=== PATIENT | male | born 1960 | race Caucasian/White ===

== ENCOUNTER 2020-04-14 07:00 | Emergency (ER) | payer OTHER, SELFPAY ==
[2020-04-14 07:15] VITALS: BP 163/94; PULSE 64; RESP 18; TEMP 36.8; O2SAT 98; BMI 39.5
--- NOTE | 2020-04-14 07:23 | PC.NURSE ---
during triage pt states i cant take my sweatshirt off because im carrying a firearm yanno cause we are in [place]. charge and security made aware of situation.
--- NOTE | 2020-04-14 07:36 | ED.GENADULT ---
HPI - General Adult General Chief complaint: General Medical Stated complaint: covid symptoms Time Seen by Provider: 04/14/20 07:26 Source: patient Mode of arrival: ambulatory Limitations: no limitations History of Present Illness HPI narrative: patient without any significant lung issues in the past came here for COVID testing as having headache body ache for last 3 days with dry cough patient's roommate boyfriend was positive for COVID. Patient been testing his oxygen which is around 98% at room air patient denies any fever Onset (ago): day(s) (3) Related Data Home Medications Medication Instructions Recorded Confirmed aspirin 81 mg tablet,delayed 81 mg PO DAILY 03/19/20 03/19/20 release atorvastatin 20 mg tablet 20 mg PO DAILY 03/19/20 03/19/20 baclofen 10 mg tablet 20 mg PO DAILY tab 03/19/20 03/19/20 diazepam 5 mg tablet 5 mg PO BEDTIME PRN 03/19/20 03/19/20 diltiazem HCl 360 mg capsule,24 360 mg PO DAILY 03/19/20 03/19/20 hr,extended release duloxetine 60 mg capsule,delayed 60 mg PO DAILY 03/19/20 03/19/20 release hydrocodone 5 mg-acetaminophen 325 1 tab PO BID PRN 03/19/20 03/19/20 mg tablet lisinopril 10 mg tablet 10 mg PO DAILY 03/19/20 03/19/20 meloxicam 15 mg tablet 15 mg PO DAILY 03/19/20 03/19/20 omeprazole 20 mg capsule,delayed 20 mg PO DAILY 03/19/20 03/19/20 release oxybutynin chloride 5 mg tablet 5 mg PO DAILY 03/19/20 03/19/20 trazodone 100 mg tablet 100 mg PO DAILY 03/19/20 03/19/20 Allergies Allergy/AdvReac Type Severity Reaction Status Date / Time Penicillins [PCN] Allergy Unknown RASH Verified 03/19/20 14:26 Penicillins Allergy Unknown rash Uncoded 03/19/20 14:26 Tylox Allergy Unknown unknown Uncoded 03/19/20 14:26 Review of Systems Review of Systems: REVIEW OF SYSTEMS: Pertinent positives and negatives are stated above in the history. GEN: no fevers, chills, fatigue ++ HEENT: no nasal congestion, sore throat, ear pain NEURO: no headache, dizziness, focal weakness PULM:dry cough+ , no shortness of breath CV: no chest pain, palpitations, LE edema ABD: no abdominal pain, nausea, vomiting, diarrhea : no dysuria, urgency, frequency SKIN: no rash ROS otherwise negative x 10 [facility] Past Medical History Medical History Afib Carpal tunnel syndrome on both sides Failed back syndrome of lumbar spine Hernia HTN (hypertension) Family History Family History Father Heart attack HTN (hypertension) Mother HTN (hypertension) Heart attack Social History Social History Alcohol intake: never Smoking Status: Never smoker Smoked in Last 30 Days: No Use of substances other than those prescribed or required for medical reasons: No Advance Directives: No Advance Directives Information Provided: No Physical Exam Vital Signs: Vital Signs: Last Vital Signs Temp 98.2 F 04/14/20 07:15 Pulse 64 04/14/20 07:15 Resp 18 04/14/20 07:15 BP 163/94 H 04/14/20 07:15 Pulse Ox 98 04/14/20 07:15 Body Mass Index 39.5 Appearance: Alert. Oriented X3. No acute distress. Eyes: Pupils equal, round and reactive to light. ENT: Pharynx normal. Neck: Normal inspection. Neck supple. CVS: Normal heart rate and rhythm. Pulses normal. Respiratory: No respiratory distress. Breath sounds normal. Abdomen: Soft and nontender. Skin: Skin warm and dry. Normal skin color. Normal skin turgor. Extremities: No lower extremity edema. Good range of movement Neuro: Oriented X 3. No motor deficit. No sensory deficit. Medical Decision Making MDM Narrative Medical decision making narrative: patient likely with COVID 19 infection clinically stable lungs are clear saturating 98% at room air patient has pulse ox machine at home will continue to check his pulse ox at home advised to come to the ER if pulse ox drops less than 94%. COVID testing was done patient educated about COVID and social distancing Discharge Plan Discharge Clinical Impression: Close exposure to 2019 novel coronavirus Patient Disposition: Home, Self-Care Instructions: COVID-19 (Coronavirus Disease 2019) (ED) Additional Instructions: Tylenol for headache, keep social distancing your result will come in next 2-3 days and will inform you Prescriptions: No Action omeprazole 20 mg capsule,delayed release(DR/EC) 20 mg PO DAILY RF: 0 aspirin 81 mg tablet,delayed release (DR/EC) 81 mg PO DAILY RF: 0 atorvastatin 20 mg tablet 20 mg PO DAILY RF: 0 baclofen 10 mg tablet 20 mg PO DAILY RF: 0 diazepam 5 mg tablet 5 mg PO BEDTIME PRNRF: 0 diltiazem HCl 360 mg capsule,extended release 24 hr 360 mg PO DAILY RF: 0 duloxetine 60 mg capsule,delayed release(DR/EC) 60 mg PO DAILY RF: 0 hydrocodone-acetaminophen 5-325 mg tablet 1 tab PO BID PRNRF: 0 meloxicam 15 mg tablet 15 mg PO DAILY RF: 0 lisinopril 10 mg tablet 10 mg PO DAILY RF: 0 trazodone 100 mg tablet 100 mg PO DAILY RF: 0 oxybutynin chloride 5 mg tablet 5 mg PO DAILY RF: 0 Interventions: ED Discharge Assessment Last Done: 04/14/20 07:30 Discharge Date/Time: 04/14/20 07:31
== END 2020-04-14 07:31 | disposition home or self-care (01) ==
LOC: HO.ED 07:27
PROVIDERS: Emergency Provider Internal Medicine
DX: R05 Cough (principal); M79.10 Myalgia, unspecified site; R51.9 Headache, unspecified; Z79.899 Other long term (current) drug therapy; Z20.828 Contact with and (suspected) exposure to other viral communicable diseases
CPT/HCPCS: 99283; U0003

== ENCOUNTER 2020-06-18 10:43 | Outpatient (REF) | payer OTHER, SELFPAY ==
[2020-06-18 14:26] LABS: Alanine Aminotransferase 16 U/L (0-40); Albumin Level 4.5 g/dL (3.5-5.0); Alkaline Phosphatase 117 U/L (39-117); Anion Gap 14 (12-20); Aspartate Amino Transferase 18 U/L (5-37); Bilirubin Total 0.6 mg/dL (0.0-1.0); Blood Urea Nitrogen 13 mg/dL (9-16); Calcium 8.8 mg/dL (8.4-10.2); Carbon Dioxide 24 mmol/L (22-29); Chloride 105 mmol/L (96-108); Cholesterol 174 mg/dL; Estimated Glomerular Filt Rate > 60; Glucose Fasting 90 mg/dL (60-99); HDL Cholesterol 49 mg/dL; LDL Cholesterol Calculated 109 mg/dl; Sodium 139 mmol/L (135-145); Total Protein 7.4 g/dL (6.5-8.0); Triglycerides 81 mg/dL
[2020-06-18 14:48] LABS: Prostate Specific Antigen Scr 0.27 ng/mL (<0.05-4.0); TSH reflex Free T4 1.11 uIU/mL (0.32-4.0)
== END 2020-06-18 10:44 | disposition home or self-care (01) ==
LOC: HO.HMGCLDS 10:43
PROVIDERS: PCP Nurse Practitioner Family; Visit Provider Nurse Practitioner Family
DX: Z00.00 Encounter for general adult medical examination without abnormal findings (principal); Z12.5 Encounter for screening for malignant neoplasm of prostate
CPT/HCPCS: 36415; 80053; 80061; 84153; 84443

== ENCOUNTER → 2020-07-03 14:10 | Outpatient (BNVA) | payer OTHER, SELFPAY | PROVIDERS: PCP Nurse Practitioner Family; Visit Provider Anesthesiology | DX: R25.2 Cramp and spasm (principal); M51.36 Other intervertebral disc degeneration, lumbar region; M47.816 Spondylosis without myelopathy or radiculopathy, lumbar region; M47.817 Spondylosis without myelopathy or radiculopathy, lumbosacral region; G89.4 Chronic pain syndrome | CPT/HCPCS: 99202 ==

== ENCOUNTER 2020-07-05 11:00 | Outpatient (RCR) | payer OTHER, SELFPAY ==
--- NOTE | 2020-06-25 14:28 | MHC.PT.EP ---
[facility] [place] Office [place] Office [place] Office [address] [phone] F: [phone] F: [phone] F: [phone] F: [phone] Physical Therapy Plan of Care Date of Evaluation: 06/25/20 Date of Surgery: Diagnosis: Pain in R shoulder. Assessment: Pt is a 59 y/o male referred to PT for R shoulder pain who presents with signs and sx consistent with R shoulder dysfunction resulting in decreased tolerance and ability to perform reaching a high shelf, dressing pullovers, reaching his neck and back for hygiene/ dressing and carrying objects of weight as well as disturbed sleep secondary to decreased UE strength and ROM, decreased posture, increased tissue tension and pain. Pt is deemed an appropriate candidate to receive skilled PT in order to address his physical limitations to improve his functional ability. Frequency and Duration: The patient will be seen 2 x / wk x 5 wks. Short Term Goals: In 1 week: initiate HEP with evidence of compliance. In 3 weeks: improve baseline pain from 7/10 to < 4/10. Security Architect Goals: In 5 weeks: Pt will be able to place objects on high shelf with managed Sx. In 5 weeks: improve R shoulder flexion MMT to > 4/5, initial 4-/5 limited by pain. Treatment Plan: Modalities to reduce pain, spasms and effusion. Manual therapy to restore motion and function. Therapeutic exercise to improve strength and flexibility. Neuromuscular re-education for posture and balance. Therapeutic activities to return to functional activities of daily living. Electronically signed by: Mal Greene PT. Please sign and return to therapist. Thank you for your referral.
--- NOTE | 2020-09-05 15:48 | MHC.PT.DC ---
[facility] [place] Office [place] Office [place] Office [address] Carlos Jones 140 [facility] [phone] F: [phone] F: [phone] F: [phone] F: [phone] Physical Therapy Discharge Report Diagnosis: Pain in R shoulder. Date of Surgery: Date of Evaluation: 06/25/20 Date of Discharge: Treatments to Date: 2 Cancellations to Date: 0 No Shows to Date: 0 Discharge Status: Patient Elected to Stop Discharge Summary: Electronically signed by: Mal Greene PT. Please sign and return to therapist. Thank you for your referral.
== END 2020-09-05 15:52 | disposition home or self-care (01) ==
LOC: HO.PTCHIC 11:00
PROVIDERS: Visit Provider Nurse Practitioner Family
DX: M25.511 Pain in right shoulder (principal)
CPT/HCPCS: 97014; 97110; 97161

== ENCOUNTER → 2020-08-01 10:03 | Outpatient (BNVA) | payer OTHER, SELFPAY | PROVIDERS: PCP Nurse Practitioner Family; Visit Provider Anesthesiology | DX: M51.36 Other intervertebral disc degeneration, lumbar region (principal); M47.816 Spondylosis without myelopathy or radiculopathy, lumbar region; M47.817 Spondylosis without myelopathy or radiculopathy, lumbosacral region; G89.4 Chronic pain syndrome; R25.2 Cramp and spasm; Z79.899 Other long term (current) drug therapy | CPT/HCPCS: Q3014 ==

== ENCOUNTER 2020-09-25 10:42 | Outpatient (REF) | payer OTHER, SELFPAY ==
[2020-09-25 14:48] LABS: TSH reflex Free T4 0.96 uIU/mL (0.32-4.0)
[2020-09-25 14:50] LABS: Alanine Aminotransferase 22 U/L (0-40); Albumin Level 4.5 g/dL (3.5-5.0); Alkaline Phosphatase 118 U/L (39-117); Anion Gap 13 (12-20); Aspartate Amino Transferase 18 U/L (5-37); Bilirubin Total 0.6 mg/dL (0.0-1.0); Blood Urea Nitrogen 12 mg/dL (9-16); Calcium 9.1 mg/dL (8.4-10.2); Carbon Dioxide 27 mmol/L (22-29); Chloride 104 mmol/L (96-108); Estimated Glomerular Filt Rate > 60; Glucose Fasting 99 mg/dL (60-99); Potassium 4.2 mmol/L (3.3-5.1); Sodium 140 mmol/L (135-145); Total Protein 7.5 g/dL (6.5-8.0)
== END 2020-09-25 10:43 | disposition home or self-care (01) ==
LOC: HO.HMGCLDS 10:42
PROVIDERS: PCP Nurse Practitioner Family; Visit Provider Nurse Practitioner Family
DX: G89.4 Chronic pain syndrome (principal)
CPT/HCPCS: 36415; 80053; 84443

== ENCOUNTER → 2020-10-16 10:19 | Outpatient (BNVA) | payer OTHER, SELFPAY | PROVIDERS: PCP Nurse Practitioner Family; Referring Provider Nurse Practitioner Family; Visit Provider Internal Medicine | DX: I48.0 Paroxysmal atrial fibrillation (principal); I10 Essential (primary) hypertension; G47.33 Obstructive sleep apnea (adult) (pediatric) | CPT/HCPCS: 93005; 99212 ==

== ENCOUNTER → 2020-10-30 13:41 | Outpatient (REF) | payer OTHER, SELFPAY ==
--- NOTE | 2020-10-30 13:50 | ECG_ITS ---
Hook-up date: 2020-10-30 13:54:00 Duration: 24:37:00 Test Indications: PAF Medications: 93126 QRS complexes 57 Ventricular ectopics which represent <1 % of total QRS comp. 62 Supraventricular ectopics which represent <1 % of total QRS comp. * Paced QRS complexs which represent % of total QRS comp. VENTRICULAR ECTOPY 57 Isolated 0 Bigeminal Cycles 0 Couplets 0 Runs 0 Beats in Runs * Beats LONGEST at * BPM at :: -- * Beats FASTEST at * BPM at :: -- SUPRAVENTRICULAR ECTOPY 37 Isolated 6 Couplets 3 Runs 13 Beats in Runs 5 Beats LONGEST at 107 BPM at 04:20:58 2020-10-31 5 Beats FASTEST at 122 BPM at 11:54:51 2020-10-31 HEART RATES 41 MIN at 08:17:32 2020-10-31 66 AVG 108 MAX at 19:18:01 2020-10-30 LONGEST RR 1.5120 secs at 08:17:33 2020-10-31 S-T LEVELS Channel 1 - 128 mm at 13:54:00 2020-10-30 - 128 mm at 13:54:00 2020-10-30 Channel 2 - 128 mm at 13:54:00 2020-10-30 - 128 mm at 13:54:00 2020-10-30 Channel 3 - 128 mm at 03:31:31 -- - 128 mm at 03:31:31 Basic rhythm Normal sinus rhythm No long pause or profound bradycardia Frequent Sinus bradycardia , 33% of time HR < 60 bpm Rare ectopics No sustained Atrial fibrillation Patient did not report any symptoms in the diary Referred By: Jhonny Ballard Overread By: LÁZARO BECKWITH MD
== END ==
LOC: HO.CARD 13:41
PROVIDERS: Visit Provider Internal Medicine
DX: I48.0 Paroxysmal atrial fibrillation (principal)
CPT/HCPCS: 93225; 93226

== ENCOUNTER 2020-11-26 05:48 | Outpatient (REF) | payer OTHER, SELFPAY ==
--- NOTE | ~2020-11-26 | FL_ITS ---
EXAMINATION: XR FLUOROSCOPY WITH IMAGES CLINICAL INFORMATION: G89.4 - Chronic pain syndrome COMPARISON: CT abdomen and pelvis 06/19/2019 TECHNIQUE: Fluoroscopy performed by Megan Fitzgerald NP. Fluoroscopy time: 0.1 minutes DAP: 2.82 Gycm2 Images: 1 FINDINGS: There is interlaminar spinal needle at level of L2-L3. There is some mild spurring of the lumbar vertebral bodies and degenerative disc changes L1-L2. FL/FL guidance in treatment room IMPRESSION: Fluoroscopy for pain management procedure.
== END 2020-11-26 05:49 | disposition home or self-care (01) ==
LOC: HO.RADIR 05:48
PROVIDERS: Visit Provider Anesthesiology
DX: G89.4 Chronic pain syndrome (principal); M96.1 Postlaminectomy syndrome, not elsewhere classified; M51.36 Other intervertebral disc degeneration, lumbar region; M47.816 Spondylosis without myelopathy or radiculopathy, lumbar region; M47.817 Spondylosis without myelopathy or radiculopathy, lumbosacral region; R25.2 Cramp and spasm
CPT/HCPCS: 62323; J1170; Q9967

== ENCOUNTER → 2020-12-03 13:39 | Outpatient (BNVA) | payer OTHER, SELFPAY | PROVIDERS: PCP Nurse Practitioner Family; Visit Provider Nurse Practitioner Family | DX: M51.36 Other intervertebral disc degeneration, lumbar region (principal); R25.2 Cramp and spasm; M47.816 Spondylosis without myelopathy or radiculopathy, lumbar region; M47.817 Spondylosis without myelopathy or radiculopathy, lumbosacral region; G89.4 Chronic pain syndrome | CPT/HCPCS: 99212 ==

== ENCOUNTER 2020-12-31 06:10 | Outpatient (REF) | payer OTHER, SELFPAY | END 2020-12-31 06:11 | disposition home or self-care (01) | LOC: HO.RADIR 06:10 | PROVIDERS: Visit Provider Anesthesiology | DX: Z13.89 Encounter for screening for other disorder (principal) | CPT/HCPCS: J1170; Q9967 ==

== ENCOUNTER 2021-01-14 06:19 | Outpatient (REF) | payer OTHER, SELFPAY ==
--- NOTE | ~2021-01-14 | FL_ITS ---
EXAMINATION: XR FLUOROSCOPY WITH IMAGES CLINICAL INFORMATION: Chronic pain syndrome COMPARISON: Previous exam 11/26/2020 TECHNIQUE: Fluoroscopy performed by Megan Fitzgerald NP. Fluoroscopy time: 0.4 minutes DAP: 22 Gycm2 Images: 2 FINDINGS: Images demonstrate needle projecting over the spinal canal at the L1-L2 level. FL/FL guidance in treatment room IMPRESSION: Fluoroscopy guidance for pain management procedure.
== END 2021-01-14 06:20 | disposition home or self-care (01) ==
LOC: HO.RADIR 06:19
PROVIDERS: Visit Provider Anesthesiology
DX: G89.4 Chronic pain syndrome (principal); M96.1 Postlaminectomy syndrome, not elsewhere classified; R25.2 Cramp and spasm; M47.816 Spondylosis without myelopathy or radiculopathy, lumbar region; M47.817 Spondylosis without myelopathy or radiculopathy, lumbosacral region; M51.36 Other intervertebral disc degeneration, lumbar region
CPT/HCPCS: 62323; J1170; Q9967

== ENCOUNTER → 2021-01-22 10:13 | Outpatient (BNVA) | payer OTHER, SELFPAY | PROVIDERS: PCP Nurse Practitioner Family; Visit Provider Anesthesiology | DX: M51.36 Other intervertebral disc degeneration, lumbar region (principal); M47.816 Spondylosis without myelopathy or radiculopathy, lumbar region; M47.817 Spondylosis without myelopathy or radiculopathy, lumbosacral region; R25.2 Cramp and spasm; G89.4 Chronic pain syndrome | CPT/HCPCS: 99212 ==

== ENCOUNTER → 2021-01-29 10:54 | Outpatient (BNVA) | payer OTHER, SELFPAY | PROVIDERS: PCP Nurse Practitioner Family; Visit Provider Internal Medicine | DX: I48.0 Paroxysmal atrial fibrillation (principal); I10 Essential (primary) hypertension; G47.33 Obstructive sleep apnea (adult) (pediatric) | CPT/HCPCS: Q3014 ==

== ENCOUNTER 2021-03-18 05:45 | Outpatient (REF) | payer OTHER, SELFPAY ==
--- NOTE | ~2021-03-18 | FL_ITS ---
EXAMINATION: XR FLUOROSCOPY WITH IMAGES CLINICAL INFORMATION: Chronic pain syndrome. COMPARISON: 01/14/2021. TECHNIQUE: Fluoroscopy performed by Megan Fitzgerald. Fluoroscopy time: 0.3 minutes DAP: 5.4 Gycm2 Images: 1 FINDINGS: Lateral view of the lumbar spine demonstrates an interlaminar spinal needle at the level of L2-L3. FL/FL guidance in treatment room IMPRESSION: Fluoroscopic guidance for pain management procedure.
== END 2021-03-18 05:46 | disposition home or self-care (01) ==
LOC: HO.RADIR 05:45
PROVIDERS: Visit Provider Anesthesiology
DX: G89.4 Chronic pain syndrome (principal); M96.1 Postlaminectomy syndrome, not elsewhere classified; M51.36 Other intervertebral disc degeneration, lumbar region; M47.817 Spondylosis without myelopathy or radiculopathy, lumbosacral region; R25.2 Cramp and spasm
CPT/HCPCS: 62323; J3010; Q9967

== ENCOUNTER 2021-03-26 10:02 | Outpatient (REF) | payer OTHER, SELFPAY ==
[2021-03-26 11:59] LABS: Appearance Urine CLEAR; Color Urine YELLOW; Glucose Urine UA NEG (NEG); Leukocyte Esterase Urine NEG (NEG); Nitrite Urine NEG (NEG); PH 6.5 (5.0-8.0); Specific Gravity - Urine 1.015 (1.005-1.025); Urine Blood NEG (NEG); Urine Ketones NEG (NEG); Urine Protein NEG (NEG-TRACE)
[2021-03-26 12:25] LABS: Alanine Aminotransferase 17 U/L (0-40); Albumin Level 4.4 g/dL (3.5-5.0); Alkaline Phosphatase 104 U/L (39-117); Anion Gap 12 (12-20); Aspartate Amino Transferase 16 U/L (5-37); Bilirubin Total 0.5 mg/dL (0.0-1.0); Blood Urea Nitrogen 12 mg/dL (9-16); Calcium 9.2 mg/dL (8.4-10.2); Carbon Dioxide 25 mmol/L (22-29); Chloride 108 mmol/L (96-108); Cholesterol 154 mg/dL; Estimated Glomerular Filt Rate > 60; Glucose Fasting 96 mg/dL (60-99); HDL Cholesterol 45 mg/dL; LDL Cholesterol Calculated 94 mg/dl; Sodium 141 mmol/L (135-145); Total Protein 7.3 g/dL (6.5-8.0); Triglycerides 75 mg/dL
[2021-03-26 12:47] LABS: TSH reflex Free T4 0.76 uIU/mL (0.32-4.0)
== END 2021-03-26 10:03 | disposition home or self-care (01) ==
LOC: HO.LAB 10:02
PROVIDERS: Absent Provider Nurse Practitioner Family; PCP Nurse Practitioner Family; Visit Provider Anesthesiology
DX: F41.9 Anxiety disorder, unspecified (principal); R25.2 Cramp and spasm; M51.36 Other intervertebral disc degeneration, lumbar region; M47.816 Spondylosis without myelopathy or radiculopathy, lumbar region; M47.817 Spondylosis without myelopathy or radiculopathy, lumbosacral region; G89.4 Chronic pain syndrome
CPT/HCPCS: 36415; 80053; 80061; 81003; 84443; 99212

== ENCOUNTER 2021-04-22 | Outpatient (REF) | payer OTHER, SELFPAY ==
--- NOTE | ~2021-04-22 | FL_ITS ---
EXAMINATION: XR FLUOROSCOPY WITH IMAGES CLINICAL INFORMATION: M96.1 - Postlaminectomy syndrome, not elsewhere classified COMPARISON: Fluoroscopic spot view lumbar spine 03/18/2021 TECHNIQUE: Fluoroscopy performed by Dr. Cosmo Thomas. Fluoroscopy time: 0.1 minutes DAP: 2.25 Gycm2 Images: 2 FINDINGS: There is a spinal needle at midline interlaminar space approximately L3-L4. No vertebral compression or spondylolisthesis demonstrated. FL/FL guidance in treatment room IMPRESSION: Fluoroscopy for pain management procedure.
== END 2021-04-22 00:01 | disposition home or self-care (01) ==
LOC: HO.RADIR
PROVIDERS: Visit Provider Anesthesiology
DX: Z13.89 Encounter for screening for other disorder (principal)

== ENCOUNTER → 2021-04-22 11:27 | Outpatient (BNVA) | payer OTHER, SELFPAY | PROVIDERS: PCP Nurse Practitioner Family; Visit Provider Anesthesiology | DX: M96.1 Postlaminectomy syndrome, not elsewhere classified (principal); G89.4 Chronic pain syndrome; M51.36 Other intervertebral disc degeneration, lumbar region; M47.816 Spondylosis without myelopathy or radiculopathy, lumbar region; M47.817 Spondylosis without myelopathy or radiculopathy, lumbosacral region; R25.2 Cramp and spasm | CPT/HCPCS: 62323; Q9967 ==

== ENCOUNTER → 2021-04-30 12:47 | Outpatient (BNVA) | payer OTHER, SELFPAY | PROVIDERS: PCP Nurse Practitioner Family; Visit Provider Anesthesiology | DX: M51.36 Other intervertebral disc degeneration, lumbar region (principal); M47.816 Spondylosis without myelopathy or radiculopathy, lumbar region; M47.817 Spondylosis without myelopathy or radiculopathy, lumbosacral region; G89.4 Chronic pain syndrome; R25.2 Cramp and spasm | CPT/HCPCS: 99212 ==

== ENCOUNTER → 2021-06-11 11:37 | Outpatient (BNVA) | payer OTHER, SELFPAY | PROVIDERS: PCP Nurse Practitioner Family; Visit Provider Anesthesiology | DX: M47.816 Spondylosis without myelopathy or radiculopathy, lumbar region (principal); M47.817 Spondylosis without myelopathy or radiculopathy, lumbosacral region; G89.4 Chronic pain syndrome; R25.2 Cramp and spasm | CPT/HCPCS: Q3014 ==

== ENCOUNTER 2021-07-24 10:50 | Day surgery (SDC) | payer OTHER, SELFPAY ==
[2021-07-22 16:51] VITALS: BMI 36.1
--- NOTE | ~2021-07-24 | FL_ITS ---
EXAMINATION: XR FLUOROSCOPY WITH IMAGES CLINICAL INFORMATION: Lumbar spinal cord stimulator trial COMPARISON: None. TECHNIQUE: Fluoroscopy performed by Dr. Cosmo Thomas. Fluoroscopy time: 5.2 minutes DAP: 35.7 Gycm2 Images: 8 FINDINGS: Spinal stimulator wiring is visualized extending along the thoracic spine. FL/FL guidance in OR IMPRESSION: Fluoroscopic guidance with spinal stimulator wiring extending to the thoracic levels. Please refer to operative report for further information.
[2021-07-24 11:04] VITALS: BP 143/84; PULSE 67; RESP 18; TEMP 36.7; O2SAT 99
--- NOTE | 2021-07-24 11:17 | MHC.SHP ---
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 Details of Present Illness: As above Relevant Family History (Specify if Yes): No Relevant Social History: None Present Medications: see Short Stay Collaborative assessment Medical History: No relevant PMH History of Previous Operations: No relevant previous surgery Allergies: Allergies Allergy/AdvReac Type Severity Reaction Status Date / Time oxycodone [From Tylox] Allergy Severe throat Verified 07/22/21 16:37 swelling Penicillins [PCN] Allergy Severe throat Verified 07/22/21 16:37 swelling Review of Systems Sugical H&P ROS: Negative: Constitution, Cardiovascular, Respiratory, Neurological, Psychiatric, Hem-Onc, Allergic/Immunologic, Gastrointestinal, Genitourinary, Musculoskeletal, Integumentary, Endocrine and Eyes/Ears/Nose/Throat Exam Surgical H&P Exam: Normal: HEENT, Normal: Heart, Normal: Lungs, Normal: Extremities, Normal: Abdomen, Normal: Skin and Normal: Neurological Plan Diagnosis/Plan: Unchanged I have reviewed the history and physical and performed a pertinent physical examination on my patient. No changes have occurred unless specified.
--- NOTE | 2021-07-24 11:18 | P.OP_ITS ---
Operative Note Operative Note Date of Service: 07/24/21 Narrative: Trial OF SCS. ? Mr Ross s very pleasant? 60 y.o male who came today into the operating room for trial of spinal cord stimulator Nevro for the treatment of post laminectomy syndrome. Preoperatively patient received Clindamicin 900 mg approximately 30 min before procedure. After obtaining informed consent patient was brought to the operating room, SHE was positioned prone on operating table, [place] [employer] monitors were applied and patient was deeply sedated.? The patient was taken inside of the operating room where he was positioned prone operating table.? Time-out was performed delineating correct site, side, the nature of the procedure, patient's allergy, preoperative antibiotic if needed.? All operating room staff was participating in OR time-out procedure. Patient's entire back was prepped with ChloraPrep twice and draped with full body fenestrated drape.? Sterilely draped C-arm was brought over operating field and sqare picture of T11-T12 L1 L2 vertebrae as were demonstrated on the screen.? Attention FIRST? was concentrated on the L1-L23 epidural interspace.? The location of the projection of the right pedicle center of the _L3 vertebra was found on the skin using C-arm.? This location was injected with mixture of lidocaine 2% and Marcaine 0.5% 5 cc.? After that 11 blade was used to make a keisha on the skin.? 10 cm 14 gauge introducer epidural needle was inserted through the keisha and advanced to L1-L2 epidural interspace.? The advancement of the needle was performed on anterior posterior and lateral views.?CHRISTINA to air was used to detect epidural space. Guitar wire and loss of resistance technique were used to locate epidural space.? When guitar wire was spread in the epidural fashion, epidural lead was inserted through the skin and it was advanced to top T8 position PRACTICALLY at THE MIDLINE.? After that location of the projection of the LEFT pedicle center of the L3 vertebra was found on the skin using C-arm.? This location was injected with mixture of lidocaine 2% and Marcaine 0.5% 5 cc.? After that 11 blade was used to make a keisha on the skin.? 10 cm 14 gauge curved introducer epidural needle was inserted through the keisha and advanced to L1- L2 epidural interspace.? The advancement of the needle was performed on anterior posterior and lateral views.? Guitar wire and loss of resistance technique were used to locate epidural space.? When guitar wire was spread in the epidural fashion, epidural lead was inserted through the needle and advanced to the T9 epidural interspace slightly left to the existing line.After satisfactory position of the leads were established the needles were withdrawn, the stylette wires were removed from the epidural leads.? The anchoring devices were dislodged on the leads and advanced to the level of the skin.? The anchoring devices were sutured with two 0-0 silk sutures to the skin of the patient.? The screws were tighten on the anchoring devices until 3 clicks were heard. The leads were connected to testing device.? Bacitracin ointment was applied to the entrance point of bilateral needles.? Sterile dressing was applied to the patient's back.? The testing device was also glued to the patient's back.?
--- NOTE | 2021-07-24 12:01 | HO.ANESPROP2 ---
HPI - Anesthesia Eval Consult details Narrative: Chronic Back pain PMFSH Active Problems Active Problems: All Active Problems (Updated 07/22/21 @ 16:40 by Monica Cole, RN) Physical exam (Acute) Screening PSA (prostate specific antigen) (Acute) Close exposure to 2019 novel coronavirus (Acute) Right shoulder pain (Acute) Cramps of lower extremity (Acute) Overactive bladder (Acute) PAF (paroxysmal atrial fibrillation) (Acute) ELIF (obstructive sleep apnea) (Acute) Anxiety (Acute) Essential hypertension (Acute) Nocturia (Acute) Chronic pain syndrome (Acute) Spondylosis of lumbosacral spine without myelopathy (Acute) Arthropathy of lumbar facet joint (Acute) Disc degeneration, lumbar (Acute) Failed back syndrome of lumbar spine (Acute) Afib (Acute) Past Medical History Medical History Afib Anxiety and depression Arthropathy of lumbar facet joint Carpal tunnel syndrome on both sides Chronic pain syndrome Disc degeneration, lumbar Essential hypertension Failed back syndrome of lumbar spine GERD (gastroesophageal reflux disease) Hernia HTN (hypertension) Hx of renal calculi Murmur Nocturia Spondylosis of lumbosacral spine without myelopathy Family History Family History Father Heart attack HTN (hypertension) Mother HTN (hypertension) Heart attack Family history of problems with anesthesia: No Surgical History Surgical History H/O arthroscopic knee surgery History of carpal tunnel release of both wrists Hx of cholecystectomy Hx of foot surgery Hx of hernia repair History of Problems with Anesthesia: No Social History Social History Housing: House Are you a primary life care planner to a significant other at home: No Do you presently have visiting nurse or other home services: No Alcohol intake: never Patient Tobacco Use Status: Never used Tobacco e-Cigarette/Vaping Use: Never Used Second Hand Smoke Exposure: No Use of substances other than those prescribed or required for medical reasons: No Have you been hit, kicked, punched, or otherwise hurt by someone within the past year? If so, by whom?: No Are you DNR?: No Advance Directives: No Advance Directives Information Provided: Yes Advance Directives on File: No Recently lost weight without trying: No service: No Current occupational status: disabled Meds Allergies Allergy/AdvReac Type Severity Reaction Status Date / Time oxycodone [From Tylox] Allergy Severe throat Verified 07/22/21 16:37 swelling Penicillins [PCN] Allergy Severe throat Verified 07/22/21 16:37 swelling Active Medications: Current Medications Clindamycin Phosphate (Cleocin) 900 mg in 50 mls @ 50 mls/hr IV PREOP ONE Stop: 07/24/21 12:02 Lactated Ringer's (Lr) 1,000 mls @ 50 mls/hr IVCONT .Q20H BIGG Home Medications Medication Instructions Recorded Confirmed Last Taken Type aspirin 81 mg tablet,delayed 81 mg PO DAILY 03/19/20 07/22/21 Unknown History release atorvastatin 20 mg tablet 20 mg PO BEDTIME 03/19/20 07/22/21 Unknown History duloxetine 60 mg capsule,delayed 60 mg PO DAILY 03/19/20 07/22/21 Unknown History release baclofen 10 mg tablet 20 mg PO BID 07/22/21 07/22/21 Unknown History Exam Exam Date and Time: July 24, 2021 1201 Height,Weight and Vital Signs: Height 5 ft 8 in Weight 107.955 kg Last Vital Signs Temp 98.1 F 07/24/21 11:04 Pulse 67 07/24/21 11:04 Resp 18 07/24/21 11:04 BP 143/84 H 07/24/21 11:04 Pulse Ox 99 07/24/21 11:04 Airway Mallampati Class: II TM Dist: >3cm Neck ROM: Full Loose/Missing/Broken Teeth: No Heart: rrr+s1s2 Lungs: cta b/l Assessment and Plan Assessment Anesthesia Assessment: Anesthesia Plan Discussed and Chart Reviewed Final Anesthetic Review Family History of Problems with Anesthesia: No History of Problems with Anesthesia: No NPO: Yes ASA Class: III Final Preanesthetic Review: No Changes in Pt Med Stat, Meds/Allgs Chart Reviewed, Consent Obtained/Reviewed and Anes Risks/Benef Reviewed Patient Risk: Intermediate Procedure Risk: Intermediate Assessment/Block/Sedation in SS: Assess/Block/Sedation-SS Anesthetic Plan Anesthetic Plan: MAC: and Agree w/ Assess. and Plan Disposition: Standard PACU
[2021-07-24 13:53] VITALS: BP 127/84; PULSE 60; RESP 18; TEMP 36.6; O2SAT 96
--- NOTE | 2021-07-24 13:59 | P.BOP_ITS ---
Brief Operative Note Date of Service: 07/24/21 Pre-op diagnosis: postlaminectomy syndrome Procedure: trial of the SCS Nevro Implants: none permanent Surgeon: Cosmo Thomas MD Anesthesia: MAC Was an Vibrating Screed Operator used for this Procedure?: No Estimated blood loss (mL): 6 Pathology: none sent Condition: stable Disposition: PACU
[2021-07-24 14:08] VITALS: BP 136/81; PULSE 58; RESP 16; O2SAT 100
== END 2021-07-24 16:07 | disposition home or self-care (01) ==
PROVIDERS: PCP Nurse Practitioner Family; Visit Provider Anesthesiology
PROC: (CPT 63650; principal; 2021-07-24 12:30)
DX: M47.817 Spondylosis without myelopathy or radiculopathy, lumbosacral region (principal); M47.816 Spondylosis without myelopathy or radiculopathy, lumbar region; G89.4 Chronic pain syndrome; M96.1 Postlaminectomy syndrome, not elsewhere classified; M51.36 Other intervertebral disc degeneration, lumbar region; M54.50 Low back pain, unspecified; R25.2 Cramp and spasm; Z88.0 Allergy status to penicillin; Z79.899 Other long term (current) drug therapy; I48.91 Unspecified atrial fibrillation; I10 Essential (primary) hypertension; Z98.890 Other specified postprocedural states
CPT/HCPCS: 63650 ×2; C1713; C1778; J2250; J2765

== ENCOUNTER → 2021-07-30 11:44 | Outpatient (REF) | payer OTHER, SELFPAY ==
--- NOTE | 2021-07-30 11:56 | CA_ITS ---
Transthoracic Echocardiogram Patient (Last, First, Middle): Richie Ross, Gender: Male Date of : 1960 Age: 60 Procedure Date: 07/30/2021 Procedure Type: Transthoracic Echocardiogram Location: OP Height: 172.72 cm Weight: 107.96 kg BSA: 2.20 m2 Heart Rate: bpm BP: 156 / 96 mmHg Catering Sous Chef: DSTaylor Referring MD: Jhonny Ballard MD Symptoms: I48.0 - Paroxysmal atrial fibrillation Study Quality: Fair ECG Rhythm: Sinus Conclusions: - The left ventricular systolic function is normal. The calculated ejection fraction is 65% by biplane method. - Trace to mild aortic regurgitation. - There is moderate anterior mitral leaflet thickening. - There is mild dilatation of the ascending aorta measuring 4.10 cm. Findings Left Ventricle Normal left ventricular cavity size. There is mildly increased left ventricular wall thickness. The left ventricular systolic function is normal. The calculated ejection fraction is 65% by biplane method. There is no evidence of regional wall motion abnormalities. Diastolic function is normal for age. There is moderate septal asymmetric hypertrophy. Right Ventricle Normal right ventricular cavity size and systolic function. Atria Both atria are normal in size. Aortic Valve There is a normal trileaflet aortic valve. There is no aortic valve stenosis. Trace to mild aortic regurgitation. Mitral Valve There is moderate anterior mitral leaflet thickening. There is mild mitral annular calcification. There is trace mitral valve regurgitation. There is no mitral valve stenosis. Pulmonic Valve The pulmonic valve was not well visualized. Tricuspid Valve There is trace tricuspid valve regurgitation. The pulmonary artery systolic pressure is normal. Great Vessels There is mild dilatation of the ascending aorta measuring 4.10 cm. Venous The inferior vena cava is normal in size and collapses greater than 50% with inspiration. Pericardium/Pleural There is no evidence of pericardial effusion. Prior Study Comparison No prior study available for comparison. Measurements 2D Linear Measurements IVSd: 1.36 0.6-0.9/0.6-1.0 cm LVIDd: 5.08 3.9-5.3/4.2-5.9 cm LVIDd Index: 2.31 2.4-3.2/2.2-3.1 cm/m2 LVIDs: 2.92 2.0-3.6 cm LVPWd: 1.14 0.7-1.1 cm LA Diam: 3.80 2.7-3.8/3.0-4.0 cm LAIDs Index: 1.73 1.5-2.3 cm/m2 LV Mass: 316.60 67-162/88-224 g LV Mass Index: 143.91 43-95/49-115 g/m2 LVOT Diam: 2.30 3.0+(-)1.3 cm 2D Systolic Function EF 4C: 57.30 >55% EF 2C: 73.80 >55% EF BiP: 65.20 >55% Mitral Valve MV Pk E: 0.98 MV PK A: 0.62 MV Decel Time: 187.00 E/A: 1.60 E'Lateral: 10.00 E'Medial: 7.40 E/E' Med: 13.30 E/E' Lat: 9.80 PHT: 55.00 MVA PHT: 4.00 Decel [place]: 5.23 Aortic Valve AoV Pk Joao: 1.24 AoV Pk Grad: 6.00 AI Pk Joao: 3.72 AI [place]: 1.41 LVOT LVOT Pk Joao: 1.12 LVOT Mn Joao: 0.73 LVOT VTI: 0.22 LVOT Pk Grad: 5.00 LVOT Mn Grad: 2.00 LVOT Diam: 2.30 LVOT Area: 4.15 Diastolic Function MV Pk E: 0.98 MV Pk A: 0.62 E/A: 1.60 E'Medial: 7.40 E/E' Med: 13.30 E' Laterial: 10.00 E/E' Lat: 9.80 Right Ventricle TAPSE (mm): 2.38 TVS' Joao: 16.90 Tricuspid Valve TR Pk Joao: 2.27 TR Pk Grad: 21.00 RA Press: 3.00 RVSP: 24.00 Great Vessels Aorta Sinus of Valsalva: 3.45 2.0-3.5 cm Ao Asc: 4.10 2.1-3.4 cm Updated in Other Vendor System with Status of Final Jhonny Ballard MD electronically signed on 08/01/2021 3:52:13 PM with status of Final
== END ==
LOC: HO.CARD 11:44
PROVIDERS: PCP Nurse Practitioner Family; Visit Provider Internal Medicine
DX: I48.0 Paroxysmal atrial fibrillation (principal); R25.2 Cramp and spasm; M51.36 Other intervertebral disc degeneration, lumbar region; M47.816 Spondylosis without myelopathy or radiculopathy, lumbar region; M47.817 Spondylosis without myelopathy or radiculopathy, lumbosacral region; G89.4 Chronic pain syndrome
CPT/HCPCS: 93306; 99212

== ENCOUNTER → 2021-08-04 12:20 | Outpatient (BNVA) | payer OTHER, SELFPAY | PROVIDERS: PCP Nurse Practitioner Family; Referring Provider Nurse Practitioner Family; Visit Provider Internal Medicine | DX: I48.0 Paroxysmal atrial fibrillation (principal); I77.89 Other specified disorders of arteries and arterioles; I10 Essential (primary) hypertension; G47.33 Obstructive sleep apnea (adult) (pediatric) | CPT/HCPCS: 99212 ==

== ENCOUNTER 2022-02-06 13:38 | Outpatient (REF) | payer OTHER, SELFPAY ==
--- NOTE | ~2022-02-06 | XR_ITS ---
EXAMINATION: XR HIP, RIGHT CLINICAL INFORMATION: Right hip pain COMPARISON: CT 06/19/2019 TECHNIQUE: Two views of the right hip. FINDINGS: Mild right hip osteoarthritis with superolateral narrowing and marginal osteophytes. No fracture. No focal osseous lesion or suspicious soft tissue calcification. XR/XR hip RT min 2V IMPRESSION: Mild right hip osteoarthritis, not significantly changed.
== END 2022-02-06 13:39 | disposition home or self-care (01) ==
LOC: HO.HMGCX 13:38
PROVIDERS: PCP Nurse Practitioner Family; Visit Provider Nurse Practitioner Family
DX: M25.551 Pain in right hip (principal)
CPT/HCPCS: 73502

== ENCOUNTER 2022-04-07 09:30 | Outpatient (REF) | payer OTHER, SELFPAY ==
--- NOTE | ~2022-04-07 | XR_ITS ---
EXAMINATION: XR KNEE AP STANDING CLINICAL INFORMATION: Pain right knee COMPARISON: None TECHNIQUE: AP bilateral standing view of the knees was obtained. Lateral view each knee FINDINGS: AP bilateral knee: There is minimal loss of medial compartment joint space both knees and lateral compartment left knee. There is evidence of previous left ACL repair. No bony erosive changes or loose body seen. Right knee lateral: There is a minimal loss of patellofemoral compartment joint space without loose bodies or bony erosive changes. There is superior patellar spurring. No joint effusion seen. There are no loose bodies. Left knee lateral: There is minimal loss of patellofemoral compartment joint space with superior patellar spurring. No visible acute fracture, loose body seen. XR/XR knee standing BI IMPRESSION: Degenerative arthritic changes medial and lateral compartment joint space both knees as described above. No fracture or dislocation. There is previous left knee ACL repair changes.
[2022-04-07 11:29] LABS: Appearance Urine Clear; Color Urine Yellow; Glucose Urine UA Negative (Negative); Leukocyte Esterase Urine Negative (Negative); Nitrite Urine Negative (Negative); Specific Gravity - Urine 1.025 (1.005-1.025); UMIC TRIGGER UACC YES; Urine Blood Trace (Negative); Urine Ketones Negative (Negative); Urine Protein Negative (Neg-Trace)
[2022-04-07 11:36] LABS: Bacteria Urine None Seen (None Seen); Hyaline Casts Urine 0-2 /LPF (0-2); Squamous Epithelial Cell Urine 0-2 /HPF (0-2); WBC Urine 0-5 /HPF (0-5)
[2022-04-07 11:45] LABS: MANUAL DIFF FLAG NO
[2022-04-07 11:55] LABS: Basophils Absolute Auto 0.1 X10*3/uL (0.0-0.2); Basophils Percent Auto 1.1 % (0-2); Eosinophils Absolute Auto 0.2 X10*3/uL (0.0-0.4); Eosinophils Percent Auto 3.9 % (0-4); Hematocrit 40.2 % (42.0-52.0); Hemoglobin 13.6 g/dl (14.0-18.0); Lymphocytes Absolute Auto 1.7 X10*3/uL (1.2-4.9); Lymphocytes Percent Auto 35.4 % (20-40); Mean Corpuscular HGB Conc 33.8 g/dl (31.0-36.0); Mean Corpuscular Hemoglobin 29.9 pg (27.0-33.0); Mean Corpuscular Volume 88.4 fL (80.0-98.0); Monocytes Absolute Auto 0.3 X10*3/uL (0.1-1.2); Monocytes Percent Auto 6.4 % (2-11); Neutrophils Absolute Auto 2.5 x10*3/uL (2.0-8.3); Neutrophils Percent Auto 53.2 % (45-73); Platelet Count 250 X10*3/uL (160-400); Red Blood Count 4.55 X10*6/uL (4.60-5.80); Red Cell Distribution Width 12.8 % (11.0-16.0); White Blood Count 4.7 X10*3/uL (4.8-10.8)
[2022-04-07 13:12] LABS: Alanine Aminotransferase 16 U/L (0-40); Albumin Level 4.6 g/dL (3.5-5.0); Alkaline Phosphatase 110 U/L (39-117); Anion Gap 11 (12-20); Aspartate Amino Transferase 18 U/L (5-37); Bilirubin Total 0.7 mg/dL (0.0-1.0); Blood Urea Nitrogen 14 mg/dL (9-16); Calcium 9.1 mg/dL (8.4-10.2); Carbon Dioxide 27 mmol/L (22-29); Chloride 107 mmol/L (96-108); Cholesterol 176 mg/dL; Estimated Glomerular Filt Rate > 60; Glucose Fasting 92 mg/dL (60-99); HDL Cholesterol 50 mg/dL; LDL Cholesterol Calculated 110 mg/dl; Potassium 3.9 mmol/L (3.3-5.1); Sodium 141 mmol/L (135-145); TSH reflex Free T4 0.83 uIU/mL (0.32-4.0); Total Protein 7.4 g/dL (6.5-8.0); Triglycerides 80 mg/dL
== END 2022-04-07 09:31 | disposition home or self-care (01) ==
LOC: HO.HMGCX 09:30
PROVIDERS: PCP Nurse Practitioner Family; Visit Provider Nurse Practitioner Family
DX: Z12.5 Encounter for screening for malignant neoplasm of prostate (principal); I10 Essential (primary) hypertension; M25.561 Pain in right knee
CPT/HCPCS: 36415; 73565; 80053; 80061; 81001; 84153; 84443; 85025

== ENCOUNTER 2022-04-27 11:22 | Outpatient (REF) | payer OTHER, SELFPAY ==
[2022-04-27 14:28] LABS: Appearance Urine Clear; Color Urine Yellow; Glucose Urine UA Negative (Negative); Leukocyte Esterase Urine Negative (Negative); Nitrite Urine Negative (Negative); PH 6.5 (5.0-9.0); Specific Gravity - Urine 1.025 (1.005-1.025); Urine Blood Negative (Negative); Urine Ketones Trace mg/dL (Negative); Urine Protein Negative (Neg-Trace)
== END 2022-04-27 11:23 | disposition home or self-care (01) ==
LOC: HO.HMGCLDS 11:22
PROVIDERS: PCP Nurse Practitioner Family; Visit Provider Nurse Practitioner Family
DX: R31.29 Other microscopic hematuria (principal)
CPT/HCPCS: 81003

== ENCOUNTER → 2022-09-29 12:14 | Outpatient (BNVA) | payer OTHER, SELFPAY | PROVIDERS: PCP Nurse Practitioner Family; Referring Provider Nurse Practitioner Family; Visit Provider Internal Medicine | DX: I48.0 Paroxysmal atrial fibrillation (principal); I10 Essential (primary) hypertension; I77.89 Other specified disorders of arteries and arterioles; G47.33 Obstructive sleep apnea (adult) (pediatric) | CPT/HCPCS: 99212 ==

== ENCOUNTER 2022-11-05 12:16 | Outpatient (REF) | payer OTHER, SELFPAY ==
[2022-11-05 13:49] LABS: MANUAL DIFF FLAG NO
[2022-11-05 14:08] LABS: Basophils Percent Auto 0.8 % (0-2); Eosinophils Absolute Auto 0.1 X10*3/uL (0.0-0.4); Eosinophils Percent Auto 3.3 % (0-4); Hematocrit 40.4 % (42.0-52.0); Hemoglobin 14.1 g/dl (14.0-18.0); Lymphocytes Absolute Auto 1.3 X10*3/uL (1.2-4.9); Lymphocytes Percent Auto 34.1 % (20-40); Mean Corpuscular HGB Conc 34.9 g/dl (31.0-36.0); Mean Corpuscular Hemoglobin 30.3 pg (27.0-33.0); Mean Corpuscular Volume 86.7 fL (80.0-98.0); Mean Platelet Volume 9.7 fL (9.4-12.4); Monocytes Absolute Auto 0.2 X10*3/uL (0.1-1.2); Monocytes Percent Auto 6.5 % (2-11); Neutrophils Percent Auto 55.3 % (45-73); Platelet Count 204 X10*3/uL (160-400); Red Blood Count 4.66 X10*6/uL (4.60-5.80); Red Cell Distribution Width 13.6 % (11.0-16.0); White Blood Count 3.7 X10*3/uL (4.8-10.8)
[2022-11-05 14:31] LABS: Appearance Urine Clear; Color Urine Dark Yellow; Glucose Urine UA Negative (Negative); Leukocyte Esterase Urine Negative (Negative); Nitrite Urine Negative (Negative); PH 5.5 (5.0-9.0); Specific Gravity - Urine >= 1.030 (1.005-1.025); Urine Blood Negative (Negative); Urine Ketones Trace mg/dL (Negative); Urine Protein Negative (Neg-Trace)
[2022-11-05 15:01] LABS: Alanine Aminotransferase 19 U/L (0-40); Albumin Level 4.4 g/dL (3.5-5.0); Alkaline Phosphatase 88 U/L (39-117); Anion Gap 9 (12-20); Aspartate Amino Transferase 19 U/L (5-37); Bilirubin Total 0.8 mg/dL (0.0-1.0); Blood Urea Nitrogen 14 mg/dL (9-16); Calcium 9.1 mg/dL (8.4-10.2); Carbon Dioxide 27 mmol/L (22-29); Chloride 109 mmol/L (96-108); Cholesterol 163 mg/dL; Estimated Glomerular Filt Rate > 60; Glucose Fasting 101 mg/dL (60-99); HDL Cholesterol 58 mg/dL; LDL Cholesterol Calculated 93 mg/dl; Potassium 3.9 mmol/L (3.3-5.1); Sodium 141 mmol/L (135-145); Total Protein 7.5 g/dL (6.5-8.0); Triglycerides 61 mg/dL
[2022-11-05 15:17] LABS: TSH reflex Free T4 0.94 uIU/mL (0.32-4.0)
== END 2022-11-05 12:17 | disposition home or self-care (01) ==
LOC: HO.HMGCLDS 12:16
PROVIDERS: PCP Nurse Practitioner Family; Visit Provider Nurse Practitioner Family
DX: Z00.00 Encounter for general adult medical examination without abnormal findings (principal); I10 Essential (primary) hypertension; I48.91 Unspecified atrial fibrillation
CPT/HCPCS: 36415; 80053; 80061; 81003; 84443; 85025

== ENCOUNTER → 2022-11-10 13:52 | Outpatient (REF) | payer OTHER, SELFPAY ==
--- NOTE | 2022-11-10 13:54 | CA_ITS ---
Transthoracic Echocardiogram Patient (Last, First, Middle): Richie Ross, Gender: Male Date of : 1960 Age: 62 Procedure Date: 11/10/2022 Procedure Type: Transthoracic Echocardiogram Location: OP Height: 172.72 cm Weight: 100.25 kg BSA: 2.13 m2 Heart Rate: bpm BP: 130 / 70 mmHg White Work Cleaner: TO Referring MD: Jhonny Ballard MD Symptoms: I77.89 - Other specified disorders of arteries and arterioles Study Quality: Fair ECG Rhythm: Sinus Conclusions: - The left ventricular systolic function is normal. The calculated ejection fraction is 56% by biplane method. - There is moderate septal and moderate basal asymmetric hypertrophy. - No obvious valvular pathology seen on this study. - There is mild dilatation of the ascending aorta measuring 4.20 cm. Findings Left Ventricle Normal left ventricular cavity size. The left ventricular systolic function is normal. The calculated ejection fraction is 56% by biplane method. There is no evidence of regional wall motion abnormalities. Diastolic function is normal for age. There is moderate septal and moderate basal asymmetric hypertrophy. LV peak GLS -20.1%. Right Ventricle Mildly increased right ventricular cavity size. There is normal right ventricular systolic function. Atria The left atrium is mildly dilated. The right atrium is normal in size. Aortic Valve There is a normal trileaflet aortic valve. There is mild calcification of the aortic valve. There is no aortic valve stenosis. Trace to mild aortic regurgitation. Mitral Valve There is mild anterior mitral leaflet thickening. There is mild mitral annular calcification. There is no mitral valve regurgitation. There is no mitral valve stenosis. Pulmonic Valve The pulmonic valve is likely normal. Tricuspid Valve There is trace tricuspid valve regurgitation. There is no evidence of pulmonary hypertension. Great Vessels There is mild dilatation of the ascending aorta measuring 4.20 cm. Venous The inferior vena cava is mildly dilated and collapses greater than 50% with inspiration. Pericardium/Pleural There is no evidence of pericardial effusion. Prior Study Comparison No significant change compared to prior study dated: 07/30/2021. Recommendations, Care & Conclusions No obvious valvular pathology seen on this study. Measurements 2D Linear Measurements IVSd: 1.44 0.6-0.9/0.6-1.0 cm LVIDd: 4.36 3.9-5.3/4.2-5.9 cm LVIDd Index: 2.05 2.4-3.2/2.2-3.1 cm/m2 LVIDs: 2.91 2.0-3.6 cm LVPWd: 0.91 0.7-1.1 cm LA Diam: 3.70 2.7-3.8/3.0-4.0 cm LAIDs Index: 1.74 1.5-2.3 cm/m2 LV Mass: 228.56 67-162/88-224 g LV Mass Index: 107.31 43-95/49-115 g/m2 LVOT Diam: 2.40 3.0+(-)1.3 cm 2D Systolic Function EF 4C: 56.30 >55% EF 2C: 55.90 >55% EF BiP: 56.40 >55% Mitral Valve MV VTI: 0.40 MV Pk Joao: 0.82 MV Mn Joao: 0.49 MV Pk Grad: 3.00 MV Mn Grad: 1.00 MV Pk E: 0.81 MV PK A: 0.64 MV Decel Time: 211.00 E/A: 1.30 E'Lateral: 10.20 E'Medial: 6.31 E/E' Med: 12.80 E/E' Lat: 7.90 PHT: 62.00 MVA PHT: 3.55 MVA Continuity: 2.72 Decel [place]: 3.83 Aortic Valve AoV Pk Joao: 1.33 AoV Mn Joao: 0.83 AoV VTI: 0.29 AoV Pk Grad: 7.00 Aov Mn Grad: 3.00 BRUNO Cont.VTI: 3.75 LVOT LVOT Pk Joao: 1.13 LVOT Mn Joao: 0.72 LVOT VTI: 0.24 LVOT Pk Grad: 5.00 LVOT Mn Grad: 2.00 LVOT Diam: 2.40 LVOT Area: 4.52 Diastolic Function MV Pk E: 0.81 MV Pk A: 0.64 E/A: 1.30 E'Medial: 6.31 E/E' Med: 12.80 E' Laterial: 10.20 E/E' Lat: 7.90 Right Ventricle TAPSE (mm): 22.20 TVS' Joao: 12.30 Tricuspid Valve TR Pk Joao: 2.21 TR Pk Grad: 20.00 RA Press: 3.00 RVSP: 23.00 Great Vessels Aorta Sinus of Valsalva: 3.71 2.0-3.[address] [place]: 2.81 1.7-3.4 cm Ao Asc: 4.20 2.1-3.4 cm Ao Arch: 3.10 Updated in Other Vendor System with Status of Final Jhonny Ballard MD electronically signed on 11/11/2022 12:34:08 PM with status of Final
== END ==
LOC: HO.CARD 13:52
PROVIDERS: PCP Nurse Practitioner Family; Visit Provider Internal Medicine
DX: I77.89 Other specified disorders of arteries and arterioles (principal)
CPT/HCPCS: 93306; 93356

== ENCOUNTER 2022-11-28 12:03 | Outpatient (REF) | payer OTHER, SELFPAY ==
[2022-11-28 13:25] LABS: MANUAL DIFF FLAG NO
[2022-11-28 13:44] LABS: Basophils Absolute Auto 0.1 X10*3/uL (0.0-0.2); Basophils Percent Auto 0.9 % (0-2); Eosinophils Absolute Auto 0.1 X10*3/uL (0.0-0.4); Eosinophils Percent Auto 1.4 % (0-4); Hematocrit 42.1 % (42.0-52.0); Hemoglobin 14.4 g/dl (14.0-18.0); Imm Gran Abs Auto 0.01 X10*3/uL (0.00-0.03); Imm Gran Pct Auto 0.2 % (0.0-0.4); Lymphocytes Absolute Auto 1.3 X10*3/uL (1.2-4.9); Mean Corpuscular HGB Conc 34.2 g/dl (31.0-36.0); Mean Corpuscular Hemoglobin 29.8 pg (27.0-33.0); Mean Platelet Volume 9.8 fL (9.4-12.4); Monocytes Absolute Auto 0.3 X10*3/uL (0.1-1.2); Monocytes Percent Auto 4.6 % (2-11); Neutrophils Absolute Auto 3.9 x10*3/uL (2.0-8.3); Neutrophils Percent Auto 69.9 % (45-73); Platelet Count 238 X10*3/uL (160-400); Red Blood Count 4.84 X10*6/uL (4.60-5.80); Red Cell Distribution Width 13.6 % (11.0-16.0); White Blood Count 5.6 X10*3/uL (4.8-10.8)
== END 2022-11-28 12:04 | disposition home or self-care (01) ==
LOC: HO.HMGCLDS 12:03
PROVIDERS: PCP Nurse Practitioner Family; Visit Provider Nurse Practitioner Family
DX: D72.819 Decreased white blood cell count, unspecified (principal)
CPT/HCPCS: 36415; 85025

== ENCOUNTER 2022-12-16 07:33 | Outpatient (REF) | payer OTHER, SELFPAY ==
--- NOTE | ~2022-12-16 | XR_ITS ---
EXAMINATION: XR SHOULDER, LEFT CLINICAL INFORMATION: Pain in left shoulder COMPARISON: None available. TECHNIQUE: AP neutral and scapular Y views of the left shoulder. FINDINGS: The bones are intact. No fracture. Glenohumeral and acromioclavicular alignment is anatomic with normal acromioclavicular joint space. Possible narrowing of the glenohumeral joint. Marked thoracic scoliosis. XR/XR shoulder LT min 2V IMPRESSION: 1. No acute bony abnormality. 2. Possible narrowing of the glenohumeral joint.
== END 2022-12-16 07:34 | disposition home or self-care (01) ==
LOC: HO.HOSX 07:33
PROVIDERS: Visit Provider Orthopaedic Surgery
DX: M25.812 Other specified joint disorders, left shoulder (principal)
CPT/HCPCS: 73030; 99202

== ENCOUNTER 2022-12-16 12:26 | Outpatient (AMB) | payer OTHER, SELFPAY ==
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
[2022-12-16 12:48] VITALS: BMI 35.7
== END 2022-12-16 13:16 | disposition home or self-care (01) ==
PROVIDERS: PCP Nurse Practitioner Family; Visit Provider Orthopaedic Surgery
DX: M25.811 Other specified joint disorders, right shoulder (principal)
CPT/HCPCS: 99202

== ENCOUNTER 2023-01-19 10:15 | Outpatient (AMB) | payer OTHER, SELFPAY ==
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
== END 2023-01-19 10:55 | disposition home or self-care (01) ==
PROVIDERS: PCP Nurse Practitioner Family; Visit Provider Orthopaedic Surgery
DX: M75.122 Complete rotator cuff tear or rupture of left shoulder, not specified as traumatic (principal)
CPT/HCPCS: 99212

== ENCOUNTER → 2023-01-19 10:15 | Outpatient (BNVA) | payer OTHER, SELFPAY | PROVIDERS: PCP Nurse Practitioner Family; Visit Provider Orthopaedic Surgery | DX: M75.122 Complete rotator cuff tear or rupture of left shoulder, not specified as traumatic (principal) | CPT/HCPCS: 99212 ==

== ENCOUNTER 2023-02-25 12:59 | Outpatient (AMB) | payer OTHER, SELFPAY ==
[2023-02-25 13:09] VITALS: BMI 35.7
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
== END 2023-02-25 14:07 | disposition home or self-care (01) ==
PROVIDERS: PCP Nurse Practitioner Family; Visit Provider Orthopaedic Surgery
DX: M75.122 Complete rotator cuff tear or rupture of left shoulder, not specified as traumatic (principal)
CPT/HCPCS: 99212

== ENCOUNTER 2023-02-25 12:59 | Outpatient (REF) | payer OTHER, SELFPAY ==
--- NOTE | ~2023-02-25 | XR_ITS ---
EXAMINATION: XR SHOULDER, LEFT CLINICAL INFORMATION: Pain. COMPARISON: Radiographs dated 12/16/2022. TECHNIQUE: AP neutral and scapular Y views of the left shoulder are submitted. FINDINGS: There is mild bony demineralization. The glenohumeral joint is intact and shows very mild osteoarthritic change. The acromioclavicular and coracoclavicular intervals are normal. No fracture or dislocation is seen. There is no soft tissue calcification or foreign body. No left pneumothorax is seen. XR/XR shoulder LT min 2V IMPRESSION: 1. There is very mild osteoarthritic change of the left glenohumeral joint. 2. No fracture or dislocation is seen.
== END 2023-02-25 13:00 | disposition home or self-care (01) ==
LOC: HO.HOSX 12:59
PROVIDERS: PCP Nurse Practitioner Family; Visit Provider Orthopaedic Surgery
DX: M75.122 Complete rotator cuff tear or rupture of left shoulder, not specified as traumatic (principal)
CPT/HCPCS: 73030; 99212

== ENCOUNTER 2023-03-12 06:03 | Day surgery (SDC) | payer OTHER, SELFPAY ==
[2023-03-09 07:15] VITALS: BMI 36.2
--- NOTE | 2023-03-11 09:43 | P.CONAN_ITS ---
Documented by User: Vee Nj NP 03/11/23 09:52 HPI - Anesthesia Eval Consult details Narrative: 62yo M for Left Shoulder Arthroscopy,distal clavicle excision,acromioplasty,poss rotator cuff repair Afib, no OAC [place] [facility] [place] Last office visit 10/2022 [facility] Active Problems Active Problems: All Active Problems (Updated 12/16/22 @ 13:39 by Seymour Dominguez MD) Complete rotator cuff tear of left shoulder (Acute) Impingement of right shoulder (Acute) Left shoulder pain (Acute) Penile abnormality (Acute) Leukopenia (Acute) Screening for colon cancer (Acute) HTN (hypertension) (Acute) Loss of hearing (Acute) Microscopic hematuria (Acute) Bilateral knee pain (Acute) Right hip pain (Acute) Ascending aorta enlargement (Acute) Physical exam (Acute) Screening PSA (prostate specific antigen) (Acute) Close exposure to 2019 novel coronavirus (Acute) Right shoulder pain (Acute) Cramps of lower extremity (Acute) Overactive bladder (Acute) PAF (paroxysmal atrial fibrillation) (Acute) ELIF (obstructive sleep apnea) (Acute) Anxiety (Acute) Essential hypertension (Acute) Nocturia (Acute) Chronic pain syndrome (Acute) Spondylosis of lumbosacral spine without myelopathy (Acute) Arthropathy of lumbar facet joint (Acute) Disc degeneration, lumbar (Acute) Failed back syndrome of lumbar spine (Acute) Afib (Acute) Past Medical History Medical History Murmur Anxiety and depression GERD (gastroesophageal reflux disease) Hx of renal calculi Essential hypertension Nocturia Chronic pain syndrome Spondylosis of lumbosacral spine without myelopathy Arthropathy of lumbar facet joint Disc degeneration, lumbar Failed back syndrome of lumbar spine HTN (hypertension) Afib Hernia Carpal tunnel syndrome on both sides Family History Family History Father Heart attack HTN (hypertension) Mother HTN (hypertension) Heart attack Family history of problems with anesthesia: No Surgical History Surgical History (Updated 03/12/23 @ 06:23 by Danielle Parker) Hx of foot surgery Hx of hernia repair H/O arthroscopic knee surgery History of carpal tunnel release of both wrists Hx of cholecystectomy History of Problems with Anesthesia: No Social History Social History (Reviewed 02/25/23 @ 13:35 by RAFAEL Savage Housing: House Are you a primary insurance healthcare consultant to a significant other at home: No Do you presently have visiting nurse or other home services: No Alcohol intake: never Patient Tobacco Use Status: Never used Tobacco e-Cigarette/Vaping Use: Never Used Second Hand Smoke Exposure: No Use of substances other than those prescribed or required for medical reasons: No Are you DNR?: No Advance Directives: No Advance Directives Information Provided: Yes service: No Current occupational status: disabled Cognitive needs: No Hearing needs: No Vision needs: No Meds Allergies Allergy/AdvReac Type Severity Reaction Status Date / Time oxycodone [From Tylox] Allergy Severe throat Verified 03/12/23 06:24 swelling Penicillins [PCN] Allergy Severe throat Verified 03/12/23 06:24 swelling Active Medications: Current Medications Clindamycin Phosphate (Cleocin) 600 mg in 50 mls @ 100 mls/hr IV PREOP ONE Stop: 03/12/23 00:30 Home Medications Medication Instructions Recorded Confirmed Last Taken Type aspirin 81 mg tablet,delayed 81 mg PO DAILY 03/19/20 03/12/23 03/11/23 History release duloxetine 60 mg capsule,delayed 60 mg PO DAILY 03/19/20 03/12/23 Unknown History release Exam Exam Date and Time: March 11, 2023 0943 Height,Weight and Vital Signs: Height 5 ft 8 in Weight 107.955 kg Pertinent Lab Results Pertinent Lab Results: Laboratory Tests 11/05/22 11/28/22 12:22 12:19 WBC 5.6 Hgb 14.4 Hct 42.1 Plt Count 238 Sodium 141 Potassium 3.9 Chloride 109 H Carbon Dioxide 27 BUN 14 Creatinine 0.84 Narrative Narrative: ECHO 10/2022 Conclusions: - The left ventricular systolic function is normal. The calculated ejection fraction is 56% by biplane method. - There is moderate septal and moderate basal asymmetric hypertrophy. - No obvious valvular pathology seen on this study. - There is mild dilatation of the ascending aorta measuring 4.20 cm. Assessment and Plan Assessment Anesthesia Assessment: Chart Reviewed Final Anesthetic Review Family History of Problems with Anesthesia: No History of Problems with Anesthesia: No Documented by User: Hernandez Read MD 03/12/23 07:37 [facility] Past Medical History Medical History Murmur Anxiety and depression GERD (gastroesophageal reflux disease) Hx of renal calculi Essential hypertension Nocturia Chronic pain syndrome Spondylosis of lumbosacral spine without myelopathy Arthropathy of lumbar facet joint Disc degeneration, lumbar Failed back syndrome of lumbar spine HTN (hypertension) Afib Hernia Carpal tunnel syndrome on both sides Family History Family History Father Heart attack HTN (hypertension) Mother HTN (hypertension) Heart attack Surgical History Surgical History (Updated 03/12/23 @ 06:23 by Danielle Parker) Hx of foot surgery Hx of hernia repair H/O arthroscopic knee surgery History of carpal tunnel release of both wrists Hx of cholecystectomy Social History Social History (Reviewed 02/25/23 @ 13:35 by Rocio Madison [facility]) Housing: House Are you a primary insurance healthcare consultant to a significant other at home: No Do you presently have visiting nurse or other home services: No Alcohol intake: never Patient Tobacco Use Status: Never used Tobacco e-Cigarette/Vaping Use: Never Used Second Hand Smoke Exposure: No Use of substances other than those prescribed or required for medical reasons: No Are you DNR?: No Advance Directives: No Advance Directives Information Provided: Yes service: No Current occupational status: disabled Cognitive needs: No Hearing needs: No Vision needs: No Meds Allergies Allergy/AdvReac Type Severity Reaction Status Date / Time oxycodone [From Tylox] Allergy Severe throat Verified 03/12/23 06:24 swelling Penicillins [PCN] Allergy Severe throat Verified 03/12/23 06:24 swelling Home Medications Medication Instructions Recorded Confirmed Last Taken Type aspirin 81 mg tablet,delayed 81 mg PO DAILY 03/19/20 03/12/23 03/11/23 History release duloxetine 60 mg capsule,delayed 60 mg PO DAILY 03/19/20 03/12/23 Unknown History release Exam Airway Mallampati Class: II Heart: rrr Lungs: cta Assessment and Plan Final Anesthetic Review NPO: Yes ASA Class: II Final Preanesthetic Review: No Changes in Pt Med Stat, Meds/Allgs Chart Reviewed, Consent Obtained/Reviewed and Anes Risks/Benef Reviewed Patient Risk: Intermediate Procedure Risk: Intermediate Anesthetic Plan Anesthetic Plan: GA, Regional Block and Agree w/ Assess. and Plan Disposition: Standard PACU
[2023-03-12] VITALS (7 sets, daily range): BP systolic 105–177; BP diastolic 58–97; PULSE 56–75; RESP 16–18; TEMP 36.3–36.6; O2SAT 95–98; BMI 34.2
--- NOTE | 2023-03-12 06:07 | ECG_ITS ---
Test Reason : pre op Blood Pressure : / mmHG Vent. Rate : 066 BPM Atrial Rate : 066 BPM P-R Int : 164 ms QRS Dur : 112 ms QT Int : 406 ms P-R-T Axes : 044 -02 017 degrees QTc Int : 425 ms Poor data quality, interpretation may be adversely affected Normal sinus rhythm Normal ECG When compared with ECG of 04-JUL-2019 15:51, T wave amplitude has increased in Septal leads Referred By: Vee Nj Electronically Signed By:BHAKTI MARKS MD
[2023-03-12] MEDS: Lactated Ringers 1,000 ML 100 ML IVCONT (07:04)
--- NOTE | 2023-03-12 07:35 | HO.ANESPROP2 ---
[facility] Active Problems Active Problems: All Active Problems (Updated 12/16/22 @ 13:39 by Syemour Dominguez MD) Complete rotator cuff tear of left shoulder (Acute) Impingement of right shoulder (Acute) Left shoulder pain (Acute) Penile abnormality (Acute) Leukopenia (Acute) Screening for colon cancer (Acute) Loss of hearing (Acute) Microscopic hematuria (Acute) Bilateral knee pain (Acute) Right hip pain (Acute) Ascending aorta enlargement (Acute) Anxiety (Acute) ELIF (obstructive sleep apnea) (Acute) PAF (paroxysmal atrial fibrillation) (Acute) Overactive bladder (Acute) Cramps of lower extremity (Acute) Right shoulder pain (Acute) Close exposure to 2019 novel coronavirus (Acute) Screening PSA (prostate specific antigen) (Acute) Physical exam (Acute) HTN (hypertension) (Acute) Essential hypertension (Acute) Nocturia (Acute) Chronic pain syndrome (Acute) Spondylosis of lumbosacral spine without myelopathy (Acute) Arthropathy of lumbar facet joint (Acute) Disc degeneration, lumbar (Acute) Failed back syndrome of lumbar spine (Acute) Afib (Acute) Past Medical History Medical History Murmur Anxiety and depression GERD (gastroesophageal reflux disease) Hx of renal calculi Essential hypertension Nocturia Chronic pain syndrome Spondylosis of lumbosacral spine without myelopathy Arthropathy of lumbar facet joint Disc degeneration, lumbar Failed back syndrome of lumbar spine HTN (hypertension) Afib Hernia Carpal tunnel syndrome on both sides Family History Family History Father Heart attack HTN (hypertension) Mother HTN (hypertension) Heart attack Family history of problems with anesthesia: No Surgical History Surgical History (Updated 03/12/23 @ 06:23 by Danielle Parker) Hx of foot surgery Hx of hernia repair H/O arthroscopic knee surgery History of carpal tunnel release of both wrists Hx of cholecystectomy History of Problems with Anesthesia: No Social History Social History Housing: House Are you a primary career transition specialist to a significant other at home: No Do you presently have visiting nurse or other home services: No Alcohol intake: never Patient Tobacco Use Status: Never used Tobacco e-Cigarette/Vaping Use: Never Used Second Hand Smoke Exposure: No Use of substances other than those prescribed or required for medical reasons: No Are you DNR?: No Advance Directives: No Advance Directives Information Provided: Yes service: No Current occupational status: disabled Cognitive needs: No Hearing needs: No Vision needs: No Meds Allergies Allergy/AdvReac Type Severity Reaction Status Date / Time oxycodone [From Tylox] Allergy Severe throat Verified 03/12/23 06:24 swelling Penicillins [PCN] Allergy Severe throat Verified 03/12/23 06:24 swelling Active Medications: Current Medications Lactated Ringer's (Lr) 1,000 mls @ 100 mls/hr IVCONT .Q10H BIGG Last Admin: 03/12/23 07:04 Dose: 100 mls/hr Home Medications Medication Instructions Recorded Confirmed Last Taken Type aspirin 81 mg tablet,delayed 81 mg PO DAILY 03/19/20 03/12/23 03/11/23 History release duloxetine 60 mg capsule,delayed 60 mg PO DAILY 03/19/20 03/12/23 Unknown History release Exam Exam Date and Time: March 12, 2023 0735 Height,Weight and Vital Signs: Height 5 ft 8 in Weight 102.058 kg Last Vital Signs Temp 97.5 F 03/12/23 06:41 Pulse 75 03/12/23 06:41 Resp 16 03/12/23 06:41 BP 177/97 H 03/12/23 06:41 Pulse Ox 98 03/12/23 06:41 O2 Del Method Room Air 03/12/23 06:41 Assessment and Plan Final Anesthetic Review Family History of Problems with Anesthesia: No History of Problems with Anesthesia: No
--- NOTE | 2023-03-12 09:58 | P.BOP_ITS ---
Brief Operative Note Date of Service: 03/12/23 Pre-op diagnosis: Left shoulder impingement syndrome, left shoulder acromioclavicular joint arthritis, left shoulder rotator cuff tear Post-op diagnosis: same Procedure: Left shoulder diagnostic arthroscopy with arthroscopic distal clavicle excision, left shoulder arthroscopic acromioplasty, left shoulder mini-open rotator cuff repair Implants: Two suture anchors (Gracia [employer] Nephew Intraline anchors with #2 Ultrabraid suture) Surgeon: Seymour Dominguez MD Anesthesia: GLMA and regional Was an Workforce Management Consultant used for this Procedure?: Yes Workforce Management Consultant: Mary Godwin Estimated blood loss (mL): 20 Pathology: none sent Condition: stable Disposition: PACU
--- NOTE | 2023-03-12 10:00 | P.OP_ITS ---
Operative Note Operative Note Date of Service: 03/12/23 Narrative: After the patient was identified as Richie Ross and their left shoulder was initialed by myself the patient was brought to the holding area where a left shoulder interscalene regional block was performed by the anesthesiologist in routine fashion. The patient was then brought to the operating room where general anesthesia was induced by the anesthesiologist in routine fashion. Because of the patient's allergy to penicillins he was given 600 mg of IV clindamycin preoperatively for infection prophylaxis. Examination under anesthesia of the patient's left shoulder showed full passive range of motion of the patient's left shoulder when compared to the right. The patient was gently positioned in the beach chair position with all bony prominences well padded. The patient's left shoulder region and upper extremity were prepped and draped in sterile fashion. A formal time-out was completed. A #11 scalpel blade was used to make a posterior portal 2 cm inferior and 1 cm medial to the posterolateral corner of the acromion. Blunt trocar technique was used to enter the glenohumeral joint in routine fashion. An anterior portal was made just lateral to the coracoid process after proper positioning was confirmed using a spinal needle. Diagnostic arthroscopy showed minimal degenerative changes of the glenoid and humeral head articular surfaces. There was a full-thickness tear of the supraspinatus tendon. There was no evidence of injury to the biceps tendon or its insertion onto the glenoid. There was no inflammation of the anterior joint capsule. The arthroscope was then placed from the posterior portal into the subacromial space. A lateral portal was made 2 fingerbreadths lateral to the anterior lateral corner of the acromion. The ArthroCare Wand was used to ablate soft tissues along the undersurface of the acromion as well as to excise the coracoacromial ligament. There was a sharp spur along the undersurface of the acromion which was removed using the hooded bur. The arthroscope was then placed into the lateral portal and the acromioplasty was completed with the bur in the posterior portal using the posterior aspect of the acromion as a cutting block. The ArthroCare Wand was then brought in through the anterior portal and was used to ablate soft tissues along the acromioclavicular joint and distal clavicle. The posterior and superior ligamentous structures were left intact. A distal clavicle excision of 8 mm was performed using the hooded bur. Any remaining bursal tissue was removed using the arthroscopic shaver. The subacromial space was irrigated and then drained. All arthroscopic instruments were removed. Sterile gloves were changed and the shoulder was once again prepped with Betadine. A #15 scalpel blade was used to extend the lateral portal to the lateral edge of the acromion. The subacromial tissues were dissected using electrocautery down to the superficial deltoid fascia. The trocar split in the anterior raphe of the deltoid was then extended to the lateral edge of the acromion using electrocautery and curved Barber scissors. Any remaining bursal tissue was removed using curved Barber scissors. Subacromial and subdeltoid adhesions were bluntly dissected. The undersurface of the acromion was palpated and it was smooth. A #2 Ethibond tag suture was placed into the supraspinatus tendon. The tendon was easily mobilized to its insertion point on the glenoid. The wound was irrigated with copious amounts of normal saline solution. Two suture anchors were placed into the greater tuberosity in routine fashion. The rotator cuff repair was then performed using horizontal mattress sutures under minimal tension with the patient's elbow at their side. Following the repair the shoulder was taken through a full range of motion. The repair was stable. The wound was irrigated with copious amounts of normal saline solution. The superficial and deep deltoid fascia were closed with #1 Vicryl [id number] interrupted suture. The wound was once again irrigated. The subcutaneous tissues were closed with 2-0 Vicryl interrupted suture. The skin was closed with 3-0 Prolene subcuticular suture and Steri- Strips. The anterior and posterior portals were closed with 3-0 nylon interrupted suture. Dry sterile dressing was placed over all incisions. The patient's left upper extremity was placed into a sling. The patient was awoken and extubated in the operating room. The patient was transferred to the recovery room in stable condition.
[2023-03-12] MEDS: Clindamycin Phosphate/D5W 600 MG/50 ML PIGGYBACK 100 MG IV (10:21)
== END 2023-03-12 11:05 | disposition home or self-care (01) ==
PROVIDERS: PCP Nurse Practitioner Family; Visit Provider Orthopaedic Surgery
PROC: (CPT 29805; principal; 2023-03-12 07:30)
DX: M75.122 Complete rotator cuff tear or rupture of left shoulder, not specified as traumatic (principal); M75.42 Impingement syndrome of left shoulder; M19.012 Primary osteoarthritis, left shoulder; G89.4 Chronic pain syndrome; Z87.828 Personal history of other (healed) physical injury and trauma; I48.91 Unspecified atrial fibrillation; I10 Essential (primary) hypertension; K21.9 Gastro-esophageal reflux disease without esophagitis; M47.817 Spondylosis without myelopathy or radiculopathy, lumbosacral region; F41.8 Other specified anxiety disorders; Z79.82 Long term (current) use of aspirin; Z79.899 Other long term (current) drug therapy; Z88.0 Allergy status to penicillin; Z88.5 Allergy status to narcotic agent; Z98.890 Other specified postprocedural states
CPT/HCPCS: 29827; 29826; 29824; 93005; C1713; J0131; J0171; J2371; J2405; J2795

== ENCOUNTER 2023-03-25 10:01 | Outpatient (AMB) | payer OTHER, SELFPAY ==
--- NOTE | 2023-03-25 10:13 | A.OFFVIS_ITS ---
Intake Intake Visit Reasons: PO-Lt Shld RTC Repair 03/12/23DR Intake Note: Richie a 62 year old female presents today for a post operative left shoulder RTC repair, DOS 03/12/23 Patient reports he is doing well, states mild soreness/discomfort. He is requesting a refill on Tramadol. Allergies oxycodone [From Tylox] Allergy (Severe, Verified 03/25/23 10:18) throat swelling Penicillins [PCN] Allergy (Severe, Verified 03/25/23 10:18) throat swelling HPI PO-Lt Shld RTC Repair 03/12/23DR HPI Details 62-year-old male who returns to the [facility] today for post-op left shoulder RTC repair, 03/12/[address] Dominguez. He states he has mild soreness and discomfort in his shoulder and continues to experience pain with putting his pants on. He finds relief with tramadol and is requesting a refill for the medication. He is doing well otherwise and has no other concerns today. [facility] Medical History (Updated 03/25/23 @ 11:23 by Mary Godwin PA-C) Murmur Anxiety and depression GERD (gastroesophageal reflux disease) Hx of renal calculi Essential hypertension Nocturia Chronic pain syndrome Spondylosis of lumbosacral spine without myelopathy Arthropathy of lumbar facet joint Disc degeneration, lumbar Failed back syndrome of lumbar spine HTN (hypertension) Afib Hernia Carpal tunnel syndrome on both sides Surgical History Hx of foot surgery Hx of hernia repair H/O arthroscopic knee surgery History of carpal tunnel release of both wrists Hx of cholecystectomy Family History Father Heart attack HTN (hypertension) Mother HTN (hypertension) Heart attack Social History Housing: House Are you a primary nurse care manager to a significant other at home: No Do you presently have visiting nurse or other home services: No Alcohol intake: never Patient Tobacco Use Status: Never used Tobacco e-Cigarette/Vaping Use: Never Used Second Hand Smoke Exposure: No service: No Current occupational status: disabled Cognitive needs: No Hearing needs: No Vision needs: No Review of Systems Const All systems reviewed & are unremarkable except as noted in HPI and below Physical Exam Extrem Other: Left shoulder: Incision clean, dry and intact. No erythema. Sensation intact. Results Reviewed Results Reviewed: Date of Service: 03/12/23 Pre-op diagnosis: Left shoulder impingement syndrome, left shoulder acromioclavicular joint arthritis, left shoulder rotator cuff tear Post-op diagnosis: same Procedure: Left shoulder diagnostic arthroscopy with arthroscopic distal clavicle excision, left shoulder arthroscopic acromioplasty, left shoulder mini-open rotator cuff repair Implants: Two suture anchors (Gracia [employer] Nephew Intraline anchors with #2 Ultrabraid suture) Surgeon: Seymour Dominguez MD Assessment & Plan Assessment & Plan (1) Status post left rotator cuff repair: Code(s): Z98.890 - Other specified postprocedural states (2) Complete rotator cuff tear of left shoulder: Code(s): M75.122 - Complete rotator cuff tear or rupture of left shoulder, not specified as traumatic Qualifiers: Rotator cuff tear trauma status: unspecified whether traumatic Qualified Code(s): M75.122 - Complete rotator cuff tear or rupture of left shoulder, not specified as traumatic Plan Sutures removed today, steri strips applied. He was given an order of physical therapy to work on ROM, stretching and periscapular stabilization. He will avoid any type of lifting, pushing, pulling or carrying with the left arm. He will continue to wear the sling for the next 4 weeks. I would like to see him back in [address] Dominguez, sooner if needed. Orders: Orders PT Evaluation and Treatment Today M75.122 - Complete rotator cuff tear or rupture of left shoulder, not specified as traumatic, Z98.890 - Other specified postprocedural states Medications: Changed From tramadol 50 mg PO Q6H PRN 120 tabs 0RF pain To tramadol 50 mg PO Q8H PRN 21 tabs 0RF pain Patient Instructions: Scribed for Mary Godwin PA-C, by Carlos Gross biomedical repair technician, on 03/25/2023 at 10:15 AM EST. IMary PA-C, have personally reviewed and agree with the information entered by the scribe. Coding Level of Care Code Global (16141) Diagnoses Status post left rotator cuff repair Z98.890 Complete tear of left rotator cuff, unspecified whether traumatic M75.122 Rotator cuff tear trauma status: unspecified whether traumatic
== END 2023-03-25 10:56 | disposition home or self-care (01) ==
PROVIDERS: PCP Nurse Practitioner Family; Visit Provider Physician Assistant
DX: Z98.890 Other specified postprocedural states (principal); M75.122 Complete rotator cuff tear or rupture of left shoulder, not specified as traumatic
CPT/HCPCS: 99024

== ENCOUNTER → 2023-03-25 10:01 | Outpatient (BNVA) | payer OTHER, SELFPAY | PROVIDERS: PCP Nurse Practitioner Family; Visit Provider Physician Assistant ==

== ENCOUNTER 2023-04-13 10:11 | Outpatient (AMB) | payer OTHER, SELFPAY ==
--- NOTE | 2023-04-13 10:23 | A.OFFPC_ITS ---
Vital Signs 04/13/23 10:25 Weight 212 lb BP 130/80 Blood Pressure Location Rt brachial Position Sitting Pulse 78 Pulse Source Pulse Oximeter Pulse Oximetry (%) 98 Oxygen Delivery Method Room Air Intake Visit Reasons: 6m follow up Allergies oxycodone [From Tylox] Allergy (Severe, Verified 04/13/23 12:50) throat swelling Penicillins [PCN] Allergy (Severe, Verified 04/13/23 12:50) throat swelling Medication List - Last Reconciled 04/13/23 by KEY Fisher aspirin 81 mg PO DAILY atorvastatin 20 mg PO BEDTIME baclofen 20 mg (2 x 10 mg) PO BID 30 days cholecalciferol (vitamin D3) 50 mcg PO DAILY 90 days diazepam 5 mg PO BEDTIME PRN 30 days diltiazem HCl ER 360 mg PO DAILY 90 days lisinopril 10 mg PO DAILY 90 days meloxicam 15 mg PO DAILY omeprazole 20 mg PO BID 90 days sertraline 200 mg PO DAILY tramadol 50 mg PO BID PRN Tobacco use date assessed: 10/13/22 HPI 6m follow up HPI Details HTN: Blood pressure is stable, managed with diltiazem 360mg and lisinopril 10mg. Denies chest pain, shortness of breath, headache, dizziness, and blurred vision. Pt has been losing weight. [facility] Medical History Murmur Anxiety and depression GERD (gastroesophageal reflux disease) Hx of renal calculi Essential hypertension Nocturia Chronic pain syndrome Spondylosis of lumbosacral spine without myelopathy Arthropathy of lumbar facet joint Disc degeneration, lumbar Failed back syndrome of lumbar spine HTN (hypertension) Afib Hernia Carpal tunnel syndrome on both sides Surgical History Hx of foot surgery Hx of hernia repair H/O arthroscopic knee surgery History of carpal tunnel release of both wrists Hx of cholecystectomy Family History Father Heart attack HTN (hypertension) Mother HTN (hypertension) Heart attack Social History Housing: House Are you a primary director of career services to a significant other at home: No Do you presently have visiting nurse or other home services: No Alcohol intake: never Patient Tobacco Use Status: Never used Tobacco e-Cigarette/Vaping Use: Never Used Second Hand Smoke Exposure: No service: No Current occupational status: disabled Cognitive needs: No Hearing needs: No Vision needs: No Questionnaire Thrive Questionnaire Date Thrive assessed: 05/29/21 TIFFANY-7 AMB Questionnaire TIFFANY-7 Date TIFFANY - 7 assessed: 05/29/21 Source: Developed by Drs. Humberto Garrison, Apurva Blanc, Karl Weir and colleagues, with an educational andrew from [employer]. Review of Systems Const Reports as per HPI Physical exam (Primary Care) Vital Signs: Last Vital Signs Pulse 78 04/13/23 10:25 BP 130/80 04/13/23 10:25 Pulse Ox 98 04/13/23 10:25 Oxygen Delivery Method Room Air 04/13/23 10:25 Tobacco/Smoking Status: Tobacco use Status Tobacco use date assessed 10/13/22 04/13/23 10:24 Patient Tobacco Use Status Never used Tobacco 04/13/23 10:24 e-Cigarette/Vaping Use Never Used 04/13/23 10:24 Thrive Assessment: Date of Thrive Assessment Date Thrive assessed 05/29/21 04/13/23 10:24 Const General: cooperative Orientation/consciousness: patient oriented x3 Resp Effort & Inspection: normal respiratory effort Auscultation: clear to auscultation bilaterally Cardio Rate: regular rate Rhythm: regular rhythm Heart sounds: S1 normal heart sound present and S2 normal heart sound present GI Inspection: Yes normal to inspection, Yes incision and Yes visible herniation Neuro General: patient oriented x3 Extrem Other: trace to bilat feet Right lower extremity: edema (trace) Left lower extremity: edema (trace) Psych Appearance: grossly normal Mental Status: mental status grossly normal Speech and movement: Normal speech and movement present Affect: normal affect Attitude: cooperative Thought process: Normal thought process present Thought content: Normal thought content present Insight: Good insight present (Psych) Judgement: Good judgement present (Psych) Assessment and Plan Assessment & Plan (1) HTN (hypertension): Code(s): I10 - Essential (primary) hypertension Plan: Labs ordered (2) Screening PSA (prostate specific antigen): Code(s): Z12.5 - Encounter for screening for malignant neoplasm of prostate Plan: PSA ordered Plan The patient agreed to the use of a ophthalmic medical assistant for this encounter. Scribed for KEY Ruth by Keerthi Navarro ophthalmic medical assistant, on 04/13/2023 at 10:35 EST. Orders: Orders Complete Blood Count Auto Diff Today I10 - Essential (primary) hypertension Comprehensive [place]. Panel Fast Today I10 - Essential (primary) hypertension TSH reflex Free T4 Today I10 - Essential (primary) hypertension UA CC w/rflx Micro + Cult Today I10 - Essential (primary) hypertension Lipid Panel Today I10 - Essential (primary) hypertension Prostate Specific Antigen Scr Today Z12.5 - Encounter for screening for malignant neoplasm of prostate Medications: Changed From sertraline 75 mg (1.5 x 50 mg) PO DAILY 135 tabs 1RF To sertraline 200 mg PO DAILY Coding Level of Care Code Est Pt Level 3 (16437) Diagnoses HTN (hypertension) I10 Screening PSA (prostate specific antigen) Z12.5
[2023-04-13 10:25] VITALS: BP 130/80; PULSE 78; O2SAT 98
== END 2023-04-13 12:04 | disposition home or self-care (01) ==
PROVIDERS: Visit Provider Nurse Practitioner Family
DX: I10 Essential (primary) hypertension (principal); Z12.5 Encounter for screening for malignant neoplasm of prostate
CPT/HCPCS: 99213

== ENCOUNTER 2023-04-22 09:42 | Outpatient (REF) | payer OTHER, SELFPAY ==
[2023-04-22 10:10] LABS: MANUAL DIFF FLAG NO
[2023-04-22 10:29] LABS: Appearance Urine Clear; Color Urine Yellow; Glucose Urine UA Negative (Negative); Leukocyte Esterase Urine Negative (Negative); Nitrite Urine Negative (Negative); Specific Gravity - Urine 1.025 (1.005-1.025); Urine Blood Negative (Negative); Urine Ketones Negative (Negative); Urine Protein Negative (Neg-Trace)
[2023-04-22 10:30] LABS: Basophils Absolute Auto 0.1 X10*3/uL (0.0-0.2); Eosinophils Absolute Auto 0.2 X10*3/uL (0.0-0.4); Eosinophils Percent Auto 3.7 % (0-4); Hematocrit 41.9 % (42.0-52.0); Hemoglobin 14.4 g/dl (14.0-18.0); Imm Gran Abs Auto 0.01 X10*3/uL (0.00-0.03); Imm Gran Pct Auto 0.2 % (0.0-0.4); Lymphocytes Absolute Auto 1.7 X10*3/uL (1.2-4.9); Lymphocytes Percent Auto 33.1 % (20-40); Mean Corpuscular HGB Conc 34.4 g/dl (31.0-36.0); Mean Corpuscular Hemoglobin 29.6 pg (27.0-33.0); Mean Platelet Volume 9.1 fL (9.4-12.4); Monocytes Absolute Auto 0.3 X10*3/uL (0.1-1.2); Monocytes Percent Auto 5.3 % (2-11); Neutrophils Absolute Auto 2.9 x10*3/uL (2.0-8.3); Neutrophils Percent Auto 56.7 % (45-73); Platelet Count 307 X10*3/uL (160-400); Red Blood Count 4.87 X10*6/uL (4.60-5.80); Red Cell Distribution Width 13.1 % (11.0-16.0); White Blood Count 5.1 X10*3/uL (4.8-10.8)
[2023-04-22 11:05] LABS: Alanine Aminotransferase 20 U/L (0-40); Albumin Level 4.5 g/dL (3.5-5.0); Alkaline Phosphatase 132 U/L (39-117); Anion Gap 12 (12-20); Aspartate Amino Transferase 19 U/L (5-37); Bilirubin Total 0.5 mg/dL (0.0-1.0); Blood Urea Nitrogen 11 mg/dL (9-16); Calcium 9.5 mg/dL (8.4-10.2); Carbon Dioxide 27 mmol/L (22-29); Chloride 105 mmol/L (96-108); Cholesterol 184 mg/dL (<200); Estimated Glomerular Filt Rate > 60; Glucose Fasting 100 mg/dL (60-99); HDL Cholesterol 53 mg/dL (>40); LDL Cholesterol Calculated 116 mg/dL (<100); Potassium 4.1 mmol/L (3.3-5.1); Sodium 140 mmol/L (135-145); Triglycerides 76 mg/dL (<150)
[2023-04-22 11:23] LABS: TSH reflex Free T4 1.06 uIU/mL (0.32-4.0)
== END 2023-04-22 09:43 | disposition home or self-care (01) ==
LOC: HO.LAB 09:42
PROVIDERS: PCP Nurse Practitioner Family; Visit Provider Nurse Practitioner Family
DX: I10 Essential (primary) hypertension (principal); M54.50 Low back pain, unspecified; M79.605 Pain in left leg; M25.512 Pain in left shoulder; R74.8 Abnormal levels of other serum enzymes; Z12.5 Encounter for screening for malignant neoplasm of prostate; Z79.899 Other long term (current) drug therapy
CPT/HCPCS: 36415; 80053; 80061; 81003; 84153; 84443; 85025

== ENCOUNTER 2023-04-22 10:23 | Outpatient (AMB) | payer OTHER, SELFPAY ==
--- NOTE | 2023-04-22 10:25 | A.OFFVIS_ITS ---
Intake Intake Visit Reasons: PO-Lt Shld RTC Repair 03/12/23DR, Low back pain radiating to left leg Intake Note: Richie a 62 year old female presents today for a post operative left shoulder RTC repair, DOS 03/12/23 DR. Patient reports he is doing well, states he continues to work with PT that has been helping improve his ROM. Today he is most concerned with progressively worsening low back pain which radiates down his left leg. The patient states that his back pain has gotten worse over the last 5 years in spite of continued non operative treatments. The patient also has intermittent weakness in his left leg. He has done physical therapy for 12 weeks over the last 6 months as well as for 6 weeks over the last 3 months. The therapy aggravated his back pain. He has tried Tylenol and anti- inflammatory medicines which gave him minimal relief. He has also had cortisone injections which gave him no relief. Allergies oxycodone [From Tylox] Allergy (Severe, Verified 04/22/23 10:30) throat swelling Penicillins [PCN] Allergy (Severe, Verified 04/22/23 10:30) throat swelling Medication List - Last Reconciled 04/22/23 by Seymour Dominguez MD aspirin 81 mg PO DAILY atorvastatin 20 mg PO BEDTIME baclofen 20 mg (2 x 10 mg) PO BID 30 days cholecalciferol (vitamin D3) 50 mcg PO DAILY 90 days diazepam 5 mg PO BEDTIME PRN 30 days diltiazem HCl ER 360 mg PO DAILY 90 days lisinopril 10 mg PO DAILY 90 days meloxicam 15 mg PO DAILY omeprazole 20 mg PO BID 90 days sertraline 200 mg PO DAILY tramadol 50 mg PO BID PRN PFSH Medical History Murmur Anxiety and depression GERD (gastroesophageal reflux disease) Hx of renal calculi Essential hypertension Nocturia Chronic pain syndrome Spondylosis of lumbosacral spine without myelopathy Arthropathy of lumbar facet joint Disc degeneration, lumbar Failed back syndrome of lumbar spine HTN (hypertension) Afib Hernia Carpal tunnel syndrome on both sides Surgical History Hx of foot surgery Hx of hernia repair H/O arthroscopic knee surgery History of carpal tunnel release of both wrists Hx of cholecystectomy Family History Father Heart attack HTN (hypertension) Mother HTN (hypertension) Heart attack Social History Housing: House Are you a primary healthcare manager to a significant other at home: No Do you presently have visiting nurse or other home services: No Alcohol intake: never Patient Tobacco Use Status: Never used Tobacco e-Cigarette/Vaping Use: Never Used Second Hand Smoke Exposure: No service: No Current occupational status: disabled Cognitive needs: No Hearing needs: No Vision needs: No Physical Exam Const Other: Well-nourished well-developed very friendly male awake alert and oriented x3 in no acute distress Back/Spine/Pelvis Other: Low back examination shows left-sided paraspinal muscle tenderness, pain with range of motion, positive straight leg raise test on the left and 70 degrees, 4/5 strength with testing of his left hip flexors and knee extensors when compared to 5/5 strength on his right side Extrem Other: Left shoulder examination shows that the surgical incisions are well healed, no erythema, minimal discomfort with range of motion, almost full passive range of motion when compared to his right shoulder Assessment & Plan Assessment & Plan (1) Low back pain radiating to left leg: Code(s): M54.50 - Low back pain, unspecified; M79.605 - Pain in left leg (2) Left shoulder pain: Code(s): M25.512 - Pain in left shoulder (3) Low back pain radiating to left leg: Code(s): M54.50 - Low back pain, unspecified; M79.605 - Pain in left leg Plan Mr. Ross is doing well after undergoing left shoulder rotator cuff repair surgery on 03/12/2023. He will continue with his physical therapy exercises. The do's and don'ts of lifting were discussed at length with the patient. The patient does have progressively worsening low back pain which radiates into his left leg as well as associated left leg weakness possibly due to a disc herniation or lumbar stenosis. Thus, I will send the patient for an MRI of his lumbar spine for further evaluation. I will contact him by phone once the MRI results are available. He will call me prior to that time should his symptoms worsen in any way. Feel free to call me at any time should questions regarding his orthopedic management arise. I spent 22 minutes in reviewing the patient's records and imaging studies, seeing the patient and documenting in the medical record. Orders: Orders MR lumbar spine wo con Today M54.50 - Low back pain, unspecified, M79.605 - Pain in left leg Coding Level of Care Code Est Pt Level 2 (22377) Diagnoses Low back pain radiating to left leg M54.50; M79.605 Left shoulder pain M25.512
== END 2023-04-22 10:45 | disposition home or self-care (01) ==
PROVIDERS: PCP Nurse Practitioner Family; Visit Provider Orthopaedic Surgery
DX: M25.512 Pain in left shoulder (principal); M54.50 Low back pain, unspecified; M79.605 Pain in left leg
CPT/HCPCS: 99024

== ENCOUNTER 2023-06-03 09:40 | Outpatient (AMB) | payer OTHER, SELFPAY ==
--- NOTE | 2023-06-03 09:42 | A.OFFVIS_ITS ---
Intake Vital Signs 06/03/23 09:46 Height 5 ft 8 in Weight 212 lb BMI 32.2 Intake Visit Reasons: OV- MRI Review/ lumbar MRI, Low back pain Intake Note: Richie is a 62 year old male who presents today for a MRI review of his lumbar spine. The patient describes his low back pain as sharp in nature. His pain does radiate down both of his legs. He also has intermittent weakness in his legs. Patient states that he has been to 3 pain clinics in the past. He has had cortisone injections given into his low back. The most recent set of injections gave him minimal relief. He has taken tramadol, Tylenol, baclofen and anti-inflammatory medicines which gave him minimal relief. The patient also underwent left shoulder rotator cuff repair surgery on 03/12/2023. He reports minimal discomfort in his left shoulder. He continues with his home stretching program. Allergies oxycodone [From Tylox] Allergy (Severe, Verified 06/03/23 09:47) throat swelling Penicillins [PCN] Allergy (Severe, Verified 06/03/23 09:47) throat swelling Medication List - Last Reconciled 06/03/23 by Seymour Dominguez MD aspirin 81 mg PO DAILY atorvastatin 20 mg PO BEDTIME baclofen 20 mg (2 x 10 mg) PO BID 30 days cholecalciferol (vitamin D3) 50 mcg PO DAILY 90 days diazepam 5 mg PO BEDTIME PRN 30 days diltiazem HCl ER 360 mg PO DAILY 90 days lisinopril 10 mg PO DAILY 90 days meloxicam 15 mg PO DAILY omeprazole 20 mg PO BID 90 days sertraline 200 mg PO DAILY tramadol 50 mg PO BID PRN PFSH Medical History Murmur Anxiety and depression GERD (gastroesophageal reflux disease) Hx of renal calculi Essential hypertension Nocturia Chronic pain syndrome Spondylosis of lumbosacral spine without myelopathy Arthropathy of lumbar facet joint Disc degeneration, lumbar Failed back syndrome of lumbar spine HTN (hypertension) Afib Hernia Carpal tunnel syndrome on both sides Surgical History Hx of foot surgery Hx of hernia repair H/O arthroscopic knee surgery History of carpal tunnel release of both wrists Hx of cholecystectomy Family History Father Heart attack HTN (hypertension) Mother HTN (hypertension) Heart attack Social History Housing: House Are you a primary career and guidance counselor to a significant other at home: No Do you presently have visiting nurse or other home services: No Alcohol intake: never Patient Tobacco Use Status: Never used Tobacco e-Cigarette/Vaping Use: Never Used Second Hand Smoke Exposure: No service: No Current occupational status: disabled Cognitive needs: No Hearing needs: No Vision needs: No Physical Exam Vital Signs: BMI result Body Mass Index 32.2 Back/Spine/Pelvis Other: Low back examination shows pain with range of motion, bilateral paraspinal muscle tenderness, positive straight leg raise tests bilaterally at 70 degrees, 4/5 strength with testing of his bilateral hip flexors and knee extensors Results Reviewed Results Reviewed: MRI report of the patient's lumbar spine shows bilateral moderate to severe foraminal stenosis as well as degenerative disc disease, no acute bony abnormalities Assessment & Plan Assessment & Plan (1) Lumbar stenosis without neurogenic claudication: Code(s): M48.061 - Spinal stenosis, lumbar region without neurogenic claudication (2) Low back pain radiating to left leg: Code(s): M54.50 - Low back pain, unspecified; M79.605 - Pain in left leg Plan Mr. Ross presents with low back pain which radiates into both of his legs due to lumbar stenosis. Thus, I will send the patient to the neurosurgery department here at [facility] for further evaluation. He will c ontinue with his activity modifications in the meantime. He will contact me prior to that appointment should his symptoms worsen in any way. Feel free to call me at any time should questions regarding his orthopedic management arise. I spent 22 minutes in reviewing the patient's records and imaging studies, seeing the patient and documenting in the medical record. Orders: Referrals Neurosurgery Referral M48.061 - Spinal stenosis, lumbar region without neurogenic claudication Coding Level of Care Code Est Pt Level 2 (45845) Diagnoses Lumbar stenosis without neurogenic claudication M48.061 Low back pain radiating to left leg M54.50; M79.605
[2023-06-03 09:46] VITALS: BMI 32.2
== END 2023-06-03 10:17 | disposition home or self-care (01) ==
PROVIDERS: PCP Nurse Practitioner Family; Visit Provider Orthopaedic Surgery
DX: M48.061 Spinal stenosis, lumbar region without neurogenic claudication (principal); M79.605 Pain in left leg; M79.604 Pain in right leg
CPT/HCPCS: 99213

== ENCOUNTER → 2023-06-03 09:40 | Outpatient (BNVA) | payer OTHER, SELFPAY | PROVIDERS: PCP Nurse Practitioner Family; Visit Provider Orthopaedic Surgery | DX: M48.061 Spinal stenosis, lumbar region without neurogenic claudication (principal); M54.50 Low back pain, unspecified; M79.605 Pain in left leg | CPT/HCPCS: 99212 ==

== ENCOUNTER 2023-06-11 12:35 | Outpatient (REF) | payer OTHER, SELFPAY ==
--- NOTE | ~2023-06-11 | XR_ITS ---
EXAMINATION: XR LUMBOSACRAL SPINE WITH OBLIQUES CLINICAL INFORMATION: Spinal stenosis lumbar region. COMPARISON: MR lumbar spine of 03/21/2020. TECHNIQUE: 4 views of the lumbar spine inclusive of flexion and extension views. FINDINGS: Severe S-shaped thoracolumbar scoliosis. Surgical clips in the right upper quadrant of the abdomen. Degenerative changes on limited images of the bilateral hips and sacroiliac joints. Advanced degenerative changes in the imaged portion of the lower thoracic spine. Facet arthritis in the lower lumbar spine. Advanced multilevel degenerative changes in the lumbar spine. Cnqonmzv-[id number]-[id number] loss of disc space height and hypertrophic change at L1-L2. Minimal retrolisthesis of L1 on L2, and L2 on L3 with extension. Grade 1 anterolisthesis of L4 on L5 with flexion and extension. Anterolisthesis of L5 on S1 measuring approximately 15 mm, with flexion and reduces with extension. XR/XR lumbar spine 4V min IMPRESSION: 1. Severe thoracolumbar scoliosis with advanced multilevel degenerative disc disease and spondylolisthesis as described. 2. Facet arthritis in the lower lumbar spine.
== END 2023-06-11 12:36 | disposition home or self-care (01) ==
LOC: HO.HOSX 12:35
PROVIDERS: PCP Nurse Practitioner Family; Visit Provider Physician Assistant
DX: M51.36 Other intervertebral disc degeneration, lumbar region (principal); M48.061 Spinal stenosis, lumbar region without neurogenic claudication; M41.20 Other idiopathic scoliosis, site unspecified
CPT/HCPCS: 72110; 99202

== ENCOUNTER 2023-06-11 12:35 | Outpatient (AMB) | payer OTHER, SELFPAY ==
--- NOTE | 2023-06-11 13:00 | A.OFFVIS_ITS ---
Intake Intake Visit Reasons: spinal stenosis, lumbar region Card Tender Required: No Allergies oxycodone [From Tylox] Allergy (Severe, Verified 06/03/23 09:47) throat swelling Penicillins [PCN] Allergy (Severe, Verified 06/03/23 09:47) throat swelling PFSH Medical History Murmur Anxiety and depression GERD (gastroesophageal reflux disease) Hx of renal calculi Essential hypertension Nocturia Chronic pain syndrome Spondylosis of lumbosacral spine without myelopathy Arthropathy of lumbar facet joint Disc degeneration, lumbar Failed back syndrome of lumbar spine HTN (hypertension) Afib Hernia Carpal tunnel syndrome on both sides Surgical History Hx of foot surgery Hx of hernia repair H/O arthroscopic knee surgery History of carpal tunnel release of both wrists Hx of cholecystectomy Family History Father Heart attack HTN (hypertension) Mother HTN (hypertension) Heart attack Social History Housing: House Are you a primary health care marketing manager to a significant other at home: No Do you presently have visiting nurse or other home services: No Alcohol intake: never Patient Tobacco Use Status: Never used Tobacco e-Cigarette/Vaping Use: Never Used Second Hand Smoke Exposure: No service: No Current occupational status: disabled Cognitive needs: No Hearing needs: No Vision needs: No Assessment & Plan Assessment & Plan (1) Disc degeneration, lumbar: Code(s): M51.36 - Other intervertebral disc degeneration, lumbar region Plan: Dear Dr Dominguez, Thank you for referring MR Ross to our office today. He is a 62-year-old gentleman presents to the office today for evaluation of chronic bilateral lower lumbar pain which radiates out into his hips and down into his thighs and calves when he stands and walks. The patient tells me that he has been having the pain now for many years. His original evaluation by before his halfway, he was told that he was a nonsurgical candidate more less inoperable and to just try conservative treatments. Since that time he is been through too numerous to count pain centers in physiatry teams and has undergone extensive number of cortisone injections as well as implantation and interventional pain management devices like spinal cord stimulators and attemp saritha intrathecal pump trials. Unfortunately these things have never given him any lasting relief or he has had too many side effects. He is also done physical therapy, chiropractic and acupuncture. 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 He was sent today to see us with an MRI showing a severe the severely degenerative disc disease. He does take tramadol to help get through his day, he has tried all the typical [id number] pain medications without any significant relief. PMH: He has a history of AFib, apparently it is not in need of anticoagulation other than a baby aspirin, history of cholecystectomy, he has had multiple inguinal hernia repairs, depression, high cholesterol, anxiety, hypertension, carpal tunnel surgery, foot surgery, rotator cuff surgery, arthroscopic knee surgery, ascending aorta enlargement, sleep apnea Social hx: He does not smoke, denies any drug or recreational alcohol abuse Medications: Aspirin, atorvastatin, baclofen, diazepam, bupropion, diltiazem, duloxetine, lisinopril, meloxicam, omeprazole, sertraline, tramadol Allergies: Tylox and penicillin Physical exam: He is awake alert oriented no acute distress, is able to stand up out of a chair and walk with a slightly antalgic gait, strength is normal in the lower extremities, normal reflexes if not slightly diminished. Imaging review: There is a lumbar MRI done at [facility] in 2022, I was able to compare to a 2018 study and this shows development of a slight scoliosis leftward, with what appears to be a pars defect and a slight spondylolisthesis at L5-S1 with neural foraminal narrowing. It appears to be getting worse over time. I did standing x-rays here in the office and this shows a significant increase in the scoliotic curvature with standing, it also demonstrates a significant collapse of the disc space on the left at L5-S1 where there appears to be pars defect causing some signs of instability. He also appears to have some degree of osteopenia as well. Impression: 62-year-old male with a significant levoscoliotic curvature, pars defect on the left at L5 with collapse of the disc space and foraminal narrowing who presents with back pain and bilateral leg pain. The pain goes down his outer thighs and into his calves. 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 As he describes it, he will lose a couple inches of height as the day goes on. It is clear that as he stands up his curvature become significantly worse. He also has the issue with the pars defect causing significant collapse of the disc which is part of the issue causing his leg pain. It is clear that he is failed conservative treatment and basically at this point is at the end of the road for what he can do without surgery. I would like to get a CT scan of his spine to better evaluate the bony anatomy and to help us determine the best surgical targets. I will get the CT scan and have him come back to the office and re-evaluate with Dr. Robb. Thank you for allowing us to care for your patient. The total time spent with this visit with this patient was 45 minutes reviewing history, physical exam, lumbar imaging review, and implementation of treatment plan or further diagnostic testing Marcos Robb MD,PhD [facility] (2) Lumbar stenosis without neurogenic claudication: Code(s): M48.061 - Spinal stenosis, lumbar region without neurogenic claudication (3) Scoliosis (and kyphoscoliosis), idiopathic: Code(s): M41.20 - Other idiopathic scoliosis, site unspecified Plan see above Orders: Orders XR lumbar spine 4V min Today M48.061 - Spinal stenosis, lumbar region without neurogenic claudication, M51.36 - Other intervertebral disc degeneration, lumbar region CT lumbar spine wo IV con Today M48.061 - Spinal stenosis, lumbar region without neurogenic claudication Coding Level of Care Code New Pt Level 4 (83315) Diagnoses Disc degeneration, lumbar M51.36 Lumbar stenosis without neurogenic claudication M48.061 Scoliosis (and kyphoscoliosis), idiopathic M41.20
== END 2023-06-11 14:11 | disposition home or self-care (01) ==
PROVIDERS: PCP Nurse Practitioner Family; Referring Provider Orthopaedic Surgery; Visit Provider Physician Assistant
DX: M51.36 Other intervertebral disc degeneration, lumbar region (principal); M48.061 Spinal stenosis, lumbar region without neurogenic claudication; M41.20 Other idiopathic scoliosis, site unspecified
CPT/HCPCS: 99204

== ENCOUNTER 2023-06-23 12:04 | Outpatient (AMB) | payer OTHER, SELFPAY ==
[2023-06-23 12:34] VITALS: BMI 32.2
--- NOTE | 2023-06-23 12:34 | A.OFFVIS_ITS ---
Intake Vital Signs 06/23/23 12:34 Height 5 ft 8 in Weight 212 lb BMI 32.2 Intake Visit Reasons: OV- Lt Shld RTC Repair 03/12/23DR Intake Note: Richie is a 62 year old male who presents for post operative appointment s/p Left shoulder RTC repair 03/12/2023 The patient reports minimal discomfort in his left shoulder. He denies any fevers or chills. He reports continued mild weakness when lifting his hand above shoulder height. He is due to undergo low back surgery later this year. Allergies oxycodone [From Tylox] Allergy (Severe, Verified 06/23/23 12:43) throat swelling Penicillins [PCN] Allergy (Severe, Verified 06/23/23 12:43) throat swelling Medication List - Last Reconciled 06/23/23 by Seymour Dominguez MD aspirin 81 mg PO DAILY atorvastatin 20 mg PO BEDTIME baclofen 20 mg (2 x 10 mg) PO BID 30 days bupropion HCl 200 mg PO BID cholecalciferol (vitamin D3) 50 mcg PO DAILY 90 days diazepam 5 mg PO BEDTIME PRN 30 days diltiazem HCl ER 360 mg PO DAILY 90 days lisinopril 10 mg PO DAILY 90 days meloxicam 15 mg PO DAILY omeprazole 20 mg PO BID 90 days sertraline 200 mg PO DAILY sertraline 100 mg PO BID tramadol 50 mg PO BID PRN PFSH Medical History Murmur Anxiety and depression GERD (gastroesophageal reflux disease) Hx of renal calculi Essential hypertension Nocturia Chronic pain syndrome Spondylosis of lumbosacral spine without myelopathy Arthropathy of lumbar facet joint Disc degeneration, lumbar Failed back syndrome of lumbar spine HTN (hypertension) Afib Hernia Carpal tunnel syndrome on both sides Surgical History Hx of foot surgery Hx of hernia repair H/O arthroscopic knee surgery History of carpal tunnel release of both wrists Hx of cholecystectomy Family History Father Heart attack HTN (hypertension) Mother HTN (hypertension) Heart attack Social History Housing: House Are you a primary animal care worker to a significant other at home: No Do you presently have visiting nurse or other home services: No Alcohol intake: never Patient Tobacco Use Status: Never used Tobacco e-Cigarette/Vaping Use: Never Used Second Hand Smoke Exposure: No service: No Current occupational status: disabled Cognitive needs: No Hearing needs: No Vision needs: No Physical Exam Vital Signs: BMI result Body Mass Index 32.2 Const Other: Well-nourished well-developed very friendly male awake alert and oriented x3 in no acute distress Extrem Other: Bilateral upper extremity examination shows good capillary refill, no skin lesions noted, normal sensation light touch Left shoulder examination shows full active range of motion when compared to his right shoulder, 4+ out of 5 strength with supraspinatus testing, minimal discomfort with resisted forward flexion, internal rotation and external rotation Assessment & Plan Assessment & Plan (1) Left shoulder pain: Code(s): M25.512 - Pain in left shoulder Plan Mr. Ross continues to do well after undergoing left shoulder rotator cuff repair surgery on 03/12/2023. Will continue with his home stretching program. The do's and don'ts of lifting were discussed at length with the patient. He will contact me prior to his follow-up appointment in 2-3 months should any questions or concerns arise. Feel free to call me at any time should questions regarding his orthopedic management arise. I spent 22 minutes in reviewing the patient's records and imaging studies, seeing the patient and documenting in the medical record. Coding Level of Care Code Est Pt Level 2 (74632) Diagnoses Left shoulder pain M25.512
== END 2023-06-23 13:01 | disposition home or self-care (01) ==
PROVIDERS: PCP Nurse Practitioner Family; Visit Provider Orthopaedic Surgery
DX: S46.012D Strain of muscle(s) and tendon(s) of the rotator cuff of left shoulder, subsequent encounter (principal); M19.012 Primary osteoarthritis, left shoulder
CPT/HCPCS: 99213

== ENCOUNTER → 2023-06-23 12:04 | Outpatient (BNVA) | payer OTHER, SELFPAY | PROVIDERS: PCP Nurse Practitioner Family; Visit Provider Orthopaedic Surgery | DX: M25.512 Pain in left shoulder (principal) | CPT/HCPCS: 99212 ==

== ENCOUNTER 2023-07-21 10:03 | Outpatient (REF) | payer OTHER, SELFPAY ==
--- NOTE | ~2023-07-21 | CT_ITS ---
CT LUMBAR SPINE WITHOUT IV CONTRAST CLINICAL INFORMATION: Lumbar region spinal stenosis without neurogenic claudication. COMPARISON: Lumbar spine radiographs 06/11/2023. Lumbar spine MRI 03/21/2020. TECHNIQUE: Multidetector CT acquisition of the lumbar spine is obtained without contrast. This CT examination was performed using dose optimization techniques as appropriate, variously including the following: *Automated exposure control *Adjustment of mA and/or kV according to patient size (this includes techniques or standardized protocols for targeted exams where dose is matched to indication/reason for exam; i.e. extremities or head) *Use of iterative reconstruction technique FINDINGS: There are 5 nonrib-bearing lumbar-type vertebral bodies. Redemonstrated severe leftward convex scoliotic curvature at the thoracolumbar junction, progressed when compared to the prior study. Similar grade 1 anterolisthesis of L5 on S1 and to a lesser extent L4 on L5. The vertebral body heights are maintained. Moderate to severe right-sided disc volume loss and vacuum phenomenon at T12-L1 and L1-L2. Moderate right-sided disc volume loss and vacuum phenomenon at L2-L3. There is significant posterior disc volume loss and there is vacuum phenomenon at L3-L4. Moderate left-sided disc volume loss and vacuum phenomenon at L5-S1. There are no acute fractures and there are no acute subluxations. There are multilevel endplate osteophytes. There is vacuum phenomenon within the SI joints bilaterally. Partially imaged cyst within the liver. Bilateral perinephric stranding. Aortoiliac atherosclerotic calcification. T12-L1: There is a right paracentral/right lateral disc osteophyte protrusion resulting in similar mass effect on the traversing right L1 nerve root within the right subarticular zone and moderate right-sided foraminal stenosis. L1-L2: A right paracentral/right lateral disc protrusion that is in part disc osteophyte results in similar mass effect on the traversing right L2 nerve root within the right subarticular zone, similar mild right-sided central canal stenosis, and similar mild right-sided foraminal stenosis. L2-L3: There is a diffuse disc osteophyte complex and there is advanced bilateral hypertrophic facet arthropathy. Findings in concert result in possibly improved moderate central canal stenosis, persistent left greater than right subarticular zone stenosis with mass effect on the traversing left L3 nerve root, and lateral disc osteophyte protrusions result in worsening bilateral foraminal stenosis with mass effect on the exiting L2 nerve roots bilaterally. L3-L4: There is a diffuse annular disc bulge with a superimposed left paracentral disc protrusion and there is moderate bilateral hypertrophic facet arthropathy and ligamentum flavum thickening. Findings in concert result in left subarticular zone stenosis with mass effect on the traversing left L4 nerve root as well as mild bilateral foraminal encroachment and mild central canal stenosis. L4-L5: Slight grade 1 anterolisthesis. There is a diffuse annular disc bulge and there is severe bilateral facet arthropathy and ligamentum flavum thickening. Findings in concert result in probable mild central canal stenosis and mild to moderate left-sided foraminal encroachment that is similar to the previous study. L5-S1: There is grade 1 anterolisthesis with uncovered disc and a superimposed diffuse annular disc bulge. There is severe bilateral facet arthropathy and ligamentum flavum thickening. Findings in concert result in similar left subarticular zone stenosis with mass effect on the traversing left S1 nerve root and similar severe left foraminal stenosis with compression of the exiting left L5 nerve root. Chronic left-sided pars defect. CT/CT lumbar spine wo IV con IMPRESSION: * Redemonstrated severe leftward convex scoliotic curvature at the thoracolumbar junction, progressed when compared to the prior study. * At L5-S1, grade 1 anterolisthesis and advanced multifactorial degenerative changes result in similar left subarticular zone stenosis with mass effect on the traversing left S1 nerve root and similar severe left foraminal stenosis with compression of the exiting left L5 nerve root. Chronic left-sided pars defect. * At L3-L4, progressive multifactorial degenerative changes result in worsening left subarticular zone stenosis with mass effect on the traversing left L4 nerve root as well as mild bilateral foraminal encroachment and mild central canal stenosis. * At L2-L3, advanced spondylitic changes result in possibly improved moderate central canal stenosis, persistent left greater than right subarticular zone stenosis with mass effect on the traversing left L3 nerve root, and lateral disc osteophyte protrusions result in worsening bilateral foraminal stenosis with mass effect on the exiting L2 nerve roots bilaterally. * At L1-L2, a right paracentral/right lateral disc protrusion that is in part disc osteophyte results in similar mass effect on the traversing right L2 nerve root within the right subarticular zone, similar mild right-sided central canal stenosis, and similar mild right-sided foraminal stenosis. * At T12-L1, a right paracentral/right lateral disc osteophyte protrusion results in similar mass effect on the traversing right L1 nerve root within the right subarticular zone and moderate right-sided foraminal stenosis.
== END 2023-07-21 10:04 | disposition home or self-care (01) ==
LOC: HO.CT 10:03
PROVIDERS: PCP Nurse Practitioner Family; Visit Provider Physician Assistant
DX: M48.061 Spinal stenosis, lumbar region without neurogenic claudication (principal)
CPT/HCPCS: 72132

== ENCOUNTER 2023-07-27 12:38 | Outpatient (AMB) | payer OTHER, SELFPAY ==
--- NOTE | 2023-07-27 13:09 | HO.SPINEOV ---
Intake Intake Visit Reasons: CT/1 MONTH f/up Intake Note: Mr. Ross is here today to F/u CT in one month. Manager Fleet Required: No Allergies oxycodone [From Tylox] Allergy (Severe, Verified 06/23/23 12:43) throat swelling Penicillins [PCN] Allergy (Severe, Verified 06/23/23 12:43) throat swelling Assessment & Plan Assessment & Plan (1) Scoliosis (and kyphoscoliosis), idiopathic: Code(s): M41.20 - Other idiopathic scoliosis, site unspecified Plan Mr Ross came in to the office today again to review his CT scan. I looked at the imaging with Dr. Robb. The patient's main complaint is his left back pain and left-sided leg pain. The pain goes down into his calf and gets worse as the day goes on. He will also experience it at night. Based on the review of his imaging of his MRI at [facility] and his CT/x-rays done at [place], he has a very complicated situation because of his advanced levoscoliosis in the vertical position. Has severe angulation of the L4-5 disc space as well as collapse of the left L5 foramen secondary to pars defect. Both of these things could be contributing to his pain. He has a significant scoliotic curvature above that as well. If we attempt to treat this in the least invasive way possible, the ideal situation would be to do left L5 foraminotomy, and open up the foramen with pedicle screws at L5 and S1. We would like to get a nerve block before that just to confirm that this is where his pain is coming from. We discussed the issue of treating his back pain as not being realistic given that this would involve an extensive lumbar fusion. If we tried to just fuse the bottom 2 segments most likely this would result in some kind of adjacent segment problem that would necessitate further surgeries down the road. 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 He will call us down the road and let us know if he wishes to proceed with surgery. Total amount of time spent in this visit was 20 minutes in discussion of symptoms, lumbar imaging results and subsequent plan of care Marcos Robb MD,PhD [facility] Coding Level of Care Code Est Pt Level 3 (12288) Diagnoses Scoliosis (and kyphoscoliosis), idiopathic M41.20
== END 2023-07-27 14:25 | disposition home or self-care (01) ==
PROVIDERS: PCP Nurse Practitioner Family; Visit Provider Physician Assistant
DX: M41.20 Other idiopathic scoliosis, site unspecified (principal)
CPT/HCPCS: 99213

== ENCOUNTER → 2023-07-27 12:38 | Outpatient (BNVA) | payer OTHER, SELFPAY | PROVIDERS: PCP Nurse Practitioner Family; Visit Provider Physician Assistant | DX: M41.20 Other idiopathic scoliosis, site unspecified (principal) | CPT/HCPCS: 99212 ==

== ENCOUNTER 2023-09-20 14:13 | Outpatient (AMB) | payer OTHER, SELFPAY ==
--- NOTE | 2023-09-20 14:34 | A.OFFPC_ITS ---
Vital Signs 09/20/23 14:36 Height 5 ft 8 in Weight 222 lb BMI 33.8 BP 140/100 H Blood Pressure Location Lt brachial Position Sitting Pulse 93 Pulse Source Pulse Oximeter Pulse Oximetry (%) 96 Oxygen Delivery Method Room Air Intake Visit Reasons: ED-Elevated BP Intake Note: Patient here for ED f/u, pt was seen for elevated BP. Allergies oxycodone [From Tylox] Allergy (Severe, Verified 09/20/23 14:36) throat swelling Penicillins [PCN] Allergy (Severe, Verified 09/20/23 14:36) throat swelling Medication List - Last Reconciled 09/20/23 by PARMINDER Fisher- aspirin 81 mg PO DAILY atorvastatin 20 mg PO BEDTIME celecoxib (Celebrex) 200 mg (2 x 100 mg) PO DAILY 90 days cholecalciferol (vitamin D3) 50 mcg PO DAILY 90 days cyclobenzaprine 10 mg PO BID diazepam 5 mg PO BEDTIME PRN 30 days diltiazem HCl ER 420 mg PO DAILY 90 days duloxetine 30 mg PO DAILY gabapentin 300 mg PO DAILY hydrochlorothiazide 12.5 mg PO DAILY 90 days lisinopril 20 mg PO DAILY 90 days omeprazole 20 mg PO BID 90 days tramadol 50 mg PO BID PRN Tobacco use date assessed: 09/20/23 Dental Screening Dental Screen Date: 09/20/23 Did you have a dental visit in the last 12 months?: No Did you have a dental problem in the last 6 months where you did not have access to dental care?: No Was dental information given to patient?: Patient has dentist HPI ED-Elevated BP HPI Details HTN: Blood pressure is managed with diltiazem 360mg and lisinopril 10mg. Blood pressure is elevated. Will increase diltiazem to 420mg, lisinopril to 20mg, and add hydrochlorothiazide 12.5mg. Denies chest pain, shortness of breath, headache, dizziness, and blurred vision. Pt was recently seen in the ER with epistaxis and had elevated blood pressure, missing documentation. Pt reports increased pain due to arthritis. Will stop meloxicam and send celebrex. Will also increase pt's tramadol from 50mg bid to 50mg tid. Pt is clearly in pain. [facility] Medical History Murmur Anxiety and depression GERD (gastroesophageal reflux disease) Hx of renal calculi Essential hypertension Nocturia Chronic pain syndrome Spondylosis of lumbosacral spine without myelopathy Arthropathy of lumbar facet joint Disc degeneration, lumbar Failed back syndrome of lumbar spine HTN (hypertension) Afib Hernia Carpal tunnel syndrome on both sides Surgical History Hx of foot surgery Hx of hernia repair H/O arthroscopic knee surgery History of carpal tunnel release of both wrists Hx of cholecystectomy Family History Father Heart attack HTN (hypertension) Mother HTN (hypertension) Heart attack Social History Housing: House Are you a primary skin care consultant to a significant other at home: No Do you presently have visiting nurse or other home services: No Alcohol intake: never Patient Tobacco Use Status: Never used Tobacco e-Cigarette/Vaping Use: Never Used Second Hand Smoke Exposure: No service: No Current occupational status: disabled Cognitive needs: No Hearing needs: No Vision needs: Yes Questionnaire Thrive Questionnaire Date Thrive assessed: 05/29/21 AUDIT C Alcohol Use Questionnaire (AUDIT-C) 1. How often do you have a drink containing alcohol?: 2-3 times a week 2. How many drinks containing alcohol do you have on a typical day when you are drinking?: 1 or 2 3. How often do you have six or more drinks on one occasion?: Never Total Score: 3 Score Reviewed/Action Taken: No TIFFANY-7 AMB Questionnaire TIFFANY-7 Date TIFFANY - 7 assessed: 05/29/21 Source: Developed by Drs. Humberto Garrison, Apurva Blanc, Karl Weir and colleagues, with an educational andrew from [employer]. Review of Systems Const Reports as per HPI Physical exam (Primary Care) Vital Signs: Last Vital Signs Pulse 93 09/20/23 14:36 BP 140/100 H 09/20/23 14:36 Pulse Ox 96 09/20/23 14:36 Oxygen Delivery Method Room Air 09/20/23 14:36 BMI result Body Mass Index 33.8 Tobacco/Smoking Status: Tobacco use Status Tobacco use date assessed 09/20/23 09/20/23 14:39 Patient Tobacco Use Status Never used Tobacco 09/20/23 14:35 e-Cigarette/Vaping Use Never Used 09/20/23 14:35 Thrive Assessment: Date of Thrive Assessment Date Thrive assessed 05/29/21 09/20/23 14:35 Const General: cooperative Nutritional Appearance: obese Orientation/consciousness: patient oriented x3 Resp Other: lungs fairly clear Effort & Inspection: normal respiratory effort Cardio Rate: regular rate Rhythm: regular rhythm Heart sounds: S1 normal heart sound present and S2 normal heart sound present Neuro General: patient oriented x3 Psych Appearance: grossly normal Mental Status: mental status grossly normal Speech and movement: Normal speech and movement present Affect: normal affect Attitude: cooperative Thought process: Normal thought process present Thought content: Normal thought content present Insight: Good insight present (Psych) Judgement: Good judgement present (Psych) Assessment and Plan Assessment & Plan (1) HTN (hypertension): Code(s): I10 - Essential (primary) hypertension Plan: labs ordered, medications increased and added HCTZ. (2) Scoliosis (and kyphoscoliosis), idiopathic: Code(s): M41.20 - Other idiopathic scoliosis, site unspecified (3) Lumbar stenosis without neurogenic claudication: Code(s): M48.061 - Spinal stenosis, lumbar region without neurogenic claudication Plan: chronic pain, will increase tramadol from bid to tid dosing. Plan The patient agreed to the use of a adjunct faculty for medical terminology for this encounter. Scribed for LESTER Ruth by Keerthi Navarro adjunct faculty for medical terminology, on 09/20/2023 at 14:55 EST. Orders: Orders Lipid Panel Today I10 - Essential (primary) hypertension TSH reflex Free T4 Today I10 - Essential (primary) hypertension Comprehensive Zephyr. Panel Fast Today I10 - Essential (primary) hypertension Complete Blood Count Auto Diff Today I10 - Essential (primary) hypertension UA CC w/rflx Micro + Cult Today I10 - Essential (primary) hypertension Medications: New hydrochlorothiazide 12.5 mg PO DAILY 90 days 90 tabs 0RF celecoxib (Celebrex) 200 mg (2 x 100 mg) PO DAILY 90 days 180 caps 0RF Changed From diltiazem HCl ER 360 mg PO DAILY 90 days 90 caps 1RF To diltiazem HCl ER 420 mg PO DAILY 90 days 90 caps 1RF From lisinopril 10 mg PO DAILY 90 days 90 tabs 3RF To lisinopril 20 mg PO DAILY 90 days 90 tabs 3RF From tramadol 50 mg PO BID PRN 60 tabs 0RF pain To tramadol 50 mg PO TID 30 days PRN 90 tabs 1RF pain Refilled tramadol 50 mg PO TID 30 days PRN 90 tabs 1RF pain Discontinued meloxicam Discontinued Reason: Doctor's Order 15 mg PO DAILY 30 tabs 4RF Coding Level of Care Code Est Pt Level 3 (09971) Diagnoses HTN (hypertension) I10 Scoliosis (and kyphoscoliosis), idiopathic M41.20 Lumbar stenosis without neurogenic claudication M48.061
[2023-09-20 14:36] VITALS: BP 140/100; PULSE 93; O2SAT 96; BMI 33.8
== END 2023-09-20 16:14 | disposition home or self-care (01) ==
PROVIDERS: PCP Nurse Practitioner Family; Visit Provider Nurse Practitioner Family
DX: I10 Essential (primary) hypertension (principal); M41.20 Other idiopathic scoliosis, site unspecified; M48.061 Spinal stenosis, lumbar region without neurogenic claudication
CPT/HCPCS: 99213

== ENCOUNTER 2023-10-19 13:32 | Outpatient (REF) | payer OTHER, SELFPAY ==
[2023-10-19 13:48] LABS: MANUAL DIFF FLAG NO
[2023-10-19 14:07] LABS: Basophils Absolute Auto 0.1 X10*3/uL (0.0-0.2); Basophils Percent Auto 1.1 % (0-2); Eosinophils Absolute Auto 0.2 X10*3/uL (0.0-0.4); Hematocrit 36.3 % (42.0-52.0); Hemoglobin 12.7 g/dl (14.0-18.0); Imm Gran Abs Auto 0.01 X10*3/uL (0.00-0.03); Imm Gran Pct Auto 0.2 % (0.0-0.4); Lymphocytes Absolute Auto 1.9 X10*3/uL (1.2-4.9); Lymphocytes Percent Auto 33.5 % (20-40); Mean Corpuscular Hemoglobin 29.4 pg (27.0-33.0); Mean Platelet Volume 9.4 fL (9.4-12.4); Monocytes Absolute Auto 0.3 X10*3/uL (0.1-1.2); Neutrophils Absolute Auto 3.2 x10*3/uL (2.0-8.3); Neutrophils Percent Auto 56.2 % (45-73); Platelet Count 288 X10*3/uL (160-400); Red Blood Count 4.32 X10*6/uL (4.60-5.80); Red Cell Distribution Width 13.2 % (11.0-16.0); White Blood Count 5.7 X10*3/uL (4.8-10.8)
[2023-10-19 14:25] LABS: Appearance Urine Clear; Color Urine Dark Yellow; Glucose Urine UA Negative (Negative); Leukocyte Esterase Urine Negative (Negative); Nitrite Urine Negative (Negative); PH 5.5 (5.0-9.0); Specific Gravity - Urine >= 1.030 (1.005-1.025); Urine Blood Negative (Negative); Urine Ketones Trace mg/dL (Negative); Urine Protein Negative (Neg-Trace)
[2023-10-19 14:40] LABS: Alanine Aminotransferase 11 U/L (0-40); Albumin Level 4.5 g/dL (3.5-5.0); Alkaline Phosphatase 159 U/L (39-117); Anion Gap 15 (12-20); Aspartate Amino Transferase 16 U/L (5-37); Bilirubin Total 0.4 mg/dL (0.0-1.0); Blood Urea Nitrogen 35 mg/dL (9-16); Calcium 9.6 mg/dL (8.4-10.2); Carbon Dioxide 25 mmol/L (22-29); Chloride 104 mmol/L (96-108); Cholesterol 153 mg/dL (<200); Estimated Glomerular Filt Rate 52; Gamma Glutamyl Transpeptidase 19 U/L (11-51); Glucose Fasting 110 mg/dL (60-99); HDL Cholesterol 42 mg/dL (>40); LDL Cholesterol Calculated 90 mg/dL (<100); Sodium 140 mmol/L (135-145); Total Protein 8.3 g/dL (6.5-8.0); Triglycerides 106 mg/dL (<150)
[2023-10-24 06:13] LABS: Alk.Phos Iso. Macrohepatic 0 % (<=0); Alk.Phos Isoenzymes Bone 23 % (28-66); Alk.Phos Isoenzymes Intest 10 % (1-24); Alk.Phos Isoenzymes Liver 67 % (25-69); Alk.Phos Isoenzymes Placental 0 % (<=0); Alk.Phos Isoenzymes Total 142 U/L (35-144)
== END 2023-10-19 13:33 | disposition home or self-care (01) ==
LOC: HO.LAB 13:32
PROVIDERS: PCP Nurse Practitioner Family; Visit Provider Nurse Practitioner Family
DX: I10 Essential (primary) hypertension (principal); R74.8 Abnormal levels of other serum enzymes
CPT/HCPCS: 36415; 80053; 80061; 81003; 82977; 84080; 84443; 85025; 93005; 99212

== ENCOUNTER 2023-10-19 14:04 | Outpatient (AMB) | payer OTHER, SELFPAY ==
--- NOTE | 2023-10-19 14:48 | A.OFFVIS_ITS ---
Vital Signs 10/19/23 14:49 Height 5 ft 8 in Weight 218 lb 11.177 oz BMI 33.2 BP 110/60 Blood Pressure Location Lt brachial Position Sitting Pulse 68 Pulse Source Pulse Oximeter Intake Visit Reasons: 1 Year Follow up Electronic Resources Librarian Required: No Allergies oxycodone [From Tylox] Allergy (Severe, Verified 10/19/23 14:51) throat swelling Penicillins [PCN] Allergy (Severe, Verified 10/19/23 14:51) throat swelling Medication List - Last Reconciled 10/19/23 by Juju Lowe, SCREEN [employer]UTTER [employer]MER-[employer] aspirin 81 mg PO DAILY atorvastatin 20 mg PO BEDTIME celecoxib (Celebrex) 200 mg (2 x 100 mg) PO DAILY 90 days cholecalciferol (vitamin D3) 50 mcg PO DAILY 90 days cyclobenzaprine 10 mg PO BID diazepam 5 mg PO BEDTIME PRN 30 days diltiazem HCl ER 420 mg PO DAILY 90 days duloxetine 30 mg PO DAILY gabapentin 300 mg PO DAILY hydrochlorothiazide 12.5 mg PO DAILY 90 days lisinopril 20 mg PO DAILY 90 days omeprazole 20 mg PO BID 90 days tramadol 50 mg PO TID PRN 30 days HPI HPI 1 Year Follow up: Details: Richie is a 62-year-old male with past medical history of hypertension, paroxysmal atrial fibrillation, sleep apnea which is untreated and dilated ascending aorta who presents for follow-up. Today he reports that he has been feeling well since his last visit 09/29/2022. He has not been noticing any heart palpitations. He denies chest discomfort at rest or with activity. No concerning shortness of breath, PND, orthopnea or edema. No lightheadedness, presyncope, syncope. He did have a fall off a roof due to slippery ice last winter. He is very active during the day and takes care of horses, cows and his numerous dogs. He is hoping to move to [place] in the near future. If he does then his care will be transferred to that area. He recently had medication changes made by his PCP. [facility] Medical History Murmur Anxiety and depression GERD (gastroesophageal reflux disease) Hx of renal calculi Essential hypertension Nocturia Chronic pain syndrome Spondylosis of lumbosacral spine without myelopathy Arthropathy of lumbar facet joint Disc degeneration, lumbar Failed back syndrome of lumbar spine HTN (hypertension) Afib Hernia Carpal tunnel syndrome on both sides Surgical History Hx of foot surgery Hx of hernia repair H/O arthroscopic knee surgery History of carpal tunnel release of both wrists Hx of cholecystectomy Family History Father Heart attack HTN (hypertension) Mother HTN (hypertension) Heart attack Social History Housing: House Are you a primary administrator health care facility to a significant other at home: No Do you presently have visiting nurse or other home services: No Alcohol intake: never Patient Tobacco Use Status: Never used Tobacco e-Cigarette/Vaping Use: Never Used Second Hand Smoke Exposure: No service: No Current occupational status: disabled Cognitive needs: No Hearing needs: No Vision needs: Yes Review of Systems Const All systems reviewed & are unremarkable except as noted in HPI and below ENT Denies dizziness Card Denies chest pain, Denies chest pain at rest, Denies chest pain with activity, Denies rapid heart rate, Denies pedal edema, Denies edema, Denies leg edema, Denies lightheadedness, Denies palpitations, Denies dyspnea, Denies dyspnea on exertion and Denies orthopnea Resp Denies cough, Denies dyspnea and Denies dyspnea on exertion GI Denies hematochezia and Denies change in stool character Musc Denies abnormal gait, Denies limited range of motion, Reports muscle cramps, Denies muscle weakness, Denies numbness, Denies radiating pain into limb, Denies stiffness and Denies tingling Neuro Denies abnormal gait, Denies dizziness, Denies numbness and Denies tingling Endo Denies palpitations Physical Exam Vital Signs: Last Vital Signs Pulse 68 10/19/23 14:49 BP 110/60 10/19/23 14:49 BMI result Body Mass Index 33.2 Const General: cooperative, healthy appearing, comfortable and no acute distress Orientation/consciousness: patient oriented x3 Neck Neck: Yes normal visual inspection and Yes no JVD Resp Effort & Inspection: normal respiratory effort Auscultation: clear to auscultation bilaterally, no crackles, no rales, no rhonchi and no wheezes Cardio Jugular venous distension: no JVD Rate: regular rate Rhythm: regular rhythm Heart sounds: S1 normal heart sound present, S2 normal heart sound present, no murmurs and no rubs Neuro General: patient oriented x3 Extrem General: Yes normal to inspection, No no pedal edema and No calf tenderness Psych Appearance: grossly normal Mental Status: mental status grossly normal Speech and movement: Normal speech and movement present Office Procedures EKG Details: Today, read by me, normal sinus rhythm, right bundle branch block, can not rule out inferior infarct, rate 68, QTC 418 millisecond [id number], Complete Assessment & Plan Assessment & Plan (1) Essential hypertension: Code(s): I10 - Essential (primary) hypertension Category: Medical Plan: History of hypertension. Currently on diltiazem, lisinopril and hydrochlorothiazide. He reports recent dose adjustments made by PCP due to elevated blood pressure reading. Blood pressure is very good today at 110/60. Labs are pending, drawn today. No medicine changes made at this time. We will continue to follow with PCP. (2) Ascending aorta enlargement: Code(s): I77.89 - Other specified disorders of arteries and arterioles Category: Medical Plan: Patient has dilated ascending aorta. Echocardiogram done 11/10/2022 showed EF 56%, moderate septal and basal asymmetric hypertrophy, ascending aorta 4.2 cm. No significant change from prior. Blood pressure is currently controlled. Will plan for repeat echo in 1 year. Patient tells me he is considering moving to [place] at which time his care will be transferred to a provider in that area. At this time we will plan for his follow-up here along with the echo in a year. (3) ELIF (obstructive sleep apnea): Code(s): G47.33 - Obstructive sleep apnea (adult) (pediatric) Category: Medical Plan: History of obstructive sleep apnea. Unable to wear CPAP due to his [place]. He has no plans of shaving at this time. (4) PAF (paroxysmal atrial fibrillation): Code(s): I48.0 - Paroxysmal atrial fibrillation Category: Medical Plan: History of paroxysmal atrial fibrillation. Currently suppressed with diltiazem for heart rate control. EKG done today showing sinus rhythm with right bundle branch block, rate 68. He is not on anticoagulation. His CHADS-VASc score of 1. He has not had any known recurrent heart palpitations or confirmed AFib in the last year. The importance ongoing AFib treatment reviewed with him. Plan Time spent on chart review, documentation, interview and assessment Orders: Orders CA echo transthoracic complete 10/04/24 I48.0 - Paroxysmal atrial fibrillation, I77.89 - Other specified disorders of arteries and arterioles Coding Level of Care Code Est Pt Level 4 (45973) Diagnoses Essential hypertension I10 Ascending aorta enlargement I77.89 ELIF (obstructive sleep apnea) G47.33 PAF (paroxysmal atrial fibrillation) I48.0 CPT Codes EKG - CPT: [id number], Complete ([id number]) Time Spent (min) 28
[2023-10-19 14:49] VITALS: BP 110/60; PULSE 68; BMI 33.2
== END 2023-10-19 15:48 | disposition home or self-care (01) ==
PROVIDERS: PCP Nurse Practitioner Family; Visit Provider Nurse Practitioner Family
DX: I10 Essential (primary) hypertension (principal); I77.89 Other specified disorders of arteries and arterioles; G47.33 Obstructive sleep apnea (adult) (pediatric); I48.0 Paroxysmal atrial fibrillation
CPT/HCPCS: 93010; 99214

== ENCOUNTER 2023-12-27 12:41 | Outpatient (AMB) | payer OTHER, SELFPAY ==
[2023-12-27 12:42] VITALS: BP 132/70; PULSE 80; O2SAT 98; BMI 31.3
--- NOTE | 2023-12-27 12:42 | MHC.PC.OV ---
Vital Signs 12/27/23 12:42 Height 5 ft 8 in Weight 206 lb BMI 31.3 BP 132/70 Blood Pressure Location Rt brachial Position Sitting Pulse 80 Pulse Source Pulse Oximeter Pulse Oximetry (%) 98 Oxygen Delivery Method Room Air Intake Visit Reasons: F/U per JG Intake Note: pt is here for follow up Round Up Ring Hand Required: No Accompanied by: Self / Same As Patient Allergies oxycodone [From Tylox] Allergy (Severe, Verified 12/27/23 12:42) throat swelling Penicillins [PCN] Allergy (Severe, Verified 12/27/23 12:42) throat swelling Tobacco use date assessed: 09/20/23 Dental Screening Dental Screen Date: 09/20/23 HPI F/U per JG HPI Details HTN: Blood pressure is stable, managed with diltiazem 420mg, hydrochlorothiazide 12.5mg, and lisinopril 20mg. Denies chest pain, shortness of breath, headache, and blurred vision. Pt reports a recent episode of dizziness with syncope. He reports that it was very hot out which could have contributed to this. Pt does report some dizziness with turning his head. ? inner ear/vestibular issue. [facility] Medical History Murmur Anxiety and depression GERD (gastroesophageal reflux disease) Hx of renal calculi Essential hypertension Nocturia Chronic pain syndrome Spondylosis of lumbosacral spine without myelopathy Arthropathy of lumbar facet joint Disc degeneration, lumbar Failed back syndrome of lumbar spine HTN (hypertension) Afib Hernia Carpal tunnel syndrome on both sides Surgical History Hx of foot surgery Hx of hernia repair H/O arthroscopic knee surgery History of carpal tunnel release of both wrists Hx of cholecystectomy Family History Father Heart attack HTN (hypertension) Mother HTN (hypertension) Heart attack Social History Housing: House Are you a primary director medicare sales to a significant other at home: No Do you presently have visiting nurse or other home services: No Alcohol intake: never Patient Tobacco Use Status: Never used Tobacco e-Cigarette/Vaping Use: Never Used Second Hand Smoke Exposure: No service: No Current occupational status: disabled Cognitive needs: No Hearing needs: No Vision needs: Yes Questionnaire PHQ-9 Over the last 2 weeks, how often have you been bothered by any of the following problems? 1. Little interest or pleasure in doing things: nearly every day 2. Feeling down, depressed, or hopeless: nearly every day 3. Trouble falling or staying asleep, or sleeping too much: nearly every day 4. Feeling tired or having little energy: nearly every day 5. Poor appetite or overeating: nearly every day 6. Feeling bad about yourself - or that you are a failure or have let yourself or your family down: nearly every day 7. Trouble concentrating on things, such as reading the newspaper or watching television: nearly every day 8. Moving or speaking so slowly that other people could have noticed. Or the opposite - being so fidgety or restless that you have been moving around a lot more than usual: several days 9. Thoughts that you would be better off or of hurting yourself in some way: nearly every day Total score: 25 Depression Screening Interpretation: Positive (denies any SI or HI) Depression Screening Follow-up: Existing condition and Declines treatment Depression Screening Done: Yes Source: Developed by Drs. Humberto Garrison, Apurva Blanc, Karl Weir and colleagues, with an educational andrew from [employer]. Thrive Questionnaire Date Thrive assessed: 12/27/23 I am a: Patient What is your living situation today?: I have a place to live, but I am worried about losing it in the future Within the past 12 months, did the food you bought not last and you didn't have the money to get more?: Sometimes True Within the past 12 months, did you worry whether your food would run out before you got money to buy more?: Often true Do you have trouble paying for medicines?: No Do you have trouble getting transportation to medical appointments?: No Do you have trouble paying your heating and electricity bill?: Yes Do you have trouble taking care of your child, family member or friend?: No Do you have trouble with day-to-day activities such as bathing, preparing meals, shopping, managing finances, etc.?: Yes Are you currently unemployed and looking for a job?: No Are you interested in more education?: No Please select the resources that you would like help with: Housing/Penitentiary, Food, Utilities and Daily support Currently or been in a relationship where the following occur: No concerns reported THRIVE Score: 4 AUDIT C Alcohol Use Questionnaire (AUDIT-C) 1. How often do you have a drink containing alcohol?: 4 or more times a week 2. How many drinks containing alcohol do you have on a typical day when you are drinking?: 1 or 2 3. How often do you have six or more drinks on one occasion?: Never Total Score: 4 Score Reviewed/Action Taken: Yes TIFFANY-7 AMB Questionnaire TIFFANY-7 Date TIFFANY - 7 assessed: 12/27/23 Feeling nervous, anxious, or on edge: 3 = Nearly every day Not being able to stop or control worryin = Nearly every day Worrying too much about different things: 3 = Nearly every day Trouble relaxin = Not at all Being so restless that it is hard to sit still: 3 = Nearly every day Becoming easily annoyed or irritable: 3 = Nearly every day Feeling afraid as if something awful might happen: 3 = Nearly every day Total TIFFANY-7 score (0-4 normal; 5-9 mild; 10-14 moderate; 15-21 severe): 18 Source: Developed by Drs. Humberto Garrison, Apurva Blanc, Karl Weir and colleagues, with an educational andrew from [employer]. TIFFANY-7 Assessment Billing TIFFANY-7 Assessment Tool: TIFFANY-7 Assessment 84309 Review of Systems Const Reports as per HPI Physical exam (Primary Care) Vital Signs: Last Vital Signs Pulse 80 12/27/23 12:42 BP 132/70 12/27/23 12:42 Pulse Ox 98 12/27/23 12:42 Oxygen Delivery Method Room Air 12/27/23 12:42 BMI result Body Mass Index 31.3 Tobacco/Smoking Status: Tobacco use Status Tobacco use date assessed 09/20/23 12/27/23 12:43 Patient Tobacco Use Status Never used Tobacco 12/27/23 12:43 e-Cigarette/Vaping Use Never Used 12/27/23 12:43 PHQ-9: PHQ-9 Score PHQ-9: Total score 25 12/27/23 13:18 Depression Screening Interpretation: Positive (denies any SI or HI) Depression Screening Follow-up: Existing condition and Declines treatment Thrive Assessment: Date of Thrive Assessment Date Thrive assessed 12/27/23 12/27/23 12:43 Currently or been in a relationship where the following occur: No concerns reported Const General: cooperative Orientation/consciousness: patient oriented x3 HENMT Ears: TM normal on the right and TM normal on the left Resp Effort & Inspection: normal respiratory effort Auscultation: clear to auscultation bilaterally Cardio Rate: regular rate Rhythm: regular rhythm Heart sounds: S1 normal heart sound present and S2 normal heart sound present Neuro Other: - brigida hallpike General: patient oriented x3 and CN's II-XI intact bilaterally Psych Appearance: grossly normal Mental Status: mental status grossly normal Speech and movement: Normal speech and movement present Affect: normal affect Attitude: cooperative Thought process: Normal thought process present Thought content: Normal thought content present Insight: Good insight present (Psych) Judgement: Good judgement present (Psych) Assessment and Plan Assessment & Plan (1) HTN (hypertension): Code(s): I10 - Essential (primary) hypertension Plan: Stable (2) Dizziness: Code(s): R42 - Dizziness and giddiness Plan: ? inner ear/vestibular issue, will do EKG in office Plan The patient agreed to the use of a medical center representative for this encounter. Scribed for KEY Ruth by Keerthi Navarro medical center representative, on 12/27/2023 at 12:55 EST. Orders: Orders Comprehensive [place]. Panel Fast Today I10 - Essential (primary) hypertension UA CC w/rflx Micro + Cult Today I10 - Essential (primary) hypertension Complete Blood Count Auto Diff Today I10 - Essential (primary) hypertension TSH reflex Free T4 Today I10 - Essential (primary) hypertension Lipid Panel Today I10 - Essential (primary) hypertension AMB EKG-In Office Today R42 - Dizziness and giddiness Coding Level of Care Code Est Pt Level 3 (00538) Diagnoses HTN (hypertension) I10 Dizziness R42 Additional Codes TIFFANY-7 Assessment Billing - TIFFANY-7 Assessment Tool: TIFFANY-7 Assessment [id number] ([id number])
== END 2023-12-27 14:00 | disposition home or self-care (01) ==
PROVIDERS: PCP Nurse Practitioner Family; Visit Provider Nurse Practitioner Family
DX: I10 Essential (primary) hypertension (principal); R42 Dizziness and giddiness
CPT/HCPCS: 99213

== ENCOUNTER 2024-05-03 12:46 | Outpatient (AMB) | payer OTHER, SELFPAY ==
--- OUTSIDE RECORDS SUMMARY | 2024-05-03 12:50 | XMS_ITS | Data Portability ---
Author Organization [place] [facility] Address [address] [place] [address] Care Team Providers Care Night Guard Name Role Phone [facility] Referring Provider [facility] OTHER Assessment Encounter Date Assessment Date Assessment LastModified by Organization Details LastModified Time 08/20/2021 08/20/2021 Attending attestation: I agree with the above assessment and plan as documented by the blender / cook. I provided real-time medical direction for this encounter and was immediately available to provide additional phone-based assistance as needed. 60M with chronic back pain, no new or recent trauma. Pt without neurological symptoms, no weakness, no loss of stool or retention. Pt is scheduled to see PCP tomorrow, review of chart reveals previous relief with Toradol. Plan: Toradol 30mg IM x1 PCP follow up tomorrow Red flags discussed paysola Not available 08/20/2021 17:21:37 Plan of Treatment Reminders Order Date Submit Date Provider Last Modified By Organization Details Last Modified Time Details Appointments None recorded. Lab None recorded. Referral None recorded. Procedures None recorded. Surgeries None recorded. Imaging None recorded. Medication Orders ketorolac 30 mg/mL (1 mL) injection solution 2021 022 [email or web address] Not available 2 17:23:17 loperamide 2 mg tablet 2022 023 [email or web address] Not available 3 19:18:05 sodium chloride 0.9 % intravenous solution 2022 023 [email or web address] Not available 3 19:18:05 Patient TargetsNo targets recorded. Patient InstructionsNo instructions recorded. Reason for Referral None Reported. Medical Equipment None Reported. Allergies Allergen ID Allergen Name Allergen Category Reaction Reaction Severity Criticality Documentation Date Start Date Code Code System Note Provider Name and Address Organization Details Recorded Time 2304 Medicinal product containin g penicilli n and acting as antibacte rial agent (product) medicatio n Not available Not available Not available 03/14/2024 18194 05 SNOMED Not Available [facility] - production 4 03:43:41 Medications Name Sig Start Date Stop Date Status Note LastModified by Organization Details LastModified Time atorvastatin 20 mg tablet TAKE 1 TABLET BY MOUTH AT BEDTIME active Not Available Not Available No t Available clindamycin HCl 300 mg capsule TAKE 1 CAPSULE EVERY 6 HOURS FOR 7 DAYS active Not Available Not Available No t Available meloxicam 15 mg tablet TAKE 1 TABLET BY MOUTH EVERY DAY active Not Available Not Available No t Available prednisone 20 mg tablet TAKE 3 TABLETS BY MOUTH DAILY FOR 6 DAYS active Not Available Not Available N ot Available hydrocodone 10 mg-acetamino phen 325 mg tablet TAKE 1 TABLET BY MOUTH EVERY 6 HOURS NEEDED FOR PAIN active Not Available Not Available No t Available tramadol 50 mg tablet TAKE 1 TABLET BY MOUTH TWICE A DAY NEEDED PAIN active Not Available Not Available Not Available ketorolac 30 mg/mL (1 mL) injection solution Inject 1 mL every 6 hours by intramuscul ar route for 1 day. 2021 active Not Available Not Available Not Avai lable baclofen 10 mg tablet TAKE 2 TABLETS BY MOUTH TWICE A DAY FOR 30 DAYS active Not Available Not Available No t Available lisinopril 10 mg tablet TAKE 1 TABLET BY MOUTH EVERY DAY active Not Available Not Available No t Available omeprazole 20 mg capsule,stacy yed release TAKE 1 CAPSULE BY MOUTH TWICE A DAY active Not Available Not Available No t Available sertraline 50 mg tablet TAKE 1 & 1/2 TABLET BY MOUTH DAILY active Not Available Not Available No t Available diazepam 5 mg tablet TAKE 1 TABLET BY MOUTH EVERY DAY AT BEDTIME NEEDED ANXIETY active Not Available Not Available No t Available Tiadylt ER 360 mg capsule,exte nded release TAKE 1 CAPSULE BY MOUTH EVERY DAY active Not Available Not Available No t Available Vitals Date Recorded Body temperature Respiratory rate Oxygen saturation Oxygen saturation in Arterial blood by Pulse oximetry Heart rate Systolic blood pressure Diastolic blood pressure Provider Name and Address Organization Details Last Updated DateTime 2 98.4 [degF] 20 /min 99 % 99 % 80 /min 165 mm[Hg] 110 mm[Hg] Cookie Stuart MD [address] [facility],[address], [place], [address] [place] [address] 2 17:20:20 Date Recorded Heart rate Body temperature Respiratory rate Heart rate Body temperature Respiratory rate Heart rate Body temperature Respiratory rate Systolic blood pressure Diastolic blood pressure Systolic blood pressure Diastolic blood pressure Systolic blood pressure Diastolic blood pressure Provider Name and Address Organization Details Last Updated DateTime 3 102 /min 98.3 [degF] 18 /min 102 /min 98.3 [degF] 18 /min 102 /min 98.3 [degF] 18 /min 122 mm[Hg] 84 mm[Hg] 122 mm[Hg] 84 mm[Hg] 122 mm[Hg] 84 mm[Hg] Not Available [facility] - production 3 16:00:17 Social History None recorded. Functional Status None recorded. Mental Status None recorded. Family History Nothing Reported. Medical History No medical history recorded. Past Encounters Encounter ID Performer Location Encounter Start Date Encounter Closed Date Diagnosis/Indication Diagnosis SNOMED-CT Code Diagnosis ICD10 Code [id number] Cookie tSuart MD [address] [phone] 08/20/2021 17:10:54 01/21/2022 11:18:06 Chronic low back pain 024052942 M54.50 [id number] Parveen Pittman MD [address] [phone] 06/27/2022 14:19:02 06/29/2022 11:07:57 Mild dehydration 8342222463 108 E86.0 Diarrhea 03095099 R19.7 Health Concerns Section Related Observation LastModified by Organization Detai ls LastModified Time None Recorded Concern Status LastModified by Organization Details LastModified Time None Recorded Advance Directives Directive None Recorded Payers Encounter Date Sequence Insurance Name Policy Number Policy Saez Covered Member ID Saez Member ID Guarantor Name 08/20/2021 1 [facility] - [facility] PRIOR TO 2022 - DUAL ELIGIBLE (MEDICARE REPLACEMENT/ADV ANTAGE - HMO) Richie Ross [id number] Richie Ross 06/27/2022 1 [facility] - DOS PRIOR TO 2022 - DUAL ELIGIBLE (MEDICARE REPLACEMENT/ADV ANTAGE - HMO) Richie Ross [id number] Richie Ross Notes Date Note Type Note Provider Name and Address Organization Details Recorded Time 08/20/2021 text/html From CRC: Coco is a 60 you male with history of MDD, Anxiety, Afib, DDD, OA of Spine, HTN, GERD, CAD, ELIF, Nocturia, Morbid Obesity. Allergies to PCN and Tylox. Mbr states his Tramadol is not working for the pain. Sent GC activity to alerting CP about this call and TE. Dustyr c/o chronic lower back pain and worse today and would like a blender / cook HV today for pain relief. Mbr stated he has MD appt this week but cannot wait to see Provider. Mbr reports he has had this lower back pain since 2017. Mbr denies chest pain, SOB or exposure to anyone recently positive with the C19 virus. Call back number for Dusty daigle [phone]. Sent in [facility] HV request for today. Cookie Stuart MD [address] [facility],[address], [place], [address], [facility] 08/20/2021 17:24:00 06/27/2022 text/html HPI: Member outreach as requested by member services. Member states since last night at about 7p he was nauseous, vomited and had diarrhea. This morning he drank water and has had about 3 bouts of diarrhea. No nausea or vomiting today but feels dizzy and lightheaded today. Member has not taken any of his AM medications, has not eaten today and feels nauseous. History of Afib, DDD, CAD, GERD, chronic pain, anxiety, depression, OA of the spine, morbid obesity Other allergy to Tylox ..................... ..................... ..................... ..................... ..................... ..................... ............... CRC Nursing Assessment: Comments: CRC RN did not require any additional information to process this visit. ..................... ..................... ..................... ..................... ..................... ..................... ............... Bleach Mixer Note From Marilee Leggett: Community Bleach Mixer Kate Leggett SC6 dispatched to a [facility] for a 61 yom C/O N/V/D X12 hours. Upon arrival, the pt was ambulatory, CROSS X4, awake and alert, looking as if he did not feel well. He stated that the night prior, he suddenly felt nauseous, and then had multiple episodes of vomiting and diarrhea throughout the night. He stated that the nausea had subsided, but that he was having near constant bouts of diarrhea. He stated he was unable to take his morning meds and was not tolerating fluids. He denied fever, dizziness, syncope, palpitations, weakness, unusual color in his vomit or stool, cough, sore throat, CP, SOB, abd pain (while not vomiting), or urinary S/S. He stated that he had 2 episodes of recurrent N/V in the past that required hospitalization due to dehydration. [facility] consulted; #20 IV was placed in his right AC and he was given 1000 mL NS. CMP acquired-results in insted. He was also given 2 mg loperamide PO. After fluid administration, pt stated he felt much better, and had no bouts of diarrhea while receiving fluids. Red flags were discussed. ..................... ..................... ..................... ..................... ..................... ..................... ............... Disposition: Fulfilled Parveen Pittman MD [address] [facility],[address], [place], [address], [facility] - GREGORIA HERNADEZ 06/27/2022 19:18:18
--- OUTSIDE RECORDS SUMMARY | 2024-05-03 12:50 | XMS_ITS | Patient Health Record ---
Author Organization [facility] Address [address] [place] [phone] Care Team Providers Care Hand Plug Shaper Name Role Phone Whitley BEATTY, Chaitanya Primary Care Provider Unavail able Allergies Allergen (clinical drug ingredient) Drug/Non Drug Allergy documented on EMR Reaction Allergy Type Onset Date Status oxycodone Oxycodone Unknown Drug Allergy Active Penicillin Unknown Drug Allergy Active Reason For Referral No Information Medications Medication SIG (Take, Route, Frequency, Duration) Notes Start Date End Date Status DULoxetine HCl 60 MG 1 capsule Orally On ce a day for 30 day(s) Active Lisinopril 10 MG 1 tablet Orally Once a day for 30 day(s) Active dilTIAZem HCl ER Beads 360 MG 1 capsule Orally Once a day for 30 day(s) Active Aspirin 81 MG 1 tablet Orally Once a day for 30 day(s) Active Atorvastatin Calcium 20 MG 1 tablet Oral ly Once a day for 30 day(s) Active Baclofen 10 MG/5ML as directed Intrathecal Active diazePAM 5 MG 1 tablet as needed O rally Once a day Active Meloxicam 15 MG 1 tablet Orally Once a day for 30 day(s) Active Omeprazole 20 MG 1 capsule 30 minutes before morning meal Orally Once a day for 30 day(s) Active Sertraline HCl 50 MG 1 tablet Orally Onc e a day for 30 day(s) Active traMADol HCl 50 MG 1 tablet as needed O rally Once a day Active Social History Tobacco Use: Social History Observation Description Date Details (start date - stop date) Never Smoker NA - NA Tobacco Use/Smoking Question Answer Notes Are you a nonsmoker Problems Problem Type SNOMED Code ICD Code Onset Dates Problem Status W/U Status Risk Notes Problem Lumbosacral spondylosis without myelopathy ([id number]) Spondylosis without myelopathy or radiculopathy, lumbar region (M47.816) Active confirmed Plan Of Treatment No Information Insurance Providers Payer Name Payer Address Payer Phone Subscriber Number Group Number Insured Name Patient Relationship to Insured Coverage Start Date Coverage End Date [facility] [address] [place] [phone] [id number] USMAN CASTILLO Self - patient is the insured 9 Medical (General) History Medical History History ICD Code anxiety depression arthropathy of lumbar facet joint carpal tunnel on both sides chronic pain syndrome disc degeneration lumbar essential hypertension gerd hernia htn murmur spondylosis of the lumbosacral spin with out myelopathy Surgical History Surgery Date(Month/Year) arthroscopic knee surgery carpal tunnel release of both wrist cholecystectomy foot surgery hernia repair several
--- OUTSIDE RECORDS SUMMARY | 2024-05-03 12:50 | XMS_ITS ---
Author Organization [facility] Address [address] [place] [phone] Care Team Providers Care General Machinist Name Role Phone Whitley BEATTY, Chaitanya Primary Care Provider ALANA Sen Unavailable [phone] REASON FOR VISIT Injections still pending. Encounters Encounter Location Date Provider Diagnosis [facility] [address] [place] [phone] 11/09/2022 ALANA ELIZABETH Plan Of Treatment No Information Progress Notes * RUDOLPH CASTILLOOB:[birth year] (63 yo M)Acc No.[id number]:11/09/2022 Progress Notes Patient:?USMAN CASTILLO Provider:?Alana Elizabeth MD :1960???Age:62 Y???Sex:Male Reed e:11/09/2022 Address:[address] [place] [address] Pcp:Chaitanya Arreaga NP Subjective: * Chief Complaints: * ???1. Injections still pendi ng.. * Medical History:? Objective: * Vitals:? Assessment: Plan: * Treatment: * * Electronic signature of LIZETTE SETH MD on 05/03/2024 at 12:50 PM EST Sign off status: Pending * Provider:?Alana Elizabeth MD Date:? 023 Generated for Printi ng/Faxing/eTransmitting on:?05/03/2024 12:50 PM EST
--- OUTSIDE RECORDS SUMMARY | 2024-05-03 12:50 | XMS_ITS ---
Author Organization [facility] Address [address] [place] [phone] Care Team Providers Care Technology Sales Representative Name Role Phone Whitley BEATTY, Chaitanya Primary Care Provider ALANA Sen Unavailable [phone] REASON FOR VISIT (going to see surgeon for shoulder) injection Encounters Encounter Location Date Provider Diagnosis [facility] [address] [place] [phone] 12/14/2022 ALANA ELIZABETH Plan Of Treatment No Information Progress Notes * RUDOLPH CASTILLOOB:[birth year] (63 yo M)Acc No.[id number]:12/14/2022 Progress Notes Patient:?ARTEMHELEN USMAN Provider:?Alana Elizabeth MD :1960???Age:62 Y???Sex:Male Reed e:12/14/2022 Address:[address] [place] [address] Pcp:Chaitanya Arreaga NP Subjective: * Chief Complaints: * ???1. (going to see surgeon for shoulder) injection. * Medical History:? Objective: * Vitals:? Assessment: Plan: * Treatment: * * Electronic signature of LIZETTE SETH MD on 05/03/2024 at 12:50 PM EST Sign off status: Pending * Provider:Preston Elizabeth MD Date:? 023 Generated for Printi ng/Faxing/eTransmitting on:?05/03/2024 12:50 PM EST
--- NOTE | 2024-05-03 12:55 | A.OFFPC_ITS ---
Vital Signs 05/03/24 12:57 Height 5 ft 8 in Weight 202 lb BMI 30.7 BP 118/72 Blood Pressure Location Lt brachial Position Sitting Pulse 82 Pulse Source Pulse Oximeter Pulse Oximetry (%) 97 Oxygen Delivery Method Room Air Intake Visit Reasons: 4 wed/ Allergies oxycodone [From Tylox] Allergy (Severe, Verified 05/03/24 12:59) throat swelling Penicillins [PCN] Allergy (Severe, Verified 05/03/24 12:59) throat swelling Medication List - Last Reconciled 05/03/24 by Chaitanya Arreaga [facility] aspirin 81 mg PO DAILY atorvastatin 20 mg PO BEDTIME celecoxib (Celebrex) 200 mg (2 x 100 mg) PO DAILY 90 days cholecalciferol (vitamin D3) 50 mcg PO DAILY 90 days cyclobenzaprine 10 mg PO BID diazepam 5 mg PO BEDTIME PRN 30 days diltiazem HCl ER 420 mg PO DAILY 90 days doxycycline hyclate 100 mg PO DAILY 10 days duloxetine 30 mg PO DAILY gabapentin 300 mg PO DAILY hydrochlorothiazide 12.5 mg PO DAILY 90 days lisinopril 20 mg PO DAILY 90 days omeprazole 20 mg PO BID 90 days [shower bench, no backrest or arms As directed] tramadol 50 mg PO TID PRN 30 days Tobacco use date assessed: 09/20/23 Dental Screening Dental Screen Date: 09/20/23 HPI 4 wed HPI Details Chief Complaint Swelling and difficulty bending the right second finger after a rat bite. History of Present Illness The patient is a 63-year-old male presenting with swelling and difficulty bending the right second finger following a rat bite. The injury reportedly occurred five days ago while feeding his pet snake a store-bought rat. He denies experiencing any fever, chills, drainage, or redness associated with the bite. However, he describes the finger as faintly swollen, particularly around the proximal interphalangeal joint, impeding full flexion. The patient reports experiencing faint tenderness in the affected area. There has been no medical intervention for this issue to date. Additionally, the patient is managing hypertension, which necessitates regular follow-up. NOTE: pt left after his TDaP injection. I was planning to speak with him more. Doxy sent.Knows to go to er with any worsening symptoms Social History - The patient is planning to relocate to [place]. - He owns a pet snake. Health Maintenance Review of Systems - General: Denies fever or chills. - Cardiac: Denies chest pain. - Respiratory: Denies shortness of breat h. - Neurological: Denies dizziness and hea dache. Physical Exam General: Cooperative, healthy appearing, comfortable, no acute distress and well developed Orientation: Patient oriented x3 Limitations: No limitations Head: Normal to inspection Ears: Hearing grossly normal bilaterally Nose: Normal external nose present Face and sinus: Normal facial exam Eyes: Appearance normal, both eyes and all related structures Neck: Normal visual inspection and Yes full ROM Respiratory: Normal respiratory effort and able to speak in complete sentences. Clear to auscultation bilaterally Cardiovascular: Regular rate and rhythm. Normal S1 and S2 GI: Normal to inspection. Soft to palpation and nontender Skin: No rashes or lesions noted Neuro: Patient oriented x3 Extremities: Right second finger is slightly puffy, especially to the more proximal aspect, able to flex but not fully at the PIP joint. Faint tenderness to this region with palpation, no active warmth, no active erythema Results Plan - Evaluate for potential infection and m anagement following the rat bite to the right second finger. - Continue monitoring and managing hyper tension. - Consider interventions to alleviate th e limited range of motion and swelling of the affected finger. Patient was informed and verbally consented to the use of an ambient scribe for clinic note documentation during this visit. Discussion Notes During the visit, I discussed with the patient the potential for infection from the rat bite and the importance of monitoring the finger for any signs of inf ection or increasing symptoms. We addressed the need for continued management of his hypertension and the necessity of monitoring his blood pressure regularly. I emphasized that immediate attention should be sought if symptoms worsen. We also talked about potential treatment options if swelling or decreased mobility of the finger persists. Patient Instructions - Monitor the right second finger closel y for any signs of infection, including increased redness, warmth, or drainage. - Seek medical attention if symptoms wor sen or if fever develops. - Continue to monitor and manage blood p ressure as instructed. [facility] Medical History Hypertensive retinopathy Murmur Anxiety and depression GERD (gastroesophageal reflux disease) Hx of renal calculi Essential hypertension Nocturia Chronic pain syndrome Spondylosis of lumbosacral spine without myelopathy Arthropathy of lumbar facet joint Disc degeneration, lumbar Failed back syndrome of lumbar spine HTN (hypertension) Afib Hernia Carpal tunnel syndrome on both sides Surgical History Hx of foot surgery Hx of hernia repair H/O arthroscopic knee surgery History of carpal tunnel release of both wrists Hx of cholecystectomy Family History Father Heart attack HTN (hypertension) Mother HTN (hypertension) Heart attack Social History Housing: House Are you a primary hemodialysis patient care specialist to a significant other at home: No Do you presently have visiting nurse or other home services: No Alcohol intake: never Patient Tobacco Use Status: Never used Tobacco e-Cigarette/Vaping Use: Never Used Second Hand Smoke Exposure: No service: No Current occupational status: disabled Cognitive needs: No Hearing needs: No Vision needs: Yes Questionnaire Thrive Questionnaire Date Thrive assessed: 05/03/24 I am a: Patient What is your living situation today?: I have a place to live, but I am worried about losing it in the future Within the past 12 months, did the food you bought not last and you didn't have the money to get more?: Sometimes True Within the past 12 months, did you worry whether your food would run out before you got money to buy more?: Often true Do you have trouble paying for medicines?: No Do you have trouble getting transportation to medical appointments?: No Do you have trouble paying your heating and electricity bill?: Yes Do you have trouble taking care of your child, family member or friend?: No Do you have trouble with day-to-day activities such as bathing, preparing meals, shopping, managing finances, etc.?: Yes Are you currently unemployed and looking for a job?: No Are you interested in more education?: No Currently or been in a relationship where the following occur: No concerns reported THRIVE Score: 4 TIFFANY-7 AMB Questionnaire TIFFANY-7 Date TIFFANY - 7 assessed: 12/27/23 Source: Developed by Drs. Humberto L. MeliApurva arriola Kurt Kroenke and colleagues, with an educational andrew from [employer]. Physical exam (Primary Care) Vital Signs: Last Vital Signs Pulse 82 05/03/24 12:57 BP 118/72 05/03/24 12:57 Pulse Ox 97 05/03/24 12:57 Oxygen Delivery Method Room Air 05/03/24 12:57 BMI result Body Mass Index 30.7 Tobacco/Smoking Status: Tobacco use Status Tobacco use date assessed 09/20/23 05/03/24 12:56 Patient Tobacco Use Status Never used Tobacco 05/03/24 12:56 e-Cigarette/Vaping Use Never Used 05/03/24 12:56 Thrive Assessment: Date of Thrive Assessment Date Thrive assessed 05/03/24 05/03/24 13:00 Currently or been in a relationship where the following occur: No concerns repo rted Coding Level of Care Code Est Pt Level 3 (20042) Diagnoses Rat bite W53.11XA Assessment & Plan Assessment & Plan (1) Rat bite: Code(s): W53.11XA - Bitten by rat, initial encounter Category: Medical Plan Tdap given today Medications: New doxycycline hyclate 100 mg PO DAILY 10 days 20 caps 0RF
[2024-05-03 12:57] VITALS: BP 118/72; PULSE 82; O2SAT 97; BMI 30.7
== END 2024-05-03 15:47 | disposition home or self-care (01) ==
PROVIDERS: PCP Nurse Practitioner Family; Visit Provider Nurse Practitioner Family
DX: S61.250A Open bite of right index finger without damage to nail, initial encounter (principal); W53.11XA Bitten by rat, initial encounter

== ENCOUNTER → 2024-05-03 12:46 | Outpatient (BNVA) | payer OTHER, SELFPAY | PROVIDERS: PCP Nurse Practitioner Family; Visit Provider Nurse Practitioner Family | DX: S61.250A Open bite of right index finger without damage to nail, initial encounter (principal); W53.11XA Bitten by rat, initial encounter; Y93.9 Activity, unspecified; Y92.9 Unspecified place or not applicable; Y99.9 Unspecified external cause status; Z23 Encounter for immunization | CPT/HCPCS: 90471; 90715; 96127; 99212 ==

== ENCOUNTER → 2024-06-21 13:34 | Outpatient (BNVA) | payer OTHER, SELFPAY | PROVIDERS: PCP Nurse Practitioner Family ==

== ENCOUNTER 2024-06-21 13:50 | Outpatient (REF) | payer OTHER, SELFPAY ==
--- NOTE | ~2024-06-21 | XR_ITS ---
EXAMINATION: XR ABDOMEN KUB CLINICAL INDICATION: R10.9 - Unspecified abdominal pain COMPARISON: None available. TECHNIQUE: AP view of the abdomen. FINDINGS: I do not see complications and the kidney shadows or the bladder shadow. The bowel gas pattern is nonobstructive. Abundant stool. Vascular clips right upper quadrant abdomen and likely cholecystectomy. Levoconvex rotoscoliosis, lumbar spine. XR/XR KUB IMPRESSION: No nephrolithiasis based upon x-ray. Levoconvex rotoscoliosis, lumbar spine. No intestinal obstruction pattern. Electronically signed by: Ramesh Billings MD 06/21/2024 02:44 PM MAYA
== END 2024-06-21 13:51 | disposition home or self-care (01) ==
LOC: HO.HMGCX 13:50
PROVIDERS: PCP Nurse Practitioner Family; Visit Provider Physician Assistant
DX: R10.9 Unspecified abdominal pain (principal); R10.12 Left upper quadrant pain
CPT/HCPCS: 74018; 99212

== ENCOUNTER → 2024-06-21 14:05 | Outpatient (BNV) | payer OTHER, SELFPAY | PROVIDERS: PCP Nurse Practitioner Family; Visit Provider Radiology Diagnostic Radiology | DX: M41.86 Other forms of scoliosis, lumbar region (principal) | CPT/HCPCS: 74018 ==

== ENCOUNTER 2024-09-22 12:09 | Outpatient (AMB) | payer OTHER, SELFPAY ==
--- OUTSIDE RECORDS SUMMARY | 2024-09-22 12:30 | XMS_ITS | Patient Health Record ---
Author Organization [facility] Address [address] [place] [phone] Care Team Providers Care Mushroom Sorter Grader Name Role Phone Whitley BEATTY, Chaitanya Primary [...] Risk Notes Problem Lumbosacral spondylosis without myelopathy ([id number]) Spondylosis without myelopathy or radiculopathy, lumbar region (M47.816) Active confirmed Plan Of Treatment No Information Insurance Providers Payer Name Payer Address Payer Phone Subscriber Number Group Number Insured Name Patient Relationship to Insured Coverage Start Date Coverage End Date [facility] [address] [place] [phone] [id number] USMAN CASTILLO Self - patient is the [...]
--- OUTSIDE RECORDS SUMMARY | 2024-09-22 12:30 | XMS_ITS | Clinical Summary ---
Author Organization [employer] [facility] ity Address [address] [place] [address] Care Team Providers Care Fiber Optics Supervisor Name Role Phone Unavailable Primary Care Provider Unavailabl e Surgical History Surgery Date Site/Laterality Comments HERNIA REPAIR PROCEDURE: HISTORICAL HERNIA REPAIR/ING; COMMENT: left inguinal OTHER SURGICAL HISTORY PROCEDURE: ---- OTHER ----; COMMENT: R plantar fasciotomy HERNIA REPAIR 10/23 PROCEDURE: REPAIR UMBILICAL HERNIA KNEE SURGERY PROCEDURE: HISTORICAL KNEE SURGERY; COMMENT: left; ACL, meniscus CARPAL TUNNEL RELEASE PROCEDURE: HISTORICAL CARPAL TUNNEL REL; COMMENT: bilat VASECTOMY PROCEDURE: MA VASECTOMY UNI/BI SPX W/POSTOP SEMEN EXAMS COLONOSCOPY 05/13/15 PROCEDURE: HISTORICAL COLONOSCOPY; COMMENT: tics; repeat in 10 yrs CHOLECYSTECTOMY 07/13/2019 PROCEDURE: LAPAROSCOPIC CHOLECYSTECT; COMMENT: at [facility] Chaitanya Flower for +HIDA acalculous chronic cholecystitis Medical History Medical History Date Comments Anxiety 03/18/2015 DX:Anxiety Carpal tunnel syndrome DX:Carpal tunnel syndrome Chronic back pain 02/17/2016 DX:Chronic telma k pain DDD (degenerative disc disea se), lumbosacral 02/17/2016 DX:DDD (degenerative disc di sease), lumbosacral Degeneration of intervertebr al disc of cervicothoracic region 02/17/2016 DX:Degeneration of intervert ebral disc of cervicothoracic region Depression 05/24/2008 DX:Depression Fatty liver 11/27/2011 DX:Fatty liver Heartburn DX:Heartburn History of diverticulitis 08/11/2014 DX:His tory of diverticulitis Hypercholesteremia 11/13/2005 DX:Hyperchole steremia Inguinal hernia 04/11/2013 DX:Inguinal isaac ia Insomnia 03/18/2015 DX:Insomnia Neck pain, chronic 02/17/2016 DX:Neck pain, chronic Nephrolithiasis 04/20/2011 DX:Nephrolithias is; COMMENT: 04/26 3mm distal left ureteral stone with mild pelvocaliectasis. Dr Mahoney. 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; COMMENT: No evidence of clinical replication; Could recheck PCR q2yrs per ID Pure hypercholesterolemia DX:Pur e hypercholesterolemia Morbid obesity with BMI of 4 0.0-44.9, adult (CMS/HCC V24, CMS/HCC V28) 06/08/2017 DX:Morbid obesity wit h BMI of 40.0-44.9, adult ([facility]) Family History Medical History Relation Name Comments Coronary artery disease Father in h is 60's Coronary artery disease Mother late r in life Hypertension Mother Diabetes Neg Hx Other cancer Neg Hx Relation Name Status Comments Brother Alive 1,healthy Father (Age 94) Mother (Age 85) Social History Tobacco Use Types Packs/Day Years Used Date Smoking Tobacco: Never Smokeless Tobacco: Never Alcohol Use Standard Drinks/Week Comments Yes 0 (1 standard drink = 0.6 oz pur e alcohol) Sex and Gender Information Value Date Recorded Sex Assigned at Not on file Legal Sex Male 3:29 AM EST Gender Identity Not on file Sexual Orientation Not on file Obstetrics History Plan of Treatment Health Maintenance Due Date Last Done Comments Hepatitis A Vaccines (1 of 2 - Risk 2-dose series) 1981 Pneumococcal Vaccine: 50+ Years (1 of 1 - PCV) 2012 Zoster Vaccines (1 of 2) 2012 DTaP,Tdap,and Td Vaccines (2 - Td or Tdap) 01/11/2019 01/11/2009 Hepatitis B Vaccines (1 of 3 - Risk 3-dose series) 2022 RSV Immunization Adult Patients (1 - Risk 60-74 years 1-dose series) 2022 Cholesterol Screening (Lipid Panel) 01/10/2024 Colorectal Cancer Screening: Colonoscopy 01/10/2024 Depression Screening 01/10/2024 HIV Screening 01/10/2024 Hepatitis C Screening 01/10/2024 Hypertension/CHF/CAD Annual BMP Blood Test 01/10/2024 Social Influencers of Health Screening 01/10/2024 COVID-19 Vaccine ( season) 2024 Influenza Vaccine (Season Ended) 2025 06/29/2018, 04/15/2017, 03/27/2016, Additional history exists HIB Vaccines Aged Out No longer eligi ble based on patient's age to complete this topic HPV Vaccines Aged Out No longer eligi ble based on patient's age to complete this topic IPV Vaccines Aged Out No longer eligi ble based on patient's age to complete this topic MMR Vaccines Aged Out No longer eligi ble based on patient's age to complete this topic Meningococcal ACWY Vaccine Aged Out N o longer eligible based on patient's age to complete this topic Meningococcal B Vaccine Aged Out No l onger eligible based on patient's age to complete this topic Pneumococcal Vaccine: Pediatrics (0 to 5 Years) and At-Risk Patients (6 to 64 Years) Aged Out No longer eligible based on patient's age to complete this topic RSV Immunization Patients Under 20 months Aged Out No longer eligible based on patient's age to complete this topic Varicella Vaccines Aged Out No longer eligible based on patient's age to complete this topic
--- NOTE | 2024-09-22 12:40 | AM.OFFWIN_ITS ---
Intake Vital Signs 09/22/24 12:43 Height 5 ft 8 in Weight 205 lb BMI 31.2 BP 118/80 Blood Pressure Location Lt brachial Position Sitting Pulse 56 Pulse Source Pulse Oximeter Pulse Oximetry (%) 98 Oxygen Delivery Method Room Air Intake Visit Reasons: EP pain in lt side Intake Note: Patient here for left sided abdominal pain and tick bite on neck. Patient Tobacco Use Status: Never used Tobacco Allergies oxycodone [From Tylox] Allergy (Severe, Verified 09/22/24 12:44) throat swelling Penicillins [PCN] Allergy (Severe, Verified 09/22/24 12:44) throat swelling Do you need a note to return to daycare/school/sports/work: No HPI EP pain in lt side HPI Details This is a 63-year-old male patient who presents to the walk-in clinic with two concerns today. He has been having intermittent left upper quadrant pain for the last 6 months or so. He describes this as a tingling /dull pain sensation. He states that throughout the day, his left upper quadrant becomes firm, and then soft again several minutes later. States he has been having regular bowel movements. He was apparently seen here last year, and was told he had a significant amount of stool in his colon. Since then, he has used suppositories and laxative drinks as needed for constipation, however has not had any issues with constipation in many months. He denies any fevers, chills, illnesses. Denies any blood in his stool. Denies any nausea/ vomiting. He states his diet is very poor due to low income. He also would like me to evaluate a tick bite on the front of his neck. He states that he was animals and when he came in, he noticed it and removed it. He states the longest it make been on him was 15-20 minutes. He removed the tick, and just wants me to check on the site. He is reportedly scheduled for a colonoscopy this summer, and will also be seeing PCP Chaitanya Ndiaye next month. [facility] Medical History Hypertensive retinopathy Murmur Anxiety and depression GERD (gastroesophageal reflux disease) Hx of renal calculi Essential hypertension Nocturia Chronic pain syndrome Spondylosis of lumbosacral spine without myelopathy Arthropathy of lumbar facet joint Disc degeneration, lumbar Failed back syndrome of lumbar spine HTN (hypertension) Afib Hernia Carpal tunnel syndrome on both sides Surgical History Hx of foot surgery Hx of hernia repair H/O arthroscopic knee surgery History of carpal tunnel release of both wrists Hx of cholecystectomy Family History Father Heart attack HTN (hypertension) Mother HTN (hypertension) Heart attack Social History Housing: House Are you a primary direct support professional caregiver to a significant other at home: No Do you presently have visiting nurse or other home services: No Alcohol intake: never Patient Tobacco Use Status: Never used Tobacco e-Cigarette/Vaping Use: Never Used Second Hand Smoke Exposure: No service: No Current occupational status: disabled Cognitive needs: No Hearing needs: No Vision needs: Yes Review of Systems Const All systems reviewed & are unremarkable except as noted in HPI and below Physical Exam Vital Signs: Last Vital Signs Pulse 56 09/22/24 12:43 BP 118/80 09/22/24 12:43 Pulse Ox 98 09/22/24 12:43 Oxygen Delivery Method Room Air 09/22/24 12:43 BMI result Body Mass Index 31.2 Const General: cooperative and no acute distress Limitations: no limitations Neck Other: small slightly erythematous area anterior neck at site of tick bite. No rash. Tick appears to have been completely removed. Resp Effort & Inspection: normal respiratory effort Cardio Rate: regular rate Rhythm: regular rhythm GI Inspection: Yes normal to inspection Palpation (GI): Soft to palpation and Firmness to palpation present (GI) (slightly firm area in LUQ) in the LUQ Auscultation: normal bowel sounds Skin General skin exam: no rashes or lesions noted Extrem General: Yes capillary refill normal and Yes no clubbing, cyanosis or edema Psych Appearance: grossly normal Mental Status: mental status grossly normal Speech and movement: Normal speech and movement present Assessment & Plan Assessment & Plan (1) Left upper quadrant abdominal pain: Code(s): R10.12 - Left upper quadrant pain Plan: Patient does have slight firmness in his left upper quadrant of his abdomen. It is not particularly tender to palpation. Patient states it is a tingling/tightness when this occurs. It seems too pronounced to simply be peristalsis. Bowel sounds are normal. Bowel movements have been normal per patient. I am going to follow up with his PCP, Chaitanya Ndiaye PROM BURN OFF OPERATOR to see if he wishes to see patients sooner than Kenzie visit. Patient reports he has colonoscopy scheduled some time this summer. If he develops any worsening pain/fever he can go to the ED for evaluation, which patient understands. (2) Tick bite of neck: Code(s): S10.96XA - Insect bite of unspecified part of neck, initial encounter; W57.XXXA - Bitten or stung by nonvenomous insect and other nonvenomous arthropods, initial encounter Qualifiers: Encounter type: initial encounter Qualified Code(s): S10.96XA - Insect bite of unspecified part of neck, initial encounter; W57.XXXA - Bitten or stung by nonvenomous insect and other nonvenomous arthropods, initial encounter Plan: Bacitracin provided for patient. Advised to keep area clean. Does not meet criteria for Lyme prophylaxis. If any symptoms such as increased redness, pain, rash develop, patient can return to clinic for further evaluation. Coding Level of Care Code Est Pt Level 4 (28985) Diagnoses Left upper quadrant abdominal pain R10.12 Tick bite of neck, initial encounter S10.96XA; W57.XXXA Encounter type: initial encounter
[2024-09-22 12:43] VITALS: BP 118/80; PULSE 56; O2SAT 98; BMI 31.2
== END 2024-09-22 13:53 | disposition home or self-care (01) ==
PROVIDERS: PCP Nurse Practitioner Family; Visit Provider Nurse Practitioner Family
DX: R10.12 Left upper quadrant pain (principal); S10.96XA Insect bite of unspecified part of neck, initial encounter; W57.XXXA Bitten or stung by nonvenomous insect and other nonvenomous arthropods, initial encounter

== ENCOUNTER → 2024-09-22 12:09 | Outpatient (BNVA) | payer OTHER, SELFPAY | PROVIDERS: PCP Nurse Practitioner Family; Visit Provider Nurse Practitioner Family | DX: R10.12 Left upper quadrant pain (principal); S10.96XA Insect bite of unspecified part of neck, initial encounter; W57.XXXA Bitten or stung by nonvenomous insect and other nonvenomous arthropods, initial encounter | CPT/HCPCS: 99212 ==

== ENCOUNTER → 2024-10-04 12:46 | Outpatient (REF) | payer OTHER, SELFPAY ==
--- NOTE | 2024-10-04 12:49 | CA_ITS ---
Transthoracic Echocardiogram Patient (Last, First, Middle): Richie Ross, Gender: Male Date of : 1960 Age: 63 Procedure Date: 10/04/2024 Procedure Type: Transthoracic Echocardiogram Location: OP Height: 172.72 cm Weight: 92.99 kg BSA: 2.07 m2 Heart Rate: bpm BP: 118 / 80 mmHg Trauma Manager: RON Referring MD: Juju Lowe REHABILITATION THERAPY AIDE-Cady Bun Panner: Dallas Flood MD Symptoms: I77.89 - Other specified disorders of arteries and arterioles Study Quality: Adequate ECG Rhythm: Sinus Conclusions: - 1. Normal LV ejection fraction of 60 65% with grade 1 diastolic dysfunction 2. Mild biatrial enlargement 3. Mild aortic regurgitation noted 4. Normal RV systolic pressure 5. Mildly dilated ascending aorta at 4.2 cm 6. No pericardial effusion Findings Left Ventricle Normal left ventricular size, thickness, and systolic function. The visually estimated ejection fraction is between 60-65%. Spectral Doppler is indicative of an impaired relaxation filling pattern. E/E prime ratio is <8, consistent with normal filling pressures. Evidence suggests grade I (mild) diastolic dysfunction. Right Ventricle Normal right ventricular cavity size and systolic function. Atria The left atrium is mildly dilated. There is no evidence of interatrial shunt. The right atrium is mildly dilated. Aortic Valve The aortic valve was not well visualized. There is mild calcification of the aortic valve. There is no aortic valve stenosis. There is mild aortic valve regurgitation. Mitral Valve There is moderate anterior and posterior mitral leaflet thickening. There is mild anterior and mild posterior mitral annular calcification. There is trace mitral valve regurgitation. There is no mitral valve stenosis. Pulmonic Valve The pulmonic valve was not well visualized. Tricuspid Valve Likely normal tricuspid valve structure and function. There is mild tricuspid valve regurgitation. The right ventricular systolic pressure is normal. The right ventricular systolic pressure is 27 mmHg. Normal right atrial pressure. There is no evidence of pulmonary hypertension. Great Vessels The pulmonary artery was not well visualized. There is mild dilatation of the ascending aorta measuring 4.20 cm. Venous The inferior vena cava is normal in size and collapses greater than 50% with inspiration. Pericardium/Pleural There is no evidence of pericardial effusion. Prior Study Comparison Changes noted compared to prior study dated: 11/10/2022. mild aortic regurgitation noted Measurements 2D Linear Measurements IVSd: 0.94 0.6-0.9/0.6-1.0 cm LVIDd: 5.22 3.9-5.3/4.2-5.9 cm LVIDd Index: 2.52 2.4-3.2/2.2-3.1 cm/m2 LVIDs: 3.22 2.0-3.6 cm LVPWd: 0.75 0.7-1.1 cm LA Diam: 4.30 2.7-3.8/3.0-4.0 cm LAIDs Index: 2.08 1.5-2.3 cm/m2 LV Mass: 194.76 67-162/88-224 g LV Mass Index: 94.09 43-95/49-115 g/m2 LVOT Diam: 2.40 3.0+(-)1.3 cm 2D Systolic Function EF 4C: 62.40 >55% EF 2C: 64.80 >55% EF BiP: 64.00 >55% Mitral Valve MV Pk E: 0.73 MV PK A: 0.91 MV Decel Time: 331.00 E/A: 0.80 E'Lateral: 10.40 E'Medial: 7.40 E/E' Med: 9.80 E/E' Lat: 7.00 PHT: 97.00 MVA PHT: 2.27 Decel Nicholas: 2.20 Aortic Valve AoV Pk Joao: 1.74 AoV Mn Joao: 1.22 AoV VTI: 0.40 AoV Pk Grad: 12.00 Aov Mn Grad: 7.00 BRUNO Cont.VTI: 3.24 LVOT LVOT Pk Joao: 1.32 LVOT Mn Joao: 0.85 LVOT VTI: 0.29 LVOT Pk Grad: 7.00 LVOT Mn Grad: 3.00 LVOT Diam: 2.40 LVOT Area: 4.52 Diastolic Function MV Pk E: 0.73 MV Pk A: 0.91 E/A: 0.80 E'Medial: 7.40 E/E' Med: 9.80 E' Laterial: 10.40 E/E' Lat: 7.00 Right Ventricle TAPSE (mm): 29.60 TVS' Joao: 13.30 Tricuspid Valve TR Pk Joao: 2.20 TR Pk Grad: 19.00 RA Press: 8.00 RVSP: 27.00 Great Vessels Aorta Sinus of Valsalva: 3.71 2.0-3.[address] Ridge: 3.32 1.7-3.4 cm Ao Asc: 4.20 2.1-3.4 cm Ao Arch: 3.30 Updated in Other Vendor System with Status of Final Dallas Flood MD electronically signed on 10/05/2024 2:17:46 PM with status of Final
--- OUTSIDE RECORDS SUMMARY | 2024-10-04 13:25 | XMS_ITS | Encounter Summary ---
Author Organization [facility] Address [address] [place] [address] Care Team Providers Care Automotive Design Layout Drafter Name Role Phone Phyllis Stanley MD Primary Care Provider Gurvinder Post MD Primary Care Provider [phone] [facility], Pcp Primary Care [facility] Encounter Details Date Type Department Care Team Description 07/17/2019 Fender Finisher Report Medical Records [address] [place] [address] Alyson Ferrari, Social History Tobacco Use Types Packs/Day Years Used Date Smoking Tobacco: Never Smokeless Tobacco: Never Alcohol Use Standard Drinks/Week Comments Yes 0 (1 standard drink = 0.6 oz pure alcohol) once a week, will have 3-4 drinks; otherwise none Sex Assigned at Date Recorded Not on file documented as of this encounter Plan of Treatment Not on file documented as of this encounter Visit Diagnoses Not on filedocumented in this encounter Care Teams Automotive Design Layout Drafter Relationship Specialty Start Date End Date Phyllis Stanley MD PCP - General Internal Medicine 12/10/15 01/22/20 Gurvinder Man MD [address] [place] [address] PCP - General Internal Medicine 01/23/20 09/01/20 [facility], Pcp [address] [place] [address] PCP - General Internal Medicine 09/02/20 documented as of this encounter
--- OUTSIDE RECORDS SUMMARY | 2024-10-04 13:25 | XMS_ITS | Encounter Summary ---
Author Organization [facility] Address [address] [place] [address] Care Team Providers Care Lab Assistant Name Role Phone Phyllis Stanley MD Primary Care Provider Gurvinder Post MD Primary Care Provider [phone] [facility], Pcp Primary Care Provider Unavailabl e Reason for Visit * Reason Onset Date Comments Testing 06/22/2019 Encounter Details Date Type Department Care Team Description 06/22/2019 Telephone Radiology - [address] [address] Tatyana Esquivel MD Testing Social History Tobacco Use Types Packs/Day Years Used Date Smoking Tobacco: Never Smokeless Tobacco: Never Alcohol Use Standard Drinks/Week Comments Yes 0 (1 standard drink = 0.6 oz pure alcohol) once a week, will have 3-4 drinks; otherwise none Sex Assigned at Date Recorded Not on file documented as of this encounter Miscellaneous Notes * Telephone Encounter - Erin Ferguson - 06/22/2019 10:54 AM EST Called patient to book ct but he stated he went to ED @[place] and had it done there. We will remove the internal order. documented in this encounter Plan of Treatment Not on file documented as of this encounter Visit Diagnoses Not on filedocumented in this encounter Care Teams Lab Assistant Relationship Specialty Start Date End Date Phyllis Stanley MD PCP - General Internal Medicine 12/10/15 01/22/20 Gurvinder Man MD [address] [place] [address] PCP - General Internal Medicine 01/23/20 09/01/20 [facility], Pcp [address] [place] [id number] PCP - General Internal Medicine 09/02/20 documented as of this encounter
--- OUTSIDE RECORDS SUMMARY | 2024-10-04 13:25 | XMS_ITS | Encounter Summary ---
Author Organization [facility] Address [address] [place] [address] Care Team Providers Care Global Clinical Leader Name Role Phone Phyllis Stanley MD Primary Care Provider Gurvinder Post MD Primary Care Provider [phone] [facility], Pcp Primary Care Provider [facility] Encounter Details Date Type Department Care Team Description 09/09/2018 Plastic Extrusion Operator Report Medical Records [address] [place] [id number] Abstract, Provider Social History Tobacco Use Types Packs/Day Years [...] on filedocumented in this encounter Care Teams Global Clinical Leader Relationship Specialty Start Date End Date Phyllis Stanley MD PCP - General Internal Medicine 12/10/15 01/22/20 Gurvinder Man MD [address] [place] [address] PCP - General Internal Medicine 01/23/20 09/01/20 [facility], Pcp [address] [place] [address] PCP - General Internal Medicine 09/02/20 documented as of this encounter
--- OUTSIDE RECORDS SUMMARY | 2024-10-04 13:25 | XMS_ITS | Encounter Summary ---
Author Organization [facility] Address [address] [place] [address] Care Team Providers Care Crankshaft Straightener Name Role Phone Phyllis Stanley MD Primary Care Provider Gurvinder Post MD Primary Care Provider [phone] [facility], Pcp Primary Care Provider [facility] Encounter Details Date Type Department Care Team Description 07/29/2017 Hospital Medical Records [address] [place] [address] Social History Tobacco Use Types Packs/Day Years [...] on filedocumented in this encounter Care Teams Crankshaft Straightener Relationship Specialty Start Date End Date Phyllis Stanley MD PCP - General Internal Medicine 12/10/15 01/22/20 Gurvinder Man MD [address] [place] [id number] PCP - General Internal Medicine 01/23/20 09/01/20 [facility], Pcp [address] [place] [address] PCP - General Internal Medicine 09/02/20 documented as of this encounter
--- OUTSIDE RECORDS SUMMARY | 2024-10-04 13:25 | XMS_ITS | Encounter Summary ---
Author Organization [facility] Address [address] [place] [address] Care Team Providers Care Client Engagement Manager Name Role Phone Phyllis Stanley MD Primary Care Provider Gurvinder Post MD Primary Care Provider [facility], Pcp [facility] Encounter Details Date Type Department Care Team Description 10/13/2016 [facility] Medical Records [address] [place] [id number] Abstract, Provider Social History Tobacco Use Types [...] on filedocumented in this encounter Care Teams Client Engagement Manager Relationship Specialty Start Date End Date Phyllis Stanley MD PCP - General Internal Medicine 12/10/15 01/22/20 Gurvinder Man MD [address] [place] [address] PCP - General Internal Medicine 01/23/20 09/01/20 [facility], Pcp [address] [place] [address] PCP - General Internal Medicine 09/02/20 documented as of this encounter
--- OUTSIDE RECORDS SUMMARY | 2024-10-04 13:25 | XMS_ITS | Encounter Summary ---
Author Organization [facility] Address [address] [place] [address] Care Team Providers Care Supply Service Worker Name Role Phone Gurvinedr Man MD Primary Care Provider [phone] [facility], Pcp Primary Care Provider Unavailabl e Reason for Visit * Reason Comments E-prescribe Rx Request Encounter Details Date Type Department Care Team Description 08/31/2020 Refill Adult Medicine [address] [address] Phyllis Stanley MD E-prescribe Rx Request Social History Tobacco Use Types Packs/Day Years Used Date Smoking Tobacco: Never Smokeless Tobacco: Never Alcohol Use Standard Drinks/Week Comments Yes 0 (1 standard drink = 0.6 oz pure alcohol) once a week, will have 3-4 drinks; otherwise none Sex Assigned at Date Recorded Not on file documented as of this encounter Miscellaneous Notes * Telephone Encounter - Michelle Turner - 09/02/2020 1:42 PM EDT Not our pt, pt states he switch to outside pcp. * Telephone Encounter - Yeny Huddleston M.A. - 09/02/2020 12:59 PM EDT Last seen 03/08/20, patient needs an appt. Called patient and he states he changed his PCP to [facility]. * Telephone Encounter - Bela Butler - 09/02/2020 10:04 AM EDT Patient would like script to be: E-PRESCRIBED/FAXED TO PHARMACY WHEN WAS THE PATIENT'S LAST APPOINTMENT IN ADULT MEDICINE? 03/08/20 WHEN WAS THE LAST TIME THE PATIENT SAW THEIR PCP? Has not seen pcp Does patient have an upcoming appointment? Patient was sent a My Chart request to set up an appointment as they are due. (THE MEDICATION REQUESTED IS ON THE MED LIST ABOVE) All of the medications requested were on the CURRENT MEDS list Did you check the Pharmacy information above?: YES Patient wants: 30 -day supply Is this a mail order prescription request ? NO If the refill is from a FAXED refill request what is the RX # listed on the fax? N/A Patients current insurance carrier is: Payor: [facility] MCR / Plan: [facility] / Product Type: HMO [id number] documented in this encounter Plan of Treatment Not on file documented as of this encounter Visit Diagnoses Not on filedocumented in this encounter Care Teams Supply Service Worker Relationship Specialty Start Date End Date Gurvinder Man MD [address] [place] [address] PCP - General Internal Medicine 01/23/20 09/01/20 [facility], [address] [address] PCP - General Internal Medicine 09/02/20 documented as of this encounter
--- OUTSIDE RECORDS SUMMARY | 2024-10-04 13:25 | XMS_ITS | Encounter Summary ---
Author Organization [facility] Address [address] [place] [address] Care Team Providers Care Senior Security Engineer Name Role Phone Phyllis Stanley MD Primary Care Provider Gurvinder Post MD Primary Care Provider [phone] [facility], Pcp Primary Care Provider Unavailabl e Reason for Referral * EXTERNAL (Routine) - Authorized/Booked Specialty Diagnoses / Procedures Referred By Sunday ellison Referred To Contact Physical Therapy Procedures REFERRAL TO PHYSICAL THERAPY [facility] Referral ID Status Reason Start Date Expiration Date V isits Requested Visits Authorized SEE NOTE Authorized/B ooked 02/06/2019 05/09/2019 1 1 Reason for Visit * Reason Onset Date Comments Marketing Analytics Analyst Feedback 02/06/2019 physical therapy Encounter Details Date Type Department Care Team Description 02/06/2019 Telephone Adult Medicine [facility] [address] [place] [address] Phyllis Stanley MD Marketing Analytics Analyst Feedback (physical therapy) Social History Tobacco Use Types Packs/Day Years Used Date Smoking Tobacco: Never Smokeless Tobacco: Never Alcohol Use Standard Drinks/Week Comments Yes 0 (1 standard drink = 0.6 oz pure alcohol) once a week, will have 3-4 drinks; otherwise none Sex Assigned at Date Recorded Not on file documented as of this encounter Miscellaneous Notes * Telephone Encounter - Dominga Gary - 02/06/2019 11:[address] Stanley, You put in a referral for this patient to go to physical therapy. We sent their information over [facility] and they have an upcoming appointment on 02/16/19. Per their request they need an updated order. I have pended one if you can please review and sign, then we can send it through to Marco. Thank you! Dominga Vazquez Referrals Department documented in this encounter Plan of Treatment Not on file documented as of this encounter Visit Diagnoses Not on filedocumented in this encounter Care Teams Senior Security Engineer Relationship Specialty Start Date End Date Phyllis Stanley MD PCP - General Internal Medicine 12/10/15 01/22/20 Gurvinder Man MD [address] [place] [address] PCP - General Internal Medicine 01/23/20 09/01/[address] [address] PCP - General Internal Medicine 09/02/20 documented as of this encounter
--- OUTSIDE RECORDS SUMMARY | 2024-10-04 13:25 | XMS_ITS | Encounter Summary ---
Author Organization [facility] Address [address] [place] [address] Care Team Providers Care Travelift Operator Name Role Phone Phyllis Stanley MD Primary Care Provider Gurvinder Post MD Primary Care Provider [phone] [facility], Pcp Primary Care Provider [facility] Encounter Details Date Type Department Care Team Description 12/02/2016 PNO Controlled Substance Contract Medical Records [address] [place] [address] Abstract, Provider Social History Tobacco Use Types [...] on filedocumented in this encounter Care Teams Travelift Operator Relationship Specialty Start Date End Date Phyllis Stanley MD PCP - General Internal Medicine 12/10/15 01/22/20 Gurvinder Man MD [address] [place] [address] PCP - General Internal Medicine 01/23/20 09/01/20 [facility], Pcp [address] [place] [address] PCP - General Internal Medicine 09/02/20 documented as of this encounter
--- OUTSIDE RECORDS SUMMARY | 2024-10-04 13:25 | XMS_ITS | Encounter Summary ---
Author Organization [facility] Address [address] [place] [address] Care Team Providers Care Relationship Executive Name Role Phone Phyllis Stanley MD Primary Care Provider Gurvinder Post MD Primary Care Provider [phone] [facility], Pcp Primary Care Provider [facility] Encounter Details Date Type Department Care Team Description 06/21/2019 Security Sme Report Medical Records [address] [place] [address] Chaitanya Marie MD Social History Tobacco Use Types Packs/Day Years [...] on filedocumented in this encounter Care Teams Relationship Executive Relationship Specialty Start Date End Date Phyllis Stanley MD PCP - General Internal Medicine 12/10/15 01/22/20 Gurvinder Man MD [address] [place] [address] PCP - General Internal Medicine 01/23/20 09/01/20 [facility], Pcp [address] [place] [address] PCP - General Internal Medicine 09/02/20 documented as of this encounter
--- OUTSIDE RECORDS SUMMARY | 2024-10-04 13:25 | XMS_ITS | Encounter Summary ---
Author Organization [facility] Address [address] [place] [address] Care Team Providers Care Electric Meter Tester Helper Name Role Phone Gurvinder Man MD Primary Care Provider [phone] [facility], Pcp Primary Care Provider Unavailabl e Reason for Visit * Reason Comments E-prescribe Rx Request Encounter Details Date Type Department Care Team Description 08/13/2020 Refill [facility] [address] [place] [id number] Gurvinder Man MD [address] [place] [address] E-prescribe Rx Request Social History Tobacco Use Types Packs/Day Years Used Date Smoking Tobacco: Never Smokeless Tobacco: Never Alcohol Use Standard Drinks/Week Comments Yes 0 (1 standard drink = 0.6 oz pure alcohol) once a week, will have 3-4 drinks; otherwise none Sex Assigned at Date Recorded Not on file documented as of this encounter Miscellaneous Notes * Telephone Encounter - Karishma Sin C.M.A. - 08/14/2020 10:02 AM EDT Rx denied, My chart message sent to patient today BSR - please schedule appointment for patient for med review, when pt calls back. Thank you. * Telephone Encounter - Diana Valle - 08/14/2020 9:19 AM EDT Date of last office visit 03/08/20, no pended appt. Lab Results Component Value Date NA 141 05/26/2019 K 3.7 05/26/2019 CO2 28 05/26/2019 CL 106 05/26/2019 BUN 12 05/26/2019 CREAT 0.94 05/26/2019 GLU 78 05/26/2019 CA 9.1 05/26/2019 GFR > 60 05/26/2019 * Telephone Encounter - Roshni Zepeda - 08/14/2020 9:17 AM EDT Patient would like script to be: E-PRESCRIBED/FAXED TO PHARMACY WHEN WAS THE PATIENT'S LAST APPOINTMENT IN ADULT MEDICINE? 03-08-20 WHEN WAS THE LAST TIME THE PATIENT SAW THEIR PCP? Has not seen pcp yet Does patient have an upcoming appointment? Patient was sent a My Chart request to set up an appointment as they are due. (THE MEDICATION REQUESTED IS ON THE MED LIST ABOVE) All of the medications requested were on the CURRENT MEDS list Did you check the Pharmacy information above?: YES Patient wants: 90 -day supply Is this a mail order prescription request ? NO If the refill is from a FAXED refill request what is the RX # listed on the fax? N/A Patients current insurance carrier is: [facility] / Plan: [facility] / Product Type: HMO [id number] documented in this encounter Plan of Treatment Not on file documented as of this encounter Visit Diagnoses Not on filedocumented in this encounter Care Teams Electric Meter Tester Helper Relationship Specialty Start Date End Date Gurvinder Man MD [address] [place] [address] PCP - General Internal Medicine 01/23/20 09/01/20 [facility], [facility] [address] [place] [address] PCP - General Internal Medicine 09/02/20 documented as of this encounter
--- OUTSIDE RECORDS SUMMARY | 2024-10-04 13:25 | XMS_ITS | Encounter Summary ---
Author Organization [facility] Address [address] [place] [address] Care Team Providers Care Lens Mold Setter Name Role Phone Phyllis Stanley MD Primary Care Provider Gurvinder Post MD Primary Care Provider [phone] [facility], Pcp Primary Care Provider Unavailabl e Encounter Details Date Type Department Care Team Description 08/16/2017 Orders Only Adult Medicine [address] [address] Phyllis Stanley MD Pneumonia of left lower lobe due to infectious organism (HCC) 08/05/17 @[facility] [place] with A fib RVR (Primary Dx) Social History Tobacco Use Types Packs/Day Years [...] documented as of this encounter Visit Diagnoses Diagnosis Pneumonia of left lower lobe due to infectious organism (HCC) 08/05/17 @[facility] [place] with A fib RVR- Primary documented in this encounter Care Teams Lens Mold Setter Relationship Specialty Start Date End Date Phyllis Stanley MD PCP - General Internal Medicine 12/10/15 01/22/20 Gurvinder Man MD [address] [place] [address] PCP - General Internal Medicine 01/23/20 09/01/20 [facility], Pcp [address] [place] [address] PCP - General Internal Medicine 09/02/20 documented as of this encounter
--- OUTSIDE RECORDS SUMMARY | 2024-10-04 13:25 | XMS_ITS | Encounter Summary ---
Author Organization [facility] Address [address] [place] [address] Care Team Providers Care Ranch Hand Name Role Phone Bryan Smith MD Primary Care Provider Unavail able Phyllis Stanley MD Primary Care Provider Unav ailable Gurvinder Man MD Primary Care Provider [phone] [facility], Pcp Primary Care Provider Unavailabl e Encounter Details Date Type Department Care Team Description 04/28/2011 Manager Automotive Report Medical Records [address] [place] [address] Willis Mahoney MD Social History Tobacco Use Types Packs/Day Years Used Date Smoking Tobacco: Never Alcohol Use Standard Drinks/Week Comments Not Asked 0 (1 standard drink = 0.6 oz pur e alcohol) Sex Assigned at Date Recorded Not on file documented as of this encounter Plan of Treatment Not on file documented as of this encounter Visit Diagnoses Not on filedocumented in this encounter Care Teams Ranch Hand Relationship Specialty Start Date End Date Bryan Smith MD PCP - General 06/22/02 12/09/15 Phyllis Stanley MD PCP - General Internal Medicine 12/10/15 01/22/20 Gurvinder Man MD [address] [place] [address] PCP - General Internal Medicine 01/23/20 09/01/20 [facility], Pcp [address] [place] [address] PCP - General Internal Medicine 09/02/20 documented as of this encounter
--- OUTSIDE RECORDS SUMMARY | 2024-10-04 13:25 | XMS_ITS | Encounter Summary ---
Author Organization [facility] Address [address] [place] [address] Care Team Providers Care Catalogue Librarian Name Role Phone Bryan Smith MD Primary Care Provider Unavail able Phyllis Stanley MD Primary Care Provider Unav ailable Gurvinder Man MD Primary Care Provider [phone] [facility], Pcp Primary Care Provider Unavailabl e Encounter Details Date Type Department Care Team Description 07/14/2009 Hospital Medical Records [address] [place] [address] Christa Springer Social History Tobacco Use Types Packs/Day Years [...] on filedocumented in this encounter Care Teams Catalogue Librarian Relationship Specialty Start Date End Date Bryan Smith MD PCP - General 06/22/02 12/09/15 Phyllis Stanley MD PCP - General Internal Medicine 12/10/15 01/22/20 Gurvinder Man MD [address] [place] [address] PCP - General Internal Medicine 01/23/20 09/01/20 [facility], Pcp [address] [place] [address] PCP - General Internal Medicine 09/02/20 documented as of this encounter
--- OUTSIDE RECORDS SUMMARY | 2024-10-04 13:25 | XMS_ITS | Encounter Summary ---
Author Organization [facility] Address [address] [place] [address] Care Team Providers Care Small Parts Shaper Operator Name Role Phone Phyllis Stanley MD Primary Care Provider Gurvinder Post MD Primary Care Provider [phone] [facility], Pcp Primary Care Provider [facility] Reason for Visit * Reason Comments E-prescribe Rx Request Encounter Details Date Type Department Care Team Description 03/16/2019 Refill Adult Medicine - [place] [address] [place] [address] Wade Ramos PA-C E-prescribe Rx Request Social History Tobacco Use Types Packs/Day Years Used Date Smoking Tobacco: Never Smokeless Tobacco: Never Alcohol Use Standard Drinks/Week Comments Yes 0 (1 standard drink = 0.6 oz pure alcohol) once a week, will have 3-4 drinks; otherwise none Sex Assigned at Date Recorded Not on file documented as of this encounter Miscellaneous Notes * Telephone Encounter - Cassandra Dennis L.P.N. - 03/16/2019 10:26 AM EDT Last office visit 10/25/18 Lab Results Component Value Date NA 139 07/07/2018 K 3.8 07/07/2018 CO2 26 07/07/2018 CL 105 07/07/2018 BUN 11 07/07/2018 CREAT 0.88 07/07/2018 GLU 100 07/07/2018 CA 9.3 07/07/2018 GFR > 60 07/07/2018 * Telephone Encounter - Penelope Oh - 03/16/2019 9:41 AM EDT Patient would like script to be: E-PRESCRIBED/FAXED TO PHARMACY WHEN WAS THE PATIENT'S LAST APPOINTMENT IN ADULT MEDICINE? 03/04/19 WHEN WAS THE LAST TIME THE PATIENT SAW THEIR PCP? Same as above Does patient have an upcoming appointment? Yes 05/01/19 (THE MEDICATION REQUESTED IS ON THE MED [...] N/A Patients current insurance carrier is: Payor: [employer] [facility] / Plan: [facility] / Product Type: HMO [id number] documented in this encounter Plan of Treatment Not on file documented as of this encounter Visit Diagnoses Not on filedocumented in this encounter Care Teams Small Parts Shaper Operator Relationship Specialty Start Date End Date Phyllis Stanley MD PCP - General Internal Medicine 12/10/15 01/22/20 Gurvinder Man MD [address] [place] [address] PCP - General Internal Medicine 01/23/20 09/01/[address] [address] PCP - General Internal Medicine 09/02/20 documented as of this encounter
--- OUTSIDE RECORDS SUMMARY | 2024-10-04 13:25 | XMS_ITS | Encounter Summary ---
Author Organization [facility] Address [address] [place] [address] Care Team Providers Care Senior Licensing Manager Name Role Phone Phyllis Stanley MD Primary Care Provider Gurvinder Post MD Primary Care Provider [phone] [facility], Pcp Primary Care Provider [facility] Encounter Details Date Type Department Care Team Description 09/09/2017 [facility] Medical Records [address] [place] [address] Abstract, Provider Social History Tobacco Use Types [...] filedocumented in this encounter Care Teams Senior Licensing Manager Relationship Specialty Start Date End Date Phyllis Stanley MD PCP - General Internal Medicine 12/10/15 01/22/20 Gurvinder Man MD [address] [place] [address] PCP - General Internal Medicine 01/23/20 09/01/20 [facility], Pcp [address] [place] [address] PCP - General Internal Medicine 09/02/20 documented as of this encounter
--- OUTSIDE RECORDS SUMMARY | 2024-10-04 13:25 | XMS_ITS | Encounter Summary ---
Author Organization [facility] Address [address] [place] [address] Care Team Providers Care Career Technical Counselor Name Role Phone Phyllis Stanley MD Primary Care Provider Gurvinder Post MD Primary Care Provider [phone] [facility], Pcp Primary Care Provider [facility] Encounter Details Date Type Department Care Team Description 06/21/2019 Brattice Builder Report Medical Records [address] [place] [address] Social History Tobacco Use Types Packs/Day Years [...] on filedocumented in this encounter Care Teams Career Technical Counselor Relationship Specialty Start Date End Date Phyllis Stanley MD PCP - General Internal Medicine 12/10/15 01/22/20 Gurvinder Man MD [address] [place] [address] PCP - General Internal Medicine 01/23/20 09/01/20 [facility], Pcp [address] [place] [address] PCP - General Internal Medicine 09/02/20 documented as of this encounter
--- OUTSIDE RECORDS SUMMARY | 2024-10-04 13:25 | XMS_ITS | Encounter Summary ---
Author Organization [facility] Address [address] [place] [address] Care Team Providers Care Stone Dresser Name Role Phone Gurvinder Man MD Primary Care Provider [phone] [facility], Pcp Primary Care Provider [facility]ail[facility] e Encounter Details Date Type Department Care Team Description 02/28/2020 [facility] Medical Records [address] [place] [address] Abstract, Provider Social History Tobacco Use Types Packs/Day Years Used Date Smoking Tobacco: Never Smokeless Tobacco: Never Alcohol Use Standard Drinks/Week Comments Yes 0 (1 standard drink = 0.6 oz pure alcohol) once a week, will have 3-4 drinks; otherwise none Sex Assigned at Date Recorded Not on file COVID-19 Exposure Response Date Recorded In the last month, have you been in contact with someone who was confirmed or suspected to have Coronavirus / COVID-19? No / Unsure 02/09/2020 3:17 PM EDT documented as of this encounter Plan of Treatment Not on file documented as of this encounter Visit Diagnoses Not on filedocumented in this encounter Care Teams Stone Dresser Relationship Specialty Start Date End Date Gurvinder Man MD [address] [place] [address] PCP - General Internal Medicine 01/23/20 09/01/20 [facility], Pcp [address] [place] [address] PCP - General Internal Medicine 09/02/20 documented as of this encounter
--- OUTSIDE RECORDS SUMMARY | 2024-10-04 13:25 | XMS_ITS | Encounter Summary ---
Author Organization [facility] Address [address] [place] [address] Care Team Providers Care Inseam Trimmer Name Role Phone Bryan Smith MD Primary Care Provider Unavail able Phyllis Stanley MD Primary Care Provider Unav stefanieable Gurvinder Man MD Primary Care Provider [phone] [facility], Pcp Primary Care Provider Unavailabl e Encounter Details Date Type Department Care Team Description 09/12/2015 Actionscript Developer Report Medical Records [address] [place] [address] Satya Figueroa MD Social History Tobacco Use Types Packs/Day [...] on filedocumented in this encounter Care Teams Inseam Trimmer Relationship Specialty Start Date End Date Bryan Smith MD PCP - General 06/22/02 12/09/15 Phyllis Stanley MD PCP - General Internal Medicine 12/10/15 01/22/20 Gurvinder Man MD [address] [place] [address] PCP - General Internal Medicine 01/23/20 09/01/20 [facility], [address] [address] PCP - General Internal Medicine 09/02/20 documented as of this encounter
--- OUTSIDE RECORDS SUMMARY | 2024-10-04 13:25 | XMS_ITS | Encounter Summary ---
Author Organization [facility] Address [address] [place] [address] Care Team Providers Care Electron Beam Welding Machine Operator Name Role Phone Gurvinder Man MD Primary Care Provider [phone] [facility], Pcp Primary Care Provider Unavailabl e Reason for Visit * Reason Onset Date Comments Provider Call Back 02/08/2020 Encounter Details Date Type Department Care Team Description 02/08/2020 Telephone Rheumatology - [address] [address] Doyle Clements MD Provider Call Back Social History Tobacco Use Types Packs/Day Years [...] PM EDT documented as of this encounter Miscellaneous Notes * Telephone Encounter - Isael Dey M.A. - 02/08/2020 1:09 PM EDT Ordered by Rodolfo in ortho. * Telephone Encounter - Sudha Gaston - 02/08/2020 12:08 PM EDT Patient is calling in to ask if there is any way for him to not be awake during MRI that was ordered by Dr Clements because of his closterphobia documented in this encounter Plan of Treatment Not on file documented as of this encounter Visit Diagnoses Not on filedocumented in this encounter Care Teams Electron Beam Welding Machine Operator Relationship Specialty Start Date End Date Gurvinder Man MD [address] [place] [address] PCP - General Internal Medicine 01/23/20 09/01/20 [facility], [address] [address] PCP - General Internal Medicine 09/02/20 documented as of this encounter
--- OUTSIDE RECORDS SUMMARY | 2024-10-04 13:25 | XMS_ITS | Encounter Summary ---
Author Organization [facility] Address [address] [place] [address] Care Team Providers Care Furnace Converter Name Role Phone Phyllis Stanley MD Primary Care Provider Gurvinder Post MD Primary Care Provider [phone] [facility], Pcp Primary Care Provider Unavailabl e Reason for Visit * Reason Onset Date Comments refill request 09/23/2018 Encounter Details Date Type Department Care Team Description 09/23/2018 Refill Adult Medicine A - [place] [address] [place] [address] Phyllis Stanley MD refill request Social History Tobacco Use Types Packs/Day Years Used Date Smoking Tobacco: Never Smokeless Tobacco: Never Alcohol Use Standard Drinks/Week Comments Yes 0 (1 standard drink = 0.6 oz pure alcohol) once a week, will have 3-4 drinks; otherwise none Sex Assigned at Date Recorded Not on file documented as of this encounter Miscellaneous Notes * Telephone Encounter - Lali Vidal MA. - 09/26/2018 9:40 AM EDT Script written and is in patient pick-up. * Telephone Encounter - Karishma Sin C.M.A. - 09/26/2018 9:09 AM EDT Please review and renew for Dr Stanley. thanks * Telephone Encounter - Karishma Sin C.M.A. - 09/23/2018 2:58 PM EDT Due 09/26/2018 * Telephone Encounter - Heide Magana M.A. - 09/23/2018 2:43 PM EDT Last office visit 06.29.18 Controlled substance contract and last issue date of medication reviewed.Patient is due for medication. On 09.26.18 Patient's [place] report was printed to be reviewed by the signing provider. Send to scanning if stamped to do so. Lab Results Component Value Date URINEOXYCOD NEGATIVE 02/22/2017 URBENZO POSITIVE 02/22/2017 URAMPHETAMIN NEGATIVE 02/22/2017 URMARIJUANA NEGATIVE 02/22/2017 UROPIATES POSITIVE 02/22/2017 URBARBITUATE NEGATIVE 02/22/2017 URCOCAINE NEGATIVE 02/22/2017 HYDROCODONE Negative 01/13/2016 * Telephone Encounter - Bela Butler - 09/23/2018 2:19 PM EDT Patient would like script to be: PLACED IN PATIENT SENIOR ACCOUNTING ANALYST TO BE PICKED UP BY pt WHEN WAS THE PATIENT'S LAST APPOINTMENT IN ADULT MEDICINE? 06/29/18 WHEN WAS THE LAST TIME THE PATIENT SAW THEIR PCP? Same as above Does patient have an upcoming appointment? no (THE MEDICATION REQUESTED IS ON THE MED [...] N/A Patients current insurance carrier is: Payor: [employer] MCR / Plan: [facility] / Product Type: HMO [id number] documented in this encounter Plan of Treatment Not on file documented as of this encounter Visit Diagnoses Diagnosis Anxiety Anxiety state, unspecified documented in this encounter Care Teams Furnace Converter Relationship Specialty Start Date End Date Phyllis Stanley MD PCP - General Internal Medicine 12/10/15 01/22/20 Gurvinder Man MD [address] [place] [address] PCP - General Internal Medicine 01/23/20 09/01/[address] [address] PCP - General Internal Medicine 09/02/20 documented as of this encounter
--- OUTSIDE RECORDS SUMMARY | 2024-10-04 13:25 | XMS_ITS | Encounter Summary ---
Author Organization [facility] Address [address] [place] [address] Care Team Providers Care Nanotechnology Technician Name Role Phone Bryan Smith MD Primary Care Provider Unavail able Phyllis Stanley MD Primary Care Provider Unav ailable Gurvinder Man MD Primary Care Provider [phone] [facility], Pcp Primary Care Provider Unavailabl e Encounter Details Date Type Department Care Team Description 04/24/2011 Night Triage Doc Medical Records [address] [place] [address] Abstract, Provider Social History Tobacco Use Types [...] on filedocumented in this encounter Care Teams Nanotechnology Technician Relationship Specialty Start Date End Date Bryan Smith MD PCP - General 06/22/02 12/09/15 Phyllis Stanley MD PCP - General Internal Medicine 12/10/15 01/22/20 Gurvinder Man MD [address] [place] [address] PCP - General Internal Medicine 01/23/20 09/01/20 [facility], Pcp [address] [place] [address] PCP - General Internal Medicine 09/02/20 documented as of this encounter
--- OUTSIDE RECORDS SUMMARY | 2024-10-04 13:25 | XMS_ITS | Clinical Summary ---
Author Organization [facility] ity Address [address] [place] [address] Care Team Providers Care Levee Superintendent Name Role Phone Unavailable Primary Care Provider [...] CARPAL TUNNEL REL; COMMENT: bilat VASECTOMY PROCEDURE: MT VASECTOMY UNI/BI SPX W/POSTOP SEMEN EXAMS COLONOSCOPY 05/13/15 PROCEDURE: HISTORICAL COLONOSCOPY; COMMENT: tics; repeat in 10 yrs CHOLECYSTECTOMY 07/13/2019 PROCEDURE: LAPAROSCOPIC CHOLECYSTECT; COMMENT: at [facility] [place] Chaitanya Flower for +HIDA acalculous chronic [...] wit h BMI of 40.0-44.9, adult ([facility]) Family History Medical History Relation Name [...]
--- OUTSIDE RECORDS SUMMARY | 2024-10-04 13:25 | XMS_ITS | Encounter Summary ---
Author Organization [facility] Address [address] [place] [address] Care Team Providers Care Making Department Preparer Name Role Phone Community, Pcp Primary Care Provider Unavailabl e Encounter Details Date Type Department Care Team Description 10/16/2020 SCAN Medical Records [address] [place] [address] Abstract, Provider Social History Tobacco Use Types [...] on filedocumented in this encounter Care Teams Making Department Preparer Relationship Specialty Start Date End Date Community, Pcp PCP - General Internal Medicine 09/02/20 documented as of this encounter
--- OUTSIDE RECORDS SUMMARY | 2024-10-04 13:25 | XMS_ITS | Encounter Summary ---
Author Organization [facility] Address [address] [place] [address] Care Team Providers Care Wood Carver Hand Name Role Phone Phyllis Stanley MD Primary Care Provider Gurvinder Post MD Primary Care Provider [phone] [facility], Pcp Primary Care Provider [facility] Encounter Details Date Type Department Care Team Description 03/23/2018 Release of Information Medical Records [address] [place] [address] Abstract, Provider Social History Tobacco Use Types [...] on filedocumented in this encounter Care Teams Wood Carver Hand Relationship Specialty Start Date End Date Phyllis Stanley MD PCP - General Internal Medicine 12/10/15 01/22/20 Gurvinder Man MD [address] [place] [address] PCP - General Internal Medicine 01/23/20 09/01/20 [facility], Pcp [address] [place] [address] PCP - General Internal Medicine 09/02/20 documented as of this encounter
--- OUTSIDE RECORDS SUMMARY | 2024-10-04 13:25 | XMS_ITS | Encounter Summary ---
Author Organization [facility] Address [address] [place] [address] Care Team Providers Care Ophthalmic Technician Name Role Phone Phyllis Stanley MD Primary Care Provider Gurvinder Post MD Primary Care Provider [phone] [facility], Pcp Primary Care Provider [facility] e Encounter Details Date Type Department Care Team Description 03/09/2018 [facility] Medical Records [address] [place] [address] Abstract, Provider Social History Tobacco Use Types [...] on filedocumented in this encounter Care Teams Ophthalmic Technician Relationship Specialty Start Date End Date Phyllis Stanley MD PCP - General Internal Medicine 12/10/15 01/22/20 Gurvinder Man MD [address] [place] [address] PCP - General Internal Medicine 01/23/20 09/01/20 [facility], Pcp [address] [place] [address] PCP - General Internal Medicine 09/02/20 documented as of this encounter
--- OUTSIDE RECORDS SUMMARY | 2024-10-04 13:25 | XMS_ITS | Encounter Summary ---
Author Organization [facility] Address [address] [place] [address] Care Team Providers Care Organic Preparation Analyst Name Role Phone Phyllis Stanley MD Primary Care Provider Gurvinder Post MD Primary Care Provider [phone] [facility], Pcp Primary Care Provider [facility] e Encounter Details Date Type Department Care Team Description 12/12/2019 Floating Operator Report Medical Records [address] [place] [address] Timothy Maldonado MD Social History Tobacco Use Types Packs/Day [...] on filedocumented in this encounter Care Teams Organic Preparation Analyst Relationship Specialty Start Date End Date Phyllis Stanley MD PCP - General Internal Medicine 12/10/15 01/22/20 Gurvinder Man MD [address] [place] [address] PCP - General Internal Medicine 01/23/20 09/01/20 [facility], Pcp [address] [place] [address] PCP - General Internal Medicine 09/02/20 documented as of this encounter
--- OUTSIDE RECORDS SUMMARY | 2024-10-04 13:25 | XMS_ITS | Encounter Summary ---
Author Organization [facility] Address [address] [place] [address] Care Team Providers Care Senior Project Accountant Name Role Phone Phyllis Stanley MD Primary Care Provider Gurvinder Post MD Primary Care Provider [phone] [facility], Pcp Primary Care Provider Unavailformerly [facility] e Encounter Details Date Type Department Care Team Description 10/17/2018 Grant Officer Report Medical Records [address] [place] [address] Doyle Miranda Social History Tobacco Use Types Packs/Day Years [...] filedocumented in this encounter Care Teams Senior Project Accountant Relationship Specialty Start Date End Date Phyllis Stanley MD PCP - General Internal Medicine 12/10/15 01/22/20 Gurvinder Man MD [address] [place] [address] PCP - General Internal Medicine 01/23/20 09/01/20 [facility], Pcp [address] [place] [address] PCP - General Internal Medicine 09/02/20 documented as of this encounter
--- OUTSIDE RECORDS SUMMARY | 2024-10-04 13:25 | XMS_ITS | Encounter Summary ---
Author Organization [facility] Address [address] [place] [address] Care Team Providers Care Chief Cardiopulmonary Technologist Name Role Phone Phyllis Stanley MD Primary Care Provider Gurvinder Post MD Primary Care Provider [phone] [facility], Pcp Primary Care Provider [facility] e Encounter Details Date Type Department Care Team Description 06/22/2018 Grinder Machine Knife Setter Report Medical Records [address] [place] [address] Susan Campbell Social History Tobacco Use Types Packs/Day Years [...] on filedocumented in this encounter Care Teams Chief Cardiopulmonary Technologist Relationship Specialty Start Date End Date Phyllis Stanley MD PCP - General Internal Medicine 12/10/15 01/22/20 Gurvinder Man MD [address] [place] [address] PCP - General Internal Medicine 01/23/20 09/01/20 [facility], Pcp [address] [place] [address] PCP - General Internal Medicine 09/02/20 documented as of this encounter
--- OUTSIDE RECORDS SUMMARY | 2024-10-04 13:25 | XMS_ITS | Encounter Summary ---
Author Organization [facility] Address [address] [place] [address] Care Team Providers Care Gaming Associate Name Role Phone Phyllis Stanley MD Primary Care Provider Gurvinder Post MD Primary Care Provider [phone] [facility], Pcp Primary Care Provider [facility] e Encounter Details Date Type Department Care Team Description 08/01/2019 [facility] Medical Records [address] [place] [address] Abstract, Provider Social History Tobacco Use Types [...] on filedocumented in this encounter Care Teams Gaming Associate Relationship Specialty Start Date End Date Phyllis Stanley MD PCP - General Internal Medicine 12/10/15 01/22/20 Gurvinder Man MD [address] [place] [address] PCP - General Internal Medicine 01/23/20 09/01/20 [facility], Pcp [address] [place] [address] PCP - General Internal Medicine 09/02/20 documented as of this encounter
--- OUTSIDE RECORDS SUMMARY | 2024-10-04 13:25 | XMS_ITS | Encounter Summary ---
Author Organization [facility] Address [address] [place] [address] Care Team Providers Care Rolling Up Machine Operator Name Role Phone Bryan Smith MD Primary Care Provider Unavail able Phyllis Stanley MD Primary Care Provider Unav Gurvinder Thomas MD Primary Care Provider [phone] [facility], Pcp Primary Care Provider Unavailabl e Encounter Details Date Type Department Care Team Description 05/08/2015 RADIO INTERFERENCE TROUBLE SHOOTER/Mass[place] Report Medical Records [address] [place] [address] Abstract, Provider Social History Tobacco Use Types [...] on filedocumented in this encounter Care Teams Rolling Up Machine Operator Relationship Specialty Start Date End Date Bryan Smith MD PCP - General 06/22/02 12/09/15 Phyllis Stanley MD PCP - General Internal Medicine 12/10/15 01/22/20 Gurvinder Man MD [address] [place] [address] PCP - General Internal Medicine 01/23/20 09/01/20 [facility], [address] [address] PCP - General Internal Medicine 09/02/20 documented as of this encounter
--- OUTSIDE RECORDS SUMMARY | 2024-10-04 13:25 | XMS_ITS | Encounter Summary ---
Author Organization [facility] Address [address] [place] [address] Care Team Providers Care Equipment Or Machinery Cleaner Name Role Phone Phyllis Stanley MD Primary Care Provider Gurvinder Post MD Primary Care Provider [phone] Replaced By [facility], Pcp Primary Care Provider [facility] e Encounter Details Date Type Department Care Team Description 07/20/2019 Ticker Wirer Report Medical Records [address] [place] [address] Chaitanya Marie MD Social History Tobacco Use [...] on filedocumented in this encounter Care Teams Equipment Or Machinery Cleaner Relationship Specialty Start Date End Date Phyllis Stanley MD PCP - General Internal Medicine 12/10/15 01/22/20 Gurvinder Man MD [address] [place] [address] PCP - General Internal Medicine 01/23/20 09/01/20 Replaced By [facility], Pcp [address] [place] [address] PCP - General Internal Medicine 09/02/20 documented as of this encounter
--- OUTSIDE RECORDS SUMMARY | 2024-10-04 13:25 | XMS_ITS | Encounter Summary ---
Author Organization [facility] Address [address] [place] [address] Care Team Providers Care Build Manager Name Role Phone Community, Pcp Primary Care Provider Unavailabl e Reason for Visit * Reason Comments E-prescribe Rx Request Atorvastatin Encounter Details Date Type Department Care Team Description 08/21/2021 Refill Cardio PVC [address] [facility] [address] [place] [address] Satya Woo [address] [address] E-prescribe Rx Request (Atorvastatin ) Social History Tobacco Use Types Packs/Day Years Used Date Smoking Tobacco: Never Smokeless Tobacco: Never Alcohol Use Standard Drinks/Week Comments Yes 0 (1 standard drink = 0.6 oz pure alcohol) once a week, will have 3-4 drinks; otherwise none Sex Assigned at Date Recorded Not on file documented as of this encounter Miscellaneous Notes * Telephone Encounter - Munira Quezada - 09/04/2021 1:58 PM EDT Pt is off the recall list * Telephone Encounter - Leila Mccrary C.M.A. - 08/21/2021 12:54 PM EDT FYI, You can get this pt off access recall. Pt has cardiac care under Dr Sebastien Ballard Statin declined. Pt last seen 2019. Access has attempted calling several times for an appt. Encounter 10/2020 reflects he switched cardiac care with Dr Sebastien Ballard. I called [phone] spoke with Rhea and confirmed pt is under their care documented in this encounter Plan of Treatment Not on file documented as of this encounter Visit Diagnoses Not on filedocumented in this encounter Care Teams Build Manager Relationship Specialty Start Date End Date Community, Pcp PCP - General Internal Medicine 09/02/20 documented as of this encounter
--- OUTSIDE RECORDS SUMMARY | 2024-10-04 13:26 | XMS_ITS | Encounter Summary ---
Author Organization [facility] Address [address] [place] [address] Care Team Providers Care Television News Producer Name Role Phone Bryan Smith MD Primary Care Provider Unavail able Phyllis Stanley MD Primary Care Provider Unav stefanieable Gurvinder Man MD Primary Care Provider [phone] [facility], Pcp Primary Care Provider Unavailabl e Encounter Details Date Type Department Care Team Description 08/10/2014 Hospital Medical Records [address] [place] [address] Parveen Beltran MD Social History Tobacco Use Types Packs/Day [...] on filedocumented in this encounter Care Teams Television News Producer Relationship Specialty Start Date End Date Bryan Smith MD PCP - General 06/22/02 12/09/15 Phyllis Stanley MD PCP - General Internal Medicine 12/10/15 01/22/20 Gurvinder Man MD [address] [place] [address] PCP - General Internal Medicine 01/23/20 09/01/20 [facility], [address] [address] PCP - General Internal Medicine 09/02/20 documented as of this encounter
--- OUTSIDE RECORDS SUMMARY | 2024-10-04 13:26 | XMS_ITS | Encounter Summary ---
Author Organization [facility] Address [address] [place] [address] Care Team Providers Care Lead Teacher Name Role Phone Phyllis Stanley MD Primary Care Provider Gurvinder Post MD Primary Care Provider [phone] [facility], Pcp Primary Care Provider Unavailpeacehealth e Encounter Details Date Type Department Care Team Description 03/09/2016 Release of Information Medical Records [address] [place] [address] Abstract, Provider Social History Tobacco Use Types [...] on filedocumented in this encounter Care Teams Lead Teacher Relationship Specialty Start Date End Date Phyllis Stanley MD PCP - General Internal Medicine 12/10/15 01/22/20 Gurvinder Man MD [address] [place] [address] PCP - General Internal Medicine 01/23/20 09/01/20 [facility], Pcp [address] [place] [address] PCP - General Internal Medicine 09/02/20 documented as of this encounter
--- OUTSIDE RECORDS SUMMARY | 2024-10-04 13:26 | XMS_ITS | Encounter Summary ---
Author Organization [facility] Address [address] [place] [address] Care Team Providers Care Videogame Tester Name Role Phone Phyllis Stanley MD Primary Care Provider Gurvinder Post MD Primary Care Provider [phone] [facility], Pcp Primary Care Provider Unavailabl e Encounter Details Date Type Department Care Team Description 10/25/2017 Orders Only Medical Records [address] [place] [address] Faye Abreu PA-C [address] [place] [address] Social History Tobacco Use Types Packs/Day Years Used Date Smoking Tobacco: Never Smokeless Tobacco: Never Alcohol Use Standard Drinks/Week Comments Yes 0 (1 standard drink = 0.6 oz pure alcohol) once a week, will have 3-4 drinks; otherwise none Sex Assigned at Date Recorded Not on file documented as of this encounter Plan of Treatment Not on file documented as of this encounter Procedures Procedure Name Priority Date/Time Associated Diagnosis Comments OUTSIDE SLEEP STUDY Routine 10/20/2017 documented in this encounter Results * OUTSIDE SLEEP STUDY (10/20/2017) Faye Abreu PA-C PULMONOLOGY documented in this encounter Visit Diagnoses Not on filedocumented in this encounter Care Teams Videogame Tester Relationship Specialty Start Date End Date Phyllis Stanley MD PCP - General Internal Medicine 12/10/15 01/22/20 Gurvinder Man MD [address] [place] [address] PCP - General Internal Medicine 01/23/20 09/01/20 [facility], Pcp [address] [place] [address] PCP - General Internal Medicine 09/02/20 documented as of this encounter
--- OUTSIDE RECORDS SUMMARY | 2024-10-04 13:26 | XMS_ITS | Encounter Summary ---
Author Organization [facility] Address [address] [place] [address] Care Team Providers Care Aircraft Engine Installer Name Role Phone Phyllis Stanley MD Primary Care Provider Gurvinder Post MD Primary Care Provider [phone] [facility], Pcp Primary Care Provider [facility] e Encounter Details Date Type Department Care Team Description 12/30/2017 Release of Information Medical Records [address] [place] [address] Abstract, Provider Social History Tobacco Use Types [...] on filedocumented in this encounter Care Teams Aircraft Engine Installer Relationship Specialty Start Date End Date Phyllis Stanley MD PCP - General Internal Medicine 12/10/15 01/22/20 Gurvinder Man MD [address] [place] [address] PCP - General Internal Medicine 01/23/20 09/01/20 [facility], Pcp [address] [place] [address] PCP - General Internal Medicine 09/02/20 documented as of this encounter
--- OUTSIDE RECORDS SUMMARY | 2024-10-04 13:26 | XMS_ITS | Patient Health Record ---
Author Organization [facility] Address [address] [place] [address] Care Team Providers Care Locomotive Observer Name Role Phone Whitley BEATTY, Chaitanya Primary [...] Problem Status W/U Status Risk Notes Problem Spondylosis without myelopathy or radiculopathy, lumbar region (M47.816) Active confirmed Plan Of Treatment No Information Insurance Providers Payer Name Payer Address Payer Phone Subscriber Number Group Number Insured Name Patient Relationship to Insured Coverage Start Date Coverage End Date [facility] [address] [place] [phone] [id number] USMAN CASTILLO Self - patient is the [...]
--- OUTSIDE RECORDS SUMMARY | 2024-10-04 13:26 | XMS_ITS | Encounter Summary ---
Author Organization [facility] Address [address] [place] [address] Care Team Providers Care Electrician Bus Name Role Phone Bryan Smith MD Primary Care Provider Unavail able Phyllis Stanley MD Primary Care Provider Unav stefanieable Gurvinder Man MD Primary Care Provider [phone] [facility], Pcp Primary Care Provider Unavailabl e Encounter Details Date Type Department Care Team Description 10/15/2015 Concrete Analyst Report Medical Records [address] [place] [address] Satya Figueroa MD Social History Tobacco Use [...] on filedocumented in this encounter Care Teams Electrician Bus Relationship Specialty Start Date End Date Bryan Smith MD PCP - General 06/22/02 12/09/15 Phyllis Stanley MD PCP - General Internal Medicine 12/10/15 01/22/20 Gurvinder Man MD [address] [place] [address] PCP - General Internal Medicine 01/23/20 09/01/20 [facility], [address] [address] PCP - General Internal Medicine 09/02/20 documented as of this encounter
--- OUTSIDE RECORDS SUMMARY | 2024-10-04 13:26 | XMS_ITS | Encounter Summary ---
Author Organization [facility] Address [address] [place] [address] Care Team Providers Care Label Printer Name Role Phone Phyllis Stanley MD Primary Care Provider Gurvinder Post MD Primary Care Provider [phone] [facility], Pcp Primary Care Provider Un[facility]ill[facility]oint health e Encounter Details Date Type Department Care Team Description 03/03/2016 [facility] Medical Records [address] [place] [address] Abstract, Provider Social History Tobacco Use [...] on filedocumented in this encounter Care Teams Label Printer Relationship Specialty Start Date End Date Phyllis Stanley MD PCP - General Internal Medicine 12/10/15 01/22/20 Gurvinder Man MD [address] [place] [address] PCP - General Internal Medicine 01/23/20 09/01/20 [facility], Pcp [address] [place] [address] PCP - General Internal Medicine 09/02/20 documented as of this encounter
== END ==
LOC: HO.CARD 12:46
PROVIDERS: PCP Nurse Practitioner Family
DX: I77.89 Other specified disorders of arteries and arterioles (principal); I48.0 Paroxysmal atrial fibrillation
CPT/HCPCS: 93306

== ENCOUNTER → 2024-10-04 12:49 | Outpatient (BNV) | payer OTHER, SELFPAY | PROVIDERS: PCP Nurse Practitioner Family; Visit Provider Internal Medicine Cardiovascular Disease | DX: I35.0 Nonrheumatic aortic (valve) stenosis (principal); I51.7 Cardiomegaly; I34.81 Nonrheumatic mitral (valve) annulus calcification; I36.1 Nonrheumatic tricuspid (valve) insufficiency | CPT/HCPCS: 93306 ==

== ENCOUNTER → 2024-10-04 13:48 | Outpatient (AMB) | payer OTHER, SELFPAY ==
--- NOTE | 2024-10-04 13:56 | A.OFFVIS_ITS ---
Vital Signs 10/04/24 13:57 Height 5 ft 8 in Weight 200 lb BMI 30.4 BP 129/75 Blood Pressure Location Lt brachial Position Sitting Pulse 59 Pulse Source Pulse Oximeter Pulse Oximetry (%) 100 Oxygen Delivery Method Room Air Intake Visit Reasons: pre colonoscopy Intake Note: Pt presents to the office today for a pre colonoscopy screening. Pt states he has been having left sided pain for months and states it hasnt gone away. Allergies oxycodone [From Tylox] Allergy (Severe, Verified 10/04/24 13:56) throat swelling Penicillins [PCN] Allergy (Severe, Verified 10/04/24 13:56) throat swelling Medication List - Last Reconciled 10/04/24 by Nikki Palmer CNP aspirin 81 mg PO DAILY atorvastatin 20 mg PO BEDTIME bisacodyl 5 mg PO ONCE 1 day celecoxib (Celebrex) 200 mg (2 x 100 mg) PO DAILY 90 days cholecalciferol (vitamin D3) 50 mcg PO DAILY 90 days cyclobenzaprine 10 mg PO BID diltiazem HCl ER 420 mg PO DAILY 90 days duloxetine 30 mg PO DAILY gabapentin 300 mg PO DAILY hydrochlorothiazide 12.5 mg PO DAILY 90 days lisinopril 20 mg PO DAILY methylcellulose (laxative) (Citrucel) 1,000 mg (2 x 500 mg) PO DAILY omeprazole 20 mg PO BID 90 days polyethylene glycol 3350 (Miralax) 238 grams PO ONCE polyethylene glycol 3350 (Miralax) 17 grams PO DAILY 30 days [shower bench, no backrest or arms As directed] tramadol 50 mg PO TID PRN 30 days HPI HPI pre colonoscopy: Details: workload -colo only confirm if CT ordered wtih oral contrast Patient is a 63-year-old male with PMH of anxiety and depression, hypertension, AFib and GERD. He was referred by PCP for pre colonoscopy screening. Richie presents for a pre-colonoscopy screening and reports abdominal pain. Reports last colonoscopy approximately 10 years ago completed through [facility]. He report left upper quadrant pain onset approximately one year ago after suffering a fall from a roof. He describes the pain as a hard feeling in the lef t upper quadrant that tingles and is more annoying than painful. The pain is intermittent and appears without a clear pattern, often exacerbated by laying on his right side. It has slightly improved following the intake of magnesium citrate but persists. States he took the laxative after three days of no bowel movement. Reports output today. Shares his constipation appears to be related to his current diet, which consists mainly of microwaved and fast foods due to financial constraints and living alone. 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 Richie is currently taking tramadol for back pain, which he has been using since 2017 due to a failed back . He reports that the medication helps with his pain. Patient denies: fever/chills, n/v, appetite changes, pyrosis, regurgitation, dysphasia, unintentional wt loss or melena/hematochezia. SOCIAL HISTORY - Diet: Currently irregular and poor; previously ate larger, home-cooked meals. Now primarily subsists on microwaved and fast foods due to financial constraints. - Alcohol/Tobacco/Drug Use: Formerly drank beer (about a six-pack over a week and a half), no current alcohol or drug use. Occasional vape use. 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 - family hx as below -denies personal hx of CA -tolerated anesthesia in the past without difficulty. 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 Arthropathy of lumbar facet joint Disc degeneration, lumbar Failed back syndrome of lumbar spine HTN (hypertension) Afib Hernia Carpal tunnel syndrome on both sides Surgical History Hx of foot surgery Hx of hernia repair H/O arthroscopic knee surgery History of carpal tunnel release of both wrists Hx of cholecystectomy Family History Father Heart attack HTN (hypertension) Mother HTN (hypertension) Heart attack Social History Housing: House Are you a primary family member caretaker to a significant other at home: No Do you presently have visiting nurse or other home services: No Alcohol intake: never Patient Tobacco Use Status: Never used Tobacco e-Cigarette/Vaping Use: Never Used Second Hand Smoke Exposure: No service: No Current occupational status: disabled Cognitive needs: No Hearing needs: No Vision needs: Yes Review of Systems Const Reports as per HPI ENT Reports as per HPI Card Reports as per HPI Resp Reports as per HPI GI Reports as per HPI Reports as per HPI Physical Exam Vital Signs: Last Vital Signs Pulse 59 10/04/24 13:57 BP 129/75 10/04/24 13:57 Pulse Ox 100 10/04/24 13:57 Oxygen Delivery Method Room Air 10/04/24 13:57 BMI result Body Mass Index 30.4 Const General: healthy appearing, no acute distress and well developed Nutritional Appearance: well nourished Orientation/consciousness: patient oriented x3 HEENT Head: Yes normal to inspection, Yes normocephalic and Yes atraumatic Face and sinus: Yes normal facial exam Eyes General: appearance normal, both eyes and all related structures Neck Neck: Yes normal visual inspection Resp Effort & Inspection: normal respiratory effort, able to speak in complete sentences, no tracheal deviation and symmetric chest movement Auscultation: clear to auscultation bilaterally Cardio Jugular venous distension: no JVD Rate: regular rate Rhythm: regular rhythm Heart sounds: S1 normal heart sound present, S2 normal heart sound present, no gallops and no murmurs GI Inspection: Yes normal to inspection and No distended Palpation (GI): Soft to palpation, not firm, nontender and No hepatosplenomegaly present Auscultation: normal bowel sounds Neuro General: patient oriented x3 Gait exam (Neuro): Normal gait present Psych Appearance: grossly normal Mental Status: mental status grossly normal Speech and movement: Normal speech and movement present Affect: normal affect Attitude: cooperative Thought process: Normal thought process present Thought content: Normal thought content present Insight: Good insight present (Psych) Judgement: Good judgement present (Psych) Results Reviewed Results Reviewed: Ordering Physician: Deirdre Tyler PA-C Date of Service: 06/21/24 Procedure(s): XR KUB Accession Number(s): [id number] cc: Chaitanya Arreaga-BC; Deirdre Tyler PA-C~ EXAMINATION: XR ABDOMEN KUB CLINICAL INDICATION: R10.9 - Unspecified abdominal pain COMPARISON: None available. TECHNIQUE: AP view of the abdomen. FINDINGS: I do not see complications and the kidney shadows or the bladder shadow. The bowel gas pattern is nonobstructive. Abundant stool. Vascular clips right upper quadrant abdomen and likely cholecystectomy. Levoconvex rotoscoliosis, lumbar spine. XR/XR KUB IMPRESSION: No nephrolithiasis based upon x-ray. Levoconvex rotoscoliosis, lumbar spine. No intestinal obstruction pattern. Electronically signed by: Ramesh Billings MD 06/21/2024 02:44 PM Assessment & Plan Assessment & Plan (1) Screening for colon cancer: Code(s): Z12.11 - Encounter for screening for malignant neoplasm of colon Category: Medical Plan: Due for 10 year colonoscopy screening. Diagnostic Tests: Prescriptions for laxative tablets and Miralax sent to pharmacy; instructions for Gatorade purchase and clear liquid diet given. Medications: - understands to hold ASA and Celecoxib 7 days prior to procedure. - Use Tylenol if needed for pain. Patient educated on procedure preparation, including avoiding certain foods and ensuring clear liquid intake. Advised on necessity for ride post-procedure due to sedation. (2) Abdominal pain: Code(s): R10.9 - Unspecified abdominal pain Category: Medical Qualifiers: Abdominal location: left upper quadrant Qualified Code(s): R10.12 - Left upper quadrant pain Plan: Suspect gastrointestinal motility disorder VS constipation VS musculoskeletal pain. Considering positional involvement, it is more probable that the latter is the source. Additional Tests: Await pending CT scan approval for further evaluation, order updated to include oral contrast. Will also obtain basic fasting labs Medications: Continue current medication for heartburn. Constipation regimen as below. (3) Constipation: Code(s): K59.00 - Constipation, unspecified Category: Medical Qualifiers: Constipation type: other constipation type Qualified Code(s): K59.09 - Other constipation Plan: Drug VS diet induced. We will trial daily MiraLax and fiber supplement. Reinforced lifestyle modifications to promote regularity: -higher fiber diet, examples provided -adequate hydration with water -150 minutes of moderate intensity exercise per week Plan Offered to complete MOLST form. However, Richie would like to review with his family and complete during next PCP visit. Blank copy provided. Follow-up after colonoscopy or sooner as needed. Time: I spent a total of 50 minutes on the date of encounter which includes: Preparing to see the patient (reviewed previous documentation, test results and medical history) Performing a medically appropriate exam and/or evaluation Ordering medications, tests, and procedures Documenting clinical information in the health record Orders: Orders Complete Blood Count Auto Diff 10/04/24 R10.12 - Left upper quadrant pain Comprehensive Met. Panel 10/04/24 R10.12 - Left upper quadrant pain TSH reflex Free T4 10/04/24 R10.12 - Left upper quadrant pain CT abdomen pelvis wo IV con 09/22/24 R10.12 - Left upper quadrant pain IRON PROFILE 10/04/24 R10.12 - Left upper quadrant pain Medications: New methylcellulose (laxative) (Citrucel) Take two tablets at bedtime 1,000 mg (2 x 500 mg) PO DAILY 90 tabs 1RF bisacodyl Take four tablets once for 1 day per colonoscopy instructions 5 mg PO ONCE 1 day 4 tabs 0RF polyethylene glycol 3350 (Miralax) per colonoscopy prep instructions 238 grams PO ONCE 238 grams 0RF polyethylene glycol 3350 (Miralax) Take 17G (one cap full) daily with 8oz of water 17 grams PO DAILY 30 days 238 grams 2RF constipation Coding Level of Care Code New Pt New Pt Level 5 (22709) Patient Type New Diagnoses Screening for colon cancer Z12.11 Left upper quadrant abdominal pain R10.12 Abdominal location: left upper quadrant Other constipation K59.09 Constipation type: other constipation type
[2024-10-04 13:57] VITALS: BP 129/75; PULSE 59; O2SAT 100; BMI 30.4
--- OUTSIDE RECORDS SUMMARY | 2024-10-04 14:21 | XMS_ITS | Clinical Summary ---
Author Organization [facility] ity Address [address] [place] [address] Care Team Providers Care Technology Applications Consultant Name Role Phone Unavailable Primary Care Provider [...] CARPAL TUNNEL REL; COMMENT: bilat VASECTOMY PROCEDURE: ID VASECTOMY UNI/BI SPX W/POSTOP SEMEN EXAMS COLONOSCOPY 05/13/15 PROCEDURE: HISTORICAL COLONOSCOPY; COMMENT: tics; repeat in 10 yrs CHOLECYSTECTOMY 07/13/2019 PROCEDURE: LAPAROSCOPIC CHOLECYSTECT; COMMENT: at [facility] [place] Dr Chaitanya Flower for +HIDA acalculous chronic cholecystitis Medical History Medical History Date Comments Anxiety 03/18/2015 DX:Anxiety Carpal tunnel syndrome DX:Carpal tunnel syndrome Chronic back pain 02/17/2016 DX:Chronic tlema k pain DDD (degenerative disc disea se), [...] obesity wit h BMI of 40.0-44.9, adult ([facility]) Family History Medical History Relation Name [...]
== END ==
LOC: HO.HGI 13:49
PROVIDERS: PCP Nurse Practitioner Family; Visit Provider Nurse Practitioner Family
DX: R10.12 Left upper quadrant pain (principal); K59.09 Other constipation
CPT/HCPCS: 99204

== ENCOUNTER 2024-10-17 12:35 | Outpatient (AMB) | payer OTHER, SELFPAY ==
--- NOTE | 2024-10-17 13:21 | A.OFFVIS_ITS ---
Vital Signs 10/17/24 13:22 Height 5 ft 8 in Weight 200 lb BMI 30.4 BP 88/52 L Blood Pressure Location Lt brachial Position Sitting Pulse 60 Pulse Source Monitor Intake Visit Reasons: Pre op clearance / Colonoscopy/1 yr Service Technician Required: No Allergies oxycodone [From Tylox] Allergy (Severe, Verified 10/17/24 13:23) throat swelling Penicillins [PCN] Allergy (Severe, Verified 10/17/24 13:23) throat swelling Medication List - Last Reconciled 10/17/24 by ELSY Nieto aspirin 81 mg PO DAILY atorvastatin 20 mg PO BEDTIME bisacodyl 5 mg PO ONCE 1 day celecoxib (Celebrex) 200 mg (2 x 100 mg) PO DAILY 90 days cholecalciferol (vitamin D3) 50 mcg PO DAILY 90 days cyclobenzaprine 10 mg PO BID diazepam 10 mg PO ONCE PRN 1 day diltiazem HCl ER 420 mg PO DAILY 90 days duloxetine 30 mg PO DAILY gabapentin 300 mg PO DAILY hydrochlorothiazide 12.5 mg PO DAILY 90 days lisinopril 20 mg PO DAILY methylcellulose (laxative) (Citrucel) 1,000 mg (2 x 500 mg) PO DAILY omeprazole 20 mg PO BID 90 days polyethylene glycol 3350 (Miralax) 238 grams PO ONCE polyethylene glycol 3350 (Miralax) 17 grams PO DAILY 30 days [shower bench, no backrest or arms As directed] tramadol 50 mg PO TID PRN 30 days HPI HPI Pre op clearance / Colonoscopy/1 yr: Details: Richie is a 63-year-old male with past medical history of hypertension, paroxysmal atrial fibrillation, sleep apnea which is untreated and dilated ascending aorta who presents for follow-up after recent echocardiogram. Today he reports that he has been feeling well overall since his last visit 10/19/2023. His primary concern is some discomfort in his left lower abdomen. He tells me he will be undergoing testing for this including colonoscopy. He has not had issues with heart palpitations. He denies chest discomfort at rest or with activity. No concerning shortness of breath, PND, orthopnea or edema. No lightheadedness, presyncope, syncope. 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 He reports good activity tolerance. Compliant with meds. Blood pressure noted to be low today. He says he has not been home yet from feeding the animals and has not drank much liquid. 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 Arthropathy of lumbar facet joint Disc degeneration, lumbar Failed back syndrome of lumbar spine HTN (hypertension) Afib Hernia Carpal tunnel syndrome on both sides Surgical History Hx of foot surgery Hx of hernia repair H/O arthroscopic knee surgery History of carpal tunnel release of both wrists Hx of cholecystectomy Family History Father Heart attack HTN (hypertension) Mother HTN (hypertension) Heart attack Social History Housing: House Are you a primary manager critical care unit to a significant other at home: No Do you presently have visiting nurse or other home services: No Alcohol intake: never Patient Tobacco Use Status: Never used Tobacco e-Cigarette/Vaping Use: Never Used Second Hand Smoke Exposure: No service: No Current occupational status: disabled Cognitive needs: No Hearing needs: No Vision needs: Yes Review of Systems Const All systems reviewed & are unremarkable except as noted in HPI and below ENT Denies dizziness Card Denies chest pain, Denies chest pain at rest, Denies chest pain with activity, Denies rapid heart rate, Denies pedal edema, Denies edema, Denies leg edema, Denies lightheadedness, Denies palpitations, Denies dyspnea, Denies dyspnea on exertion and Denies orthopnea Resp Denies cough, Denies dyspnea and Denies dyspnea on exertion GI Details: Left abdominal discomfort - undergoing evaluation Denies hematochezia and Denies change in stool character Musc Denies abnormal gait, Denies limited range of motion, Denies muscle cramps, Denies muscle weakness, Denies numbness, Denies radiating pain into limb, Denies stiffness and Denies tingling Neuro Denies abnormal gait, Denies dizziness, Denies numbness and Denies tingling Endo Denies palpitations Physical Exam Vital Signs: Last Vital Signs Pulse 60 10/17/24 13:22 BP 80/52 L 10/17/24 13:22 BMI result Body Mass Index 30.4 Const General: cooperative, healthy appearing, comfortable and no acute distress Orientation/consciousness: patient oriented x3 Neck Neck: Yes normal visual inspection and Yes no JVD Resp Effort & Inspection: normal respiratory effort Auscultation: clear to auscultation bilaterally, no crackles, no rales, no rhonchi and no wheezes Cardio Jugular venous distension: no JVD Rate: regular rate Rhythm: regular rhythm Heart sounds: S1 normal heart sound present, S2 normal heart sound present, no murmurs and no rubs Neuro General: patient oriented x3 Extrem General: Yes normal to inspection, No no pedal edema and No calf tenderness Psych Appearance: grossly normal Mental Status: mental status grossly normal Speech and movement: Normal speech and movement present Office Procedures EKG Details: Today, done by me, sinus rhythm, voltage criteria for LVH, nonspecific T-wave abnormality, rate 60, QTC 394 milliseconds [id number], Complete Assessment & Plan Assessment & Plan (1) Essential hypertension: Code(s): I10 - Essential (primary) hypertension Category: Medical Plan: Blood pressure goal less than 130/80. Blood pressure low this visit, asymptomatic.. Currently on diltiazem, lisinopril and hydrochlorothiazide. Labs orders are in the system, he was reminded to obtain. He has upcoming visit with his PCP. If blood pressure remains low then consider stopping hydrochlorothiazide. The need for good hydration reviewed with him, especially in hot weather. (2) Ascending aorta enlargement: Code(s): I77.89 - Other specified disorders of arteries and arterioles Category: Medical Plan: History of dilated ascending aorta which has been stable. Echocardiogram done 11/10/2022 showed ascending aorta 4.2 cm. Echocardiogram 10/04/2024 shows ascending aorta 4.2 cm. Blood pressure is currently low but typically has been controlled. (3) ELIF (obstructive sleep apnea): Code(s): G47.33 - Obstructive sleep apnea (adult) (pediatric) Category: Medical Plan: History of obstructive sleep apnea. Unable to wear CPAP due to facial hair. (4) PAF (paroxysmal atrial fibrillation): Code(s): I48.0 - Paroxysmal atrial fibrillation Category: Medical Plan: History of paroxysmal atrial fibrillation which he states was asymptomatic. Currently suppressed with diltiazem for heart rate control. EKG done today showing sinus rhythm , LVH, rate 60. Chads Vasc score of 1, hypertension. He denies history of Congestive heart failure, diabetes, clots, vascular disease. He is not on anticoagulation. Stroke risks with AFib reviewed with him. Will check Holter monitor see if he is having any asymptomatic episodes. Plan to call him with results. Cardiology follow-up in 1 year, sooner if needed. (5) Preop cardiovascular exam: Code(s): Z01.810 - Encounter for preprocedural cardiovascular examination Category: Medical Plan: Preop for colonoscopy. He can proceed with low cardiac risk. His activity level is greater than 4 Mets. Recent echo shows normal EF. Plan The patient and I discussed his history of asymptomatic paroxysmal atrial fibrillation and stroke risk with afib. We reviewed his aortic dilation and I explained that it remains stable, with future interventions depending on its progression. We reviewed his current antihypertensive regimen and the necessity for a blood pressure reassessment at upcoming PCP visit. The importance of detailed hydration and reducing caffeine was emphasized to help mitigate his lightheadness. Although his EKG is currently normal, the potential for asymptomatic atrial fibrillation was addressed and future considerations for anticoagulation were also discussed. We talked about the necessity of avoiding any symptoms of concern and emphasized stroke prevention measures. Orders: Orders ECG 3 day holter monitor Today I48.0 - Paroxysmal atrial fibrillation Patient Instructions: - Proceed with scheduled CT scan and colonoscopy for abdominal pain. - Maintain current blood pressure medication regimen and monitor blood pressure priodically. - Increase water intake and reduce coffee/ caffiene consumption. - Wear the heart monitor as directed to evaluate for atrial fibrillation. - Monitor for symptoms like chest pain, severe headaches, or sudden weakness. - Follow up as directed regarding management plans and any significant findings from upcoming tests. Patient was informed and verbally consented to the use of an ambient scribe for clinic note documentation during this visit. Visit time spent on chart review, interview, assessment, orders, documentation. Coding Level of Care Code Est Pt Level 4 (78504) Complex EM visit Add On G2211 Diagnoses Essential hypertension I10 Ascending aorta enlargement I77.89 ELIF (obstructive sleep apnea) G47.33 PAF (paroxysmal atrial fibrillation) I48.0 Preop cardiovascular exam Z01.810 CPT Codes EKG - CPT: 44534-[id number], Complete ([id number]) Time Spent (min) 28
[2024-10-17 13:22] VITALS: BP 88/52; PULSE 60; BMI 30.4
--- OUTSIDE RECORDS SUMMARY | 2024-10-17 13:57 | XMS_ITS | Encounter Summary ---
Author Organization [facility] Address [address] [place] [address] Care Team Providers Care Economic Analysis Director Name Role Phone Bryan Smith MD Primary Care Provider Unavail able Phyllis Stanley MD Primary Care Provider Unav ailable Gurvinder Man MD Primary Care Provider [phone] [facility], Pcp Primary Care Provider Unavailabl e Encounter Details Date Type Department Care Team Description 04/24/2011 Night Triage Doc Medical Records [address] [place] [address] Abstract, Provider Social History Tobacco Use Types [...] on filedocumented in this encounter Care Teams Economic Analysis Director Relationship Specialty Start Date End Date Bryan Smith MD PCP - General 06/22/02 12/09/15 Phyllis Stanley MD PCP - General Internal Medicine 12/10/15 01/22/20 Gurvinder Man MD [address] [place] [id number] PCP - General Internal Medicine 01/23/20 09/01/20 [facility], Pcp [address] [place] [id number] PCP - General Internal Medicine 09/02/20 documented as of this encounter
== END 2024-10-17 13:46 | disposition home or self-care (01) ==
LOC: HO.HCS 12:36
PROVIDERS: PCP Nurse Practitioner Family; Visit Provider Nurse Practitioner Family
DX: I10 Essential (primary) hypertension (principal); I77.89 Other specified disorders of arteries and arterioles; G47.33 Obstructive sleep apnea (adult) (pediatric); I48.0 Paroxysmal atrial fibrillation; Z01.810 Encounter for preprocedural cardiovascular examination
CPT/HCPCS: 93010; 99214; G2211

== ENCOUNTER → 2024-10-17 12:35 | Outpatient (BNVA) | payer OTHER, SELFPAY | PROVIDERS: PCP Nurse Practitioner Family; Visit Provider Nurse Practitioner Family | DX: Z01.810 Encounter for preprocedural cardiovascular examination (principal); I10 Essential (primary) hypertension; I77.89 Other specified disorders of arteries and arterioles; I48.0 Paroxysmal atrial fibrillation; G47.33 Obstructive sleep apnea (adult) (pediatric); R94.31 Abnormal electrocardiogram [ECG] [EKG] | CPT/HCPCS: 93005; 99212 ==

== ENCOUNTER 2024-10-19 11:47 | Outpatient (REF) | payer OTHER, SELFPAY ==
[2024-10-19 13:19] LABS: Appearance Urine Clear; Color Urine Dark Yellow; Glucose Urine UA Negative (Negative); Leukocyte Esterase Urine Negative (Negative); Nitrite Urine Negative (Negative); Specific Gravity - Urine 1.025 (1.005-1.025); UMIC TRIGGER UACC YES; Urine Blood Negative (Negative); Urine Ketones Trace mg/dL (Negative); Urine Protein 30 (1+) mg/dL (Neg-Trace)
[2024-10-19 13:29] LABS: Bacteria Urine None Seen (None Seen); Hyaline Casts Urine 0-2 /LPF (0-2); MANUAL DIFF FLAG NO; RBC Urine 0-2 /HPF (0-2); Squamous Epithelial Cell Urine 0-2 /HPF (0-2); WBC Urine 0-5 /HPF (0-5)
[2024-10-19 13:40] LABS: Basophils Absolute Auto 0.1 X10*3/uL (0.0-0.2); Basophils Percent Auto 1.3 % (0-2); Eosinophils Absolute Auto 0.1 X10*3/uL (0.0-0.4); Eosinophils Percent Auto 3.5 % (0-4); Hematocrit 36.4 % (42.0-52.0); Imm Gran Abs Auto 0.01 X10*3/uL (0.00-0.03); Imm Gran Pct Auto 0.3 % (0.0-0.4); Lymphocytes Absolute Auto 1.5 X10*3/uL (1.2-4.9); Lymphocytes Percent Auto 38.2 % (20-40); Mean Corpuscular HGB Conc 35.7 g/dl (31.0-36.0); Mean Corpuscular Volume 86.7 fL (80.0-98.0); Mean Platelet Volume 9.6 fL (9.4-12.4); Monocytes Absolute Auto 0.2 X10*3/uL (0.1-1.2); Monocytes Percent Auto 5.8 % (2-11); Neutrophils Percent Auto 50.9 % (45-73); Platelet Count 240 X10*3/uL (160-400); Red Cell Distribution Width 12.9 % (11.0-16.0)
--- OUTSIDE RECORDS SUMMARY | 2024-10-19 13:59 | XMS_ITS | Patient Health Record ---
Author Organization [facility] Address [address] [place] [id number] Care Team Providers Care Assistant Reading Teacher Name Role Phone Whitley BEATTY, Chaitanya Primary [...] Risk Notes Problem Lumbosacral spondylosis without myelopathy ([id number]) Spondylosis without myelopathy or radiculopathy, lumbar region (M47.816) Active confirmed Plan Of Treatment No Information Insurance Providers Payer Name Payer Address Payer Phone Subscriber Number Group Number Insured Name Patient Relationship to Insured Coverage Start Date Coverage End Date [facility] [address] [place] [phone] [id number] USMAN CASTILLO Self - patient is the [...]
[2024-10-19 14:57] LABS: Alanine Aminotransferase 13 U/L (0-40); Albumin Level 4.6 g/dL (3.5-5.0); Alkaline Phosphatase 107 U/L (39-117); Anion Gap 11 (12-20); Aspartate Amino Transferase 24 U/L (5-37); Bilirubin Total 0.7 mg/dL (0.0-1.0); Blood Urea Nitrogen 23 mg/dL (9-16); Calcium 9.6 mg/dL (8.4-10.2); Carbon Dioxide 29 mmol/L (22-29); Chloride 105 mmol/L (96-108); Cholesterol 158 mg/dL (<200); Estimated Glomerular Filt Rate 50; Glucose Fasting 94 mg/dL (60-99); HDL Cholesterol 54 mg/dL (>40); Iron 105 mcg/dL (45-160); LDL Cholesterol Calculated 91 mg/dL (<100); Percent Iron Saturation 34 % (15-50); Potassium 4.5 mmol/L (3.3-5.1); Sodium 140 mmol/L (135-145); Total Iron Binding Capacity 307 mcg/dL (228-428); Total Protein 7.4 g/dL (6.5-8.0); Triglycerides 69 mg/dL (<150); Unsaturated Iron Binding 202 ug/dL
[2024-10-19 15:16] LABS: TSH reflex Free T4 0.98 uIU/mL (0.32-4.0)
== END 2024-10-19 11:48 | disposition home or self-care (01) ==
LOC: HO.HMGCLDS 11:47
PROVIDERS: PCP Nurse Practitioner Family; Referring Provider Nurse Practitioner Family; Visit Provider Nurse Practitioner Family
DX: R10.12 Left upper quadrant pain (principal); I10 Essential (primary) hypertension
CPT/HCPCS: 36415; 80053; 80061; 81001; 83540; 84443; 85025

== ENCOUNTER 2024-10-24 12:59 | Outpatient (REF) | payer OTHER, SELFPAY ==
[2024-10-24 18:11] LABS: Appearance Urine Clear; Color Urine Yellow; Glucose Urine UA Negative (Negative); Leukocyte Esterase Urine Negative (Negative); Nitrite Urine Negative (Negative); PH 5.5 (5.0-9.0); Specific Gravity - Urine 1.025 (1.005-1.025); Urine Blood Negative (Negative); Urine Ketones Trace mg/dL (Negative); Urine Protein Trace mg/dL (Neg-Trace)
[2024-10-24 18:35] LABS: Creatinine Urine 173.67 mg/dL; Total Protein Urine Random 12 mg/dL (<12)
[2024-10-24 18:51] LABS: PSA,Total (Free>4and<10) 0.38 ng/mL (0.00-4.00)
[2024-10-25 08:23] LABS: HBS Num1 0.78 mIU/mL (0-7.99); HBc Num1 0.07 S/CO (0.00-0.79); HIV AB/AG Nonreactive (Nonreactive); HIV Num 1 0.07 S/CO (0.00-0.99); Hepatitis B Core Antibody Nonreactive (Nonreactive); Hepatitis B Surface Antigen Negative (Negative); ~HepC Num1 0.18 S/CO (0.00-0.79); ~Hepatitis B Surface Antibody NONREACTIVE (Nonreactive); ~Hepatitis C Antibody Nonreactive (Nonreactive)
[2024-10-26 22:39] LABS: Myeloperoxidase Antibody <1.0 AI; Proteinase 3 PR3 Antibodies <1.0 AI
[2024-10-27 07:38] LABS: Anti Nuclear Antibody Screen NEGATIVE (NEGATIVE)
[2024-10-27 18:32] LABS: Prot Elec - Albumin 4.3 g/dL (3.8-4.8); Prot Elec - Alpha1 0.2 g/dL (0.2-0.3); Prot Elec - Alpha2 0.5 g/dL (0.5-0.9); Prot Elec - Beta 1 0.4 g/dL (0.4-0.6); Prot Elec - Beta 2 0.3 g/dL (0.2-0.5); Prot Elec - Total Protein 6.8 g/dL (6.1-8.1)
[2024-10-31 12:38] LABS: Phospholipase A2 IgG ELISA <4 RU/mL; Phospholipase A2 IgG IFA NEGATIVE (NEGATIVE)
[2024-10-31 13:54] LABS: Kappa, Serum 275 mg/dL (176-443); Kappa/Lambda Ratio, Serum 1.57 (1.29-2.55); Lambda, Serum 175 mg/dL (91-240)
== END 2024-10-24 13:00 | disposition home or self-care (01) ==
LOC: HO.HKASLDS 12:59
PROVIDERS: PCP Nurse Practitioner Family; Referring Provider Nurse Practitioner Family; Visit Provider Internal Medicine Critical Care Medicine
DX: R35.1 Nocturia (principal); I10 Essential (primary) hypertension; R80.9 Proteinuria, unspecified; Z12.5 Encounter for screening for malignant neoplasm of prostate; N18.9 Chronic kidney disease, unspecified
CPT/HCPCS: 36415; 81003; 82043; 82570; 83520; 83883; 84153; 84156; 84165; 86021; 86038; 86255; 86704; 86706; 86803; 87340; 87389; 99202

== ENCOUNTER 2024-10-24 12:59 | Outpatient (AMB) | payer OTHER, SELFPAY ==
--- NOTE | 2024-10-24 13:12 | HO.NEPHOV ---
Vital Signs 10/24/24 13:14 Height 5 ft 8 in Weight 200 lb BMI 30.4 BP 94/60 Blood Pressure Location Lt brachial Position Sitting Pulse 56 Pulse Source Pulse Oximeter Pulse Oximetry (%) 94 Oxygen Delivery Method Room Air Intake Visit Reasons: INP: Proteinuria-Conf Performance Manager Required: No Accompanied by: Self / Same As Patient Allergies oxycodone [From Tylox] Allergy (Severe, Verified 10/24/24 13:13) throat swelling Penicillins [PCN] Allergy (Severe, Verified 10/24/24 13:13) throat swelling HPI Comments Details: 64-year-old gentleman who is a nonsmoker with past medical history of hypertension, degenerative lumbar disc disorder, multiple pain syndromes not on NSAIDs is here for workup of proteinuria. Used to worked in the nights at a [employer], has sleep apnea not very compliant to CPAP machine. FOR[facility]LY [facility], LATER [facility] Medical History Constipation Hypertensive retinopathy Murmur Anxiety and depression GERD (gastroesophageal reflux disease) Hx of renal calculi Essential hypertension Nocturia Chronic pain syndrome Spondylosis of lumbosacral spine without myelopathy Arthropathy of lumbar facet joint Disc degeneration, lumbar Failed back syndrome of lumbar spine HTN (hypertension) Afib Hernia Carpal tunnel syndrome on both sides Surgical History Hx of foot surgery Hx of hernia repair H/O arthroscopic knee surgery History of carpal tunnel release of both wrists Hx of cholecystectomy Family History Father Heart attack HTN (hypertension) Mother HTN (hypertension) Heart attack Social History Housing: House Are you a primary healthcare interpreter to a significant other at home: No Do you presently have visiting nurse or other home services: No Alcohol intake: never Patient Tobacco Use Status: Never used Tobacco e-Cigarette/Vaping Use: Never Used Second Hand Smoke Exposure: No service: No Current occupational status: disabled Cognitive needs: No Hearing needs: No Vision needs: Yes Review of Systems Const Details: Const +body aches, no excessive sweating + fatigue Eyes Denies blurry vision and Denies change in vision ENT Denies bleeding gums and Denies change in voice Card Denies chest pain and Denies leg ulcers Resp Denies cough and Denies excessive phlegm production GI Denies abdominal pain and Denies bloating Denies hematuria, + urinary frequency and Denies difficulty voiding Musc Denies abnormal gait Neuro Denies Neuro-related abnormal movements, Denies abnormal gait and Denies behavioral changes Psych Denies behavioral changes and Denies change in appetite Endo Denies change in body appearance, Denies cold intolerance, Denies excessive sweating and Denies fatigue Physical Exam Vital Signs: Last Vital Signs Pulse 56 10/24/24 13:14 BP 94/60 10/24/24 13:14 Pulse Ox 94 10/24/24 13:14 Oxygen Delivery Method Room Air 10/24/24 13:14 BMI result Body Mass Index 30.4 General: Hygiene questionable, pleasant, comfortable, sitting on the chair Nutritional Appearance: well nourished and overweight Eyes: appearance normal, both eyes and all related structures; Alignment and Position: alignment normal and position normal Neck: No lymphadenopathy, no thyromegaly Resp: bilateral air entry equal, no added sounds present Cardio: Regular rate, regular rhythm; Heart sounds: S1 normal heart sound present and S2 normal heart sound present, no edema GI: soft, nontender, no guarding, no hepatosplenomegaly : bladder normal to inspection, bladder normal to palpation, no renal angle tenderness Skin: no rashes or lesions noted and elasticity normal Neuro: oriented to person, oriented to place, oriented to time and moves all extremities Results Reviewed Nephrology Results: Hgb 13.0 g/dl (14.0-18.0) L 10/19/24 WBC 4.0 X10*3/uL (4.8-10.8) L 10/19/24 Plt Count 240 X10*3/uL (160-400) 10/19/24 Sodium 140 mmol/L (135-145) 10/19/24 Potassium 4.5 mmol/L (3.3-5.1) 10/19/24 Chloride 105 mmol/L (96-108) 10/19/24 Carbon Dioxide 29 mmol/L (22-29) 10/19/24 BUN 23 mg/dL (9-16) H 10/19/24 Creatinine 1.44 mg/dL (0.5-1.4) H 06/05/25 Calcium 9.6 mg/dL (8.4-10.2) 10/19/24 Urine Protein 30 (1+) mg/dL (Neg-Trace) H 10/19/24 Assessment & Plan Assessment & Plan (1) Proteinuria: Code(s): R80.9 - Proteinuria, unspecified Category: Medical (2) Chronic kidney disease: Code(s): N18.9 - Chronic kidney disease, unspecified Category: Medical Plan Chronic kidney disease stage 3 a: - GFR 50, creatinine 1.5 - referred here for evaluation of proteinuria. Possibly the proteinuria secondary to obesity/sleep apnea however we would like to rule out other etiologies with blood work. We will also quantify the proteinuria to see if this is significant or insignificant. - advised patient to lose weight, compliant to CPAP, diet as advised - patient is not taking any NSAIDs, pain controlled with tramadol, gabapentin Hypertension: - continue lisinopril, hydrochlorothiazide and diltiazem Orders: Orders MARLENY Reflex Titer and Pattern Today R80.9 - Proteinuria, unspecified HIV Ab/Ag Today R80.9 - Proteinuria, unspecified ANCA Vasculitides Today R80.9 - Proteinuria, unspecified Protein Electrophoresis, Serum Today R80.9 - Proteinuria, unspecified PSA,Total (Free>4and<10) Today R80.9 - Proteinuria, unspecified Total Protein Urine Random Today I10 - Essential (primary) hypertension Creatinine Urine Today I10 - Essential (primary) hypertension Microalbumin, Random (w Creat) Today I10 - Essential (primary) hypertension UA and rflx microscopic Today I10 - Essential (primary) hypertension Hepatitis B,C Profile Today R80.9 - Proteinuria, unspecified [place]/Lambda Light Chain Serum Today R80.9 - Proteinuria, unspecified Phospholipase A2 Receptor Pnl Today R35.1 - Nocturia, R80.9 - Proteinuria, unspecified Coding Level of Care Code New Pt Level 4 (13559) Diagnoses Proteinuria R80.9 Chronic kidney disease N18.9
[2024-10-24 13:14] VITALS: BP 94/60; PULSE 56; O2SAT 94; BMI 30.4
--- OUTSIDE RECORDS SUMMARY | 2024-10-24 15:15 | XMS_ITS | Patient Health Record ---
Author Organization [facility] Address [address] [place] [id number] Care Team Providers Care Mammography Supervisor Name Role Phone Whitley BEATTY, Chaitanya Primary [...] Risk Notes Problem Lumbosacral spondylosis without myelopathy ([id number]) Spondylosis without myelopathy or radiculopathy, lumbar region (M47.816) Active confirmed Plan Of Treatment No Information Insurance Providers Payer Name Payer Address Payer Phone Subscriber Number Group Number Insured Name Patient Relationship to Insured Coverage Start Date Coverage End Date [facility] [address] [place] [phone] [id number] USMAN CASTILLO Self - patient is the [...]
== END 2024-10-24 13:48 | disposition home or self-care (01) ==
LOC: HO.HKAS 12:59
PROVIDERS: PCP Nurse Practitioner Family; Referring Provider Nurse Practitioner Family; Visit Provider Internal Medicine Critical Care Medicine
DX: R80.9 Proteinuria, unspecified (principal); N18.9 Chronic kidney disease, unspecified
CPT/HCPCS: 99204

== ENCOUNTER 2024-11-13 15:09 | Outpatient (AMB) | payer OTHER, SELFPAY ==
[2024-11-13 15:17] VITALS: BP 92/60; PULSE 66; RESP 16; TEMP 36.8; O2SAT 97; BMI 31.2
--- NOTE | 2024-11-13 15:17 | A.OFFPC_ITS ---
Vital Signs 11/13/24 15:17 Height 5 ft 8 in Weight 205 lb BMI 31.2 BP 92/60 Blood Pressure Location Rt brachial Position Sitting Respiration 16 Pulse 66 Pulse Source Pulse Oximeter Temp 98.3 F Temp Source Oral Pulse Oximetry (%) 97 Oxygen Delivery Method Room Air Intake Visit Reasons: Annual PE Allergies oxycodone (From Tylox) Allergy (Severe, Verified 11/13/24 15:32) throat swelling Penicillins (PCN) Allergy (Severe, Verified 11/13/24 15:32) throat swelling Medication List - Last Reconciled 11/13/24 by Chaitanya Arreaga, COMMERCIAL ADMINISTRATOR- aspirin 81 mg PO DAILY atorvastatin 20 mg PO BEDTIME bisacodyl 5 mg PO ONCE 1 day celecoxib (Celebrex) 200 mg (2 x 100 mg) PO DAILY 90 days cholecalciferol (vitamin D3) 50 mcg PO DAILY 90 days cyclobenzaprine 10 mg PO BID diazepam 10 mg PO ONCE PRN 1 day diltiazem HCl ER 420 mg PO DAILY 90 days duloxetine 30 mg PO DAILY gabapentin 300 mg PO DAILY hydrochlorothiazide 12.5 mg PO DAILY 90 days lisinopril 20 mg PO DAILY methylcellulose (laxative) (Citrucel) 1,000 mg (2 x 500 mg) PO DAILY omeprazole 20 mg PO BID 90 days polyethylene glycol 3350 (Miralax) 238 grams PO ONCE polyethylene glycol 3350 (Miralax) 17 grams PO DAILY 30 days [shower bench, no backrest or arms As directed] tramadol 50 mg PO TID PRN 30 days Tobacco use date assessed: 11/13/24 Dental Screening Dental Screen Date: 11/13/24 Did you have a dental visit in the last 12 months?: No Did you have a dental problem in the last 6 months where you did not have access to dental care?: No Was dental information given to patient?: Patient has dentist HPI Annual PE HPI Details History of Present Illness The patient is a 64-year-old male presenting with chronic pain, gastrointestinal symptoms, and cardiovascular concerns. The patient reports experiencing chronic pain, which has been persistent and requires ongoing management. He also reports gastrointestinal issues, including constipation and diarrhea, which have been problematic and are being evaluated. The patient is under the care of a coordinate measuring machine technician for atrial fibrillation and is scheduled for further evaluation before undergoing a colonoscopy. He has a history of chronic kidney disease and is being monitored by a bell cleaner. His blood pressure has been slightly lower, leading to a reduction in his lisinopril dosage from 20 mg to 10 mg. Health Maintenance Social History Review of Systems - Gastrointestinal: Reports constipation and diarrhea. - Cardiovascular: Denies dizziness, kang cially with getting up. -denies any fevers, chills, N/V, blood i n stool Physical Exam General: Cooperative, healthy appearing, comfortable, no acute distress and well developed Orientation: Patient oriented x3 Limitations: No limitations Head: Normal to inspection Ears: Hearing grossly normal bilaterally Nose: Normal external nose present Face and sinus: Normal facial exam Eyes: Appearance normal, both eyes and all related structures Neck: Normal visual inspection and Yes full ROM Respiratory: Normal respiratory effort and able to speak in complete sentences. Clear to auscultation bilaterally Cardiovascular: Regular rate and rhythm. Normal S1 and S2 GI: Normal to inspection. Soft to palpation and nontender : testicles without masses/lesions and no hernias appreciated Skin: No rashes or lesions noted Neuro: Patient oriented x3 Extremities: Normal to inspection Results Plan The patient will continue to be monitored for chronic pain and gastrointestinal symptoms, with lab orders entered for further evaluation. He is under the care of a coordinate measuring machine technician for atrial fibrillation and will undergo further workup before any colonoscopy is scheduled. The bell cleaner will continue to monitor his chronic kidney disease. The lisinopril dosage has been adjusted to 10 mg due to lower blood pressure readings, and the patient denies any dizziness upon standing. Patient was informed and verbally consented to the use of an ambient scribe for clinic note documentation during this visit. Discussion Notes Patient Instructions [facility] Medical History Constipation Hypertensive retinopathy Murmur Anxiety and depression GERD (gastroesophageal reflux disease) Hx of renal calculi Essential hypertension Nocturia Chronic pain syndrome Spondylosis of lumbosacral spine without myelopathy Arthropathy of lumbar facet joint Disc degeneration, lumbar Failed back syndrome of lumbar spine HTN (hypertension) Afib Hernia Carpal tunnel syndrome on both sides Surgical History Hx of foot surgery Hx of hernia repair H/O arthroscopic knee surgery History of carpal tunnel release of both wrists Hx of cholecystectomy Family History Father Heart attack HTN (hypertension) Mother HTN (hypertension) Heart attack Social History Housing: House Are you a primary career coach to a significant other at home: No Do you presently have visiting nurse or other home services: No Alcohol intake: never Patient Tobacco Use Status: Never used Tobacco e-Cigarette/Vaping Use: Never Used Second Hand Smoke Exposure: No service: No Current occupational status: disabled Cognitive needs: No Hearing needs: No Vision needs: Yes Questionnaire PHQ-9 Over the last 2 weeks, how often have you been bothered by any of the following problems? 1. Little interest or pleasure in doing things: nearly every day 2. Feeling down, depressed, or hopeless: nearly every day 3. Trouble falling or staying asleep, or sleeping too much: nearly every day 4. Feeling tired or having little energy: nearly every day 5. Poor appetite or overeating: nearly every day 6. Feeling bad about yourself - or that you are a failure or have let yourself or your family down: nearly every day 7. Trouble concentrating on things, such as reading the newspaper or watching television: more than half the days 8. Moving or speaking so slowly that other people could have noticed. Or the opposite - being so fidgety or restless that you have been moving around a lot more than usual: more than half the days 9. Thoughts that you would be better off or of hurting yourself in some way: not at all Total score: 22 Depression Screening Interpretation: Positive (has a therapist and psychiatrist, denies any si or hi. ) Depression Screening Done: Yes [id number] - PHQ-9 Billing: Yes Source: Developed by Drs. Humberto Garrison, Apurva Blanc, Karl Weir and colleagues, with an educational andrew from [email or web address]. Thrive Questionnaire Date Thrive assessed: 11/06/24 I am a: Patient What is your living situation today?: I do not have a steady places to live I choose not to answer this question Within the past 12 months, did the food you bought not last and you didn't have the money to get more?: Often true Within the past 12 months, did you worry whether your food would run out before you got money to buy more?: Often true Do you have trouble paying for medicines?: No Do you have trouble getting transportation to medical appointments?: No Do you have trouble paying your heating and electricity bill?: Yes Do you have trouble taking care of your child, family member or friend?: No Do you have trouble with day-to-day activities such as bathing, preparing meals, shopping, managing finances, etc.?: I choose not to answer this question Are you currently unemployed and looking for a job?: I choose not to answer this question Are you interested in more education?: No Please select the resources that you would like help with: Food and Utilities Currently or been in a relationship where the following occur: No concerns reported THRIVE Score: 4 AUDIT C Alcohol Use Questionnaire (AUDIT-C) 1. How often do you have a drink containing alcohol?: 2-4 times a month 2. How many drinks containing alcohol do you have on a typical day when you are drinking?: 1 or 2 3. How often do you have six or more drinks on one occasion?: Never Total Score: 2 TIFFANY-7 AMB Questionnaire TIFFANY-7 Date TIFFANY - 7 assessed: 12/27/23 Feeling nervous, anxious, or on edge: 3 = Nearly every day Not being able to stop or control worryin = Nearly every day Worrying too much about different things: 3 = Nearly every day Trouble relaxin = Nearly every day Being so restless that it is hard to sit still: 3 = Nearly every day Becoming easily annoyed or irritable: 2 = More than half the days Feeling afraid as if something awful might happen: 2 = More than half the days Total TIFFANY-7 score (0-4 normal; 5-9 mild; 10-14 moderate; 15-21 severe): 19 Source: Developed by Drs. Humberto Garrison, Apurva Blanc, Karl Weir and colleagues, with an educational andrew from [email or web address]. Physical exam (Primary Care) Vital Signs: Last Vital Signs Temp 98.3 F 11/13/24 15:17 Pulse 66 11/13/24 15:17 Resp 16 11/13/24 15:17 BP 92/60 11/13/24 15:17 Pulse Ox 97 11/13/24 15:17 Oxygen Delivery Method Room Air 11/13/24 15:17 BMI result Body Mass Index 31.2 Tobacco/Smoking Status: Tobacco use Status Tobacco use date assessed 11/13/24 11/13/24 15:22 Patient Tobacco Use Status Never used Tobacco 11/13/24 15:22 e-Cigarette/Vaping Use Never Used 11/13/24 15:22 PHQ-9: PHQ-9 Score PHQ-9: Total score 22 11/13/24 15:37 Depression Screening Interpretation: Positive (has a therapist and psychiatrist, denies any si or hi. ) Thrive Assessment: Date of Thrive Assessment Date Thrive assessed 11/06/24 11/13/24 15:22 Currently or been in a relationship where the following occur: No concerns reported Coding Level of Care Code Est Pt Prev Care 40-64y(33122) Diagnoses Encounter for routine adult physical exam with abnormal findings Z00. Physical exam Z00. Screening PSA (prostate specific antigen) Z12.5 Additional Codes PHQ-9 - 20402 - PHQ-9 Billing: Yes ([id number]) Assessment & Plan Assessment & Plan (1) Encounter for routine adult physical exam with abnormal findings: Code(s): Z00.01 - Encounter for general adult medical examination with abnormal findings Category: Medical (2) Physical exam: Code(s): Z00.00 - Encounter for general adult medical examination without abnormal findings Category: Medical (3) Screening PSA (prostate specific antigen): Code(s): Z12.5 - Encounter for screening for malignant neoplasm of prostate Category: Medical Plan . Orders: Orders Complete Blood Count Auto Diff Today Z00.00 - Encounter for general adult medical examination without abnormal findings Comprehensive [place]. Panel Fast Today Z00.00 - Encounter for general adult medical examination without abnormal findings Prostate Specific Antigen Scr Today Z12.5 - Encounter for screening for malignant neoplasm of prostate Medications: Changed From lisinopril 20 mg PO DAILY 90 tabs 3RF To lisinopril 10 mg PO DAILY 90 tabs 0RF
--- OUTSIDE RECORDS SUMMARY | 2024-11-13 15:33 | XMS_ITS | Clinical Summary ---
Author Organization [facility] Address [address] [place] [address] Phone Care Team Providers Care Solar Sales Representative And Assessor Name Role Phone Chaitanya Pan Primary Care Provider Allergies No known active allergies Encounters Date Type Department Care Team Description 11/05/2024 12:39 PM EDT - 11/05/2024 3:51 PM EDT Emergency [facility] Emergency [address] [place] [id number] Brian Abbott DO General weakness (Primary Dx) Discharge Disposition: Left Against Medical Advice from Last 3 Months Surgical History Surgery Date Site/Laterality Comments HERNIA REPAIR PROCEDURE: HISTORICAL HERNIA REPAIR/ING; COMMENT: left inguinal OTHER SURGICAL HISTORY PROCEDURE: ---- OTHER ----; COMMENT: R plantar fasciotomy HERNIA REPAIR 10/23 PROCEDURE: REPAIR UMBILICAL HERNIA KNEE SURGERY PROCEDURE: HISTORICAL KNEE SURGERY; COMMENT: left; ACL, meniscus CARPAL TUNNEL RELEASE PROCEDURE: HISTORICAL CARPAL TUNNEL REL; COMMENT: bilat VASECTOMY PROCEDURE: NV VASECTOMY UNI/BI SPX W/POSTOP SEMEN EXAMS COLONOSCOPY 05/13/15 PROCEDURE: HISTORICAL COLONOSCOPY; COMMENT: tics; repeat in 10 yrs CHOLECYSTECTOMY 07/13/2019 PROCEDURE: LAPAROSCOPIC CHOLECYSTECT; COMMENT: at [facility] Dr Chaitanya Flower for +HIDA acalculous chronic [...] BMI of 4 0.0-44.9, adult (CMS/HCC V24, [facility]/HCC V28) 06/08/2017 DX:Morbid obesity wit h BMI of 40.0-44.9, adult ([facility]) Family History Medical History Relation Name [...] Sexual Orientation Not on file Obstetrics History Last Filed Vital Signs Vital Sign Reading Time Taken Comments Blood Pressure 145/116 11/05/2024 2:46 PM EDT Pulse 55 11/05/2024 2:46 PM EDT Temperature 36.7 C (98.1 F) 11/05/2024 2:46 PM EDT Respiratory Rate 12 11/05/2024 2:46 PM EDT Oxygen Saturation 99% 11/05/2024 2:46 PM EDT Inhaled Oxygen Concentration - - Weight 90.7 kg (200 lb) 11/05/2024 12:30 PM EDT Height 172.7 cm (5' 8 ) 11/05/2024 12:30 PM EDT Body Mass Index 30.41 11/05/2024 12:30 PM EDT Plan of Treatment Health Maintenance Due Date Last Done Comments Hepatitis A Vaccines (1 of 2 - Risk 2-dose series) 1981 DTaP,Tdap,and Td Vaccines (2 - Td or Tdap) 01/11/2019 01/11/2009 Pneumococcal Vaccine: 50+ Years (2 of 2 - PCV) 06/18/2021 06/18/2020, 07/27/2017 Hepatitis B Vaccines (1 of 3 - Risk 3-dose series) 2022 RSV Immunization Adult Patients (1 - Risk 60-74 years 1-dose series) 2022 Cholesterol Screening (Lipid Panel) 01/10/2024 Colorectal Cancer Screening: Colonoscopy 01/10/2024 Depression Screening 01/10/2024 HIV Screening 01/10/2024 Hepatitis C Screening 01/10/2024 Medicare Annual Wellness Visit 01/10/2024 Social Influencers of Health Screening 01/10/2024 COVID-19 Vaccine ( season) 2024 04/25/2021, 10/18/2020, 09/20/2020 Influenza Vaccine (Season Ended) 2025 04/25/2021, 03/19/2020, 06/29/2018, Additional history exists Hypertension/CHF/CAD Annual BMP Blood Test 11/05/2025 11/05/2024 Pneumococcal Vaccine: Pediatrics (0 to 5 Years) and At-Risk Patients (6 to 64 Years) Aged Out 06/18/2020, 07/27/2017 No longer eligibl e based on patient's age to complete this topic Zoster Vaccines Completed 06/30/2021, 04/25/2021 HIB Vaccines Aged Out No longer eligi [...] on patient's age to complete this topic Procedures Procedure Name Priority Date/Time Associated Diagnosis Comments ECG ANNOTATED 11/06/2024 XR CHEST 2 VIEWS STAT 11/05/2024 3:03 PM EDT URINALYSIS WITH REFLEX MICROSCOPIC STAT 11/05/2024 2:39 PM EDT TROPONIN I HIGH SENSITIVITY STAT 11/05/2024 2:39 PM EDT URINALYSIS WITH REFLEX MICROSCOPIC STAT 11/05/2024 2:39 PM EDT RESPIRATORY VIRUS PANEL MOLECULAR STUDY STAT 11/05/2024 2:39 PM EDT LT GREEN - LI HEPARIN Routine 11/05/2024 12:35 PM EDT EXTRA TUBES Routine 11/05/2024 12:35 PM EDT CBC WITH AUTO DIFFERENTIAL STAT 11/05/2024 12:35 PM EDT BASIC METABOLIC PANEL STAT 11/05/2024 12:35 PM EDT CBC AND DIFFERENTIAL STAT 11/05/2024 12:35 PM EDT ECG 12-LEAD STAT 11/05/2024 12:30 PM EDT from Last 3 Months Results * ECG-Annotated (11/06/2024) us Provider Onbase MD ECG ORDERABLES Final Result * XR Chest 2 Views (11/05/2024 3:03 PM EDT) Anatomical Region Laterality Modality Body Radiographic Evelny ging 11/05/2024 3:09 PM EDT Impressions 11/05/2024 3:09 PM EDT Impression: No active pulmonary process identified. Telerad PA ([id number]) -------- FINAL REPORT -------- Dictated By: Lexus Elias Dictated Date: 11/05/2024 15:09 ET Assigned Physician: Lexus Elias Reviewed and Electronically Signed By: Lexus Elias Signed Date: 11/05/2024 15:09 ET Workstation ID: [id number] Transcribed By: Self Edit Transcribed Date: 11/05/2024 15:09 ET Narrative 11/05/2024 3:09 PM EDT History: Dyspnea. Comparison: No comparison imaging at this institution. Findings: PA and lateral views. The cardiomediastinal silhouette, hilar contours and pulmonary vascularity are within normal limits. The lungs are clear. The costophrenic angles are sharp. An S-shaped thoracolumbar scoliosis is partially imaged. Multiple old, healed right rib fractures are seen. Cholecystectomy clips are noted. Procedure Note Lexus Elias MD - 11/05/2024 History: Dyspnea. Comparison: No comparison imaging at this institution. Findings: PA and lateral views. The cardiomediastinal silhouette, hilar contours andpulmonary vascularity are within normal limits. The lungs are clear. Thecostophrenic angles are sharp. An S-shaped thoracolumbar scoliosis is partially imaged. Multiple old,healed right rib fractures are seen. Cholecystectomy clips are noted. IMPRESSION: Impression: No active pulmonary process identified. Telerad PA ([id number]) -------- FINAL REPORT -------- Dictated By: Lexus Elias Dictated Date: 11/05/2024 15:09 ET Assigned Physician: Lexus Elias Reviewed and Electronically Signed By: Lexus Elias Signed Date: 11/05/2024 15:09 ET Workstation ID: [id number] Transcribed By: Self Edit Transcribed Date: 11/05/2024 15:09 ET us Panchito Lynn MD IMG XR PROCEDURES Final Res ult * (ABNORMAL) Urinalysis with reflex microscopic (11/05/2024 2:39 PM EDT) Pathologist [facility] Specific [place] Urine 1.024 1.003 - 1.030 LAB URINALYSIS - AUTOMATED METHOD 11/05/2024 3:04 PM [facility] pH, Urine 5.5 5.0 - 8.0 pH LAB URINALYSIS - AUTOMATED METHOD 11/05/2024 3:04 PM [facility] Leukocytes, Urine Trace(A) Negative LAB URINALYSIS - AUTOMATED METHOD 11/05/2024 3:04 PM [facility] Nitrite, Urine Negative Negative LAB URINALYSIS - AUTOMATED METHOD 11/05/2024 3:04 PM [facility] Protein, Urine Trace <=Trace mg/dL LAB URINALYSIS - AUTOMATED METHOD 11/05/2024 3:04 PM [facility] Glucose, Urine Negative Negative mg/dL LAB URINALYSIS - AUTOMATED METHOD 11/05/2024 3:04 PM [facility] Ketones, Urine Trace(A) Negative mg/dL LAB URINALYSIS - AUTOMATED METHOD 11/05/2024 3:04 PM [facility] Urobilinogen, Urine 1.0 0.2 - 1.0 mg/dL LAB URINALYSIS - AUTOMATED METHOD 11/05/2024 3:04 PM [facility] Bilirubin, Urine Negative Negative LAB URINALYSIS - AUTOMATED METHOD 11/05/2024 3:04 PM [facility] Blood, Urine Negative Negative LAB URINALYSIS - AUTOMATED METHOD 11/05/2024 3:04 PM EDT [facility] RBC, Urine 7.4(H) 0 - 4 /HPF LAB URINALYSIS - AUTOMATED METHOD 11/05/2024 3:04 PM EDT [facility] WBC, Urine 2.2 0 - 4 /HPF LAB URINALYSIS - AUTOMATED METHOD 11/05/2024 3:04 PM EDT [facility] Squamous Epithelial, Urine 18 0 - 60 /LPF LAB URINALYSIS - AUTOMATED METHOD 11/05/2024 3:04 PM EDT [facility] Bacteria, Urine Negative Negative /HPF LAB URINALYSIS - AUTOMATED METHOD 11/05/2024 3:04 PM EDT [facility] Hyaline Casts, Urine 2.8 0 - 3 /LPF LAB URINALYSIS - AUTOMATED METHOD 11/05/2024 3:04 PM EDT [facility] Urine Urine specimen obtained by clean catch procedure / Unknown Non-blood Collection / Unknown 11/05/2024 2:39 PM EDT 11/05/2024 2:50 PM EDT us Brian Abbott DO LAB URINE ORDERABLES Final Res ult [facility] [address] [place] [address], * Respiratory virus panel molecular study (11/05/2024 2:39 PM EDT) Adenovirus Detection by PCR Not Detected Not Detected LAB MICROBIOLOGY METHOD 11/05/2024 3:43 PM EDT [facility] Influenza A PCR Not Detected Not Detected LAB MICROBIOLOGY METHOD 11/05/2024 3:43 PM EDT [facility] Influenza B PCR Not Detected Not Detected LAB MICROBIOLOGY METHOD 11/05/2024 3:43 PM EDT [facility] Coronavirus 229E Not Detected Not Detected LAB MICROBIOLOGY METHOD 11/05/2024 3:43 PM EDT [facility] Coronavirus HKU1 Not Detected Not Detected LAB MICROBIOLOGY METHOD 11/05/2024 3:43 PM EDT [facility] Coronavirus OC43 Not Detected Not Detected LAB MICROBIOLOGY METHOD 11/05/2024 3:43 PM EDT [facility] Coronavirus NL63 Not Detected Not Detected LAB MICROBIOLOGY METHOD 11/05/2024 3:43 PM EDT [facility] Parainfluenza Virus 1 Not Detected Not Detected LAB MICROBIOLOGY METHOD 11/05/2024 3:43 PM EDT [facility] Parainfluenza Virus 2 Not Detected Not Detected LAB MICROBIOLOGY METHOD 11/05/2024 3:43 PM EDT [facility] Parainfluenza Virus 3 Not Detected Not Detected LAB MICROBIOLOGY METHOD 11/05/2024 3:43 PM EDT [facility] Parainfluenza Virus 4 Not Detected Not Detected LAB MICROBIOLOGY METHOD 11/05/2024 3:43 PM EDT [facility] RSV PCR Not Detected Not Detected LAB MICROBIOLOGY METHOD 11/05/2024 3:43 PM EDT [facility] Human Metapneumovirus A and B Not Detected Not Detected LAB MICROBIOLOGY METHOD 11/05/2024 3:43 PM EDT [facility] Rhinovirus/Entero virus Not Detected Not Detected LAB MICROBIOLOGY METHOD 11/05/2024 3:43 PM EDT [facility] Bordetella pertussis Not Detected Not Detected LAB MICROBIOLOGY METHOD 11/05/2024 3:43 PM EDT [facility] Bordetella parapertussis Not Detected Not Detected LAB MICROBIOLOGY METHOD 11/05/2024 3:43 PM EDT [facility] Mycoplasma pneumo by PCR Not Detected Not Detected LAB MICROBIOLOGY METHOD 11/05/2024 3:43 PM EDT [facility] Chlamydia pneumoniae Not Detected Not Detected LAB MICROBIOLOGY METHOD 11/05/2024 3:43 PM EDT [facility] SARS COV-2 Not Detected Not Detected LAB MICROBIOLOGY METHOD 11/05/2024 3:43 PM EDT [facility] Swab Both anterior nares / Unknown Non-blood Collection / Unknown 11/05/2024 2:39 PM EDT 11/05/2024 2:50 PM EDT Narrative [facility] - 11/05/2024 3:43 PM EDT Testing was performed using the [employer] Respiratory Pathogen PCR Assay. All results must be correlated with the clinical findings. Results should not be used as the sole basis for diagnosis. False Negative results may occur from the presence of sequence variants in the region targeted by the assay or the presence of inhibitors. Results may be affected by concurrent antiviral/antimicrobial therapy or levels of organisms that are below the limit of detection. Brian Abbott DO LAB MICROBIOLOGY - GENERAL ORD ERABLES Final Result Performing Organization Address [facility]/ZIP Co de Phone Number [facility] [address] [place] [address], [place] [phone] * Troponin I high sensitivity (11/05/2024 2:39 PM EDT) [facility] High Sensitivity Troponin I 6 <=79 ng/L LAB CHEMISTRY METHOD 11/05/2024 3:21 PM EDT [facility] Blood Venous blood specimen / Unknown Venipuncture / Unknown 11/05/2024 2:39 PM EDT 11/05/2024 2:50 PM EDT Narrative [facility] - 11/05/2024 3:21 PM EDT High levels of biotin in samples may falsely decrease hsTroponin values. Use caution when interpreting hsTroponin results in patients taking biotin who exhibit renal impairment (eGFR <60) or in patients taking more than 20 mg/day of biotin. Brian Abbott DO LAB BLOOD ORDERABLES Final Res ult [facility] [address] [place] [address], [place] [phone] * Green LI heparin tube (11/05/2024 12:35 PM EDT) [facility] Extra Tube Hold for add-ons. 11/06/2024 2:01 AM EDT [facility] Comment:Auto resulted. Blood Venous blood specimen / Unknown 11/05/2024 12:35 PM EDT 11/05/2024 1:02 PM EDT Panchito Lynn MD LAB BLOOD ORDERABLES Final Result [facility] [address] [place] [address], [place] [phone] * (ABNORMAL) CBC auto differential (11/05/2024 12:35 PM EDT) [facility] WBC 4.4(L) 4.8 - 10.8 K/mcL LAB HEMETOLOGY METHOD 11/05/2024 1:15 PM EDT [facility] RBC 4.10(L) 4.50 - 5.50 M/mcL LAB HEMETOLOGY METHOD 11/05/2024 1:15 PM EDT [facility] Hemoglobin 12.4(L) 13.5 - 17.5 g/dL LAB HEMETOLOGY METHOD 11/05/2024 1:15 PM EDT [facility] Hematocrit 36.1(L) 42.0 - 54.0 % LAB HEMETOLOGY METHOD 11/05/2024 1:15 PM EDT [facility] MCV 87.6 79.0 - 98.0 FL LAB HEMETOLOGY METHOD 11/05/2024 1:15 PM EDT [facility] MCH 30.1 27.0 - 32.0 pcg LAB HEMETOLOGY METHOD 11/05/2024 1:15 PM EDT [facility] MCHC 34.3 32.0 - 37.0 g/dL LAB HEMETOLOGY METHOD 11/05/2024 1:15 PM EDT [facility] RDW 12.9 11.0 - 15.0 % LAB HEMETOLOGY METHOD 11/05/2024 1:15 PM EDT [facility] Platelets 230 130 - 400 K/mcL LAB HEMETOLOGY METHOD 11/05/2024 1:15 PM EDT [facility] MPV 9.7 7.0 - 11.0 FL LAB HEMETOLOGY METHOD 11/05/2024 1:15 PM [facility] NRBC 0.0 <1.0 % LAB HEMETOLOGY METHOD 11/05/2024 1:15 PM [facility] NRBC Absolute 0.00 <0.10 K/mcL LAB HEMETOLOGY METHOD 11/05/2024 1:15 PM EDT [facility] Neutrophils Relative 47.1 % LAB HEMETOLOGY METHOD 11/05/2024 1:15 PM [facility] Lymphocytes Relative 39.3 % LAB HEMETOLOGY METHOD 11/05/2024 1:15 PM [facility] Monocytes Relative 7.0 % LAB HEMETOLOGY METHOD 11/05/2024 1:15 PM [facility] Eosinophils Relative 4.8 % LAB HEMETOLOGY METHOD 11/05/2024 1:15 PM [facility] Basophils Relative 1.6 % LAB HEMETOLOGY METHOD 11/05/2024 1:15 PM EDT [facility] Immature Granulocytes Relative 0.2 % LAB HEMETOLOGY METHOD 11/05/2024 1:15 [facility] Neutrophils Absolute 2.07 1.50 - 7.00 K/mcL LAB HEMETOLOGY METHOD 11/05/2024 1:15 PM EDT [facility] Lymphocytes Absolute 1.73 1.00 - 5.00 K/mcL LAB HEMETOLOGY METHOD 11/05/2024 1:15 PM EDT [facility] Monocytes Absolute 0.31 0.20 - 1.00 K/mcL LAB HEMETOLOGY METHOD 11/05/2024 1:15 PM EDT [facility] Eosinophils Absolute 0.21 0.00 - 0.50 K/mcL LAB HEMETOLOGY METHOD 11/05/2024 1:15 PM EDT [facility] Basophils Absolute 0.07 0.00 - 0.20 K/mcL LAB HEMETOLOGY METHOD 11/05/2024 1:15 PM EDT [facility] Immature Granulocytes Absolute 0.01 0.00 - 0.03 K/mcL LAB HEMETOLOGY METHOD 11/05/2024 1:15 PM EDT [facility] Blood Venous blood specimen / Unknown Venipuncture / Unknown 11/05/2024 12:35 PM EDT 11/05/2024 12:59 PM EDT Panchito Lynn MD LAB BLOOD ORDERABLES Final Result [facility] [address] [place] [address], * (ABNORMAL) Basic metabolic panel (11/05/2024 12:35 PM EDT) Sodium 135 133 - 145 mmol/L LAB CHEMISTRY METHOD 11/05/2024 1:27 PM EDT [facility] Potassium 4.4 3.5 - 5.5 mmol/L LAB CHEMISTRY METHOD 11/05/2024 1:27 PM EDT [facility] Chloride 103 96 - 110 mmol/L LAB CHEMISTRY METHOD 11/05/2024 1:27 PM EDT [facility] CO2 27 21 - 32 mmol/L LAB CHEMISTRY METHOD 11/05/2024 1:27 PM EDT [facility] Anion Gap 5 3 - 11 LAB CHEMISTRY METHOD 11/05/2024 1:27 PM EDT [facility] Glucose 110(H) 70 - 100 mg/dL LAB CHEMISTRY METHOD 11/05/2024 1:27 PM EDT [facility] BUN 35(H) 5 - 25 mg/dL LAB CHEMISTRY METHOD 11/05/2024 1:27 PM EDT [facility] Creatinine 1.83(H) 0.70 - 1.30 mg/dL LAB CHEMISTRY METHOD 11/05/2024 1:27 PM EDT [facility] eGFR 41(L) >=60 mL/min/1. 73m2 LAB CHEMISTRY METHOD 11/05/2024 1:27 PM EDT [facility] Comment:Calculation based on the Chronic Kidney Disease Epidemiology Collaboration (CKD-EPI) equation refit without adjustment for race. BUN/Creatinine Ratio 19.1 LAB CHEMISTRY METHOD 11/05/2024 1:27 PM EDT [facility] Calcium 9.1 8.5 - 10.5 mg/dL LAB CHEMISTRY METHOD 11/05/2024 1:27 PM EDT [facility] Blood Venous blood specimen / Unknown Venipuncture / Unknown 11/05/2024 12:35 PM EDT 11/05/2024 12:59 PM EDT us Panchito Lynn MD LAB BLOOD ORDERABLES Final Result [facility] [address] [place] [address], * ECG 12 lead (11/05/2024 12:30 PM EDT) Ventricular Rate ECG 65 BPM GEMUSE Atrial Rate 65 BPM GEMUSE P-R Interval 180 ms GEMUSE QRS Duration 110 ms GEMUSE Q-T Interval 378 ms GEMUSE QTc 393 ms GEMUSE P Wave [place] 63 degrees GEMUSE R [place] 4 degrees GEMUSE T [place] 24 degrees GEMUSE ECG Interpretation Normal sinus rhythm Increased R/S ratio in V1, consider early transition or posterior infarct Abnormal ECG No previous ECGs available Confirmed by Jonny SAMANO JAMES ([id number]) on 11/05/2024 5:15:16 PM GEMUSE 11/05/2024 12:3 0 PM EDT 11/05/2024 5:15 PM EDT us Pnachito Lynn MD ECG ORDERABLES Final Resul t GEMUSE from Last 3 Months Insurance [employer] MEDICARE Member Subscriber Plan / Payer (Ef fective 2019-Present) Name:RICHIE CASTILLO Relation to Subscriber:Self Name:Richie Castillo Payer ID:[id number] Group ID:[id number] Type:Not on file Address: [place] [address] [address] [place] [address] Care Teams Solar Sales Representative And Assessor Relationship Specialty Start Date End Date MaximChaitanya [address] [place] [address] PCP - General Dental Head Of Cytogenetics 11/05/24
--- OUTSIDE RECORDS SUMMARY | 2024-11-13 15:33 | XMS_ITS | Patient Health Record ---
Author Organization [facility] Address [address] [place] [address] Care Team Providers Care Mosaic Tile Maker Name Role Phone Whitley BEATTY, Chaitanya Primary [...] MG 1 capsule Orally On ce a day; Duration: 30 day(s) Active Lisinopril 10 MG 1 tablet Orally Once a day; Duration: 30 day(s) Active dilTIAZem HCl ER Beads 360 MG 1 capsule Orally Once a day; Duration: 30 day(s) Active Aspirin 81 MG 1 tablet Orally Once a day; Duration: 30 day(s) Active Atorvastatin Calcium 20 MG 1 tablet Oral ly Once a day; Duration: 30 day(s) Active Baclofen 10 MG/5ML as directed Intrathecal Active diazePAM 5 MG 1 tablet as needed O rally Once a day Active Meloxicam 15 MG 1 tablet Orally Once a day; Duration: 30 day(s) Active Omeprazole 20 MG 1 capsule 30 minutes before morning meal Orally Once a day; Duration: 30 day(s) Active Sertraline HCl 50 MG 1 tablet Orally Onc e a day; Duration: 30 day(s) Active traMADol HCl 50 MG [...] Risk Notes Problem Lumbosacral spondylosis without myelopathy (81424470) Spondylosis without myelopathy or radiculopathy, lumbar region (M47.816) Active confirmed Plan Of Treatment No Information Insurance Providers Payer Name Payer Address Payer Phone Subscriber Number Group Number Insured Name Patient Relationship to Insured Coverage Start Date Coverage End Date [facility] [address] [place] [phone] [id number] USMAN CASTILLO Self - patient is the [...]
== END 2024-11-13 16:51 | disposition home or self-care (01) ==
LOC: HO.HMCC 15:10
PROVIDERS: PCP Nurse Practitioner Family; Visit Provider Nurse Practitioner Family
DX: Z00.01 Encounter for general adult medical examination with abnormal findings (principal); Z00.00 Encounter for general adult medical examination without abnormal findings; Z12.5 Encounter for screening for malignant neoplasm of prostate

== ENCOUNTER → 2024-11-13 15:09 | Outpatient (BNVA) | payer OTHER, SELFPAY | PROVIDERS: PCP Nurse Practitioner Family; Visit Provider Nurse Practitioner Family | DX: Z00.01 Encounter for general adult medical examination with abnormal findings (principal); I12.9 Hypertensive chronic kidney disease with stage 1 through stage 4 chronic kidney disease, or unspecified chronic kidney disease; G89.29 Other chronic pain; I48.91 Unspecified atrial fibrillation; N18.9 Chronic kidney disease, unspecified | CPT/HCPCS: 96127; 99396 ==

== ENCOUNTER 2024-11-16 11:44 | Outpatient (REF) | payer OTHER, SELFPAY ==
--- OUTSIDE RECORDS SUMMARY | 2024-11-16 12:24 | XMS_ITS | Encounter Summary ---
Author Organization [facility] Address [address] [place] [address] Care Team Providers Care Research Engineer Name Role Phone Bryan Smith MD Primary Care Provider Unavail able Phyllis Stanley MD Primary Care Provider Unav ailable Gurvinder Man MD Primary Care Provider [phone] [facility], Pcp Primary Care Provider Unavailabl e Encounter Details Date Type Department Care Team Description 04/24/2011 Night Triage Doc Medical Records [address] [place] [address] Abstract, Provider Social History Tobacco Use Types [...] on filedocumented in this encounter Care Teams Research Engineer Relationship Specialty Start Date End Date Bryan Smith MD PCP - General 06/22/02 12/09/15 Phyllis Stanley MD PCP - General Internal Medicine 12/10/15 01/22/20 Gurvinder Man MD [address] [place] [id number] PCP - General Internal Medicine 01/23/20 09/01/20 [facility], Pcp [address] [place] [id number] PCP - General Internal Medicine 09/02/20 documented as of this encounter
--- OUTSIDE RECORDS SUMMARY | 2024-11-16 12:24 | XMS_ITS | Patient Health Record ---
Author Organization [facility] Address [address] [place] [phone] Care Team Providers Care Systems Trainer Name Role Phone Whitley BEATTY, Chaitanya Primary [...] Risk Notes Problem Lumbosacral spondylosis without myelopathy (69115535) Spondylosis without myelopathy or radiculopathy, lumbar region (M47.816) Active confirmed Plan Of Treatment No Information Insurance Providers Payer Name Payer Address Payer Phone Subscriber Number Group Number Insured Name Patient Relationship to Insured Coverage Start Date Coverage End Date [facility] [address] [place] [phone] [id number] USMAN CASTILLO Self - patient is the [...]
[2024-11-16 13:13] LABS: Appearance Urine Clear; Glucose Urine UA Negative (Negative); PH 6.0 (5.0-9.0); Specific Gravity - Urine 1.020 (1.005-1.025)
[2024-11-16 13:21] LABS: MANUAL DIFF FLAG NO
[2024-11-16 13:29] LABS: Hematocrit 35.8 % (42.0-52.0); Hemoglobin 12.8 g/dl (14.0-18.0); Imm Gran Abs Auto 0.01 X10*3/uL (0.00-0.03); Imm Gran Pct Auto 0.2 % (0.0-0.4); Lymphocytes Absolute Auto 1.5 X10*3/uL (1.2-4.9); Mean Corpuscular HGB Conc 35.8 g/dl (31.0-36.0); Mean Corpuscular Hemoglobin 30.6 pg (27.0-33.0); Mean Corpuscular Volume 85.6 fL (80.0-98.0); NRBC Abs Auto 0.000 X10*3/uL (0.0-0.012); NRBC Pct Auto 0.0 /100WBC (0.0-0.2); Platelet Count 224 X10*3/uL (160-400); Red Blood Count 4.18 X10*6/uL (4.60-5.80); Reticulocytes Absolute 0.049 X10*6/uL (0.026-0.095); White Blood Count 4.1 X10*3/uL (4.8-10.8)
[2024-11-16 14:23] LABS: Ferritin 45 ng/mL (20-250); Iron 148 mcg/dL (45-160); Percent Iron Saturation 49 % (15-50); Total Iron Binding Capacity 300 mcg/dL (228-428); Unsaturated Iron Binding 152 ug/dL
[2024-11-16 14:34] LABS: Folate 7.7 ng/mL (> or = 4.0); Vitamin B12 476 pg/mL (200-900)
== END 2024-11-16 11:45 | disposition home or self-care (01) ==
LOC: HO.HMGCLDS 11:44
PROVIDERS: PCP Nurse Practitioner Family; Visit Provider Nurse Practitioner Family
DX: Z12.5 Encounter for screening for malignant neoplasm of prostate (principal); I10 Essential (primary) hypertension; D64.9 Anemia, unspecified
CPT/HCPCS: 36415; 81003; 82607; 82728; 82746; 83540; 83615; 84153; 85025; 85045

== ENCOUNTER 2024-11-20 09:43 | Outpatient (REF) | payer OTHER, SELFPAY ==
--- OUTSIDE RECORDS SUMMARY | 2024-11-20 10:17 | XMS_ITS | Patient Health Record ---
Author Organization [facility] Address [address] [place] [phone] Care Team Providers Care Front Desk Person Name Role Phone Whitley BEATTY, Chaitanya Primary [...] Risk Notes Problem Lumbosacral spondylosis without myelopathy ([id number]) Spondylosis without myelopathy or radiculopathy, lumbar region (M47.816) Active confirmed Plan Of Treatment No Information Insurance Providers Payer Name Payer Address Payer Phone Subscriber Number Group Number Insured Name Patient Relationship to Insured Coverage Start Date Coverage End Date [facility] [address] [place] [phone] [id number] USMAN CASTILLO Self - patient is the [...]
--- OUTSIDE RECORDS SUMMARY | 2024-11-20 10:17 | XMS_ITS | Clinical Summary ---
Author Organization [facility] Address [address] [place] [address] Phone Care Team Providers Care Director Business Travel Name Role Phone Chaitanya Pan Primary Care Provider [phone] Allergies No known active allergies Encounters Date Type Department Care Team Description 11/05/2024 12:39 PM EDT - 11/05/2024 3:51 PM EDT Emergency [facility] Emergency [address] [place] [id number] Brian Abbott DO General weakness (Primary Dx) [...] CARPAL TUNNEL REL; COMMENT: bilat VASECTOMY PROCEDURE: OH VASECTOMY UNI/BI SPX W/POSTOP SEMEN EXAMS COLONOSCOPY [...] BMI of 4 0.0-44.9, adult (CMS/HCC V24, [facility]/HCC V28) 06/08/2017 DX:Morbid obesity wit h BMI of 40.0-44.9, adult ([facility]) Family History Medical History Relation Name Comments [...] season) 2024 04/25/2021, 10/18/2020, 09/20/2020 Influenza Vaccine (#1) 2025 , 03/19/2020, 06/29/2018, Additional history exists Hypertension/CHF/CAD Annual [...] EDT) Anatomical Region Laterality Modality Body Radiographic Evelyn ging 11/05/2024 3:09 PM EDT Impressions 11/05/2024 3:09 PM EDT Impression: No active pulmonary process identified. [place] PA ([id number]) -------- FINAL REPORT -------- Dictated By: Lexus Elias Dictated Date: 11/05/2024 15:09 ET Assigned Physician: Lexus Elias Reviewed and Electronically Signed By: Lexus Elias Signed Date: 11/05/2024 15:09 ET Workstation ID: [id number] Transcribed By: Self Edit Transcribed Date: 11/05/2024 [...] No active pulmonary process identified. Telerad PA ([id number]) -------- FINAL REPORT -------- Dictated By: Lexus Elias Dictated Date: 11/05/2024 15:09 ET Assigned Physician: Lexus Elias Reviewed and Electronically Signed By: Lexus Elias Signed Date: 11/05/2024 15:09 ET Workstation ID: [id number] Transcribed By: Self Edit Transcribed Date: 11/05/2024 15:09 ET us Panchito Lynn MD IMG XR PROCEDURES Final Res ult * (ABNORMAL) Urinalysis with reflex microscopic (11/05/2024 2:39 PM EDT) Pathologist [facility] Specific [place] Urine 1.024 1.003 - 1.030 LAB URINALYSIS - AUTOMATED METHOD 11/05/2024 3:04 PM [facility] pH, Urine 5.5 5.0 - 8.0 pH LAB URINALYSIS - AUTOMATED METHOD 11/05/2024 3:04 PM [facility] Leukocytes, Urine Trace(A) Negative LAB URINALYSIS - AUTOMATED METHOD 11/05/2024 3:04 PM [facility] Nitrite, Urine Negative Negative LAB URINALYSIS - AUTOMATED METHOD 11/05/2024 3:04 PM [facility] Protein, Urine Trace <=Trace mg/dL LAB URINALYSIS - AUTOMATED METHOD 11/05/2024 3:04 PM [facility] Glucose, Urine Negative Negative mg/dL LAB URINALYSIS - AUTOMATED METHOD 11/05/2024 3:04 PM [facility] Ketones, Urine Trace(A) Negative mg/dL LAB URINALYSIS - AUTOMATED METHOD 11/05/2024 3:04 PM [facility] Urobilinogen, Urine 1.0 0.2 - 1.0 mg/dL LAB URINALYSIS - AUTOMATED METHOD 11/05/2024 3:04 PM [facility] Bilirubin, Urine Negative Negative LAB URINALYSIS - AUTOMATED METHOD 11/05/2024 3:04 PM [facility] Blood, Urine Negative Negative LAB URINALYSIS - AUTOMATED METHOD 11/05/2024 3:04 PM EDT [facility] RBC, Urine 7.4(H) 0 - 4 /HPF LAB URINALYSIS - AUTOMATED METHOD 11/05/2024 3:04 PM EDT [facility] WBC, Urine 2.2 0 - 4 /HPF LAB URINALYSIS - AUTOMATED METHOD 11/05/2024 3:04 PM EDT [facility] Squamous Epithelial, Urine 18 0 - 60 /LPF LAB URINALYSIS - AUTOMATED METHOD 11/05/2024 3:04 PM EDT [facility] Bacteria, Urine Negative Negative /HPF LAB URINALYSIS - AUTOMATED METHOD 11/05/2024 3:04 PM EDT [facility] Hyaline Casts, Urine 2.8 0 - 3 /LPF LAB URINALYSIS - AUTOMATED METHOD 11/05/2024 3:04 PM EDT [facility] Urine Urine specimen obtained by clean catch procedure / Unknown Non-blood Collection / Unknown 11/05/2024 2:39 PM EDT 11/05/2024 2:50 PM EDT us Brian Abbott DO LAB URINE ORDERABLES Final Res ult [facility] [address] [place] [address], * Respiratory virus panel molecular study (11/05/2024 2:39 PM EDT) Adenovirus Detection by PCR Not Detected Not Detected LAB MICROBIOLOGY METHOD 11/05/2024 3:43 PM EDT [facility] Influenza A PCR Not Detected Not Detected LAB MICROBIOLOGY METHOD 11/05/2024 3:43 PM EDT [facility] Influenza B PCR Not Detected Not Detected LAB MICROBIOLOGY METHOD 11/05/2024 3:43 PM EDT [facility] Coronavirus 229E Not Detected Not Detected LAB MICROBIOLOGY METHOD 11/05/2024 3:43 PM EDT [facility] Coronavirus HKU1 Not Detected Not Detected LAB MICROBIOLOGY METHOD 11/05/2024 3:43 PM EDT [facility] Coronavirus OC43 Not Detected Not Detected LAB MICROBIOLOGY METHOD 11/05/2024 3:43 PM EDT [facility] Coronavirus NL63 Not Detected Not Detected LAB MICROBIOLOGY METHOD 11/05/2024 3:43 PM EDT [facility] Parainfluenza Virus 1 Not Detected Not Detected LAB MICROBIOLOGY METHOD 11/05/2024 3:43 PM EDT [facility] Parainfluenza Virus 2 Not Detected Not Detected LAB MICROBIOLOGY METHOD 11/05/2024 3:43 PM EDT [facility] Parainfluenza Virus 3 Not Detected Not Detected LAB MICROBIOLOGY METHOD 11/05/2024 3:43 PM EDT [facility] Parainfluenza Virus 4 Not Detected Not Detected LAB MICROBIOLOGY METHOD 11/05/2024 3:43 PM EDT [facility] RSV PCR Not Detected Not Detected LAB MICROBIOLOGY METHOD 11/05/2024 3:43 PM EDT [facility] Human Metapneumovirus A and B Not Detected Not Detected LAB MICROBIOLOGY METHOD 11/05/2024 3:43 PM EDT [facility] Rhinovirus/Entero virus Not Detected Not Detected LAB MICROBIOLOGY METHOD 11/05/2024 3:43 PM EDT [facility] Bordetella pertussis Not Detected Not Detected LAB MICROBIOLOGY METHOD 11/05/2024 3:43 PM EDT [facility] Bordetella parapertussis Not Detected Not Detected LAB MICROBIOLOGY METHOD 11/05/2024 3:43 PM EDT [facility] Mycoplasma pneumo by PCR Not Detected Not Detected LAB MICROBIOLOGY METHOD 11/05/2024 3:43 PM EDT [facility] Chlamydia pneumoniae Not Detected Not Detected LAB MICROBIOLOGY METHOD 11/05/2024 3:43 PM EDT [facility] SARS COV-2 Not Detected Not Detected LAB MICROBIOLOGY METHOD 11/05/2024 3:43 PM EDT [facility] Swab Both anterior nares / Unknown Non-blood Collection / Unknown 11/05/2024 2:39 PM EDT 11/05/2024 2:50 PM EDT Narrative [facility] - 11/05/2024 3:43 PM EDT Testing was performed using the [employer] Respiratory Pathogen PCR Assay. All results must [...] ORD ERABLES Final Result Performing Organization Address [facility]/ZIP Co de Phone Number [facility] [address] [place] [address], [place] [phone] * Troponin I high sensitivity (11/05/2024 2:39 PM EDT) [facility] High Sensitivity Troponin I 6 <=79 ng/L LAB CHEMISTRY METHOD 11/05/2024 3:21 PM EDT [facility] Blood Venous blood specimen / Unknown Venipuncture / Unknown 11/05/2024 2:39 PM EDT 11/05/2024 2:50 PM EDT Narrative [facility] - 11/05/2024 3:21 PM EDT High levels of biotin in samples may falsely decrease hsTroponin values. Use caution when interpreting hsTroponin results in patients taking biotin who exhibit renal impairment (eGFR <60) or in patients taking more than 20 mg/day of biotin. Brian Abbott DO LAB BLOOD ORDERABLES Final Res ult [facility] [address] [place] [address], [place] [phone] * Green LI heparin tube (11/05/2024 12:35 PM EDT) [facility] Extra Tube Hold for add-ons. 11/06/2024 2:01 AM EDT [facility] Comment:Auto resulted. Blood Venous blood specimen / Unknown 11/05/2024 12:35 PM EDT 11/05/2024 1:02 PM EDT Panchito Lynn MD LAB BLOOD ORDERABLES Final Result [facility] [address] [place] [address], [place] [phone] * (ABNORMAL) CBC auto differential (11/05/2024 12:35 PM EDT) [facility] WBC 4.4(L) 4.8 - 10.8 K/mcL LAB HEMETOLOGY METHOD 11/05/2024 1:15 PM EDT [facility] RBC 4.10(L) 4.50 - 5.50 M/mcL LAB HEMETOLOGY METHOD 11/05/2024 1:15 PM EDT [facility] Hemoglobin 12.4(L) 13.5 - 17.5 g/dL LAB HEMETOLOGY METHOD 11/05/2024 1:15 PM EDT [facility] Hematocrit 36.1(L) 42.0 - 54.0 % LAB HEMETOLOGY METHOD 11/05/2024 1:15 PM EDT [facility] MCV 87.6 79.0 - 98.0 FL LAB HEMETOLOGY METHOD 11/05/2024 1:15 PM EDT [facility] MCH 30.1 27.0 - 32.0 pcg LAB HEMETOLOGY METHOD 11/05/2024 1:15 PM EDT [facility] MCHC 34.3 32.0 - 37.0 g/dL LAB HEMETOLOGY METHOD 11/05/2024 1:15 PM EDT [facility] RDW 12.9 11.0 - 15.0 % LAB HEMETOLOGY METHOD 11/05/2024 1:15 PM EDT [facility] Platelets 230 130 - 400 K/mcL LAB HEMETOLOGY METHOD 11/05/2024 1:15 PM EDT [facility] MPV 9.7 7.0 - 11.0 FL LAB HEMETOLOGY METHOD [facility] NRBC 0.0 <1.0 % [facility]EMETOLOGY [facility] NRBC Absolute 0.00 <0.10 K/mcL LAB HEMETOLOGY METHOD 11/05/2024 1:15 PM EDT [facility] Neutrophils Relative 47.1 % LAB HEMETOLOGY METHOD [facility] Lymphocytes Relative 39.3 % LAB HEMETOLOGY METHOD 11/05/2024 1:15 PM [facility] Monocytes Relative 7.0 % LAB HEMETOLOGY METHOD 11/05/2024 1:15 PM [facility] Eosinophils Relative 4.8 % LAB HEMETOLOGY METHOD [facility] Basophils Relative 1.6 % LAB HEMETOLOGY METHOD 11/05/2024 1:15 PM EDT [facility] Immature Granulocytes Relative 0.2 % LAB HEMETOLOGY METHOD [facility] Neutrophils Absolute 2.07 1.50 - 7.00 K/mcL LAB HEMETOLOGY METHOD 11/05/2024 1:15 PM EDT [facility] Lymphocytes Absolute 1.73 1.00 - 5.00 K/mcL LAB HEMETOLOGY METHOD 11/05/2024 1:15 PM EDT [facility] Monocytes Absolute 0.31 0.20 - 1.00 K/mcL LAB HEMETOLOGY METHOD 11/05/2024 1:15 PM EDT [facility] Eosinophils Absolute 0.21 0.00 - 0.50 K/mcL LAB HEMETOLOGY METHOD 11/05/2024 1:15 PM EDT [facility] Basophils Absolute 0.07 0.00 - 0.20 K/mcL LAB HEMETOLOGY METHOD 11/05/2024 1:15 PM EDT [facility] Immature Granulocytes Absolute 0.01 0.00 - 0.03 K/mcL LAB HEMETOLOGY METHOD 11/05/2024 1:15 PM EDT [facility] Blood Venous blood specimen / Unknown Venipuncture / Unknown 11/05/2024 12:35 PM EDT 11/05/2024 12:59 PM EDT Panchito Lynn MD LAB BLOOD ORDERABLES Final Result [facility] [address] [place] [address], * (ABNORMAL) Basic metabolic panel (11/05/2024 12:35 PM EDT) Sodium 135 133 - 145 mmol/L LAB CHEMISTRY METHOD 11/05/2024 1:27 PM EDT [facility] Potassium 4.4 3.5 - 5.5 mmol/L LAB CHEMISTRY METHOD 11/05/2024 1:27 PM EDT [facility] Chloride 103 96 - 110 mmol/L LAB CHEMISTRY METHOD 11/05/2024 1:27 PM EDT [facility] CO2 27 21 - 32 mmol/L LAB CHEMISTRY METHOD 11/05/2024 1:27 PM EDT [facility] Anion Gap 5 3 - 11 LAB CHEMISTRY METHOD 11/05/2024 1:27 PM EDT [facility] Glucose 110(H) 70 - 100 mg/dL LAB CHEMISTRY METHOD 11/05/2024 1:27 PM EDT [facility] BUN 35(H) 5 - 25 mg/dL LAB CHEMISTRY METHOD 11/05/2024 1:27 PM EDT [facility] Creatinine 1.83(H) 0.70 - 1.30 mg/dL LAB CHEMISTRY METHOD 11/05/2024 1:27 PM EDT [facility] eGFR 41(L) >=60 mL/min/1. 73m2 LAB CHEMISTRY METHOD 11/05/2024 1:27 PM EDT [facility] Comment:Calculation based on the Chronic Kidney Disease Epidemiology Collaboration (CKD-EPI) equation refit without adjustment for race. BUN/Creatinine Ratio 19.1 LAB CHEMISTRY METHOD 11/05/2024 1:27 PM EDT [facility] Calcium 9.1 8.5 - 10.5 mg/dL LAB CHEMISTRY METHOD 11/05/2024 1:27 PM EDT [facility] Blood Venous blood specimen / Unknown Venipuncture / Unknown 11/05/2024 12:35 PM EDT 11/05/2024 12:59 PM EDT us Panchito Lynn MD LAB BLOOD ORDERABLES Final Result [facility] [address] [place] [address], * ECG 12 lead (11/05/2024 12:30 PM EDT) Ventricular Rate ECG 65 BPM GEMUSE Atrial Rate 65 BPM GEMUSE P-R Interval 180 ms GEMUSE QRS Duration 110 ms GEMUSE Q-T Interval 378 ms GEMUSE QTc 393 ms GEMUSE P Wave Levant 63 degrees GEMUSE R Levant 4 degrees GEMUSE T Levant 24 degrees GEMUSE ECG Interpretation Normal sinus rhythm Increased R/S ratio in V1, consider early transition or posterior infarct Abnormal ECG No previous ECGs available Confirmed by Jonny SAMANO JAMES ([id number]) on 11/05/2024 5:15:16 PM GEMUSE 11/05/2024 12:3 0 PM EDT 11/05/2024 5:15 PM EDT us Panchito Lynn MD ECG ORDERABLES Final Resul t GEMUSE from Last 3 Months Insurance [employer] MEDICARE Member Subscriber Plan / Payer (Ef fective 2019-Present) Name:RICHIE CASTILLO Relation to Subscriber:Self Name:Richie Castillo Payer ID:[id number] Group ID:[id number] Type:Not on file Address: [place] [address] [address] Care Teams Director Business Travel Relationship Specialty Start Date End Date MaximChaitanya [address] [place] [address] PCP - General Dental Respiratory Therapy Technician 11/05/24
[2024-11-20 10:45] LABS: MANUAL DIFF FLAG NO
[2024-11-20 10:55] LABS: Hematocrit 33.3 % (42.0-52.0); Hemoglobin 11.9 g/dl (14.0-18.0); Imm Gran Abs Auto 0.01 X10*3/uL (0.00-0.03); Imm Gran Pct Auto 0.2 % (0.0-0.4); Lymphocytes Absolute Auto 1.4 X10*3/uL (1.2-4.9); Mean Corpuscular HGB Conc 35.7 g/dl (31.0-36.0); Mean Corpuscular Hemoglobin 30.6 pg (27.0-33.0); Mean Corpuscular Volume 85.6 fL (80.0-98.0); NRBC Abs Auto 0.000 X10*3/uL (0.0-0.012); NRBC Pct Auto 0.0 /100WBC (0.0-0.2); Platelet Count 197 X10*3/uL (160-400); Red Blood Count 3.89 X10*6/uL (4.60-5.80); White Blood Count 4.2 X10*3/uL (4.8-10.8)
[2024-11-20 13:12] LABS: Anion Gap 12 (12-20)
[2024-11-20 13:21] LABS: Alanine Aminotransferase 17 U/L (0-40); Albumin Level 4.4 g/dL (3.5-5.0); Alkaline Phosphatase 101 U/L (39-117); Aspartate Amino Transferase 22 U/L (5-37); Blood Urea Nitrogen 24 mg/dL (9-16); Calcium 8.7 mg/dL (8.4-10.2); Carbon Dioxide 25 mmol/L (22-29); Chloride 106 mmol/L (96-108); Estimated Glomerular Filt Rate 55; Potassium 4.2 mmol/L (3.3-5.1); Sodium 139 mmol/L (135-145); Total Protein 6.8 g/dL (6.5-8.0)
== END 2024-11-20 09:44 | disposition home or self-care (01) ==
LOC: HO.HMGCLDS 09:43
PROVIDERS: PCP Nurse Practitioner Family; Visit Provider Nurse Practitioner Family
DX: Z00.00 Encounter for general adult medical examination without abnormal findings (principal)
CPT/HCPCS: 36415; 80053; 85025

== ENCOUNTER 2024-12-28 11:36 | Outpatient (REF) | payer OTHER, SELFPAY ==
--- OUTSIDE RECORDS SUMMARY | 2024-12-28 12:42 | XMS_ITS | Patient Health Record ---
Author Organization [facility] Address [address] [place] [address] Care Team Providers Care Retail Sales Associate Seasonal Name Role Phone Whitley BEATTY, Chaitanya Primary [...] Insured Coverage Start Date Coverage End Date [facility] [address] [place] [phone] [id number] USMAN CASTILLO Self - patient is the [...]
--- OUTSIDE RECORDS SUMMARY | 2024-12-28 12:42 | XMS_ITS | Clinical Summary ---
Author Organization [facility] Address [address] [place] [address] Phone Care Team Providers Care Service Specialist Name Role Phone Chaitanya Pan Primary Care Provider Allergies Active Allergy Reactions Criticality Noted Date Comments Penicillins Anaphylaxis High 12/06/2024 My throat got swollen as a child Medications atorvastatin (LIPITOR) 20 mg tablet Take 1 tablet (20 mg total) by mouth at bedtime. 9 Active celecoxib (CeleBREX) 100 mg capsule 2 capsules (200 mg total) 1 (one) time each day. 5 Active cholecalciferol (VITAMIN D-3) 50 mcg (2,000 unit) capsule Take 1 capsule (2,000 Units total) by mouth 1 (one) time each day. 5 Active cyclobenzaprine (FLEXERIL) 10 mg tablet Take 1 tablet (10 mg total) by mouth 3 (three) times a day if needed for muscle spasms. 5 Active Tiadylt ER 420 mg 24 hr capsule Take 1 capsule (420 mg total) by mouth 1 (one) time each day. 5 Active DULoxetine (CYMBALTA) [address] capsule Take 1 capsule (60 mg total) by mouth 1 (one) time each day. 8 Active gabapentin (NEURONTIN) 300 mg capsule Take 1 capsule (300 mg total) by mouth 2 (two) times a day. NOON + NIGHT 5 Active hydroCHLOROthiazid e 12.5 mg tablet Take 1 tablet (12.5 mg total) by mouth 1 (one) time each day. 5 Active lisinopriL (PRINIVIL,ZESTRIL) 20 mg tablet Take 1 tablet (20 mg total) by mouth 1 (one) time each day. 5 Active omeprazole (PriLOSEC) [address] capsule Take 1 capsule (20 mg total) by mouth 2 (two) times a day. Active Gavilax 17 gram/dose oral powder Take 17 g by mouth 1 (one) time each day if needed for constipation. 5 Active traMADoL (ULTRAM) 50 mg tablet Take 1 tablet (50 mg total) by mouth 2 (two) times a day. for pain Active aspirin 81 mg EC tablet Take 1 tablet (81 mg total) by mouth at bedtime. Active oxyCODONE (OXY-IR) 5 mg immediate release capsule Take 1 capsule (5 mg total) by mouth every 6 (six) hours if needed for severe pain. Max Daily Amount: 20 mg 10 capsule 5 Active tamsulosin (FLOMAX) 0.4 mg 24 hr capsule Take 1 capsule (0.4 mg total) by mouth 1 (one) time each day. Capsules should be taken 30 minutes following the same meal each day. 30 each 5 025 Active ondansetron ODT (ZOFRAN-ODT) 4 mg disintegrating tabletIndications: Left ureteral calculus Let 1 tablet dissolve under the tongue three times daily as needed for nausea or vomiting. 10 tablet 5 025 Encounters Date Type Department Care Team Description 12/06/2024 9:12 AM EDT - 12/06/2024 12:[address] [facility] Emergency [address] [place] [address] Chronic kidney disease, unspecified CKD stage (Primary Dx); Acute left flank pain; Left ureteral calculus Discharge Disposition: Home or Self Care 11/05/2024 12:39 PM EDT - 11/05/2024 3:[address] [facility] Emergency [address] [place] [address] Brian Abbott DO General weakness (Primary Dx) [...] CARPAL TUNNEL REL; COMMENT: bilat VASECTOMY PROCEDURE: KS VASECTOMY UNI/BI SPX W/POSTOP SEMEN EXAMS COLONOSCOPY 05/13/15 PROCEDURE: HISTORICAL COLONOSCOPY; COMMENT: tics; repeat in 10 yrs CHOLECYSTECTOMY 07/13/2019 PROCEDURE: LAPAROSCOPIC CHOLECYSTECT; COMMENT: at [facility] Dr Chaitanya Flower for +HIDA acalculous chronic [...] obesity with BMI of 4 0.0-44.9, adult ([facility] V24, [facility] V28) 06/08/2017 DX:Morbid obesity wit h BMI of 40.0-44.9, adult ([facility]) Family History Medical History Relation Name Comments [...] Sign Reading Time Taken Comments Blood Pressure 111/65 12/06/2024 12:49 PM EDT Pulse 59 12/06/2024 12:49 PM EDT Temperature 36.4 C (97.5 F) 12/06/2024 12:49 PM EDT Respiratory Rate 18 12/06/2024 12:49 PM EDT Oxygen Saturation 100% 12/06/2024 12:49 PM EDT Inhaled Oxygen Concentration - - Weight 93 kg (205 lb) 12/06/2024 9:26 AM EDT Height 172.7 cm (5' 8 ) 12/06/2024 9:26 AM EDT Body Mass Index 31.17 12/06/2024 9:26 AM EDT Plan of Treatment Health Maintenance Due [...] Panel) 01/10/2024 Colorectal Cancer Screening: Colonoscopy 01/10/2024 HIV Screening 01/10/2024 Hepatitis C Screening 01/10/2024 Medicare Annual Wellness Visit 01/10/2024 Social Influencers of Health Screening 01/10/2024 COVID-19 Vaccine ( season) 2024 04/25/2021, 10/18/2020, 09/20/2020 Depression Screening 05/17/2024 Influenza Vaccine (#1) 2025 , 03/19/2020, 06/29/2018, Additional history exists Hypertension/CHF/CAD Annual BMP Blood Test 12/06/2025 12/06/2024, 11/05/2024 Zoster Vaccines Completed 06/30/2021, 04/25/2021 HIB Vaccines [...] Procedure Name Priority Date/Time Associated Diagnosis Comments CT ABDOMEN PELVIS W CONTRAST STAT 12/06/2024 11:47 AM EDT SOTO URINE CULTURE TUBE STAT 12/06/2024 11:08 AM EDT URINALYSIS WITH REFLEX MICROSCOPIC AND CULTURE STAT 12/06/2024 11:08 AM EDT URINALYSIS WITH REFLEX MICROSCOPIC AND CULTURE STAT 12/06/2024 11:08 AM EDT CULTURE URINE STAT 12/06/2024 11:08 AM EDT CBC WITH AUTO DIFFERENTIAL STAT 12/06/2024 10:51 AM EDT LIPASE STAT 12/06/2024 10:51 AM EDT COMPREHENSIVE METABOLIC PANEL STAT 12/06/2024 10:51 AM EDT CBC AND DIFFERENTIAL STAT 12/06/2024 10:51 AM EDT US SCROTUM AND CONTENTS STAT 12/06/2024 9:57 AM EDT ECG ANNOTATED 11/06/2024 XR CHEST 2 VIEWS [...] EDT from Last 3 Months Results * CT Abdomen Pelvis w Contrast (12/06/2024 11:47 AM EDT) Anatomical Region Laterality Modality Body Computed Tomogra phy 12/06/2024 12:0 8 PM EDT Impressions 12/06/2024 12:19 PM EDT 3 mm left UVJ calculus with mild left hydronephrosis. -------- FINAL REPORT -------- Dictated By: TYREE CANNON Dictated Date: 12/06/2024 12:08 ET Assigned Physician: TYREE CANNON Reviewed and Electronically Signed By: TYREE CANNON Signed Date: 12/06/2024 12:19 ET Workstation ID: [id number] Transcribed By: Self Edit Transcribed Date: 12/06/2024 12:08 ET Narrative 12/06/2024 12:19 PM EDT PROCEDURE: CT ABDOMEN/PELVIS INDICATION: Pain TECHNIQUE: CT of the abdomen and pelvis following the intravenous administration of 90cc Isovue 370. Multiplanar reformats. The examination was performed utilizing dose reduction techniques. Total DLP 1100 COMPARISON: 06/21/2010 FINDINGS: LOWER THORAX: Elevated left diaphragm with left basilar atelectasis. HEPATOBILIARY: Right hepatic cyst. Hepatic steatosis. Cholecystectomy. No biliary duct dilatation. SPLEEN: No splenomegaly. PANCREAS: No focal mass or ductal dilatation. ADRENALS: No nodules. KIDNEYS/URETERS: 3 mm calculus at the left UVJ with mild hydronephrosis. Left renal cyst. No solid renal mass. No right renal/ureteral calculi or right hydronephrosis. PELVIC ORGANS/BLADDER: Prostate and bladder are within normal limits. PERITONEUM / RETROPERITONEUM: No ascites or free air. No retroperitoneal lymphadenopathy. VESSELS: Portal vein is patent. Abdominal aorta is normal in size. GI TRACT: Mild colonic diverticulosis. No bowel obstruction or wall thickening. Normal appendix. BONES AND SOFT TISSUES: Small fat-containing right inguinal hernia. Left inguinal hernia repair. Levoconvex thoracolumbar scoliosis. Degenerative changes seen throughout the spine. No acute fracture. Procedure Note Tyree Cannon MD - 12/06/2024 PROCEDURE: CT ABDOMEN/PELVIS INDICATION: Pain TECHNIQUE: CT of the abdomen and pelvis following the intravenousadministration of 90cc Isovue 370. Multiplanar reformats. The examinationwas performed utilizing dose reduction techniques. Total DLP 1100 COMPARISON: 06/21/2010 FINDINGS: LOWER THORAX: Elevated left diaphragm with left basilar atelectasis. HEPATOBILIARY: Right hepatic cyst. Hepatic steatosis. Cholecystectomy.No biliary duct dilatation. SPLEEN: No splenomegaly. PANCREAS: No focal mass or ductal dilatation. ADRENALS: No nodules. KIDNEYS/URETERS: 3 mm calculus at the left UVJ with mild hydronephrosis.Left renal cyst. No solid renal mass. No right renal/ureteral calculi orright hydronephrosis. PELVIC ORGANS/BLADDER: Prostate and bladder are within normal limits. PERITONEUM / RETROPERITONEUM: No ascites or free air. No retroperitoneallymphadenopathy. VESSELS: Portal vein is patent. Abdominal aorta is normal in size. GI TRACT: Mild colonic diverticulosis. No bowel obstruction or wallthickening. Normal appendix. BONES AND SOFT TISSUES: Small fat-containing right inguinal hernia. Leftinguinal hernia repair. Levoconvex thoracolumbar scoliosis. Degenerativechanges seen throughout the spine. No acute fracture. IMPRESSION: 3 mm left UVJ calculus with mild left hydronephrosis. -------- FINAL REPORT -------- Dictated By: TYREE CANNON Dictated Date: 12/06/2024 12:08 ET Assigned Physician: TYREE CANNON Reviewed and Electronically Signed By: TYREE CANNON Signed Date: 12/06/2024 12:19 ET Workstation ID: [id number] Transcribed By: Self Edit Transcribed Date: 12/06/2024 12:08 ET us Yaheiry Nguyen-Rafia VILLALOBOS IMG CT PROCEDURES Fin al Result * (ABNORMAL) Urinalysis with reflex microscopic and culture (12/06/2024 11:08 AM EDT) Specific [place] Urine 1.018 1.003 - 1.030 LAB URINALYSIS - AUTOMATED METHOD 12/06/2024 11:40 AM EDT [facility] pH, Urine 8.0 5.0 - 8.0 pH LAB URINALYSIS - AUTOMATED METHOD 12/06/2024 11:40 AM EDT [facility] Leukocytes, Urine Trace(A) Negative LAB URINALYSIS - AUTOMATED METHOD 12/06/2024 11:40 AM [facility] Nitrite, Urine Negative Negative LAB URINALYSIS - AUTOMATED METHOD 12/06/2024 11:40 AM [facility] Protein, Urine Trace <=Trace mg/dL LAB URINALYSIS - AUTOMATED METHOD 12/06/2024 11:40 AM [facility] Glucose, Urine Negative Negative mg/dL LAB URINALYSIS - AUTOMATED METHOD 12/06/2024 11:40 AM [facility] Ketones, Urine Negative Negative mg/dL LAB URINALYSIS - AUTOMATED METHOD 12/06/2024 11:40 AM [facility] Urobilinogen, Urine 2.0(A) 0.2 - 1.0 mg/dL LAB URINALYSIS - AUTOMATED METHOD 12/06/2024 11:40 AM [facility] Bilirubin, Urine Negative Negative LAB URINALYSIS - AUTOMATED METHOD 12/06/2024 11:40 AM [facility] Blood, Urine Trace(A) Negative LAB URINALYSIS - AUTOMATED METHOD 12/06/2024 11:40 AM [facility] RBC, Urine 13.1(H) 0 - 4 /HPF LAB URINALYSIS - AUTOMATED METHOD 12/06/2024 11:40 AM [facility] WBC, Urine 2.4 0 - 4 /HPF LAB URINALYSIS - AUTOMATED METHOD 12/06/2024 11:40 AM [facility] Squamous Epithelial, Urine 14 0 - 60 /LPF LAB URINALYSIS - AUTOMATED METHOD 12/06/2024 11:40 AM [facility] Bacteria, Urine Negative Negative /HPF LAB URINALYSIS - AUTOMATED METHOD 12/06/2024 11:40 AM [facility] Hyaline Casts, Urine 0.8 0 - 3 /LPF LAB URINALYSIS - AUTOMATED METHOD 12/06/2024 11:40 AM EDT [facility] Urine Urine specimen obtained by clean catch procedure / Unknown Non-blood Collection / Unknown 12/06/2024 11:08 AM EDT 12/06/2024 11:20 AM EDT Opal VILLALOBOS LAB URINE ORDERABLES Final Result Performing Organization Address City/[facility]/ZIP Co de Phone Number [facility] [address] [place] [address], [place] [phone] * Soto urine culture tube (12/06/2024 11:08 AM EDT) Extra Tube Hold for add-ons. 12/06/2024 1:01 PM EDT [facility] Comment:Auto resulted. Urine Urine specimen obtained by clean catch procedure / Unknown Non-blood Collection / Unknown 12/06/2024 11:08 AM EDT 12/06/2024 11:20 AM EDT Opal VILLALOBOS LAB URINE ORDERABLES Final Result Performing Organization Address [facility] Co de Phone Number [facility] [address] [place] [address], [place] [phone] * Culture urine (12/06/2024 11:08 AM EDT) Culture, Urine No growth 12/07/2024 9:34 AM EDT [facility] Urine Urine specimen obtained by clean catch procedure / Unknown Non-blood Collection / Unknown 12/06/2024 11:08 AM EDT 12/06/2024 11:40 AM EDT Opal Mcghee CA LAB MICROBIOLOGY - GE NERAL ORDERABLES Final Result Performing Organization Address City/[facility]/ZIP Co de Phone Number [facility] [address] [place] [address], * (ABNORMAL) CBC auto differential (12/06/2024 10:51 AM EDT) Only the most recent of2 resultswithin the time period is included. [facility] WBC 5.6 4.8 - 10.8 K/mcL LAB HEMETOLOGY METHOD 12/06/2024 11:21 AM [facility] RBC 3.90(L) 4.50 - 5.50 M/mcL LAB HEMETOLOGY METHOD 12/06/2024 11:21 AM [facility] Hemoglobin 12.0(L) 13.5 - 17.5 g/dL LAB HEMETOLOGY METHOD 12/06/2024 11:21 AM [facility] Hematocrit 34.0(L) 42.0 - 54.0 % LAB HEMETOLOGY METHOD 12/06/2024 11:21 AM [facility] MCV 86.7 79.0 - 98.0 FL LAB HEMETOLOGY METHOD 12/06/2024 11:21 AM [facility] MCH 30.6 27.0 - 32.0 pcg LAB HEMETOLOGY METHOD 12/06/2024 11:21 AM [facility] MCHC 35.3 32.0 - 37.0 g/dL LAB HEMETOLOGY METHOD 12/06/2024 11:21 AM [facility] RDW 12.6 11.0 - 15.0 % LAB HEMETOLOGY METHOD 12/06/2024 11:21 AM [facility] Platelets 180 130 - 400 K/mcL LAB HEMETOLOGY METHOD 12/06/2024 11:21 AM [facility] MPV 9.8 7.0 - 11.0 FL LAB HEMETOLOGY METHOD 12/06/2024 11:21 AM [facility] NRBC 0.0 <1.0 % LAB HEMETOLOGY METHOD 12/06/2024 11:21 AM [facility] NRBC Absolute 0.00 <0.10 K/mcL LAB HEMETOLOGY METHOD 12/06/2024 11:21 AM [facility] Neutrophils Relative 73.6 % LAB HEMETOLOGY METHOD 12/06/2024 11:21 AM [facility] Lymphocytes Relative 17.7 % LAB HEMETOLOGY METHOD 12/06/2024 11:21 AM [facility] Monocytes Relative 5.2 % LAB HEMETOLOGY METHOD 12/06/2024 11:21 AM [facility] Eosinophils Relative 2.3 % LAB HEMETOLOGY METHOD 12/06/2024 11:21 AM [facility] Basophils Relative 0.7 % LAB HEMETOLOGY METHOD 12/06/2024 11:21 AM [facility] Immature Granulocytes Relative 0.5 % LAB HEMETOLOGY METHOD 12/06/2024 11:21 AM [facility] Neutrophils Absolute 4.08 1.50 - 7.00 K/mcL LAB HEMETOLOGY METHOD 12/06/2024 11:21 AM [facility] Lymphocytes Absolute 0.98(L) 1.00 - 5.00 K/mcL LAB HEMETOLOGY METHOD 12/06/2024 11:21 AM [facility] Monocytes Absolute 0.29 0.20 - 1.00 K/mcL LAB HEMETOLOGY METHOD 12/06/2024 11:21 AM [facility] Eosinophils Absolute 0.13 0.00 - 0.50 K/mcL LAB HEMETOLOGY METHOD 12/06/2024 11:21 AM [facility] Basophils Absolute 0.04 0.00 - 0.20 K/mcL LAB HEMETOLOGY METHOD 12/06/2024 11:21 AM EDT [facility] Immature Granulocytes Absolute 0.03 0.00 - 0.03 K/mcL LAB HEMETOLOGY METHOD 12/06/2024 11:21 AM EDT [facility] Blood Venous blood specimen / Unknown Venipuncture / Unknown 12/06/2024 10:51 AM EDT 12/06/2024 11:06 AM EDT [facility] PatrickRafia CA LAB BLOOD ORDERABLES Final Result Performing Organization Address [facility]/ZIP Co de Phone Number [facility] [address] [place] [address], [place] [phone] * Lipase (12/06/2024 10:51 AM EDT) Lipase 30 13 - 75 unit/L LAB CHEMISTRY METHOD 12/06/2024 11:36 AM EDT [facility] Blood Venous blood specimen / Unknown Venipuncture / Unknown 12/06/2024 10:51 AM EDT 12/06/2024 11:06 AM EDT Opal Mcghee CA LAB BLOOD ORDERABLES Final Result Performing Organization Address [facility]/ZIP Co de Phone Number [facility] [address] [place] [address], [place] [phone] * (ABNORMAL) Comprehensive Metabolic Panel (CMP) (12/06/2024 10:51 AM EDT) Sodium 137 133 - 145 mmol/L LAB CHEMISTRY METHOD 12/06/2024 11:36 AM EDT [facility] Potassium 3.9 3.5 - 5.5 mmol/L LAB CHEMISTRY METHOD 12/06/2024 11:36 AM EDT [facility] Chloride 105 96 - 110 mmol/L LAB CHEMISTRY METHOD 12/06/2024 11:36 AM EDT [facility] CO2 26 21 - 32 mmol/L LAB CHEMISTRY METHOD 12/06/2024 11:36 AM [facility] Anion Gap 6 3 - 11 LAB CHEMISTRY METHOD 12/06/2024 11:36 AM [facility] Glucose 94 70 - 100 mg/dL LAB CHEMISTRY METHOD 12/06/2024 11:36 AM [facility] BUN 25 5 - 25 mg/dL LAB CHEMISTRY METHOD 12/06/2024 11:36 AM [facility] Creatinine 1.41(H) 0.70 - 1.30 mg/dL LAB CHEMISTRY METHOD 12/06/2024 11:36 AM [facility] eGFR 56(L) >=60 mL/min/1. 73m2 LAB CHEMISTRY METHOD 12/06/2024 11:36 AM [facility] Comment:Calculation based on the Chronic Kidney Disease Epidemiology Collaboration (CKD-EPI) equation refit without adjustment for race. BUN/Creatinine Ratio 17.7 LAB CHEMISTRY METHOD 12/06/2024 11:36 AM [facility] Calcium 9.4 8.5 - 10.5 mg/dL LAB CHEMISTRY METHOD 12/06/2024 11:36 AM [facility] AST (SGOT) 15 10 - 42 unit/L LAB CHEMISTRY METHOD 12/06/2024 11:36 AM [facility] ALT (SGPT) 18 10 - 60 unit/L LAB CHEMISTRY METHOD 12/06/2024 11:36 AM [facility] Alkaline Phosphatase 101 42 - 121 unit/L LAB CHEMISTRY METHOD 12/06/2024 11:36 AM [facility] Total Protein 6.8 6.0 - 8.0 g/dL LAB CHEMISTRY METHOD 12/06/2024 11:36 AM [facility] Albumin 4.1 3.2 - 5.0 g/dL LAB CHEMISTRY METHOD 12/06/2024 11:36 AM EDT [facility] Total Bilirubin 0.7 0.0 - 1.4 mg/dL LAB CHEMISTRY METHOD 12/06/2024 11:36 AM EDT [facility] Blood Venous blood specimen / Unknown Venipuncture / Unknown 12/06/2024 10:51 AM EDT 12/06/2024 11:06 AM EDT us Fabiolamaryellenjack Litzy VILLALOBOS LAB BLOOD ORDERABLES Final Result [facility] [address] [place] [address], [place] [phone] * US Scrotum and Contents (12/06/2024 9:57 AM EDT) Anatomical Region Laterality Modality Body Ultrasound 12/06/2024 10:3 6 AM EDT Impressions 12/06/2024 10:42 AM EDT NORMAL TESTICLES. NO EVIDENCE OF TESTICULAR TORSION. -------- FINAL REPORT -------- Dictated By: TYREE CANNON Dictated Date: 12/06/2024 10:36 ET Assigned Physician: TYREE CANNON Reviewed and Electronically Signed By: TYREE CANNON Signed Date: 12/06/2024 10:42 ET Workstation ID: [id number] Transcribed By: Self Edit Transcribed Date: 12/06/2024 10:36 ET Narrative 12/06/2024 10:42 AM EDT PROCEDURE: US SCROTUM AND CONTENTS INDICATION: Pain TECHNIQUE: 2-D soto scale, color Doppler ultrasound scrotum and testicles. COMPARISON: No priors available. FINDINGS: The right testicle measures 4.4 x 2.0 x 3.2 cm. The left testicle measures 4.3 x 2.2 x 2.9 cm. Doppler flow to the testicles is normal. No intratesticular mass. The epididymis is normal bilaterally. Trace left hydrocele. No varicocele. Procedure Note Tyree Cannon MD - 12/06/2024 PROCEDURE: US SCROTUM AND CONTENTS INDICATION: Pain TECHNIQUE: 2-D soto scale, color Doppler ultrasound scrotum andtesticles. COMPARISON: No priors available. FINDINGS: The right testicle measures 4.4 x 2.0 x 3.2 cm. The lefttesticle measures 4.3 x 2.2 x 2.9 cm. Doppler flow to the testicles is normal. No intratesticular mass. The epididymis is normal bilaterally. Trace left hydrocele. No varicocele. IMPRESSION: NORMAL TESTICLES. NO EVIDENCE OF TESTICULAR TORSION. -------- FINAL REPORT -------- Dictated By: TYREE CANNON Dictated Date: 12/06/2024 10:36 ET Assigned Physician: TYREE CANNON Reviewed and Electronically Signed By: TYREE CANNON Signed Date: 12/06/2024 10:42 ET Workstation ID: [id number] Transcribed By: Self Edit Transcribed Date: 12/06/2024 10:36 ET us Gurvinder Vijay HERNANDEZ IMG US PROCEDURES Final Result * ECG-Annotated (11/06/2024) us Provider Onbase ECG ORDERABLES Final Result * XR Chest 2 Views (11/05/2024 3:03 PM EDT) Anatomical Region Laterality Modality Body Radiographic Evelyn ging 11/05/2024 3:09 PM EDT Impressions 11/05/2024 3:09 PM EDT Impression: No active pulmonary process identified. Telerad WILFREDO ([id number]) -------- FINAL REPORT -------- Dictated By: Lexus Elias Dictated Date: 11/05/2024 15:09 ET Assigned Physician: Lexus Elias Reviewed and Electronically Signed By: Lexus Elias Signed Date: 11/05/2024 15:09 ET Workstation ID: [id number] Transcribed By: Self Edit Transcribed Date: 11/05/2024 [...] Impression: No active pulmonary process identified. Telerad WILFREDO ([id number]) -------- FINAL REPORT -------- Dictated By: Lexus Elias Dictated Date: 11/05/2024 15:09 ET Assigned Physician: Lexus Elias Reviewed and Electronically Signed By: Lexus Elias Signed Date: 11/05/2024 15:09 ET Workstation ID: [id number] Transcribed By: Self Edit Transcribed Date: 11/05/2024 15:09 ET us Panchito Lynn MD IMG XR PROCEDURES Final Res ult * (ABNORMAL) Urinalysis with reflex microscopic (11/05/2024 2:39 PM EDT) Specific [place] Urine 1.024 1.003 - 1.030 LAB URINALYSIS - AUTOMATED METHOD 11/05/2024 3:04 PM EDT [facility] pH, Urine 5.5 5.0 - 8.0 pH LAB URINALYSIS - AUTOMATED METHOD 11/05/2024 3:04 PM EDT [facility] Leukocytes, Urine Trace(A) Negative LAB URINALYSIS - AUTOMATED METHOD 11/05/2024 3:04 PM EDT [facility] Nitrite, Urine Negative Negative LAB URINALYSIS - AUTOMATED METHOD 11/05/2024 3:04 PM [facility] Protein, Urine Trace <=Trace mg/dL LAB URINALYSIS - AUTOMATED METHOD 11/05/2024 3:04 PM [facility] Glucose, Urine Negative Negative mg/dL LAB URINALYSIS - AUTOMATED METHOD 11/05/2024 3:04 PM [facility] Ketones, Urine Trace(A) Negative mg/dL LAB URINALYSIS - AUTOMATED METHOD 11/05/2024 3:04 PM [facility] Urobilinogen, Urine 1.0 0.2 - 1.0 mg/dL LAB URINALYSIS - AUTOMATED METHOD 11/05/2024 3:04 PM [facility] Bilirubin, Urine Negative Negative LAB URINALYSIS - AUTOMATED METHOD 11/05/2024 3:04 PM [facility] Blood, Urine Negative Negative LAB URINALYSIS - AUTOMATED METHOD 11/05/2024 3:04 PM [facility] RBC, Urine 7.4(H) 0 - 4 /HPF LAB URINALYSIS - AUTOMATED METHOD 11/05/2024 3:04 PM [facility] WBC, Urine 2.2 0 - 4 /HPF LAB URINALYSIS - AUTOMATED METHOD 11/05/2024 3:04 PM [facility] Squamous Epithelial, Urine 18 0 - 60 /LPF LAB URINALYSIS - AUTOMATED METHOD 11/05/2024 3:04 PM [facility] Bacteria, Urine Negative Negative /HPF LAB URINALYSIS - AUTOMATED METHOD 11/05/2024 3:04 PM [facility] Hyaline Casts, Urine 2.8 0 - 3 /LPF LAB URINALYSIS - AUTOMATED METHOD 11/05/2024 3:04 PM [facility] Urine Urine specimen obtained by clean catch procedure / Unknown Non-blood Collection / Unknown 11/05/2024 2:39 PM EDT 11/05/2024 2:50 PM EDT us Brian Abbott DO LAB URINE ORDERABLES Final Res ult [facility] [address] [place] [address], [place] [phone] * Respiratory virus panel molecular study (11/05/2024 2:39 PM EDT) Adenovirus Detection by PCR Not Detected Not Detected LAB MICROBIOLOGY METHOD 11/05/2024 3:43 PM EDT [facility] Influenza A PCR Not Detected Not Detected LAB MICROBIOLOGY METHOD 11/05/2024 3:43 PM EDT [facility] Influenza B PCR Not Detected Not Detected LAB MICROBIOLOGY METHOD 11/05/2024 3:43 PM EDT [facility] Coronavirus 229E Not Detected Not Detected LAB MICROBIOLOGY METHOD 11/05/2024 3:43 PM EDT [facility] Coronavirus HKU1 Not Detected Not Detected LAB MICROBIOLOGY METHOD 11/05/2024 3:43 PM EDT [facility] Coronavirus OC43 Not Detected Not Detected LAB MICROBIOLOGY METHOD 11/05/2024 3:43 PM EDT [facility] Coronavirus NL63 Not Detected Not Detected LAB MICROBIOLOGY METHOD 11/05/2024 3:43 PM EDT [facility] Parainfluenza Virus 1 Not Detected Not Detected LAB MICROBIOLOGY METHOD 11/05/2024 3:43 PM EDT [facility] Parainfluenza Virus 2 Not Detected Not Detected LAB MICROBIOLOGY METHOD 11/05/2024 3:43 PM EDT [facility] Parainfluenza Virus 3 Not Detected Not Detected LAB MICROBIOLOGY METHOD 11/05/2024 3:43 PM EDT [facility] Parainfluenza Virus 4 Not Detected Not Detected LAB MICROBIOLOGY METHOD 11/05/2024 3:43 PM EDT [facility] RSV PCR Not Detected Not Detected LAB MICROBIOLOGY METHOD 11/05/2024 3:43 PM EDT [facility] Human Metapneumovirus A and B Not Detected Not Detected LAB MICROBIOLOGY METHOD 11/05/2024 3:43 PM EDT [facility] Rhinovirus/Entero virus Not Detected Not Detected LAB MICROBIOLOGY METHOD 11/05/2024 3:43 PM EDT [facility] Bordetella pertussis Not Detected Not Detected LAB MICROBIOLOGY METHOD 11/05/2024 3:43 PM EDT [facility] Bordetella parapertussis Not Detected Not Detected LAB MICROBIOLOGY METHOD 11/05/2024 3:43 PM EDT [facility] Mycoplasma pneumo by PCR Not Detected Not Detected LAB MICROBIOLOGY METHOD 11/05/2024 3:43 PM EDT [facility] Chlamydia pneumoniae Not Detected Not Detected LAB MICROBIOLOGY METHOD 11/05/2024 3:43 PM EDT [facility] SARS COV-2 Not Detected Not Detected LAB MICROBIOLOGY METHOD 11/05/2024 3:43 PM EDT [facility] Swab Both anterior nares / Unknown Non-blood Collection / Unknown 11/05/2024 2:39 PM EDT 11/05/2024 2:50 PM EDT [facility] - 11/05/2024 3:43 PM EDT Testing was performed using the [employer] Respiratory Pathogen PCR Assay. All results must [...] that are below the limit of detection. us Brian Abbott DO LAB MICROBIOLOGY - GENERAL ORD ERABLES Final Result [facility] [address] [place] [address], [place] [phone] * Troponin I high sensitivity (11/05/2024 2:39 PM EDT) [facility] High Sensitivity Troponin I 6 <=79 ng/L LAB CHEMISTRY METHOD 11/05/2024 3:21 PM EDT [facility] Blood Venous blood specimen / Unknown Venipuncture / Unknown 11/05/2024 2:39 PM EDT 11/05/2024 2:50 PM EDT Narrative [facility] - 11/05/2024 3:21 PM EDT High levels of biotin in samples may falsely decrease hsTroponin values. Use caution when interpreting hsTroponin results in patients taking biotin who exhibit renal impairment (eGFR <60) or in patients taking more than 20 mg/day of biotin. Brian Abbott DO LAB BLOOD ORDERABLES Final Res ult [facility] [address] [place] [address], [place] [phone] * Green LI heparin tube (11/05/2024 12:35 PM EDT) [facility] Extra Tube Hold for add-ons. 11/06/2024 2:01 AM EDT [facility] Comment:Auto resulted. Blood Venous blood specimen / Unknown 11/05/2024 12:35 PM EDT 11/05/2024 1:02 PM EDT Panchito Lynn MD LAB BLOOD ORDERABLES Final Result [facility] [address] [place] [address], [place] [phone] * (ABNORMAL) Basic metabolic panel (11/05/2024 12:35 PM EDT) [facility] Sodium 135 133 - 145 mmol/L LAB CHEMISTRY METHOD 11/05/2024 1:27 PM [facility] Potassium 4.4 3.5 - 5.5 mmol/L LAB CHEMISTRY METHOD 11/05/2024 1:27 PM [facility] Chloride 103 96 - 110 mmol/L LAB CHEMISTRY METHOD 11/05/2024 1:27 PM [facility] CO2 27 21 - 32 mmol/L LAB CHEMISTRY METHOD 11/05/2024 1:27 PM [facility] Anion Gap 5 3 - 11 LAB CHEMISTRY METHOD 11/05/2024 1:27 PM [facility] Glucose 110(H) 70 - 100 mg/dL LAB CHEMISTRY METHOD 11/05/2024 1:27 PM [facility] BUN 35(H) 5 - 25 mg/dL LAB CHEMISTRY METHOD 11/05/2024 1:27 PM [facility] Creatinine 1.83(H) 0.70 - 1.30 mg/dL LAB CHEMISTRY METHOD 11/05/2024 1:27 PM [facility] eGFR 41(L) >=60 mL/min/1. 73m2 LAB CHEMISTRY METHOD 11/05/2024 1:27 PM [facility] Comment:Calculation based on the Chronic Kidney Disease Epidemiology Collaboration (CKD-EPI) equation refit without adjustment for race. BUN/Creatinine Ratio 19.1 LAB CHEMISTRY METHOD 11/05/2024 1:27 PM [facility] Calcium 9.1 8.5 - 10.5 mg/dL LAB CHEMISTRY METHOD 11/05/2024 1:27 PM [facility] Blood Venous blood specimen / Unknown Venipuncture / Unknown 11/05/2024 12:35 PM EDT 11/05/2024 12:59 PM EDT us Panchito Lynn MD LAB BLOOD ORDERABLES Final Result [facility] [address] [place] [address], * ECG 12 lead (11/05/2024 12:30 PM EDT) Ventricular Rate ECG 65 BPM GEMUSE Atrial Rate 65 BPM GEMUSE P-R Interval 180 ms GEMUSE QRS Duration 110 ms GEMUSE Q-T Interval 378 ms GEMUSE QTc 393 ms GEMUSE P Wave [employer] 63 degrees GEMUSE R [employer] 4 degrees GEMUSE T [employer] 24 degrees GEMUSE ECG Interpretation Normal sinus [...] ID:[id number] Group ID:ICO Type:Not on file Address: [address] [facility] [place] [id number] Care Teams Service Specialist Relationship Specialty Start Date End Date Chaitanya Pan [address] [place] [address] [place] [id number] PCP - General Dental Retail And Promotions Coordinator 11/05/24
[2024-12-28 13:23] LABS: MANUAL DIFF FLAG NO
[2024-12-28 13:24] LABS: Hematocrit 32.3 % (42.0-52.0); Hemoglobin 11.5 g/dl (14.0-18.0); Imm Gran Abs Auto 0.01 X10*3/uL (0.00-0.03); Imm Gran Pct Auto 0.3 % (0.0-0.4); Lymphocytes Absolute Auto 1.2 X10*3/uL (1.2-4.9); Mean Corpuscular HGB Conc 35.6 g/dl (31.0-36.0); Mean Corpuscular Hemoglobin 31.2 pg (27.0-33.0); Mean Corpuscular Volume 87.5 fL (80.0-98.0); NRBC Abs Auto 0.000 X10*3/uL (0.0-0.012); NRBC Pct Auto 0.0 /100WBC (0.0-0.2); Platelet Count 208 X10*3/uL (160-400); Red Blood Count 3.69 X10*6/uL (4.60-5.80); White Blood Count 3.6 X10*3/uL (4.8-10.8)
[2024-12-28 13:37] LABS: Alanine Aminotransferase 15 U/L (0-40); Albumin Level 4.4 g/dL (3.5-5.0); Alkaline Phosphatase 111 U/L (39-117); Anion Gap 13 (12-20); Aspartate Amino Transferase 20 U/L (5-37); Blood Urea Nitrogen 22 mg/dL (9-16); Calcium 8.8 mg/dL (8.4-10.2); Carbon Dioxide 25 mmol/L (22-29); Chloride 107 mmol/L (96-108); Estimated Glomerular Filt Rate 49; Potassium 3.7 mmol/L (3.3-5.1); Sodium 141 mmol/L (135-145); Total Protein 6.9 g/dL (6.5-8.0)
== END 2024-12-28 11:37 | disposition home or self-care (01) ==
LOC: HO.HMGCLDS 11:36
PROVIDERS: PCP Nurse Practitioner Family; Visit Provider Nurse Practitioner Family
DX: D64.9 Anemia, unspecified (principal)
CPT/HCPCS: 36415; 80053; 85025

== ENCOUNTER 2025-02-28 13:21 | Outpatient (AMB) | payer OTHER, SELFPAY ==
[2025-02-28 13:49] VITALS: BP 102/60; PULSE 62; O2SAT 99; BMI 32.1
--- NOTE | 2025-02-28 13:49 | HO.NEPHOV ---
Vital Signs 02/28/25 13:49 Height 5 ft 8 in Weight 211 lb BMI 32.1 BP 102/60 Blood Pressure Location Lt brachial Position Sitting Pulse 62 Pulse Source Pulse Oximeter Pulse Oximetry (%) 99 Oxygen Delivery Method Room Air Intake Visit Reasons: 1mon f/u,unable to contact Industrial Maintenance Manager Required: No Accompanied by: Self / Same As Patient Allergies oxycodone (From Tylox) Allergy (Severe, Verified 02/28/25 13:52) throat swelling Penicillins (PCN) Allergy (Severe, Verified 02/28/25 13:52) throat swelling HPI Comments Details: 64-year-old gentleman who is a nonsmoker with past medical history of hypertension, degenerative lumbar disc disorder, multiple pain syndromes not on NSAIDs is here for followup of proteinuria. Used to worked in the nights at a [employer], has sleep apnea not very compliant to CPAP machine. [facility] Medical History (Updated 02/28/25 @ 14:25 by Tacos Waite MD) Hydronephrosis, left Constipation Hypertensive retinopathy Murmur Anxiety and depression GERD (gastroesophageal reflux disease) Hx of renal calculi Essential hypertension Nocturia Chronic pain syndrome Spondylosis of lumbosacral spine without myelopathy Arthropathy of lumbar facet joint Disc degeneration, lumbar Failed back syndrome of lumbar spine HTN (hypertension) Afib Hernia Carpal tunnel syndrome on both sides Surgical History Hx of foot surgery Hx of hernia repair H/O arthroscopic knee surgery History of carpal tunnel release of both wrists Hx of cholecystectomy Family History Father Heart attack HTN (hypertension) Mother HTN (hypertension) Heart attack Social History Housing: House Are you a primary critical care physician to a significant other at home: No Do you presently have visiting nurse or other home services: No Alcohol intake: never Patient Tobacco Use Status: Never used Tobacco e-Cigarette/Vaping Use: Never Used Second Hand Smoke Exposure: No service: No Current occupational status: disabled Cognitive needs: No Hearing needs: No Vision needs: Yes Review of Systems Const Details: Const : no body aches, no chill, and no fatigue Eyes: no blurry vision and no change in vision ENT: no bleeding gums and no change in voice, no dizziness Card: no chest pain, no shortness of breath Resp: no cough, no excessive phlegm production, no SOB GI: no abdominal pain and no nausea, no vomiting : no hematuria, increased frequency of urination at night, pain in the groin Musc: no abnormal gait, no bone pain Neuro: no abnormal movements, no weakness, no dizziness, no abnormal gait and no behavioral changes Psych: no behavioral changes and no change in appetite Endo: no change in body appearance Physical Exam Vital Signs: Last Vital Signs Pulse 62 02/28/25 13:49 BP 102/60 02/28/25 13:49 Pulse Ox 99 02/28/25 13:49 Oxygen Delivery Method Room Air 02/28/25 13:49 BMI result Body Mass Index 32.1 General: not in any acute distress, comfortable, sitting on the chair Nutritional Appearance: well nourished and weight Eyes: normal position, no icterus Neck: No lymphadenopathy, no thyromegaly Resp: bilateral air entry equal, no added sounds present Cardio: normal S1, S2 heard, no murmur heard, no edema GI: soft, nontender, no guarding, no hepatosplenomegaly : bladder normal to inspection, bladder normal to palpation, no renal angle tenderness Skin: no rashes or lesions noted and elasticity normal Neuro: oriented to person, oriented to place, oriented to time and moves all extremities Results Reviewed Nephrology Results: Hgb, (14.0-18.0) 11.5 g/dl L 12/28/24 WBC, (4.8-10.8) 3.6 X10*3/uL L 12/28/24 Plt Count, (160-400) 208 X10*3/uL 12/28/24 Sodium, (135-145) 141 mmol/L 12/28/24 Potassium, (3.3-5.1) 3.7 mmol/L 12/28/24 Chloride, (96-108) 107 mmol/L 12/28/24 Carbon Dioxide, (22-29) 25 mmol/L 12/28/24 BUN, (9-16) 22 mg/dL H 12/28/24 Creatinine, (0.5-1.4) 1.46 mg/dL H 12/28/24 Calcium, (8.4-10.2) 8.8 mg/dL 12/28/24 Urine Protein, (Neg-Trace) Negative mg/dL 11/16/24 Urine Creatinine 173.67 mg/dL 10/24/24 Assessment & Plan Assessment & Plan (1) HTN (hypertension): Code(s): I10 - Essential (primary) hypertension Category: Medical (2) Chronic kidney disease: Code(s): N18.9 - Chronic kidney disease, unspecified Category: Medical (3) Nocturnal polyuria: Code(s): R35.81 - Nocturnal polyuria Category: Medical Plan Chronic kidney disease stage 3 a: - GFR 49, creatinine 1.46 - referred here for evaluation of proteinuria on dipstick but on quantification its 4mcg/gm. - MARLENY, Anca, SPEP, serum free to iliac chains normal, HIV and hepatitis panel negative, PLA2R negative. - advised patient to lose weight, compliant to CPAP, diet as advised - patient is not taking any NSAIDs, pain controlled with tramadol, gabapentin Hypertension: - continue lisinopril, hydrochlorothiazide and diltiazem - blood pressure is well controlled, not checking at home Patient has significant nocturia disturbing his sleep will refer him to urology. Can be discharged from renal clinic, asked the patient to follow up in case if he develops any symptoms Orders: Referrals Urology Referral R35.81 - Nocturnal polyuria Coding Level of Care Code Est Pt Level 3 (64441) Diagnoses HTN (hypertension) I10 Chronic kidney disease N18.9 Nocturnal polyuria R35.81
--- OUTSIDE RECORDS SUMMARY | 2025-02-28 17:00 | XMS_ITS | Continuity of Care Document ---
Author Name [facility], Medical Address [address] [place] [id number] Organization Unknown Address [address] [place] [address] Medications No known medications Problems No known problems
--- OUTSIDE RECORDS SUMMARY | 2025-02-28 17:00 | XMS_ITS | Data Portability ---
Author Organization [employer] [facility], [facility] Address [address] [place] [address] Care Team Providers Care Drawer In Plain Loom Name Role Phone HIM CCA OTHER [facility] Primary Care Provider Assessment Encounter Date Assessment Date Assessment LastModified by Organization Details LastModified Time 08/20/2021 08/20/2021 Attending attestation: I agree with the above assessment and plan as documented by the certified novell administrator. I provided real-time medical direction for this [...] flags discussed paysola Not available 08/20/2021 17:21:37 02/24/2025 02/24/2025 Mr. Ross was evaluated for sensation of dizziness. He describes this as feeling unsteady on his feet since this morning. No shaggy vertigo. No falls or trauma. Vital signs were within normal limits. Per medic assessment able to ambulate steadily with no cerebellar findings, focal deficits or speech abnormalities. We discussed going to the ER for TIA/Stroke workup. He does not want to go to the ER. He was agreeable to labs which show no acute abnormalities (Cr 1.3, most recent 1.41), or electrolyte derangement. An EKG demonstrated incomplete RBBB and mild sinus bradycardia without acute ischemic changes. Orthostatic vital signs were negative. Pt again offered ER however reports he actually feels better now and would prefer to stay home. He appears safe to do so. We discussed monitoring of symptoms over next 24-48 hours and if worsening dizziness, unsteadiness, speech difficulties or numbness/weaknes s will need to go to ER which he agreed with. I provided real -time medical direction via phone for this encounter, and was available for additional phone based assistance as needed. I have reviewed and agree with the Assessment and Plan as documented by the Silk Screen Printing Racker. We discussed the diagnostic uncertainty of home visits and the risk associated with this. In this case the patient and I felt this to be an acceptable and reasonable amount of risk given the benefit of avoiding an ED visit. The patient given the opportunity to ask questions. Advised if develops CP/severe SOB/turning blue/uncontrolle d n/v/d or black/bloody emesis or stool/ AMS/ syncope/ hi fever unresponsive to APAP to call 911- verbalized understanding of instruction [email or web address] Not available 02/24/2025 14:34:29 Plan of Treatment Reminders Order Date Submit Date Provider Last Modified By Organization Details Last Modified Time Details Appointments None recorded. Lab BMP, serum or plasma 2024 025 [facility], [address] [place] [address], [phone] 5 18:25:11 Referral None recorded. Procedures None recorded. Surgeries None recorded. Imaging electrocard iogram 2024 025 [facility], [address] [place] [address], [id number] 5 18:19:38 Medication Orders loperamide 2 mg tablet 2022 023 [email or web address] Not available 3 19:18:05 sodium chloride 0.9 % intravenous solution 2022 023 [email or web address] Not available 3 19:18:05 ketorolac 30 mg/mL (1 mL) injection solution 2021 022 [email or web address] Not available 2 17:23:17 Patient TargetsNo targets recorded. Patient InstructionsNo instructions recorded. Reason for Referral None Reported. Results Created Date Observation Date Name Description Value Unit Range Abnormal Flag Note LastModifiedBy Organization Detail LastModifiedTime 12/07/19 25 12/06/2024 CMP, serum or plasm a sodium, serum or plasma 137 mmol/ L low: 133mmo l/Lhig h: 145mmo l/L Not Available Not Available 02/24/2025 14:30:36 12/07/1912/06/2024 CMP, serum or plasm a potassium, serum or plasma 3.9 mmol/ L low: 3.5mmo l/Lhig h: 5.5mmo l/L Not Available Not Available 02/24/2025 14:30:36 12/07/1912/06/2024 CMP, serum or plasm a chloride, serum or plasma 105 mmol/ L low: 96mmol /Lhigh : 110mmo l/L Not Available Not Available 02/24/2025 14:30:36 12/07/1912/06/2024 CMP, serum or plasm a CO2, (carbon dioxide), total, serum or plasma 26 mmol/ L low: 21mmol /Lhigh : 32mmol /L Not Available Not Available 02/24/2025 14:30:36 12/07/1912/06/2024 CMP, serum or plasm a anion gap, serum or plasma 6 low: 3high: 11 Not Available Not Available 02/24/2025 14:30:36 12/07/1912/06/2024 CMP, serum or plasm a glucose, qn [mass/volume ], serum or plasma 94 mg/dL low: 70mg/d Lhigh: 100mg/ dL Not Available Not Available 02/24/2025 14:30:36 12/07/1912/06/2024 CMP, serum or plasm a BUN (blood urea nitrogen), serum or plasma 25 mg/dL low: 5mg/dL high: 25mg/d L Not Available Not Available 02/24/2025 14:30:36 12/07/1912/06/2024 CMP, serum or plasm a creatinine, serum or plasma 1.41 mg/dL low: 0.7mg/ dLhigh : 1.3mg/ dL high Not Available Not Available 02/24/2025 14:30:36 12/07/1912/06/2024 CMP, serum or plasm a glomerular filtration rate/1.73 sq M predicted, qn, creatinine based formula (CKD-epi 2020), serum or plasma or blood 56 text: >=60 mL/min /1.73m 2 low Calcu latio n based on the Chron ic Kidne y Disea se Epide miolo gy Colla borat ion (CKD- EPI) equat ion refit witho ut adjus tment for race. Not Available Not Available 02/24/2025 14:30:36 12/07/1912/06/2024 CMP, serum or plasm a BUN/creatini ne, ratio, serum 17.7 Not Available Not Available 02/14 14:30:36 12/07/1912/06/2024 CMP, serum or plasm a calcium, serum or plasma 9.4 mg/dL low: 8.5mg/ dLhigh : 10.5mg /dL Not Available Not Available 02/24/2025 14:30:36 12/07/1912/06/2024 CMP, serum or plasm a AST/SGOT (aspartate aminotransfe rase), serum or plasma 15 text: 10 - 42 unit/L Not Available Not Available 02/24/2025 14:30:36 12/07/1912/06/2024 CMP, serum or plasm a ALT (alanine aminotransfe rase), serum or plasma 18 text: 10 - 60 unit/L Not Available Not Available 02/24/2025 14:30:36 12/07/1912/06/2024 CMP, serum or plasm a alkaline phosphatase, serum or plasma 101 text: 42 - 121 unit/L Not Available Not Available 02/24/2025 14:30:36 12/07/1912/06/2024 CMP, serum or plasm a protein, total, serum 6.8 g/dL low: 6g/dLh igh: 8g/dL Not Available Not Available 02/24/2025 14:30:36 12/07/1912/06/2024 CMP, serum or plasm a albumin, serum or plasma 4.1 g/dL low: 3.2g/d Lhigh: 5g/dL Not Available Not Available 02/24/2025 14:30:36 12/07/1912/06/2024 CMP, serum or plasm a bilirubin, total, serum or plasma 0.7 mg/dL low: 0mg/dL high: 1.4mg/ dL Not Available Not Available 02/24/2025 14:30:36 12/07/1912/06/2024 CMP, serum or plasm a lab interpretati on abnorm al Not Available Not Available 14:30:36 02/25/2002/24/2025 buddy gerardgr am No observ ation record ed. [email or web address] [address], [phone] 02/24/2025 18:24:50 Result Notes None recorded. Medical Equipment None Reported. Allergies Allergen ID Allergen Name Allergen Category Reaction Reaction Severity Criticality Documentation Date Start Date Code Code System Note Provider Name and Address Organization Details Recorded Time 8346 Product containin g penicilli n (product) medicatio n Not available Not available Not available 03/14/2024 12450 8001 SNOMED Not Available [facility] - production 03:43:41 Medications Name Sig Start Date Stop [...] Available No t Available Vitals Date Recorded Heart rate Body temperature Respiratory rate Heart rate Body temperature Respiratory rate Heart rate Body temperature Respiratory rate Systolic And Diastolic Systolic And Diastolic Systolic And Diastolic Provider Name and Address Organization Details Last Updated DateTime 3 102 /min 98.3 [degF] 18 /min 102 /min 98.3 [degF] 18 /min 102 /min 98.3 [degF] 18 /min 122/84 mm[Hg] 122/84 mm[Hg] 122/84 mm[Hg] Not Available [facility] - production 3 16:00:17 Date Recorded Body temperature Respiratory rate Oxygen saturation Oxygen saturation in Arterial blood by Pulse oximetry Heart rate Systolic And Diastolic Provider Name and Address Organization Details Last Updated DateTime 2 98.4 [degF] 20 /min 99 % 99 % 80 /min 165/110 mm[Hg] Cookie Stuart MD [address] [place] [address],[address], [place], [phone] [place] [address] [place] 2 17:20:20 Date Recorded Respiratory rate Heart rate Oxygen saturation Oxygen saturation in Arterial blood by Pulse oximetry Heart rate Body temperature Oxygen saturation Oxygen saturation in Arterial blood by Pulse oximetry Systolic And Diastolic Systolic And Diastolic Provider Name and Address Organization Details Last Updated DateTime 5 16 /min 61 /min 98 % 98 % 60 /min 97.5 [degF] 98 % 98 % 119/73 mm[Hg] 122/75 mm[Hg] Not Available [email or web address] 5 14:01:19 Social History None recorded. Functional Status None recorded. Mental Status None recorded. Family History Nothing Reported. Medical History No medical history recorded. Past Encounters Encounter ID Performer Location Encounter Start Date Encounter Closed Date Diagnosis/Indication Diagnosis SNOMED-CT Code Diagnosis ICD10 Code Diagnosis IMO Codes Diagnosis Note [id number] Cookie Stuart MD [facility] [employer] [address] [place] [phone] 08/20/2021 17:10:54 01/21/2022 11:18:06 Chronic low back pain 996470781 M54.50 [id number] Parveen Pittman MD [facility] - [facility] [address] [place] [phone] 06/27/2022 14:19:02 06/29/2022 11:07:57 Mild dehydration 2447259129 108 E86.0 Not tolerating fluids in setting of nausea/chary rrhea. Feels better s/p 1L of fluids Diarrhea 44644389 R19.7 Given Loperamide x1 [id number] NIK WHITE MD [facility] [address] [place] [phone] 02/24/2025 14:01:16 02/27/2025 10:34:51 Dizziness [id number] R42 52322 Health Concerns Section Related Observation LastModified by Organization Detai ls LastModified Time None Recorded Concern Status LastModified by Organization Details LastModified Time None Recorded Advance Directives Directive None Recorded Payers Insurance Date Sequence Insurance Name Policy Number Policy Saez Covered Member ID Saez Member ID Guarantor Name 06/22/2023 1 [facility] - DOS PRIOR TO 2022 - DUAL ELIGIBLE (MEDICARE REPLACEMENT/ADV ANTAGE - HMO) Richie Ross [id number] Richie Ross 02/24/2025 1 [facility] - DOS ON OR AFTER 2022 - DUAL ELIGIBLE - CUSTODIAL OPTIONS AND ONE CARE (MEDICARE REPLACEMENT/ADV ANTAGE - HMO) Richie Ross [id number] Richie Ross Notes Date Note Type Note [...] alerting CP about this call and TE. Mbr c/o chronic lower back pain and worse today and would like a certified novell administrator HV today for pain relief. Mbr stated he has appt this week but cannot wait to see Provider. Mbr reports he has had this lower back pain since 2017. Mbr denies chest pain, SOB or exposure to anyone recently positive with the C19 virus. Call back number for Mb ris [phone]. Sent in [facility] HV request for today. Cookie Stuart MD [address] [facility],[address], [place], [address], [employer] 08/20/2021 17:24:00 06/27/2022 text/html ROS as noted in the HPI HPI: Member outreach as requested by member [...] ..................... ..................... ..................... ..................... ..................... ..................... ............... Silk Screen Printing Racker Note From Marilee Leggett: Community [employer] Screen Printing Racker EstefaniAlyson Leggett SC6 dispatched to a [facility] for a 61 yom C/O [...] ............... Disposition: Fulfilled Parveen Pittman MD [address] [facility],[address], [place], [phone], [employer] [facility] [place] 06/27/2022 19:18:18 02/24/2025 text/html ROS as noted in the HPI HPI: mbr with complaints of dizziness, denies any blurry/vision/lighthe adedness/weakness/CP/ SOB. hx of inner ear issues in the past. requesting [facility] visit for evaluation.Protocol Used: Dizziness - VertigoProtocol-Based Disposition: Consider instED, [facility] Community Clinician, or PCP visit within 24 hoursPositive Triage Question:* [1] MODERATE dizziness (e.g., vertigo; feels very unsteady, interferes with normal activities) AND [2] has NOT been evaluated by doctor (or VINE PRUNER/PA) for thisNegative Triage Questions:* [1] Weakness (i.e., paralysis, loss of muscle strength) of the face, arm or leg on one side of the body AND [2] sudden onset AND [3] present now* SEVERE dizziness (vertigo) (e.g., unable to walk without assistance)* [1] Numbness (i.e., loss of sensation) of the face, arm / hand, or leg / foot on one side of the body AND [2] sudden onset AND [3] brief (now gone)* [1] Loss of speech or garbled speech AND [2] sudden onset AND [3] brief (now gone) ..................... ..................... ..................... ..................... ..................... ..................... ............... CRC Nurse Triage Notes (Pao Palomino): Chief Complaints: Dizziness PMH: Hypertension PMH Reviewed at 02/24/2025:37 Allergies Reviewed at 02/24/2025 - :37 Comments: HPI reviewed iSTAT Chem8+ (14:27:48) Na: 138mEq/LK: 4.0mEq/LCl: 102mEq/LiCa: 1.13mmol/LTCO2: 29mmol/LGlu: 91mg/dLBUN: 20mg/dLCrea: 1.3mg/dLHct: 39%Hb: 13.3g/dLAmmol/LCartridge Number: --- Attachments uploaded as part of this test result can be found under Documents section. ..................... ..................... ..................... ..................... ..................... ..................... ............... [employer]k Screen Printing Racker Note From Mike Beck: SC12 dispatched to the address listed above for the report of a male green party with dizziness. Arrival on scene, patient was found outside seated in the trunk of his vehicle, alert and oriented x4, patent airway, breathing non labored speaking in complete sentences, skin WPD in no obvious distress. +/= Chest rise. -SOB, -CP, -NVD, -Trauma, -Fever. GCS 15. Lung sounds clear in all castro. FASTED-0. Patient reports that he began to have a sudden onset of dizziness that started at about 1030 this morning, patient reports dizziness as continuous and worsens temporarily upon standing up or exertion, patient describes dizziness as lightheadedness and feeling wobbly, patient reports that he feels like he is drunk. Patient reports no drugs or alcohol, reports history of vertigo but scott not take medications for it, patient reports that it feels similar to vertigo but not as severe. Patient reports no cardiac history aside from AFIB. Patient denies chest pain, shortness of breath, NVD, recent trauma, fever/chills, abdominal pain, vision changes, headache, trouble walking or trouble speaking. Patient reports no other complaints aside from dizziness. Patient reports normal food/fluid intake and has been medication compliant. Patient vital signs obtained with orthostatics. [facility] consulted, provided orders for EKG and BMP. 12 Lead EKG performed and uploaded to [facility] for remote interpretation, computer interpretation indicated sinus bradycardia with incomplete right bundle branch block. Blood draw completed via 21 gauge butterfly needle in left AC, needle removed and bleeding controlled with gauze. ISTAT BMP performed and uploaded to [employer]. [facility] consulted again, advised all testing unremarkable and advised patient to follow up with PCP and or go to ED if his condition worsens with symptoms such as chest pain, shortness of breath, syncope, trouble speaking or walking, severe headache, visual changes, etc. By end of visit, patient reports his dizziness improved. SC12 Clear. [facility] Lab Orders: BMP, serum or plasma: Performed electrocardiogram: Performed ..................... ..................... ..................... ..................... ..................... ..................... ............... [facility] Consulted: Nik White ..................... ..................... ..................... ..................... ..................... ..................... ............... Disposition: Leena WHITE MD [address] [facility],[address], [place], [address], [facility] - [place] 02/24/2025 18:17:26
--- OUTSIDE RECORDS SUMMARY | 2025-02-28 17:00 | XMS_ITS | Continuity of Care Document ---
Author Organization [employer] [facility], [facility] Address [address] [place] [address] Care Team Providers Care Truss Builder Name Role Phone HIM CCA OTHER [facility] Primary Care Provider Assessment Encounter Date Assessment Date Assessment LastModified by Organization Details LastModified Time 02/24/2025 02/24/2025 Mr. Ross was evaluated for [...] Assessment and Plan as documented by the Safety Specialist. We discussed the diagnostic uncertainty of home [...] Lab BMP, serum or plasma 2024 025 [facility], [address] [place] [address], [phone] 18:25:11 Referral None recorded. Procedures None recorded. Surgeries None recorded. Imaging electrocard iogram 2024 025 [facility], [address] [place] [address], [phone] 18:19:38 Medication Orders None recorded. Patient TargetsNo targets recorded. Patient InstructionsNo instructions recorded. Reason for Referral None Reported. Results Created Date Observation Date Name Description Value Unit Range Abnormal Flag Note LastModifiedBy Organization Detail LastModifiedTime 02/25/2002/24/2025 elect pasha gerardgr am No observ ation record ed. [email or web address], [phone] 02/24/2025 18:24:50 Result Notes None recorded. Medical Equipment None Reported. Allergies Allergen ID Allergen Name Allergen Category Reaction Reaction Severity Criticality Documentation Date Start Date Code Code System Note Provider Name and Address Organization Details Recorded Time 8346 Product containin g penicilli n (product) medicatio n Not available Not available Not available 03/14/2024 41668 8001 SNOMED Not Available [facility] - production 4 [...] Available No t Available Vitals Date Recorded Respiratory rate Heart rate Oxygen [...] % 119/73 mm[Hg] 122/75 mm[Hg] Not Available [facility] - production 5 14:01:19 Social History None recorded. Functional Status None recorded. Mental Status None recorded. Family History Nothing Reported. Medical History No medical history recorded. Past Encounters Encounter ID Performer Location Encounter Start Date Encounter Closed Date Diagnosis/Indication Diagnosis SNOMED-CT Code Diagnosis ICD10 Code Diagnosis IMO Codes Diagnosis Note [id number] NIK WHITE MD [facility] [address] [phone] 02/24/2025 14:01:16 02/27/2025 10:34:51 Dizziness [id number] R42 13740 Health Concerns Section Related Observation LastModified by Organization Detai ls LastModified Time None Recorded Concern Status LastModified by Organization Details LastModified Time None Recorded Payers Encounter Date Sequence Insurance Name Policy Number Policy Saez Covered Member ID Saez Member ID Guarantor Name 02/24/2025 1 [facility] - DOS ON OR AFTER 2022 - DUAL ELIGIBLE - CORRECTION OPTIONS AND ONE CARE (MEDICARE REPLACEMENT/ADV ANTAGE - HMO) Richie Ross [id number] Richie Ross Notes Date Note Type Note Provider Name and Address Organization Details Recorded Time 02/24/2025 text/html ROS as noted in the HPI HPI: mbr with complaints of dizziness, denies any blurry/vision/lighthe adedness/weakness/CP/ SOB. hx of inner ear issues in the past. requesting [facility] visit for evaluation.Protocol Used: Dizziness - VertigoProtocol-Based Disposition: Consider instED, [facility] Community Clinician, or PCP visit within 24 hoursPositive Triage Question:* [1] MODERATE dizziness (e.g., vertigo; feels very unsteady, interferes with normal activities) AND [2] has NOT been evaluated by doctor (or DEBONING TEAM LEADER/PA) for thisNegative Triage Questions:* [1] Weakness (i.e., [...] ..................... ..................... ..................... ..................... ..................... ..................... ............... Safety Specialist Note From Mike Beck: SC12 dispatched to the address listed above for the report of a male alliance party with dizziness. Arrival on scene, patient [...] compliant. Patient vital signs obtained with orthostatics. [facility] consulted, provided orders for EKG and BMP. 12 Lead EKG performed and uploaded to [employer] for remote interpretation, computer interpretation indicated sinus bradycardia with incomplete right bundle branch block. Blood draw completed via 21 gauge butterfly needle in left AC, needle removed and bleeding controlled with gauze. ISTAT BMP performed and uploaded to [employer]. [facility] consulted again, advised all testing unremarkable and advised patient to follow up with PCP and or go to ED if his condition worsens with symptoms such as chest pain, shortness of breath, syncope, trouble speaking or walking, severe headache, visual changes, etc. By end of visit, patient reports his dizziness improved. SC12 Clear. [facility] Lab Orders: BMP, serum or plasma: Performed electrocardiogram: Performed ..................... ..................... ..................... ..................... ..................... ..................... ............... [facility] Consulted: Nik White ..................... ..................... ..................... ..................... ..................... ..................... ............... Disposition: Fulfilled NIK WHITE MD [address] [place] [address],[address], [place], [address], [facility] [employer] 02/24/2025 18:17:26
--- OUTSIDE RECORDS SUMMARY | 2025-02-28 17:00 | XMS_ITS | Clinical Summary ---
Author Organization [facility] Address [address] [place] [address] Phone Care Team Providers Care Green Building Engineer Name Role Phone Chaitanya Pan Primary Care Provider [phone] Allergies Active Allergy Reactions Criticality Noted Date Comments Penicillins Anaphylaxis High 12/06/2024 My throat got swollen as a child Medications atorvastatin (LIPITOR) 20 mg tablet Take 1 tablet (20 mg total) by mouth at bedtime. 06/22/2018 Active celecoxib (CeleBREX) 100 mg capsule 2 capsules (200 mg total) 1 (one) time each day. 11/10/2024 Active cholecalciferol (VITAMIN D-3) 50 mcg (2,000 unit) capsule Take 1 capsule (2,000 Units total) by mouth 1 (one) time each day. 11/10/2024 Active cyclobenzaprine (FLEXERIL) 10 mg tablet Take 1 tablet (10 mg total) by mouth 3 (three) times a day if needed for muscle spasms. 12/02/2024 Active Tiadylt ER 420 mg 24 hr capsule Take 1 capsule (420 mg total) by mouth 1 (one) time each day. 10/18/2024 Active DULoxetine (CYMBALTA) [address] capsule Take 1 capsule (60 mg total) by mouth 1 (one) time each day. 07/25/2017 Active gabapentin (NEURONTIN) 300 mg capsule Take 1 capsule (300 mg total) by mouth 2 (two) times a day. NOON + NIGHT 09/17/2024 Active hydroCHLOROthia zide 12.5 mg tablet Take 1 tablet (12.5 mg total) by mouth 1 (one) time each day. 11/10/2024 Active lisinopriL (PRINIVIL,ZESTR IL) 20 mg tablet Take 1 tablet (20 mg total) by mouth 1 (one) time each day. 11/24/2024 Active omeprazole (PriLOSEC) [address] capsule Take 1 capsule (20 mg total) by mouth 2 (two) times a day. Active Gavilax 17 gram/dose oral powder Take 17 g by mouth 1 (one) time each day if needed for constipation. 11/05/2024 Active traMADoL (ULTRAM) 50 mg tablet Take [...] Max Daily Amount: 20 mg 10 capsule 12/06/2024 Active Encounters Date Type Department Care Team Description 12/06/2024 9:12 AM EDT - 12/06/2024 12:59 PM EDT Emergency [facility] Emergency [address] [place] [address] Chronic kidney disease, unspecified CKD stage (Primary Dx); Acute left flank pain; Left ureteral calculus Discharge Disposition: Home or Self Care from Last 3 Months Surgical History Surgery Date Site/Laterality Comments HERNIA REPAIR PROCEDURE: HISTORICAL HERNIA REPAIR/ING; COMMENT: left inguinal OTHER SURGICAL HISTORY PROCEDURE: ---- OTHER ----; COMMENT: R plantar fasciotomy HERNIA REPAIR 10/23 PROCEDURE: REPAIR UMBILICAL HERNIA KNEE SURGERY PROCEDURE: HISTORICAL KNEE SURGERY; COMMENT: left; ACL, meniscus CARPAL TUNNEL RELEASE PROCEDURE: HISTORICAL CARPAL TUNNEL REL; COMMENT: bilat VASECTOMY PROCEDURE: [place] VASECTOMY UNI/BI SPX W/POSTOP SEMEN EXAMS COLONOSCOPY 05/13/15 PROCEDURE: HISTORICAL COLONOSCOPY; COMMENT: tics; repeat in 10 yrs CHOLECYSTECTOMY 07/13/2019 PROCEDURE: LAPAROSCOPIC CHOLECYSTECT; COMMENT: at [facility] Chaitanya Flower for +HIDA acalculous chronic [...] obesity with BMI of 4 0.0-44.9, adult ([facility] V24, [facility] V28) 06/08/2017 DX:Morbid obesity wit h BMI of 40.0-44.9, adult ([facility]) Family History Medical History Relation Name Comments [...] Health Maintenance Due Date Last Done Comments Colorectal Cancer Screening: Colonoscopy 1962 Hepatitis A Vaccines (1 of 2 - Risk 2-dose series) 1981 RSV Immunization Adult Patients (1 - Risk 50-74 years 1-dose series) 2012 DTaP,Tdap,and Td Vaccines (2 - Td or Tdap) 01/11/2019 01/11/2009 Pneumococcal Vaccine: 50+ Years (2 of 2 - PCV) 06/18/2021 06/18/2020, 07/27/2017 Hepatitis B Vaccines (1 of 3 - Risk 3-dose series) 2022 Cholesterol Screening (Lipid Panel) 01/10/2024 HIV Screening 01/10/2024 Hepatitis C Screening 01/10/2024 Medicare Annual Wellness Visit 01/10/2024 Social Influencers of Health Screening 01/10/2024 Depression Screening 05/17/2024 COVID-19 Vaccine ( season) 2025 04/25/2021, 10/18/2020, 09/20/2020 Influenza Vaccine (#1) 2025 [...] AND CONTENTS STAT 12/06/2024 9:57 AM EDT from Last 3 Months Results * CT Abdomen Pelvis w Contrast (12/06/2024 11:47 AM EDT) Anatomical Region Laterality Modality Body Computed Tomogra phy 12/06/2024 12:0 8 PM EDT Impressions 12/06/2024 12:19 PM EDT 3 mm left UVJ calculus with mild left hydronephrosis. -------- FINAL REPORT -------- Dictated By: TYREE DA SILVA Dictated Date: 12/06/2024 12:08 ET Assigned Physician: TYREE DA SILVA Reviewed and Electronically Signed By: TYREE DA SILVA Signed Date: 12/06/2024 12:19 ET Workstation ID: [id number] Transcribed By: Self Edit Transcribed Date: 12/06/2024 [...] spine. No acute fracture. Procedure Note Tyree Da Silva MD - 12/06/2024 PROCEDURE: CT ABDOMEN/PELVIS INDICATION: [...] -------- FINAL REPORT -------- Dictated By: TYREE DA SILVA Dictated Date: 12/06/2024 12:08 ET Assigned Physician: TYREE DA SILVA Reviewed and Electronically Signed By: TYREE DA SILVA Signed Date: 12/06/2024 12:19 ET Workstation ID: [id number] Transcribed By: Self Edit Transcribed Date: 12/06/2024 12:08 ET us Yaheiry Nguyen-Barbour PA IMG CT PROCEDURES Fin al Result * (ABNORMAL) Urinalysis with reflex microscopic and culture (12/06/2024 11:08 AM EDT) Specific [place] Urine 1.018 1.003 - 1.030 LAB URINALYSIS - AUTOMATED METHOD 12/06/2024 11:40 AM EDT [facility] pH, Urine 8.0 5.0 - 8.0 pH LAB URINALYSIS - AUTOMATED METHOD 12/06/2024 11:40 AM T [facility] Leukocytes, Urine Trace(A) Negative LAB URINALYSIS - AUTOMATED METHOD 12/06/2024 11:40 AM [facility] Nitrite, Urine Negative Negative LAB URINALYSIS - AUTOMATED METHOD 12/06/2024 11:40 AM [facility] Protein, Urine Trace <=Trace mg/dL LAB URINALYSIS - AUTOMATED METHOD 12/06/2024 11:40 AM [facility] Glucose, Urine Negative Negative mg/dL LAB URINALYSIS - AUTOMATED METHOD 12/06/2024 11:40 AM [facility] Ketones, Urine Negative Negative mg/dL LAB URINALYSIS - AUTOMATED METHOD 12/06/2024 11:40 AM [facility] Urobilinogen, Urine 2.0(A) 0.2 - 1.0 mg/dL LAB URINALYSIS - AUTOMATED METHOD 12/06/2024 11:40 AM [facility] Bilirubin, Urine Negative Negative LAB URINALYSIS - AUTOMATED METHOD 12/06/2024 11:40 AM [facility] Blood, Urine Trace(A) Negative LAB URINALYSIS - AUTOMATED METHOD 12/06/2024 11:40 AM [facility] RBC, Urine 13.1(H) 0 - 4 /HPF LAB URINALYSIS - AUTOMATED METHOD 12/06/2024 11:40 AM [facility] WBC, Urine 2.4 0 - 4 /HPF LAB URINALYSIS - AUTOMATED METHOD 12/06/2024 11:40 AM [facility] Squamous Epithelial, Urine 14 0 - 60 /LPF LAB URINALYSIS - AUTOMATED METHOD 12/06/2024 11:40 AM [facility] Bacteria, Urine Negative Negative /HPF LAB URINALYSIS - AUTOMATED METHOD 12/06/2024 11:40 AM [facility] Hyaline Casts, Urine 0.8 0 - 3 /LPF LAB URINALYSIS - AUTOMATED METHOD 12/06/2024 11:40 AM [facility] Urine Urine specimen obtained by clean catch procedure / Unknown Non-blood Collection / Unknown 12/06/2024 11:08 AM EDT 12/06/2024 11:20 AM EDT [facility] PatrickRafia [facility]ILL[facility] LAB URINE ORDERABLES Final Result Performing Organization Address [facility]/ZIP Co de Phone Number [facility] [address] [place] [address], [place] [phone] * Soto urine culture tube (12/06/2024 11:08 AM EDT) Extra Tube Hold for add-ons. 12/06/2024 1:01 PM EDT [facility] Comment:Auto resulted. Urine Urine specimen obtained by clean catch procedure / Unknown Non-blood Collection / Unknown 12/06/2024 11:08 AM EDT 12/06/2024 11:20 AM EDT [facility] [employer] [place] LAB URINE ORDERABLES Final Result Performing Organization Address [facility]/ZIP Co de Phone Number [facility] [address] [place] [address], [place] [phone] * Culture urine (12/06/2024 11:08 AM EDT) Culture, Urine No growth 12/07/2024 9:34 AM EDT [facility] Urine Urine specimen obtained by clean catch procedure / Unknown Non-blood Collection / Unknown 12/06/2024 11:08 AM EDT 12/06/2024 11:40 AM EDT [facility] [facility] [place] LAB MICROBIOLOGY - GE NERAL ORDERABLES Final Result Performing Organization Address City/[facility]/ZIP Co de Phone Number [facility] [address] [place] [address], [place] [phone] * (ABNORMAL) CBC auto differential (12/06/2024 10:51 AM EDT) [facility] WBC 5.6 4.8 - 10.8 K/mcL LAB HEMETOLOGY METHOD 12/06/2024 11:21 AM [facility] RBC 3.90(L) 4.50 - 5.50 M/mcL LAB HEMETOLOGY METHOD 12/06/2024 11:21 AM [facility] Hemoglobin 12.0(L) 13.5 - 17.5 g/dL LAB HEMETOLOGY METHOD 12/06/2024 11:21 AM [facility] Hematocrit 34.0(L) 42.0 - 54.0 % LAB HEMETOLOGY METHOD 12/06/2024 11:21 AM [facility] MCV 86.7 79.0 - 98.0 FL LAB HEMETOLOGY METHOD 12/06/2024 11:21 AM [facility] MCH 30.6 27.0 - 32.0 pcg LAB HEMETOLOGY METHOD 12/06/2024 11:21 AM [facility] MCHC 35.3 32.0 - 37.0 g/dL LAB HEMETOLOGY METHOD 12/06/2024 11:21 AM [facility] RDW 12.6 11.0 - 15.0 % LAB HEMETOLOGY METHOD 12/06/2024 11:21 AM [facility] Platelets 180 130 - 400 K/mcL LAB HEMETOLOGY METHOD 12/06/2024 11:21 AM [facility] MPV 9.8 7.0 - 11.0 FL LAB HEMETOLOGY METHOD 12/06/2024 11:21 AM [facility] NRBC 0.0 <1.0 % LAB HEMETOLOGY METHOD 12/06/2024 11:21 AM [facility] NRBC Absolute 0.00 <0.10 K/mcL LAB HEMETOLOGY METHOD 12/06/2024 11:21 AM [facility] Neutrophils Relative 73.6 % LAB HEMETOLOGY METHOD 12/06/2024 11:21 AM [facility] Lymphocytes Relative 17.7 % LAB HEMETOLOGY METHOD 12/06/2024 11:21 AM [facility] Monocytes Relative 5.2 % LAB HEMETOLOGY METHOD 12/06/2024 11:21 AM [facility] Eosinophils Relative 2.3 % LAB HEMETOLOGY METHOD 12/06/2024 11:21 AM [facility] Basophils Relative 0.7 % LAB HEMETOLOGY METHOD 12/06/2024 11:21 AM [facility] Immature Granulocytes Relative 0.5 % LAB HEMETOLOGY METHOD 12/06/2024 11:21 AM [facility] Neutrophils Absolute 4.08 1.50 - 7.00 K/mcL LAB HEMETOLOGY METHOD 12/06/2024 11:21 AM [facility] Lymphocytes Absolute 0.98(L) 1.00 - 5.00 K/mcL LAB HEMETOLOGY METHOD 12/06/2024 11:21 AM [facility] Monocytes Absolute 0.29 0.20 - 1.00 K/mcL LAB HEMETOLOGY METHOD 12/06/2024 11:21 AM [facility] Eosinophils Absolute 0.13 0.00 - 0.50 K/mcL LAB HEMETOLOGY METHOD 12/06/2024 11:21 AM [facility] Basophils Absolute 0.04 0.00 - 0.20 K/mcL LAB HEMETOLOGY METHOD 12/06/2024 11:21 AM [facility] Immature Granulocytes Absolute 0.03 0.00 - 0.03 K/mcL LAB HEMETOLOGY METHOD 12/06/2024 11:21 AM EDT [facility] Blood Venous blood specimen / Unknown Venipuncture / Unknown 12/06/2024 10:51 AM EDT 12/06/2024 11:06 AM EDT Opal Litzy [facility] LAB BLOOD ORDERABLES Final Result Performing Organization Address City/[facility]/ZIP Co de Phone Number [facility] [address] [place] [address], [place] [phone] * Lipase (12/06/2024 10:51 AM EDT) Pathologist [facility] Lipase 30 13 - 75 unit/L LAB CHEMISTRY METHOD 12/06/2024 11:36 AM EDT [facility] Blood Venous blood specimen / Unknown Venipuncture / Unknown 12/06/2024 10:51 AM EDT 12/06/2024 11:06 AM EDT Shaqjack Litzy [facility] LAB BLOOD ORDERABLES Final Result Performing Organization Address City/[facility]/ZIP Co de Phone Number [facility] [address] [place] [address], [place] [phone] * (ABNORMAL) Comprehensive Metabolic Panel (CMP) (12/06/2024 10:51 AM EDT) Pathologist [facility] Sodium 137 133 - 145 mmol/L LAB CHEMISTRY METHOD 12/06/2024 11:36 AM EDT [facility] Potassium 3.9 3.5 - 5.5 mmol/L LAB CHEMISTRY METHOD 12/06/2024 11:36 AM EDT [facility] Chloride 105 96 - 110 mmol/L LAB CHEMISTRY METHOD 12/06/2024 11:36 AM EDT [facility] CO2 26 21 - 32 mmol/L LAB CHEMISTRY METHOD 12/06/2024 11:36 AM EDT [facility] Anion Gap 6 3 - 11 LAB CHEMISTRY METHOD 12/06/2024 11:36 AM [facility] Glucose 94 70 - 100 mg/dL LAB CHEMISTRY METHOD 12/06/2024 11:36 AM [facility] BUN 25 5 - 25 mg/dL LAB CHEMISTRY METHOD 12/06/2024 11:36 AM [facility] Creatinine 1.41(H) 0.70 - 1.30 mg/dL LAB CHEMISTRY METHOD 12/06/2024 11:36 AM [facility] eGFR 56(L) >=60 mL/min/1. 73m2 LAB CHEMISTRY METHOD 12/06/2024 11:36 AM [facility] Comment:Calculation based on the Chronic Kidney Disease Epidemiology Collaboration (CKD-EPI) equation refit without adjustment for race. BUN/Creatinine Ratio 17.7 LAB CHEMISTRY METHOD 12/06/2024 11:36 AM [facility] Calcium 9.4 8.5 - 10.5 mg/dL LAB CHEMISTRY METHOD 12/06/2024 11:36 AM [facility] AST (SGOT) 15 10 - 42 unit/L LAB CHEMISTRY METHOD 12/06/2024 11:36 AM [facility] ALT (SGPT) 18 10 - 60 unit/L LAB CHEMISTRY METHOD 12/06/2024 11:36 AM [facility] Alkaline Phosphatase 101 42 - 121 unit/L LAB CHEMISTRY METHOD 12/06/2024 11:36 AM [facility] Total Protein 6.8 6.0 - 8.0 g/dL LAB CHEMISTRY METHOD 12/06/2024 11:36 AM [facility] Albumin 4.1 3.2 - 5.0 g/dL LAB CHEMISTRY METHOD 12/06/2024 11:36 AM [facility] Total Bilirubin 0.7 0.0 - 1.4 mg/dL LAB CHEMISTRY METHOD 12/06/2024 11:36 AM EDT [facility] Blood Venous blood specimen / Unknown Venipuncture / Unknown 12/06/2024 10:51 AM EDT 12/06/2024 11:06 AM EDT Opal Mcghee PA LAB BLOOD ORDERABLES Final Result [facility] [address] [place] [address], [place] [phone] * US Scrotum and Contents (12/06/2024 9:57 AM EDT) Anatomical Region Laterality Modality Body Ultrasound 12/06/2024 10:3 6 AM EDT Impressions 12/06/2024 10:42 AM EDT NORMAL TESTICLES. NO EVIDENCE OF TESTICULAR TORSION. -------- FINAL REPORT -------- Dictated By: TYREE DA SILVA Dictated Date: 12/06/2024 10:36 ET Assigned Physician: TYREE DA SILVA Reviewed and Electronically Signed By: TYREE DA SILVA Signed Date: 12/06/2024 10:42 ET Workstation ID: [id number] Transcribed By: Self Edit Transcribed Date: 12/06/2024 [...] Trace left hydrocele. No varicocele. Procedure Note Tyere Da Silva MD - 12/06/2024 PROCEDURE: US SCROTUM AND [...] -------- FINAL REPORT -------- Dictated By: TYREE DA SILVA Dictated Date: 12/06/2024 10:36 ET Assigned Physician: TYREE DA SILVA Reviewed and Electronically Signed By: TYREE DA SILVA Signed Date: 12/06/2024 10:42 ET Workstation ID: [id number] Transcribed By: Self Edit Transcribed Date: 12/06/2024 10:36 ET us Gurvinder Linares MD IMG US PROCEDURES Final Result from Last 3 Months Insurance [facility] MEDIC[facility] Member Subscriber Plan / Payer (Ef fective 2019-Present) Name:RICHIE CASTILLO Relation to Subscriber:Self Name:Richie Castillo Payer ID:[id number] Group ID:[id number] Type:Not on file Address: [facility] [address] [place] [address] Care Teams Green Building Engineer Relationship Specialty Start Date End Date Chaitanya Pan [address] [place] [address] PCP - General Dental Teacher Counselor 11/05/24
--- OUTSIDE RECORDS SUMMARY | 2025-02-28 17:00 | XMS_ITS | Patient Health Record ---
Author Organization [facility] Address [address] [place] [address] Care Team Providers Care Director Life Sales Name Role Phone Whitley BEATTY, Chaitanya Primary Care Provider Unavail able Allergies Allergen (clinical drug ingredient) Drug/Non Drug Allergy documented on EMR Reaction Allergy Type Onset Date Status oxycodone Oxycodone Unknown Drug Allergy Active Penicillin Unknown Drug Allergy Active Reason For Referral No Information Medications Medication SIG (Take, Route, Frequency, Duration) Notes Start Date End Date Status DULoxetine HCl 60 MG Capsule Delayed Release Particles 1 capsule Orally Once a day; Duration: 30 day(s) Active Lisinopril 10 MG Tablet 1 tablet Orally Once a day; Duration: 30 day(s) Active dilTIAZem HCl ER Beads 360 MG Capsule Extended Release 24 Hour 1 capsule Orally Once a day; Duration: 30 day(s) Active Aspirin 81 MG Tablet Chewable 1 tablet Orally Once a day; Duration: 30 day(s) Active Atorvastatin Calcium 20 MG Tablet 1 tablet Orally Once a day; Duration: 30 day(s) Active Baclofen 10 MG/5ML Solution as directed Intrathecal Active diazePAM 5 MG Tablet 1 tablet as needed Orally Once a day Active Meloxicam 15 MG Tablet 1 tablet Orally O nce a day; Duration: 30 day(s) Active Omeprazole 20 MG Capsule Delayed Release 1 capsule 30 minutes before morning meal Orally Once a day; Duration: 30 day(s) Active Sertraline HCl 50 MG Tablet 1 tablet Ora lly Once a day; Duration: 30 day(s) Active traMADol HCl 50 MG Tablet 1 tablet as ne eded Orally Once a day Active Social History Tobacco Use: Social History Observation Description Date Details (start date - stop date) Never Smoker NA - NA Social History Tobacco Use: Social Info Question Answer Notes Tobacco Use/Smoking Are you a nonsmoker Problems Problem Type SNOMED Code ICD Code Onset Dates Problem Status W/U Status Risk Notes Problem Lumbosacral spondylosis without myelopathy (71340572) Spondylosis without myelopathy or radiculopathy, lumbar region (M47.816) Active confirmed Plan Of Treatment No Information Insurance Providers Payer Name Payer Address Payer Phone Subscriber Number Group Number Insured Name Patient Relationship to Insured Coverage Start Date Coverage End Date [facility] [address] [place] [phone] [id number] USMAN CASTILLO Self - patient is the [...]
--- OUTSIDE RECORDS SUMMARY | 2025-02-28 17:00 | XMS_ITS | Encounter Summary ---
Author Organization [facility] Address [address] [place] [address] Encounters * CPT with Medical [facility]ED at [employer] on 2025-02-24 mbr with complaints of dizziness, denies any blurry/vision/lightheadedness/weakness/CP/SOB. hx of inner ear issues in the past. requesting [facility] visit for evaluation. Protocol Used: Dizziness - Vertigo Protocol-Based [facility] Community Clinician, or PCP visit within 24 hours Positive Triage Question: * [1] MODERATE dizziness (e.g., vertigo; feels very unsteady, interferes with normal activities) AND [2] has NOT been evaluated by doctor (or INSPECTOR AND CLERK/PA) for this Negative Triage Questions: * [1] Weakness (i.e., paralysis, loss of muscle strength) of the face, arm or leg on one side of the body AND [2] sudden onset AND [3] present now * SEVERE dizziness (vertigo) (e.g., unable to walk without assistance) * [1] Numbness (i.e., loss of sensation) of the face, arm / hand, or leg / foot on one side of the body AND [2] sudden onset AND [3] brief (now gone) * [1] Loss of speech or garbled speech AND [2] sudden onset AND [3] brief (now gone) { reasonForRequest : , patientReports : , denies&quot ;:[], chiefComplaints : Dizziness , pmh : Hypertension ,&quo t;allergies : Penicillins , otherAllergies :null, painAssessment : , visitOutcome : , additionalComments : HPI reviewed } SC12 dispatched to the address listed above for the report of a male republican with dizziness. Arrival on scene, patient was found outside seated in the trunk of his vehicle, alert and oriented x4, patent airway, breathing non labored speaking in complete sentences, skin WPD in no obvious distress. +/=Chest rise. -SOB, -CP, -NVD, -Trauma, -Fever. GCS 15. Lung sounds clear in all castro. FASTED-0. Patient reports that he began to have a sudden onset of dizziness that started at about 1030 this morning, patient reports dizziness as continuous and worsens temporarily upon standing up or exertion, patient describes dizziness as lightheadedness and feeling wobbly, patient reports that he feels likehe is drunk. Patient reports no drugs or [...] compliant. Patient vital signs obtained with orthostatics. [facility] consulted, provided orders for EKG and BMP. 12 Lead EKG performed and uploaded to [facility] for remote interpretation, computer interpretation indicated sinus bradycardia with incomplete right bundle branch block. Blood draw completed via 21 gauge butterfly needle in left AC, needle removed and bleeding controlled with gauze. ISTAT BMP performed and uploaded to [facility]. [facility] consulted again, advised all testing unremarkable and advised patient to follow up with PCP and or go to ED if his condition worsens with symptoms such as chest pain, shortness of breath, syncope, trouble speaking or walking, severe headache, visual changes, etc. By end of visit, patient reports his dizziness improved. SC12 Clear. IV_(FLUIDS_AND/OR_MEDICATION), POC_BLOODWORK, ORTHOSTATIC_VITAL_SIGNS, PO_MEDICATION Written by [facility] on 2025-02-24
== END 2025-02-28 15:26 | disposition home or self-care (01) ==
LOC: HO.HKAS 13:22
PROVIDERS: PCP Nurse Practitioner Family; Visit Provider Internal Medicine Critical Care Medicine
DX: I12.9 Hypertensive chronic kidney disease with stage 1 through stage 4 chronic kidney disease, or unspecified chronic kidney disease (principal); N18.9 Chronic kidney disease, unspecified; R35.81 Nocturnal polyuria
CPT/HCPCS: 99213

== ENCOUNTER → 2025-02-28 13:21 | Outpatient (BNVA) | payer OTHER, SELFPAY | PROVIDERS: PCP Nurse Practitioner Family; Visit Provider Internal Medicine Critical Care Medicine | DX: I12.9 Hypertensive chronic kidney disease with stage 1 through stage 4 chronic kidney disease, or unspecified chronic kidney disease (principal); N18.31 Chronic kidney disease, stage 3a; R35.81 Nocturnal polyuria | CPT/HCPCS: 99212 ==

== ENCOUNTER 2025-03-02 10:35 | Outpatient (REF) | payer OTHER, SELFPAY ==
[2025-03-02 12:59] LABS: MANUAL DIFF FLAG NO
[2025-03-02 13:56] LABS: Hematocrit 36.4 % (42.0-52.0); Hemoglobin 12.9 g/dl (14.0-18.0); Imm Gran Abs Auto 0.01 X10*3/uL (0.00-0.03); Imm Gran Pct Auto 0.3 % (0.0-0.4); Lymphocytes Absolute Auto 1.1 X10*3/uL (1.2-4.9); Mean Corpuscular HGB Conc 35.4 g/dl (31.0-36.0); Mean Corpuscular Hemoglobin 31.0 pg (27.0-33.0); Mean Corpuscular Volume 87.5 fL (80.0-98.0); NRBC Abs Auto 0.000 X10*3/uL (0.0-0.012); NRBC Pct Auto 0.0 /100WBC (0.0-0.2); Platelet Count 219 X10*3/uL (160-400); Red Blood Count 4.16 X10*6/uL (4.60-5.80); Reticulocytes Absolute 0.051 X10*6/uL (0.026-0.095); White Blood Count 3.5 X10*3/uL (4.8-10.8)
[2025-03-02 14:22] LABS: Iron 87 mcg/dL (45-160); Percent Iron Saturation 29 % (15-50); Total Iron Binding Capacity 301 mcg/dL (228-428); Unsaturated Iron Binding 214 ug/dL
[2025-03-02 14:52] LABS: Ferritin 36 ng/mL (20-250)
[2025-03-02 16:22] LABS: Folate 6.9 ng/mL (> or = 4.0); Vitamin B12 330 pg/mL (200-900)
[2025-03-03 10:58] LABS: HBS Num1 0.86 mIU/mL (0-7.99); HBc Num1 0.06 S/CO (0.00-0.79); HBsAGNum1 0.41 S/CO (0.00-0.99); HIV Num 1 0.07 S/CO (0.00-0.99); Hepatitis A Antibody IgM 0.22 Index (0-0.79); Hepatitis B Surface Antigen Negative (Negative); ~HepC Num1 0.13 S/CO (0.00-0.79); ~Hepatitis A Antibody IgM Nonreactive (Nonreactive); ~Hepatitis B Surface Antibody NONREACTIVE (Nonreactive); ~Hepatitis C Antibody Nonreactive (Nonreactive)
[2025-03-05 18:19] LABS: Prot Elec - Albumin 4.5 g/dL (3.8-4.8); Prot Elec - Alpha1 0.2 g/dL (0.2-0.3); Prot Elec - Alpha2 0.6 g/dL (0.5-0.9); Prot Elec - Beta 1 0.4 g/dL (0.4-0.6); Prot Elec - Beta 2 0.3 g/dL (0.2-0.5); Prot Elec - Gamma 1.0 g/dL (0.8-1.7); Prot Elec - Total Protein 7.1 g/dL (6.1-8.1)
[2025-03-08 10:49] LABS: Anti Nuclear Antibody Screen NEGATIVE (NEGATIVE)
== END 2025-03-02 10:36 | disposition home or self-care (01) ==
LOC: HO.HMGCLDS 10:35
PROVIDERS: PCP Nurse Practitioner Family; Visit Provider Nurse Practitioner Family
DX: Z01.84 Encounter for antibody response examination (principal); Z11.4 Encounter for screening for human immunodeficiency virus [HIV]; D72.819 Decreased white blood cell count, unspecified
CPT/HCPCS: 36415; 82607; 82728; 82746; 82784; 83540; 83615; 84165; 85025; 85045; 85652; 86038; 86334; 86431; 86704; 86706; 86709; 86803; 87340; 87389

== ENCOUNTER → 2025-04-25 13:16 | Outpatient (BNV) | payer OTHER, SELFPAY | PROVIDERS: PCP Nurse Practitioner Family; Referring Provider Nurse Practitioner Family; Visit Provider Internal Medicine | DX: D72.819 Decreased white blood cell count, unspecified (principal) | CPT/HCPCS: 99204; G2211 ==

== ENCOUNTER 2025-05-15 09:01 | Outpatient (REF) | payer OTHER, SELFPAY ==
--- NOTE | ~2025-05-15 | US_ITS ---
CLINICAL HISTORY: Leukopenia, left upper quadrant pain US abdomen complete Comparison: None provided Findings: The visualized pancreas is normal. The aorta and inferior vena cava are normal caliber. The appearance of the liver suggests fatty infiltration. There is a right lobe 2.5 x 2.4 x 2.1 cm possible benign incidental cyst. There is no intrahepatic bile duct dilatation. The common duct is 1.6 mm in diameter. The gallbladder is normal. There is no sonographic Whaley sign. The main portal vein is antegrade. The right kidney is 11.0 cm in length. The left kidney is 11.1 cm in length. There is a left renal cortical Bosniak 1 cyst measuring 2.8 x 2.7 x 2.1 cm. The spleen is normal. No ascites. IMPRESSION: 1. Hepatic steatosis. This document has been electronically signed by: Maik Chavez MD on 05/16/2025 10:11:00
--- OUTSIDE RECORDS SUMMARY | 2025-05-15 11:12 | XMS_ITS | Encounter Summary ---
Author Organization [facility] Prior to 03/17/2024 Address [address] [place] [address] Care Team Providers Care Ultra Sound Technician Name Role Phone Phyllis Stanley MD Primary Care Provider Gurvinder Post MD Primary Care Provider [phone] [facility], Pcp Primary Care Provider Unavailabl e Encounter Details Date Type Department Care Team Description 07/26/2017 Hospital Medical Records [address] [place] [address] Doyle Garcia MD [address] [place] [id number] Social History Tobacco Use Types Packs/Day Years [...] on filedocumented in this encounter Care Teams Ultra Sound Technician Relationship Specialty Start Date End Date Phyllis Stanley MD PCP - General Internal Medicine 12/10/15 01/22/20 Gurvinder Man MD [address] [place] [address] PCP - General Internal Medicine 01/23/20 09/01/20 Community, Pcp [address] [place] [id number] PCP - General Internal Medicine 09/02/20 documented as of this encounter
--- OUTSIDE RECORDS SUMMARY | 2025-05-15 11:12 | XMS_ITS | Encounter Summary ---
Author Organization [facility] Prior to 03/17/2024 Address [address] [place] [address] Care Team Providers Care Health Services Rn Name Role Phone Gurvinder Man MD Primary Care Provider [phone] [facility], Pcp Primary Care Provider Unavailabl e Reason for Visit * Reason Comments E-prescribe Rx Request Encounter Details Date Type Department Care Team Description 06/26/2020 Refill Cardio PVC [address] [facility] [address] [place] [address] Satya Woo PA [address] [place] [address] E-prescribe Rx Request Social History Tobacco Use Types Packs/Day Years Used Date Smoking Tobacco: Never Smokeless Tobacco: Never Alcohol Use Standard Drinks/Week Comments Yes 0 (1 standard drink = 0.6 oz pure alcohol) once a week, will have 3-4 drinks; otherwise none Sex Assigned at Date Recorded Not on file documented as of this encounter Miscellaneous Notes * Telephone Encounter - Leila Mccrary C.M.A. - 06/27/2020 4:40 PM EST Statin renewed; Lipids on record; last see by dr HODGE 02/2020 Not due for a f/u until Feb documented in this encounter Plan of Treatment Not on file documented as of this encounter Visit Diagnoses Not on filedocumented in this encounter Care Teams Health Services Rn Relationship Specialty Start Date End Date Gurvinder Man MD [address] [place] [address] PCP - General Internal Medicine 01/23/20 09/01/20 [facility], [facility] [address] [place] [address] PCP - General Internal Medicine 09/02/20 documented as of this encounter
--- OUTSIDE RECORDS SUMMARY | 2025-05-15 11:12 | XMS_ITS | Encounter Summary ---
Author Organization [facility] Prior to 03/17/2024 Address [address] [place] [address] Care Team Providers Care Principal Mechanical Engineer Name Role Phone Phyllis Stanley MD Primary Care Provider Gurvinder Post MD Primary Care Provider [phone] [facility], Pcp Primary [facility] Encounter Details Date Type Department Care Team Description 10/17/[address]man Report Medical Records [address] [place] [address] Doyle Miranda Social History Tobacco Use Types [...] on filedocumented in this encounter Care Teams Principal Mechanical Engineer Relationship Specialty Start Date End Date Phyllis Stanley MD PCP - General Internal Medicine 12/10/15 01/22/20 Gurvinder Man MD [address] [place] [address] PCP - General Internal Medicine 01/23/20 09/01/20 Community, Pcp [address] [place] [address] PCP - General Internal Medicine 09/02/20 documented as of this encounter
--- OUTSIDE RECORDS SUMMARY | 2025-05-15 11:12 | XMS_ITS | Encounter Summary ---
Author Organization [facility] Prior to 03/17/2024 Address [address] [place] [address] Care Team Providers Care Stone Spreader Operator Name Role Phone Phyllis Stanley MD Primary Care Provider Gurvinder Post MD Primary Care Provider [phone] [facility], Pcp Primary Care Provider Unavailabl e Encounter Details Date Type Department Care Team Description 03/23/2018 Release of Information Medical Records [address] [place] [address] Abstract, Provider Social History Tobacco Use Types [...] filedocumented in this encounter Care Teams Stone Spreader Operator Relationship Specialty Start Date End Date Phyllis Stanley MD PCP - General Internal Medicine 12/10/15 01/22/20 Gurvinder Man MD [address] [place] [address] PCP - General Internal Medicine 01/23/20 09/01/20 Community, Pcp [address] [place] [address] PCP - General Internal Medicine 09/02/20 documented as of this encounter
--- OUTSIDE RECORDS SUMMARY | 2025-05-15 11:12 | XMS_ITS | Encounter Summary ---
Author Organization [facility] Prior to 03/17/2024 Address [address] [place] [address] Care Team Providers Care Us Customs And Border Officer Name Role Phone Phyllis Stanley MD Primary Care Provider Gurvinder Post MD Primary Care Provider [phone] [facility], Pcp Primary Care Provider [facility] e Encounter Details Date Type Department Care Team Description 10/13/2016 [facility] Medical Records [address] [place] [address] Abstract, Provider Social History Tobacco Use Types [...] on filedocumented in this encounter Care Teams Us Customs And Border Officer Relationship Specialty Start Date End Date Phyllis Stanley MD PCP - General Internal Medicine 12/10/15 01/22/20 Gurvinder Man MD [address] [place] [address] PCP - General Internal Medicine 01/23/20 09/01/20 Community, Pcp [address] [place] [address] PCP - General Internal Medicine 09/02/20 documented as of this encounter
--- OUTSIDE RECORDS SUMMARY | 2025-05-15 11:12 | XMS_ITS | Encounter Summary ---
Author Organization [facility] Prior to 03/17/2024 Address [address] [place] [address] Care Team Providers Care Poker Prop Player Name Role Phone Community, Pcp Primary Care Provider Unavailabl e Reason for Visit * Reason Comments E-prescribe Rx Request Atorvastatin Encounter Details Date Type Department Care Team Description 08/21/2021 Refill Cardio PVC [address] [address] [facility] [address] [place] [address] Satya Woo PA [address] [place] [address] E-prescribe Rx Request (Atorvastatin ) Social History [...] care with Dr Sebastien Ballard. I called [phone] spoke with Rhea and confirmed pt is under their care documented in this encounter Plan of Treatment Not on file documented as of this encounter Visit Diagnoses Not on filedocumented in this encounter Care Teams Poker Prop Player Relationship Specialty Start Date End Date Community, Pcp PCP - General Internal Medicine 09/02/20 documented as of this encounter
--- OUTSIDE RECORDS SUMMARY | 2025-05-15 11:12 | XMS_ITS | Encounter Summary ---
Author Organization [facility] Prior to 03/17/2024 Address [address] [place] [address] Care Team Providers Care Manager Pool Name Role Phone Phyllis Stanley MD Primary Care Provider Gurvinder Post MD Primary Care Provider [phone] [facility], Pcp Primary Care Provider Unavailabl e Encounter Details Date Type Department Care Team Description 10/05/2019 [facility] Medical Records [address] [place] [address] Abstract, Provider Social History Tobacco Use Types [...] on filedocumented in this encounter Care Teams Manager Pool Relationship Specialty Start Date End Date Phyllis Stanley MD PCP - General Internal Medicine 12/10/15 01/22/20 Gurvinder Man MD [address] [place] [address] PCP - General Internal Medicine 01/23/20 09/01/20 Community, Pcp [address] [place] [address] PCP - General Internal Medicine 09/02/20 documented as of this encounter
--- OUTSIDE RECORDS SUMMARY | 2025-05-15 11:12 | XMS_ITS | Encounter Summary ---
Author Organization [facility] Prior to 03/17/2024 Address [address] [place] [address] Care Team Providers Care Unattended Ground Sensor Specialist Name Role Phone Gurvinder Man MD Primary Care Provider [phone] [facility], Pcp Primary Care Provider Unavailabl e Encounter Details Date Type Department Care Team Description 02/15/2020 Sueding Machine Operator Report Medical Records [address] [place] [address] Sharad Saavedra MD [address] [facility] [address] [place] [address] Social History Tobacco Use Types Packs/Day Years [...] on filedocumented in this encounter Care Teams Unattended Ground Sensor Specialist Relationship Specialty Start Date End Date Gurvinder Man MD [address] [place] [address] PCP - General Internal Medicine 01/23/20 09/01/20 [facility], Pcp [address] [place] [address] PCP - General Internal Medicine 09/02/20 documented as of this encounter
--- OUTSIDE RECORDS SUMMARY | 2025-05-15 11:12 | XMS_ITS | Encounter Summary ---
Author Organization [facility] Prior to 03/17/2024 Address [address] [place] [address] Care Team Providers Care Refrigeration Installer Name Role Phone Phyllis Stanley MD Primary Care Provider Gurvinder Post MD Primary Care Provider [phone] [facility], [facility], Pcp Primary Care Provider Unavailabl e Encounter Details Date Type Department Care Team Description 02/06/2019 Telephone Adult Medicine [address] [address] Phyllis Stanley MD Social History Tobacco Use Types Packs/Day [...] on filedocumented in this encounter Care Teams Refrigeration Installer Relationship Specialty Start Date End Date Phyllis Stanley MD PCP - General Internal Medicine 12/10/15 01/22/20 Gurvinder Man MD [address] [place] [address] PCP - General Internal Medicine 01/23/20 09/01/20 [facility], Pcp [address] [place] [address] PCP - General Internal Medicine 09/02/20 documented as of this encounter
--- OUTSIDE RECORDS SUMMARY | 2025-05-15 11:12 | XMS_ITS | Encounter Summary ---
Author Organization [facility] Prior to 03/17/2024 Address [address] [place] [address] Care Team Providers Care Ecommerce Manager Name Role Phone Phyllis Stanley MD Primary Care Provider Gurvinder Post MD Primary Care Provider [phone] [facility], Pcp Primary Care Provider Unavailabl e Encounter Details Date Type Department Care Team Description 07/25/2018 [facility] Report Medical Records [address] [place] [address] Services, [facility] [address] [address] Social History Tobacco Use Types Packs/Day Years [...] on filedocumented in this encounter Care Teams Ecommerce Manager Relationship Specialty Start Date End Date Phyllis Stanley MD PCP - General Internal Medicine 12/10/15 01/22/20 Gurvinder Man MD [address] [place] [address] PCP - General Internal Medicine 01/23/20 09/01/20 [facility], Pcp [address] [place] [address] PCP - General Internal Medicine 09/02/20 documented as of this encounter
--- OUTSIDE RECORDS SUMMARY | 2025-05-15 11:12 | XMS_ITS | Encounter Summary ---
Author Organization [facility] Prior to 03/17/2024 Address [address] [place] [address] Care Team Providers Care Supervisor Bindery Name Role Phone Phyllis Stanley MD Primary Care Provider Gurvinder Post MD Primary Care Provider [phone] [facility], Pcp Primary Care Provider Unavailabl e Encounter Details Date Type Department Care Team Description 01/07/[address] [facility] Medical Records [address] [place] [address] Abstract, Provider Social History Tobacco Use Types [...] on filedocumented in this encounter Care Teams Supervisor Bindery Relationship Specialty Start Date End Date Phyllis Stanley MD PCP - General Internal Medicine 12/10/15 01/22/20 Gurvinder Man MD [address] [place] [address] PCP - General Internal Medicine 01/23/20 09/01/20 Community, Pcp [address] [place] [address] PCP - General Internal Medicine 09/02/20 documented as of this encounter
--- OUTSIDE RECORDS SUMMARY | 2025-05-15 11:12 | XMS_ITS | Encounter Summary ---
Author Organization [facility] Prior to 03/17/2024 Address [address] [place] [address] Care Team Providers Care Emu Farm Worker Name Role Phone Bryan Smith MD Primary Care Provider Unavail able Phyllis Stanley MD Primary Care Provider Unav ailable Gurvinder Man MD Primary Care Provider [phone] [facility], Pcp Primary Care Provider Unavailabl e Encounter Details Date Type Department Care Team Description 03/25/2011 Controlled Substance Plan Medical Records [address] [place] [address] Abstract, Provider Social History Tobacco Use Types [...] on filedocumented in this encounter Care Teams Emu Farm Worker Relationship Specialty Start Date End Date Bryan Smith MD PCP - General 06/22/02 12/09/15 Phyllis Stanley MD PCP - General Internal Medicine 12/10/15 01/22/20 Gurvinder Man MD [address] [place] [address] PCP - General Internal Medicine 01/23/20 09/01/20 [facility], Pcp [address] [place] [address] PCP - General Internal Medicine 09/02/20 documented as of this encounter
--- OUTSIDE RECORDS SUMMARY | 2025-05-15 11:12 | XMS_ITS | Encounter Summary ---
Author Organization [facility] [employer] [facility] Prior to 03/17/2024 Address [address] [place] [address] Care Team Providers Care Drive Thru Order Taker Name Role Phone Gurvinder Man MD Primary Care Provider [phone] [facility], Pcp Primary Care Provider Unavailabl e Encounter Details Date Type Department Care Team Description 02/15/2020 Title Camera Operator Report Medical Records [address] [place] [address] Sharad Saavedra MD 300 [facility] [address] [place] [address] Social History Tobacco Use Types Packs/Day Years [...] on filedocumented in this encounter Care Teams Drive Thru Order Taker Relationship Specialty Start Date End Date Gurvinder Man MD [address] [place] [address] PCP - General Internal Medicine 01/23/20 09/01/20 [facility], Pcp [address] [place] [address] PCP - General Internal Medicine 09/02/20 documented as of this encounter
--- OUTSIDE RECORDS SUMMARY | 2025-05-15 11:12 | XMS_ITS | Encounter Summary ---
Author Organization [facility] Prior to 03/17/2024 Address [address] [place] [address] Care Team Providers Care Ticket Counter Name Role Phone Bryan Smith MD Primary Care Provider Unavail able Phyllis Stanley MD Primary Care Provider Unav ailable Gurvinder Man MD Primary Care Provider [phone] [facility], Pcp Primary Care Provider Unavailabl e Encounter Details Date Type Department Care Team Description 04/24/2011 Night Triage Doc Medical Records [address] [place] [address] Abstract, Provider Social History Tobacco Use Types [...] on filedocumented in this encounter Care Teams Ticket Counter Relationship Specialty Start Date End Date Bryan Smith MD PCP - General 06/22/02 12/09/15 Phyllis Stanley MD PCP - General Internal Medicine 12/10/15 01/22/20 Gurvinder Man MD [address] [place] [address] PCP - General Internal Medicine 01/23/20 09/01/20 [facility], Pcp [address] [place] [address] PCP - General Internal Medicine 09/02/20 documented as of this encounter
--- OUTSIDE RECORDS SUMMARY | 2025-05-15 11:12 | XMS_ITS | Encounter Summary ---
Author Organization [facility] Prior to 03/17/2024 Address [address] [place] [address] Care Team Providers Care Working Foreman Name Role Phone Phyllis Stanley MD Primary Care Provider Gurvinder Post MD Primary Care Provider [phone] [facility], Pcp Primary Care Provider Unavailabl e Encounter Details Date Type Department Care Team Description 02/22/2018 Risk Developer Report Medical Records [address] [place] [address] Susan Kramer PA-C 175 [facility] [address] [place] [address] Social History Tobacco Use Types Packs/Day Years [...] on filedocumented in this encounter Care Teams Working Foreman Relationship Specialty Start Date End Date Phyllis Stanley MD PCP - General Internal Medicine 12/10/15 01/22/20 Gurvinder Man MD [address] [place] [address] PCP - General Internal Medicine 01/23/20 09/01/20 [facility], Pcp [address] [place] [address] PCP - General Internal Medicine 09/02/20 documented as of this encounter
--- OUTSIDE RECORDS SUMMARY | 2025-05-15 11:12 | XMS_ITS | Encounter Summary ---
Author Organization [facility] Prior to 03/17/2024 Address [address] [place] [address] Care Team Providers Care Formulator Name Role Phone Phyllis Stanley MD Primary Care Provider Gurvinder Post MD Primary Care Provider [phone] [facility], Pcp Primary Care Provider [facility] Encounter Details Date Type Department Care Team Description 12/12/2019 Wildland Fire Operations Specialist Report Medical Records [address] [place] [address] Timothy Maldonado MD Social History Tobacco Use [...] on filedocumented in this encounter Care Teams Formulator Relationship Specialty Start Date End Date Phyllis Stanley MD PCP - General Internal Medicine 12/10/15 01/22/20 Gurvinder Man MD [address] [place] [address] PCP - General Internal Medicine 01/23/20 09/01/20 [facility], Pcp [address] [place] [address] PCP - General Internal Medicine 09/02/20 documented as of this encounter
--- OUTSIDE RECORDS SUMMARY | 2025-05-15 11:12 | XMS_ITS | Encounter Summary ---
Author Organization [facility] Prior to 03/17/2024 Address [address] [place] [address] Care Team Providers Care Key Carrier Name Role Phone Gurvinder Man MD Primary Care Provider [phone] [facility], Pcp Primary Care Provider Unavailabl e Reason for Visit * Reason Comments E-prescribe Rx Request Encounter Details Date Type Department Care Team Description 08/13/2020 Refill [facility] [address] [place] [address] Gurvinder Man MD [address] [place] [address] E-prescribe Rx Request Social History Tobacco Use [...] N/A Patients current insurance carrier is: Payor: [employer] M[employer] / Plan: [facility] / Product Type: HMO [id number] documented in this encounter Plan of Treatment Not on file documented as of this encounter Visit Diagnoses Not on filedocumented in this encounter Care Teams Key Carrier Relationship Specialty Start Date End Date Gurvinder Man MD [address] [place] [address] PCP - General Internal Medicine 01/23/20 09/01/20 [facility], [address] [address] PCP - General Internal Medicine 09/02/20 documented as of this encounter
--- OUTSIDE RECORDS SUMMARY | 2025-05-15 11:12 | XMS_ITS | Clinical Summary ---
Author Organization [facility] Prior to 03/17/2024 Address [address] [place] [address] Care Team Providers Care Wastewater Operator Name Role Phone Community, Pcp Primary Care Provider Unavailabl e Allergies Active Allergy Reactions Severity Noted Date Comments Penicillins Anaphylaxis High 11/13/2005 Medications Medication Sig Dispensed Refills Start Date End Date Status ALBUTEROL SULFATE 108 (90 BASE) MCG/ACT Aero SolnIndications:Vir al URI with cough,History of pneumonia INHALE 2 PUFFS INTO THE LUNGS EVERY 4 HOURS NEEDED FOR COUGH, WHEEZING OR SHORTNESS OF BREATH. 8.5 Inhaler 0 07/12/2018 Active Aspirin (ASPIR-81 OR) Take 81 mg by mouth at bedtime. 0 Active trazodone (DESYREL) 100 MG tablet TAKE 1 TABLET BY MOUTH 30-45 MINUTES BEFORE YOUR BEDTIME NEEDED FOR SLEEP 90 Tab 1 09/11/2019 Active omeprazole (PRILOSEC) 20 MG capsule Take 1 Cap by mouth daily. Take on empty stomach 90 Cap 3 09/12/2019 Active baclofen (LIORESAL) 10 MG tablet TAKE 1 TABLET BY MOUTH THREE TIMES A DAY 270 Tab 1 02/15/2020 Active diazepam (VALIUM) 10 MG tabletIndications:A nxiety Take 0.5 Tabs by mouth at bedtime for 28 days. 14 Tab 0 03/21/2020 Active hydrocodone-acetami nophen (NORCO) 5-325 MG per tablet Take 1 tablet by mouth 2 times daily as needed (herniated lumbar disc pain) for up to 28 days. prn low back disc pain, #56 per 28 days max on contract 56 tablet 0 03/21/2020 Active duloxetine (CYMBALTA) 20 MG capsule Take 1 Cap by mouth 2 times daily for 7 days. Then decrease to 1 cap once daily for 7 days. Then discontinue. 21 Cap 0 04/01/2020 Active sertraline (ZOLOFT) 50 MG tablet Take 1.5 Tabs by mouth daily. 45 Tab 2 04/24/2020 Active meloxicam (MOBIC) 15 MG tablet Take 1 Tab by mouth daily. 30 Tab 5 05/03/2020 Active diltiazem (CARDIZEM CD) 240 MG 24 hr capsule TAKE 1 CAP BY MOUTH DAILY. TAKE WITH 120MG CAPSULE, FOR TOTAL OF 360MG DAILY. 90 Cap 0 07/24/2020 Active diltiazem (CARDIZEM CD) 120 MG 24 hr capsule TAKE 1 CAP BY MOUTH DAILY. TAKE WITH 240MG CAPSULE, FOR TOTAL OF 360MG DAILY 90 Cap 0 07/24/2020 Active lisinopril (PRINIVIL,ZESTRIL) 10 MG tablet Take 1 Tab by mouth daily. appt required for further refills 30 Tab 0 08/21/2020 Active atorvastatin (LIPITOR) 20 MG tablet TAKE 1 TABLET BY MOUTH EVERY DAY 30 tablet 1 07/29/2021 Active Active Problems Problem Noted Date Injury of muscle at forearm level 2019 Essential hypertension 03/04/2019 Paroxysmal atrial fibrillation 8 Pneumonia of left lower lobe due to infectious organism (HCC) 08/05[place]17 [place] [place] 08/16/2017 Morbid obesity with BMI of 40.0-44.9, ad ult 06/08/2017 Chronic back pain 02/17/2016 Neck pain, chronic 02/17/2016 Degeneration of intervertebral disc of c ervicothoracic region 02/17/2016 DDD (degenerative disc disease), lumbosa cral 02/17/2016 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 Dr Mahoney. Calcium oxalate Osteoarthritis 09/14/2009 ELIF on CPAP 04/04/2009 Overview: Couldn't amador mask SMS Home Polysomnogram: Date 09/10/2017; AHI 42, Unclassified apneas 0; Obstructive apneas 66; Central apneas 14; Mixed apneas 9; hypopneas 151; average oxygen saturation 92% (lowest 79% with saturations <88% for 5% or more of study) [facility]ysom[place] study. Date 10/20/2017. SE 71 % SM 80 %; spent 17 % of the study in REM. On CPAP; Overall RDI 40 (AHI 39), Central apneas 77; Obstructive apneas 0; Mixed apneas 0; hypopneas 72; RERAs 4; and, average oxygen saturation was 93%. For the entire study, PLMs ~92. CPAP treatment failure - BiPAP trial recommended. [facility]ysomnogram treatment study. Date 10/20/2017 . SE 71 % SM 80 %; spent 17 % of the study in REM. On CPAP @ 9; RDI 20 (AHI 18), Central apneas 11; Obstructive apneas 0; Mixed apneas 0; hypopneas 20; RERAs 3; and, average oxygen saturation was 93%. For the entire study, PLMs ~92. - Obstructive Sleep Apnea - severe; mostly hypopneas with obstructive apneas; without sleep related hypoventilation by 2018 home polysomnogram. Depression 05/24/2008 Hypercholesteremia 11/13/2005 Carpal tunnel syndrome Heartburn Pure hypercholesterolemia Resolved Problems Problem Noted Date Resolved Date Diverticular disease of colon 08/29/2014 Groin pain 11/14/2010 11/27/2011 Inguinal hernia 11/14/2010 11/27/2011 Vitamin D deficiency 06/10/2009 01/08/2015 Eczema 05/25/2008 01/08/2015 Knee pain 05/24/2008 04/10/2013 Overview: Xray knee arthritis and sees neos and has shot Carpal tunnel syndrome 11/13/2005 3 Heartburn 11/13/2005 04/10/2013 Immunizations Name Administration Dates Next Due Influenza (> 6 Months) 03/27/2016,2011,03/25/2011, 010 Influenza Vaccine-preservati ve Free-quadrivalent 4 Years 06/29/2018 Influenza Vaccine-quadrivale nt 4 Years Plus 04/15/2017 Tdap 01/11/2009 Family History Medical History Relation Name Comments CAD Father in his 60's CAD Mother later in life Hypertension Mother Cancer, Other Negative Hx Diabetes Negative Hx Relation Name Status Comments Brother Alive 1,healthy Father (Age 94) Mother (Age 85) Social History Tobacco Use Types Packs/Day Years Used Date Smoking Tobacco: Never Smokeless Tobacco: Never Alcohol Use Standard Drinks/Week Comments Yes 0 (1 standard drink = 0.6 oz pure alcohol) once a week, will have 3-4 drinks; otherwise none Sex Assigned at Date Recorded Not on file Last Filed Vital Signs Vital Sign Reading Time Taken Comments Blood Pressure 126/71 02/09/2020 3:46 PM EDT Pulse 69 02/09/2020 3:46 PM EDT Temperature 36.5 C (97.7 F) 06/11/2019 9:08 AM EST Respiratory Rate 16 02/09/2020 3:46 PM EDT Oxygen Saturation 99% 01/25/2018 2:13 PM EDT Inhaled Oxygen Concentration - - Weight 116.1 kg (256 lb) 02/09/2020 3:46 PM EDT Height 172.7 cm (5' 8 ) 02/09/2020 3:46 PM EDT Body Mass Index 38.92 02/09/2020 3:46 PM EDT Plan of Treatment Health Maintenance Due Date Last Done Comments Covid-19 Vaccine (#1) 04[birth year]24/1961 SHINGLES VACCINE (1 of 2) 2012 DTAP/TDAP/TD (2 - Td or Tdap) 01/11/2019 01/11/2009 BASELINE HEALTH EXAM 40-64 07/07/202007/07, 06/29/2018, 07/24/2016, Additional history exists BMI CHECK/ADVISE 05/17/2024 06/23/2019, , 05/26/2019, Additional history exists DEPRESSION SCREENING/FOLLOWUP 05/17/2024, 04/01/2020, 04/01/2020, Additional history exists SOCIAL NEEDS SCREENING 05/17/2024 CHOLESTEROL SCREENING 05/26/2024 05/26/2019 , 07/07/2018, 12/05/2017, Additional history exists INFLUENZA (#1) 2025 06/29/2018, 03/19, 03/27/2016, Additional history exists COLON CANCER SCREENING 05/13/2025 05/13/2015 PNEUMOCOCCAL VACCINE FOR HIG H RISK PATIENTS (#1) 10/24/2027 HEPATITIS C SCREENING Completed 05/24/2008 Care Teams Wastewater Operator Relationship Specialty Start Date End Date Community, Pcp PCP - General Internal Medicine 09/02/20
--- OUTSIDE RECORDS SUMMARY | 2025-05-15 11:12 | XMS_ITS | Encounter Summary ---
Author Organization [facility] Prior to 03/17/2024 Address [address] [place] [address] Care Team Providers Care Warning Coordination Meteorologist Name Role Phone Phyllis Stanley MD Primary Care Provider Gurvinder Post MD Primary Care Provider [phone] [facility], Pcp Primary Care Provider Unavailabl e Reason for Visit * Reason Onset Date Comments medication problems 11/15/2019 Encounter Details Date Type Department Care Team Description 11/15/2019 Refill Adult Medicine [address] [address] Phyllis Stanley MD medication problems Social History Tobacco Use Types Packs/Day Years Used Date Smoking Tobacco: Never Smokeless Tobacco: Never Alcohol Use Standard Drinks/Week Comments Yes 0 (1 standard drink = 0.6 oz pure alcohol) once a week, will have 3-4 drinks; otherwise none Sex Assigned at Date Recorded Not on file documented as of this encounter Miscellaneous Notes * Telephone Encounter - Isatu Wu L.P.N. - 11/15/2019 2:27 PM EDT Per pharmacist out of stock / new form of drug that is the same but need new script Tiadylt 360/ (their computer does not accept the substitution) need new script/ unfortunately not in data base / would you write on paper and hand fax over ? TY * Telephone Encounter - Dyan Munguia - 11/15/2019 11:22 AM EDT Who is calling? The patient Name of the medication diltiazem (CARDIZEM CD) 360 MG 24 hr capsule What is the specific problem or interaction? Patient stated that the pharmacy said that this medication is out of stock please fax alternative. If the patient is having a problem with taking the med - how long has the problem been going on? N/A documented in this encounter Plan of Treatment Not on file documented as of this encounter Visit Diagnoses Not on filedocumented in this encounter Care Teams Warning Coordination Meteorologist Relationship Specialty Start Date End Date Phyllis Stanley MD PCP - General Internal Medicine 12/10/15 01/22/20 Gurvinder Man MD [address] [place] [address] PCP - General Internal Medicine 01/23/20 09/01/[address] [address] PCP - General Internal Medicine 09/02/20 documented as of this encounter
--- OUTSIDE RECORDS SUMMARY | 2025-05-15 11:12 | XMS_ITS | Clinical Summary ---
Author Organization [facility] Address [address] [place] [address] Phone Care Team Providers Care Keypuncher Name Role Phone Chaitanya Pan Primary Care Provider [phone] Allergies Active Allergy Reactions Criticality Noted Date [...] Amount: 20 mg 10 capsule 12/06/2024 Active Surgical History Surgery Date Site/Laterality Comments HERNIA REPAIR PROCEDURE: HISTORICAL HERNIA REPAIR/ING; COMMENT: left inguinal OTHER SURGICAL HISTORY PROCEDURE: ---- OTHER ----; COMMENT: R plantar fasciotomy HERNIA REPAIR 10/23 PROCEDURE: REPAIR UMBILICAL HERNIA KNEE SURGERY PROCEDURE: HISTORICAL KNEE SURGERY; COMMENT: left; ACL, meniscus CARPAL TUNNEL RELEASE PROCEDURE: HISTORICAL CARPAL TUNNEL REL; COMMENT: bilat VASECTOMY PROCEDURE: SD VASECTOMY UNI/BI SPX W/POSTOP SEMEN EXAMS COLONOSCOPY 05/13/15 PROCEDURE: HISTORICAL COLONOSCOPY; COMMENT: tics; repeat in 10 yrs CHOLECYSTECTOMY 07/13/2019 PROCEDURE: LAPAROSCOPIC CHOLECYSTECT; COM[place]: [place] [facility] [place] Chaitanya Flower for [...] obesity wit h BMI of 40.0-44.9, adult ([facility]) Family History Medical History Relation Name Comments [...] on file Sexual Orientation Not on file Last Filed Vital Signs [...] Procedure Name Priority Date/Time Associated Diagnosis Comments COMPREHENSIVE METABOLIC PANEL STAT 12/06/2024 10:51 AM EDT from Last 3 Months or Most Recently Relevant to Health Maintenance Results * (ABNORMAL) Comprehensive Metabolic Panel (CMP) (12/06/2024 10:51 AM EDT) Sodium 137 133 - 145 mmol/L LAB CHEMISTRY METHOD 12/06/2024 11:[address] [facility] Potassium 3.9 3.5 - 5.5 mmol/L LAB CHEMISTRY METHOD 12/06/2024 11:[address] [facility] Chloride 105 96 - 110 mmol/L LAB CHEMISTRY METHOD 12/06/2024 11:[address] [facility] CO2 26 21 - 32 mmol/L LAB CHEMISTRY METHOD 12/06/2024 11:[address] [facility] Anion Gap 6 3 - 11 LAB CHEMISTRY METHOD 12/06/2024 11:[address] [facility] Glucose 94 70 - 100 mg/dL LAB CHEMISTRY METHOD 12/06/2024 11:[address] [facility] BUN 25 5 - 25 mg/dL LAB CHEMISTRY METHOD 12/06/2024 11:[address] [facility] Creatinine 1.41(H) 0.70 - 1.30 mg/dL LAB CHEMISTRY METHOD 12/06/2024 11:[address] [facility] eGFR 56(L) >=60 mL/min/1. 73m2 LAB CHEMISTRY METHOD 12/06/2024 11:[address] [facility] Comment:Calculation based on the Chronic Kidney Disease Epidemiology Collaboration (CKD-EPI) equation refit without adjustment for race. BUN/Creatinine Ratio 17.7 LAB CHEMISTRY METHOD 12/06/2024 11:[address] [facility] Calcium 9.4 8.5 - 10.5 mg/dL LAB CHEMISTRY METHOD 12/06/2024 11:[address] [facility] AST (SGOT) 15 10 - 42 unit/L LAB CHEMISTRY METHOD 12/06/2024 11:[address] [facility] ALT (SGPT) 18 10 - 60 unit/L LAB CHEMISTRY METHOD 12/06/2024 11:[address] [facility] Alkaline Phosphatase 101 42 - 121 unit/L LAB CHEMISTRY METHOD 12/06/2024 11:[address] [facility] Total Protein 6.8 6.0 - 8.0 g/dL LAB CHEMISTRY METHOD 12/06/2024 11:[address] [facility] Albumin 4.1 3.2 - 5.0 g/dL LAB CHEMISTRY METHOD 12/06/2024 11:[address] [facility] Total Bilirubin 0.7 0.0 - 1.4 mg/dL LAB CHEMISTRY METHOD 12/06/2024 11:[address] [facility] Blood Venous blood specimen / Unknown Venipuncture / Unknown 12/06/2024 10:51 AM EDT 12/06/2024 11:06 AM EDT us [facility] LAB BLOOD ORDERABLES Final Result [facility] [address] [place] [address], from Last 3 Months or Most Recently Relevant to Health Maintenance Insurance [facility] MED[facility] Member Subscriber Plan / Payer (Ef fective 2019-Present) Name:REJIROMAN HOGUEEN Relation to Subscriber:Self Name:Roman Rossluis felipe Ruffin Payer ID:[id number] Group ID:[id number] Type:Not on file Address: [place] [address] [address] [address] Care Teams Keypuncher Relationship Specialty Start Date End Date Chaitanya Pan [address] [place] [address] PCP - General Dental Pump Erector Helper 11/05/24
--- OUTSIDE RECORDS SUMMARY | 2025-05-15 11:12 | XMS_ITS | Encounter Summary ---
Author Organization [facility] Prior to 03/17/2024 Address [address] [place] [address] Care Team Providers Care Automobile Engine Assembler Name Role Phone Community, Pcp Primary Care Provider Unavailabl e Encounter Details Date Type Department Care Team Description 10/16/2020 SCAN Medical Records [address] [place] [address] Abstract, Provider Social History Tobacco Use Types [...] on filedocumented in this encounter Care Teams Automobile Engine Assembler Relationship Specialty Start Date End Date Community, Pcp PCP - General Internal Medicine 09/02/20 documented as of this encounter
--- OUTSIDE RECORDS SUMMARY | 2025-05-15 11:12 | XMS_ITS | Encounter Summary ---
Author Organization [facility] Prior to 03/17/2024 Address [address] [place] [address] Care Team Providers Care Thread Puller Name Role Phone Gurvinder Man MD Primary Care Provider [facility], Pcp Primary Care Provider Unavailabl e Reason for Visit * Reason Onset Date Comments Provider Call Back 02/08/2020 Encounter Details Date Type Department Care Team Description 02/08/2020 Telephone Rheumatology - [address] [address] Doyle Clements MD Provider Call Back Social [...] on filedocumented in this encounter Care Teams Thread Puller Relationship Specialty Start Date End Date Gurvinder Man MD [address] [place] [address] PCP - General Internal Medicine 01/23/20 09/01/20 [facility], [address] [address] PCP - General Internal Medicine 09/02/20 documented as of this encounter
--- OUTSIDE RECORDS SUMMARY | 2025-05-15 11:13 | XMS_ITS | Encounter Summary ---
Author Organization [facility] Prior to 03/17/2024 Address [address] [place] [address] Care Team Providers Care Vp Care Management Name Role Phone Phyllis Stanley MD Primary Care Provider Gurvinder Post MD Primary Care Provider [phone] [facility], Pcp Primary Care Provider Unavailabl e Reason for Visit * Reason Comments E-prescribe Rx Request Encounter Details Date Type Department Care Team Description 03/16/2019 Refill Adult Medicine - [place] [address] [place] [address] Wade Ramos PA-C E-prescribe Rx Request Social [...] N/A Patients current insurance carrier is: [facility] / Plan: ONE CARE [facility] / Product Type: HMO [id number] documented in this encounter Plan of Treatment Not on file documented as of this encounter Visit Diagnoses Not on filedocumented in this encounter Care Teams Vp Care Management Relationship Specialty Start Date End Date Phyllis Stanley MD PCP - General Internal Medicine 12/10/15 01/22/20 Gurvinder Man MD [address] [place] [address] PCP - General Internal Medicine 01/23/20 09/01/[address] [address] PCP - General Internal Medicine 09/02/20 documented as of this encounter
--- OUTSIDE RECORDS SUMMARY | 2025-05-15 11:13 | XMS_ITS | Encounter Summary ---
Author Organization [facility] Prior to 03/17/2024 Address [address] [place] [address] Care Team Providers Care Machinery Cleaner Name Role Phone Phyllis Stanley MD Primary Care Provider Gurvinder Post MD Primary Care Provider [phone] [facility], Pcp Primary Care Provider Unavailabl e Reason for Referral * EXTERNAL (Routine) - Authorized/Booked Specialty Diagnoses / Procedures Referred By Sunday ellison Referred To Contact Physical Therapy Procedures REFERRAL TO PHYSICAL THERAPY [facility] Referral ID Status Reason Start Date Expiration Date V isits Requested Visits Authorized SEE NOTE Authorized/B ooked 02/06/2019 05/09/2019 1 1 Reason for Visit * Reason Onset Date Comments Locomotive Crane Operator Feedback 02/06/2019 physical therapy Encounter Details Date Type Department Care Team Description 02/06/2019 Telephone Adult Medicine [facility] [address] [place] [address] Phyllis Stanley MD Locomotive Crane Operator Feedback (physical therapy) Social History Tobacco Use [...] Dominga Gary - 02/06/2019 11:[address] Stanley, You put in a referral for this patient to go to physical therapy. We sent their information over [facility] and they have an upcoming appointment on [...] on filedocumented in this encounter Care Teams Machinery Cleaner Relationship Specialty Start Date End Date Phyllis Stanley MD PCP - General Internal Medicine 12/10/15 01/22/20 Gurvinder Man MD [address] [place] [address] PCP - General Internal Medicine 01/23/20 09/01/[address] [address] PCP - General Internal Medicine 09/02/20 documented as of this encounter
--- OUTSIDE RECORDS SUMMARY | 2025-05-15 11:13 | XMS_ITS | Encounter Summary ---
Author Organization [facility] Prior to 03/17/2024 Address [address] [place] [address] Care Team Providers Care Air Traffic Systems Technician Name Role Phone Phyllis Stanley MD Primary Care Provider Gurvinder Post MD Primary Care Provider [phone] [facility], Pcp Primary Care Provider Unavailabl e Encounter Details Date Type Department Care Team Description 06/21/2019 Light Bulb Assembler Report Medical Records [address] [place] [address] Social History Tobacco Use Types Packs/Day Years [...] on filedocumented in this encounter Care Teams Air Traffic Systems Technician Relationship Specialty Start Date End Date Phyllis Stanley MD PCP - General Internal Medicine 12/10/15 01/22/20 Gurvinder Man MD [address] [place] [address] PCP - General Internal Medicine 01/23/20 09/01/20 Community, Pcp [address] [place] [address] PCP - General Internal Medicine 09/02/20 documented as of this encounter
--- OUTSIDE RECORDS SUMMARY | 2025-05-15 11:13 | XMS_ITS | Encounter Summary ---
Author Organization [facility] Prior to 03/17/2024 Address [address] [place] [address] Care Team Providers Care Screen Stretcher Name Role Phone Phyllis Stanley MD Primary Care Provider Gurvinder Post MD Primary Care Provider [phone] [facility], Pcp Primary Care Provider Unavailabl e Encounter Details Date Type Department Care Team Description 08/16/2017 Orders Only Adult Medicine [address] [address] Phyllis Stanley MD Pneumonia of left lower lobe due to infectious organism (HCC) 08/05/17 [facility] with A fib RVR (Primary Dx) Social [...] lobe due to infectious organism (HCC) 08/05/17 @[facility] with A fib RVR- Primary documented in this encounter Care Teams Screen Stretcher Relationship Specialty Start Date End Date Phyllis Stanley MD PCP - General Internal Medicine 12/10/15 01/22/20 Gurvinder Man MD [address] [place] [address] PCP - General Internal Medicine 01/23/20 09/01/20 [facility], Pcp [address] [place] [address] PCP - General Internal Medicine 09/02/20 documented as of this encounter
--- OUTSIDE RECORDS SUMMARY | 2025-05-15 11:13 | XMS_ITS | Continuity of Care Document ---
Author Organization [facility] Address [address] [place] [address] Care Team Providers Care Label Printing Machinist Name Role Phone HIM [facility] Primary Care Provider Assessment Encounter Date Assessment [...] Assessment and Plan as documented by the Engine Lathe Set Up Operator Tool. We discussed the diagnostic uncertainty of home [...] Lab BMP, serum or plasma 2024 025 [facility], [address] [place] [address], [phone] 18:25:11 Referral None recorded. Procedures None recorded. Surgeries None recorded. Imaging electrocard iogram 2024 025 [facility], [address] [place] [address], [phone] 18:19:38 Medication Orders None recorded. Patient TargetsNo targets recorded. Patient InstructionsNo instructions recorded. Reason for Referral None Reported. Results Created Date Observation Date Name Description Value Unit Range Abnormal Flag Note LastModifiedBy Organization Detail LastModifiedTime 02/25/2002/24/2025 elect pasha gerardgr am No observ ation record ed. [email or web address], [phone] 02/24/2025 18:24:50 Result Notes None recorded. Medical Equipment None Reported. Allergies Allergen ID Allergen Name Allergen Category Reaction Reaction Severity Criticality Documentation Date Start Date Code Code System Note Provider Name and Address Organization Details Recorded Time 8346 Product containin g penicilli n (product) medicatio n Not available Not available Not available 03/14/2024 06214 8001 SNOMED Not Available [facility] - production [...] Recorded Respiratory rate Heart rate Oxygen saturation Heart rate Body temperature Oxygen saturation Systolic And Diastolic Systolic And Diastolic Provider Name and Address Organization Details Last Updated DateTime 16 /min 61 /min 98 % 60 /min 97.5 [degF] 98 % 119/73 mm[Hg] 122/75 mm[Hg] Not Available [facility] - production 14:01:19 Social History None recorded. Functional Status None recorded. Mental Status None recorded. Family History Nothing Reported. Medical History No medical history recorded. Past Encounters Encounter ID Performer Location Encounter Start Date Encounter Closed Date Diagnosis/Indication Diagnosis SNOMED-CT Code Diagnosis ICD10 Code Diagnosis IMO Codes Diagnosis Note [id number] NIK WHITE MD Main-inst ED Medical [facility] [address] [place] [address] 02/24/2025 14:01:16 02/27/2025 10:34:51 Dizziness [id number] [id number] Health Concerns Section Related Observation LastModified by Organization Detai ls LastModified Time None Recorded Concern Status LastModified by Organization Details LastModified Time None Recorded Payers Encounter Date Sequence Insurance Name Policy Number Policy Saez Covered Member ID Saez Member ID Guarantor Name 02/24/2025 1 [facility] - DOS ON OR AFTER 2022 - DUAL ELIGIBLE - [employer] OPTIONS AND ONE CARE (MEDICARE REPLACEMENT/ADV ANTAGE - HMO) Richie Ross [id number] Richie Ross Notes Date Note Type Note Provider Name and Address Organization Details Recorded Time 02/24/2025 text/html ROS as noted in the HPI HPI: mbr with complaints of dizziness, denies any blurry/vision/lighthe adedness/weakness/CP/ SOB. hx of inner ear issues in the past. requesting [facility] visit for evaluation.Protocol Used: Dizziness - VertigoProtocol-Based Disposition: Consider [facility], [facility] Community Clinician, or PCP visit within 24 hoursPositive Triage Question:* [1] MODERATE dizziness (e.g., vertigo; feels very unsteady, interferes with normal activities) AND [2] has NOT been evaluated by doctor (or PHYSICAL THERAPY ASSISTANT/PA) for thisNegative Triage Questions:* [1] Weakness (i.e., [...] Complaints: Dizziness PMH: Hypertension PMH Reviewed at 02/24/2025 12:37 Allergies Reviewed at 02/24/2025 12:37 Comments: HPI reviewed iSTAT Chem8+ (14:27:48) Na: 138mEq/LK: 4.0mEq/LCl: 102mEq/LiCa: 1.13mmol/LTCO2: 29mmol/LGlu: 91mg/dLBUN: 20mg/dLCrea: 1.3mg/dLHct: 39%Hb: 13.3g/dLAmmol/LCartridge Number: --- Attachments uploaded as part of this test result can be found under Documents section. ..................... ..................... ..................... ..................... ..................... ..................... ............... Engine Lathe Set Up Operator Tool Note From Mike Beck: SC12 dispatched to [...] compliant. Patient vital signs obtained with orthostatics. [facility] consulted, provided orders for EKG and BMP. 12 Lead EKG performed and uploaded to [email or web address] for remote interpretation, computer interpretation indicated sinus bradycardia with incomplete right bundle branch block. Blood draw completed via 21 gauge butterfly needle in left AC, needle removed and bleeding controlled with gauze. ISTAT BMP performed and uploaded to [facility]. [facility] consulted again, advised all testing unremarkable and advised patient to follow up with PCP and or go to ED if his condition worsens with symptoms such as chest pain, shortness of breath, syncope, trouble speaking or walking, severe headache, visual changes, etc. By end of visit, patient reports his dizziness improved. SC12 Clear. [facility] Lab Orders: BMP, serum or plasma: Performed electrocardiogram: Performed ..................... ..................... ..................... ..................... ..................... ..................... ............... [facility] Consulted: Nik White ..................... ..................... ..................... ..................... ..................... ..................... ............... Disposition: Leena WHITE MD [address] [facility],[address], [place], [address], MOY - [employer], GREGORIA 02/24/2025 18:17:26
--- OUTSIDE RECORDS SUMMARY | 2025-05-15 11:13 | XMS_ITS | Encounter Summary ---
Author Organization [facility] Prior to 03/17/2024 Address [address] [place] [address] Care Team Providers Care Research And Evaluation Manager Name Role Phone Phyllis Stanley MD Primary Care Provider Gurvinder Post MD Primary Care Provider [phone] [facility], Pcp Primary Care [facility] Encounter Details Date Type Department Care Team Description 07/13/2019 Hospital Medical Records [address] [place] [address] Chaitanya Marie MD Social History Tobacco Use [...] filedocumented in this encounter Care Teams Research And Evaluation Manager Relationship Specialty Start Date End Date Phyllis Stanley MD PCP - General Internal Medicine 12/10/15 01/22/20 Gurvinder Man MD [address] [place] [address] PCP - General Internal Medicine 01/23/20 09/01/20 Community, Pcp [address] [place] [address] PCP - General Internal Medicine 09/02/20 documented as of this encounter
--- OUTSIDE RECORDS SUMMARY | 2025-05-15 11:13 | XMS_ITS | Encounter Summary ---
Author Organization [facility] Prior to 03/17/2024 Address [address] [place] [address] Care Team Providers Care Curber Name Role Phone Phyllis Stanley MD Primary Care Provider Gurvinder Post MD Primary Care Provider [facility], Pcp Primary Care Provider [facility] Encounter Details Date Type Department Care Team Description 08/05/2017 Hospital Medical Records [address] [place] [address] Nicol Fernandez Social History Tobacco Use Types Packs/Day Years [...] on filedocumented in this encounter Care Teams Curber Relationship Specialty Start Date End Date Phyllis Stanley MD PCP - General Internal Medicine 12/10/15 01/22/20 Gurvinder Man MD [address] [place] [address] PCP - General Internal Medicine 01/23/20 09/01/20 Community, Pcp [address] [place] [address] PCP - General Internal Medicine 09/02/20 documented as of this encounter
--- OUTSIDE RECORDS SUMMARY | 2025-05-15 11:13 | XMS_ITS | Encounter Summary ---
Author Organization [facility] Prior to 03/17/2024 Address [address] [place] [address] Care Team Providers Care Curator Name Role Phone Bryan Smith MD Primary Care Provider Unavail able Phyllis Stanley MD Primary Care Provider Unav ailable Gurvinder Man MD Primary Care Provider [phone] [facility], Pcp Primary Care Provider Unavailabl e Encounter Details Date Type Department Care Team Description 10/15/2015 Stopper Grinder Report Medical Records [address] [place] [address] Satya Figueroa MD Social History Tobacco Use [...] on filedocumented in this encounter Care Teams Curator Relationship Specialty Start Date End Date Bryan Smith MD PCP - General 06/22/02 12/09/15 Phyllis Stanley MD PCP - General Internal Medicine 12/10/15 01/22/20 Gurvinder Man MD [address] [place] [address] PCP - General Internal Medicine 01/23/20 09/01/20 [facility], [address] [address] PCP - General Internal Medicine 09/02/20 documented as of this encounter
--- OUTSIDE RECORDS SUMMARY | 2025-05-15 11:13 | XMS_ITS | Encounter Summary ---
Author Organization [facility] Prior to 03/17/2024 Address [address] [place] [address] Care Team Providers Care And Drying Supervisor Cooking Casing Name Role Phone Phyllis Stanley MD Primary Care Provider Gurvinder Post MD Primary Care Provider [phone] [facility], Pcp Primary Care Provider Unavailabl e Encounter Details Date Type Department Care Team Description 12/30/2017 Release of Information Medical Records [address] [place] [address] Abstract, Provider Social History Tobacco Use Types [...] on filedocumented in this encounter Care Teams And Drying Supervisor Cooking Casing Relationship Specialty Start Date End Date Phyllis Stanley MD PCP - General Internal Medicine 12/10/15 01/22/20 Gurvinder Man MD [address] [place] [address] PCP - General Internal Medicine 01/23/20 09/01/20 Community, Pcp [address] [place] [address] PCP - General Internal Medicine 09/02/20 documented as of this encounter
--- OUTSIDE RECORDS SUMMARY | 2025-05-15 11:13 | XMS_ITS | Encounter Summary ---
Author Organization [facility] Prior to 03/17/2024 Address [address] [place] [address] Care Team Providers Care Hop Sorter Name Role Phone Phyllis Stanley MD Primary Care Provider Gurvinder Post MD Primary Care Provider [phone] Counts Include [address] [facility], Pcp Primary Care Provider Unavailabl e Encounter Details Date Type Department Care Team Description 04/04/2019 Old Medical Records Medical Records [address] [place] [address] Abstract, Provider Social History Tobacco Use Types [...] on filedocumented in this encounter Care Teams Hop Sorter Relationship Specialty Start Date End Date Phyllis Stanley MD PCP - General Internal Medicine 12/10/15 01/22/20 Gurvinder Man MD [address] [place] [address] PCP - General Internal Medicine 01/23/20 09/01/20 Community, Pcp [address] [place] [address] PCP - General Internal Medicine 09/02/20 documented as of this encounter
--- OUTSIDE RECORDS SUMMARY | 2025-05-15 11:13 | XMS_ITS | Data Portability ---
Author Organization [facility] Address [address] [place] [address] Care Team Providers Care Microfilm Machine Operator Name Role Phone HIM [facility] OTHER [facility] Primary Care Provider Assessment Encounter Date Assessment Date Assessment LastModified by Organization Details LastModified Time 08/20/2021 08/20/2021 Attending attestation: I agree with the above assessment and plan as documented by the control clerk. I provided real-time medical direction for this [...] Assessment and Plan as documented by the Wooden Boat Builder. We discussed the diagnostic uncertainty of home [...] serum or plasma 2024 025 [facility], [address] [place] [address], [phone] 5 18:25:11 Referral None recorded. Procedures None recorded. Surgeries None recorded. Imaging electrocard iogram 2024 025 [facility], [address] [place] [address], [phone] 5 18:19:38 Medication Orders loperamide 2 mg [...] am No observ ation record ed. sm[address]ph[address], [phone] 02/24/2025 18:24:50 Result Notes None recorded. Medical Equipment None Reported. Allergies Allergen ID Allergen Name Allergen Category Reaction Reaction Severity Criticality Documentation Date Start Date Code Code System Note Provider Name and Address Organization Details Recorded Time 8346 Product containin g penicilli n (product) medicatio n Not available Not available Not available 03/14/2024 11354 8001 SNOMED Not Available [employer] - production [...] mm[Hg] 122/84 mm[Hg] 122/84 mm[Hg] Not Available [employer] - production 3 16:00:17 Date Recorded Body temperature Respiratory rate Oxygen saturation Heart rate Systolic And Diastolic Provider Name and Address Organization Details Last Updated DateTime 2 98.4 [degF] 20 /min 99 % 80 /min 165/110 mm[Hg] Cookie Stuart MD [address] [place] [address],[address], [place], [address] [place] [address] [employer] 2 17:20:20 Date Recorded Respiratory rate Heart rate Oxygen saturation Heart rate Body temperature Oxygen saturation Systolic And Diastolic Systolic And Diastolic Provider Name and Address Organization Details Last Updated DateTime 5 16 /min 61 /min 98 % 60 [...] Codes Diagnosis Note 853 [facility] [address] [place] [address] 08/20/2021 17:10:54 01/21/2022 11:18:06 Chronic low back pain 639086351 M54.50 7697 [facility]veen Pittman [facility] [address] [place] [phone] 06/27/2022 14:19:02 06/29/2022 11:07:57 Mild dehydration [id number] 108 E86.0 Not tolerating fluids in setting of nausea/chary rrhea. Feels better s/p 1L of fluids Diarrhea 57394155 R19.7 Given Loperamide x1 88424 NIK WHITE MD [facility] ED Medical [facility] [address] [place] [address] 02/24/2025 14:01:16 02/27/2025 10:34:51 Dizziness [id number] R42 42684 Health Concerns Section Related Observation LastModified by Organization Detai ls LastModified Time None Recorded Concern Status LastModified by Organization Details LastModified Time None Recorded Advance Directives Directive None Recorded Payers Insurance Date Sequence Insurance Name Policy Number Policy Saez Covered Member ID Saez Member ID Guarantor Name 06/22/2023 1 [facility] - DOS PRIOR TO 2022 - DUAL ELIGIBLE (MEDICARE REPLACEMENT/ADV ANTAGE - HMO) Richie Ross [id number] Richie Ross 02/24/2025 1 [facility] - DOS ON OR AFTER 2022 - DUAL ELIGIBLE - RETIREMENT OPTIONS AND ONE CARE (MEDICARE REPLACEMENT/ADV ANTAGE - HMO) Richie Ross [id number] Richie Ross Notes Date Note Type Note [...] and worse today and would like a control clerk HV today for pain relief. Mbr stated he has MD appt this week but cannot wait to see Provider. Mbr reports he has had this lower back pain since 2017. Mbr denies chest pain, SOB or exposure to anyone recently positive with the C19 virus. Call back number for Mb ris [phone]. Sent in [facility] HV request for today. Cookie Stuart MD [address] [facility],[address], [place], [address], MOY HERNADEZ GREGORIA 08/20/2021 17:24:00 06/27/2022 text/html ROS as noted [...] ..................... ..................... ..................... ..................... ..................... ..................... ............... Wooden Boat Builder Note From Marilee Leggett: Community Wooden Boat Builder Kate Leggett SC6 dispatched to a [facility] for a 61 yom C/O [...] past that required hospitalization due to dehydration. [facility] consulted; #20 IV was placed in his right AC and he was given 1000 mL NS. CMP acquired-results in insted. He was also given 2 mg loperamide PO. After fluid administration, pt stated he felt much better, and had no bouts of diarrhea while receiving fluids. Red flags were discussed. ..................... ..................... ..................... ..................... ..................... ..................... ............... Disposition: Fulfilled Parveen Pittman MD [address] [facility],[address], [place], [address], [employer] 06/27/2022 19:18:18 02/24/2025 text/html ROS as noted in the HPI HPI: mbr with complaints of dizziness, denies any blurry/vision/lighthe adedness/weakness/CP/ SOB. hx of inner ear issues in the past. requesting [facility] visit for evaluation.Protocol Used: Dizziness - VertigoProtocol-Based Disposition: Consider instED, [facility] Community Clinician, or PCP visit within 24 hoursPositive Triage Question:* [1] MODERATE dizziness (e.g., vertigo; feels very unsteady, interferes with normal activities) AND [2] has NOT been evaluated by doctor (or SLP/PA) for thisNegative Triage Questions:* [1] Weakness (i.e., [...] at 02/24/2025 12:37 Allergies Reviewed at 02/24/2025 - 12:37 Comments: HPI reviewed iSTAT Chem8+ (14:27:48) Na: 138mEq/LK: 4.0mEq/LCl: 102mEq/LiCa: 1.13mmol/LTCO2: 29mmol/LGlu: 91mg/dLBUN: 20mg/dLCrea: 1.3mg/dLHct: 39%Hb: 13.3g/dLAmmol/LCartridge Number: --- Attachments uploaded as part of this test result can be found under Documents section. ..................... ..................... ..................... ..................... ..................... ..................... ............... Wooden Boat Builder Note From Mike Beck: SC12 dispatched to [...] compliant. Patient vital signs obtained with orthostatics. [facility] consulted, provided orders for EKG and BMP. 12 Lead EKG performed and uploaded to [employer] for remote interpretation, computer interpretation indicated sinus bradycardia with incomplete right bundle branch block. Blood draw completed via 21 gauge butterfly needle in left AC, needle removed and bleeding controlled with gauze. ISTAT BMP performed and uploaded to [facility]. [facility] consulted again, advised all testing unremarkable and advised patient to follow up with PCP and or go to ED if his condition worsens with symptoms such as chest pain, shortness of breath, syncope, trouble speaking or walking, severe headache, visual changes, etc. By end of visit, patient reports his dizziness improved. SC12 Clear. [facility] Lab Orders: BMP, serum or plasma: Performed electrocardiogram: Performed ..................... ..................... ..................... ..................... ..................... ..................... ............... [facility] Consulted: Nik White ..................... ..................... ..................... ..................... ..................... ..................... ............... Disposition: Fulfilled NIK WHITE MD [address] [facility],[address], [place], [address], [employer] 02/24/2025 18:17:26
--- OUTSIDE RECORDS SUMMARY | 2025-05-15 11:13 | XMS_ITS | Encounter Summary ---
Author Organization [facility] Prior to 03/17/2024 Address [address] [place] [address] Care Team Providers Care Baggage Agent Supervisor Name Role Phone Phyllis Stanley MD Primary Care Provider Gurvinder Post MD Primary Care Provider [facility], Pcp Primary Care [facility] Encounter Details Date Type Department Care Team Description 02/16/2019 Professor Of Biochemistry Report Medical Records [address] [place] [address] Rehab., Marco Social History Tobacco Use Types Packs/Day Years [...] on filedocumented in this encounter Care Teams Baggage Agent Supervisor Relationship Specialty Start Date End Date Phyllis Stanley MD PCP - General Internal Medicine 12/10/15 01/22/20 Gurvnider Man MD [address] [place] [address] PCP - General Internal Medicine 01/23/20 09/01/20 Community, Pcp [address] [place] [address] PCP - General Internal Medicine 09/02/20 documented as of this encounter
--- OUTSIDE RECORDS SUMMARY | 2025-05-15 11:13 | XMS_ITS | Encounter Summary ---
Author Organization [facility] Prior to 03/17/2024 Address [address] [place] [address] Care Team Providers Care Security Guard Name Role Phone Phyllis Stanley MD Primary Care Provider Gurvinder Post MD Primary Care Provider [phone] [facility], Pcp Primary Care Provider Unavailabl e Encounter Details Date Type Department Care Team Description 07/26/2017 Hospital Medical Records [address] [place] [address] Doyle Garcia MD [address] [place] [address] Social History Tobacco Use Types Packs/Day Years [...] on filedocumented in this encounter Care Teams Security Guard Relationship Specialty Start Date End Date Phyllis Stanley MD PCP - General Internal Medicine 12/10/15 01/22/20 Gurvinder Man MD [address] [place] [address] PCP - General Internal Medicine 01/23/20 09/01/20 Community, Pcp [address] [place] [address] PCP - General Internal Medicine 09/02/20 documented as of this encounter
--- OUTSIDE RECORDS SUMMARY | 2025-05-15 11:13 | XMS_ITS | Encounter Summary ---
Author Organization [facility] Prior to 03/17/2024 Address [address] [place] [address] Care Team Providers Care Cabin Agent Name Role Phone Phyllis Stanley MD Primary Care Provider Gurvinder Post MD Primary Care Provider [phone] [facility], Pcp [facility] Encounter Details Date Type Department Care Team Description 03/03/2016 Controlled Substance Plan Medical Records [address] [place] [address] Abstract, Provider Social History Tobacco Use Types [...] on filedocumented in this encounter Care Teams Cabin Agent Relationship Specialty Start Date End Date Phyllis Stanley MD PCP - General Internal Medicine 12/10/15 01/22/20 Gurvinder Man MD [address] [place] [address] PCP - General Internal Medicine 01/23/20 09/01/20 Community, Pcp [address] [place] [address] PCP - General Internal Medicine 09/02/20 documented as of this encounter
--- OUTSIDE RECORDS SUMMARY | 2025-05-15 11:13 | XMS_ITS | Encounter Summary ---
Author Organization [facility] Prior to 03/17/2024 Address [address] [place] [address] Care Team Providers Care Mold Making Supervisor Name Role Phone Bryan Smith MD Primary Care Provider Unavail able Phyllis Stanley MD Primary Care Provider Unav ailable Gurvinder Man MD Primary Care Provider [phone] Replaced By [facility], Pcp Primary Care Provider Unavailabl e Encounter Details Date Type Department Care Team Description 08/10/2014 Hospital Medical Records [address] [place] [address] Parveen Beltran MD Social History Tobacco Use [...] on filedocumented in this encounter Care Teams Mold Making Supervisor Relationship Specialty Start Date End Date Bryan Smith MD PCP - General 06/22/02 12/09/15 Phyllis Stanley MD PCP - General Internal Medicine 12/10/15 01/22/20 Gurvinder Man MD [address] [place] [address] PCP - General Internal Medicine 01/23/20 09/01/20 Replaced By [facility], Pcp [address] [place] [address] PCP - General Internal Medicine 09/02/20 documented as of this encounter
--- OUTSIDE RECORDS SUMMARY | 2025-05-15 11:13 | XMS_ITS | Encounter Summary ---
Author Organization [facility] Prior to 03/17/2024 Address [address] [place] [address] Care Team Providers Care Enrollment Services Dean Name Role Phone Phyllis Stanley MD Primary Care Provider Gurvinder Post MD Primary Care Provider [phone] [facility], Pcp Primary Care [facility] Encounter Details Date Type Department Care Team Description 06/28/2019 Hvac Service Tech Report Medical Records [address] [place] [address] Chaitanya Marie MD Social History Tobacco Use [...] on filedocumented in this encounter Care Teams Enrollment Services Dean Relationship Specialty Start Date End Date Phyllis Stanley MD PCP - General Internal Medicine 12/10/15 01/22/20 Gurvinder Man MD [address] [place] [address] PCP - General Internal Medicine 01/23/20 09/01/20 Community, Pcp [address] [place] [address] PCP - General Internal Medicine 09/02/20 documented as of this encounter
--- OUTSIDE RECORDS SUMMARY | 2025-05-15 11:13 | XMS_ITS | Encounter Summary ---
Author Organization [facility] Prior to 03/17/2024 Address [address] [place] [address] Care Team Providers Care Therapy Site Coordinator Name Role Phone Phyllis Stanley MD Primary Care Provider Gurvinder Post MD Primary Care Provider [phone] [facility], Pcp Primary Care Provider Unavailabl e Encounter Details Date Type Department Care Team Description 08/17/2016 [facility] Medical Records [address] [place] [address] Abstract, Provider Social History Tobacco Use Types [...] on filedocumented in this encounter Care Teams Therapy Site Coordinator Relationship Specialty Start Date End Date Phyllis Stanley MD PCP - General Internal Medicine 12/10/15 01/22/20 Gurvinder Mna MD [address] [place] [address] PCP - General Internal Medicine 01/23/20 09/01/20 Community, Pcp [address] [place] [address] PCP - General Internal Medicine 09/02/20 documented as of this encounter
--- OUTSIDE RECORDS SUMMARY | 2025-05-15 11:13 | XMS_ITS | Encounter Summary ---
Author Organization [facility] Prior to 03/17/2024 Address [address] [place] [address] Care Team Providers Care Bowling Alley Mechanic Name Role Phone Phyllis Stanley MD Primary Care Provider Gurvinder Post MD Primary Care Provider [phone] [facility], Pcp Primary Care Provider Unavailabl e Encounter Details Date Type Department Care Team Description 10/29/2017 Orders Only Medical Records [address] [place] [address] Faye Abreu PA-C [address] [place] [address] Social History Tobacco Use Types Packs/Day Years [...] on filedocumented in this encounter Care Teams Bowling Alley Mechanic Relationship Specialty Start Date End Date Phyllis Stanley MD PCP - General Internal Medicine 12/10/15 01/22/20 Gurvinder Man MD [address] [place] [address] PCP - General Internal Medicine 01/23/20 09/01/20 [facility], Pcp [address] [place] [address] PCP - General Internal Medicine 09/02/20 documented as of this encounter
--- OUTSIDE RECORDS SUMMARY | 2025-05-15 11:13 | XMS_ITS | Encounter Summary ---
Author Organization [facility] Prior to 03/17/2024 Address [address] [place] [address] Care Team Providers Care Graduating Machine Operator Name Role Phone Phyllis Stanley MD Primary Care Provider Gurvinder Post MD Primary Care Provider [phone] [facility], Pcp Primary Care Provider Unavailabl e Encounter Details Date Type Department Care Team Description 09/09/2017 [facility] Medical Records [address] [place] [address] Abstract, Provider Social History Tobacco Use Types [...] on filedocumented in this encounter Care Teams Graduating Machine Operator Relationship Specialty Start Date End Date Phyllis Stanley MD PCP - General Internal Medicine 12/10/15 01/22/20 Gurvinder Man MD [address] [place] [address] PCP - General Internal Medicine 01/23/20 09/01/20 Community, Pcp [address] [place] [address] PCP - General Internal Medicine 09/02/20 documented as of this encounter
--- OUTSIDE RECORDS SUMMARY | 2025-05-15 11:13 | XMS_ITS | Encounter Summary ---
Author Organization [facility] Prior to 03/17/2024 Address [address] [place] [address] Care Team Providers Care Sorter Lumber Straightener Name Role Phone Phyllis Stanley MD Primary Care Provider Gurvinder Post MD Primary Care Provider [phone] [facility], Pcp Primary Care Provider [facility] e Encounter Details Date Type Department Care Team Description 07/14/2019 Hospital Medical Records [address] [place], [place] [address] [place] [address] Social History Tobacco Use Types Packs/Day Years [...] on filedocumented in this encounter Care Teams Sorter Lumber Straightener Relationship Specialty Start Date End Date Phyllis Stanley MD PCP - General Internal Medicine 12/10/15 01/22/20 Gurvinder Man MD [address] [place] [address] PCP - General Internal Medicine 01/23/20 09/01/20 Community, Pcp [address] [place] [address] PCP - General Internal Medicine 09/02/20 documented as of this encounter
--- OUTSIDE RECORDS SUMMARY | 2025-05-15 11:13 | XMS_ITS | Patient Health Record ---
Author Organization [facility] Address [address] [place] [address] Care Team Providers Care Loom Fixer Helper Name Role Phone Whitley BEATTY, Chaitanya Primary [...] Risk Notes Problem Lumbosacral spondylosis without myelopathy ([id number]) Spondylosis without myelopathy or radiculopathy, lumbar region (M47.816) Active confirmed Plan Of Treatment No Information Insurance Providers Payer Name Payer Address Payer Phone Subscriber Number Group Number Insured Name Patient Relationship to Insured Coverage Start Date Coverage End Date [facility] [address] [place] [phone] [id number] USMAN CASTILLO Self - patient is the [...]
== END 2025-05-15 09:02 ==
LOC: HO.HMGCX 09:01
PROVIDERS: PCP Nurse Practitioner Family; Visit Provider Internal Medicine
DX: R10.12 Left upper quadrant pain (principal); D72.819 Decreased white blood cell count, unspecified
CPT/HCPCS: 76700

== ENCOUNTER → 2025-05-15 09:03 | Outpatient (BNV) | payer OTHER, SELFPAY | PROVIDERS: PCP Nurse Practitioner Family; Visit Provider Specialist | DX: D72.819 Decreased white blood cell count, unspecified (principal); K76.0 Fatty (change of) liver, not elsewhere classified | CPT/HCPCS: 76700 ==